=== PATIENT | male | born 1945 | race Caucasian/White ===

== ENCOUNTER 2022-07-29 15:24 | Emergency (ER) | payer MEDICARE, SELFPAY ==
[2022-07-29] VITALS (23 sets, daily range): BP systolic 97–156; BP diastolic 54–97; PULSE 71–98; RESP 13–35; O2SAT 86–96; BMI 28.5
--- NOTE | 2022-07-29 15:36 | ED.GENADUL1 ---
Documented by User: Selma Sheffield MD 07/30/22 08:23 HPI - General Adult General Chief complaint: Abdominal Pain Time Seen by Provider: 07/29/22 15:35 History of Present Illness HPI narrative: Patient presents to emergency department complaining of abdominal pain. Patient states his had pain to his abdomen diffusely for the last 3 weeks. It started in his left lower quadrant. States he has a history of pancreatitis and this feels like when he had pancreatitis in the past. Patient states he also had a cholecystectomy in 2013. Pain is sharp and is diffuse. He denies any fever, chills. Denies any flank pain hematuria, dysuria. denies any headache, chest, shortness of breath. Denies any upper respiratory infection symptoms. 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 During that time he was followed by Dr. Karan herbert. He was discharged home on liquids. Patient had an echo and ROEL to rule out arterial thrombus as a source of emboli but nothing was found during that mission. Patient denies any cough.She denies any lower extremity edema, or cramping. He denies any trauma. He has not taken anything at home for pain. Related Data Home Medications Medication Instructions Recorded Confirmed Nitro 07/29/22 allopurinol 100 mg tablet 100 mg PO DAILY 07/29/22 07/29/22 apixaban 5 mg tablet (Eliquis) 5 mg PO Q12H 07/29/22 07/29/22 furosemide 20 mg tablet (Lasix) 10 mg PO DAILY 07/29/22 07/29/22 insulin aspart U-100 100 unit/mL 1 sliding scale dose subcut 07/29/22 07/29/22 (3 mL) subcutaneous pen (Novolog USEASDIRECTD FlexPen U-100 Insulin aspart) insulin degludec 100 unit/mL (3 38 unit subcut DAILY 07/29/22 07/29/22 mL) subcutaneous pen (Tresiba FlexTouch U-100 insulin) levothyroxine 175 mcg capsule 175 mcg PO DAILY 07/29/22 07/29/22 zebgci-lztnqptp-vwqbjyb 1 cap PO QID 07/29/22 07/29/22 40,000-126,000-168,000 unit capsule, delay rel (Zenpep) magnisium oxide 07/29/22 metoprolol tartrate 25 mg tablet 25 mg PO DAILY 07/29/22 07/29/22 pantoprazole 40 mg granules 40 mg PO BID 07/29/22 07/29/22 delayed-release for susp in packet prednisone 10 mg tablet 10 mg PO DAILY 07/29/22 07/29/22 sacubitril 24 mg-valsartan 26 mg 1 tab PO BID 07/29/22 07/29/22 tablet (Entresto) spironolactone 25 mg tablet 25 mg PO DAILY 07/29/22 07/29/22 sucralfate 1 gram tablet (Carafate) 1 g PO TID 07/29/22 07/29/22 tamsulosin 0.4 mg capsule (Flomax) 0.4 mg PO DAILY 07/29/22 07/29/22 Allergies Allergy/AdvReac Type Severity Reaction Status Date / Time minocycline [From Minocin] Allergy Severe Verified 07/29/22 15:44 Review of Systems ROS Status of ROS 10 or more systems reviewed and unremarkable except as noted in history and below Exam Narrative Exam Narrative: Nurses notes and vital signs reviewed and patient is not hypoxic. General: Chronically ill, appears in pain but is not in any distress. Skin: Warm, dry, no pallor noted. No Rash Head: Normocephalic, atraumatic. Neck: Supple, non-tender. Eye: Pupils are equal, round and EOMI. No scleral icterus. Ears, Nose, Mouth, and Throat: TM clear, no posterior oropharynx erythema or nasal mucosal hypertrophy, uvula is mid-line Oral mucosa is moist Cardiovascular: Regular Rate and Rhythm without murmur, gallop or rub. Respiratory: No accessory muscle use or respiratory distress. Lungs Occasional rhonchi, Otherwise clear Chest Wall: no tenderness Back: No midline thoracic or lumbar vertebral tenderness. No CVA tenderness Musculoskeletal: normal ROM, no calf or popliteal tenderness, no lower extremity edema/swelling GI: Obese,Abdomen is soft, non-distended. Normal bowel sounds. Moderate diffuse tenderness to palpation w rebound, no guarding, or rigidity noted. Neurological: A&O x4. No cranial nerve dysfunction observed. No truncal ataxia. Moves all extremities. Sensation intact. Psychiatric: Cooperative and interactive. . Constitutional Vital Signs - 24 hr 07/29/22 16:15 07/29/22 16:45 07/29/22 17:00 Pulse Rate 84 83 81 Respiratory Rate 24 23 22 Blood Pressure 129/64 H 156/74 H 118/77 Pulse Oximetry 95 96 95 07/29/22 17:15 07/29/22 17:15 07/29/22 17:30 Pulse Rate 88 88 94 H Respiratory Rate 23 35 H 24 Blood Pressure 137/68 H 137/68 H 146/80 H Pulse Oximetry 86 L 94 L 93 L 07/29/22 17:45 07/29/22 18:00 07/29/22 18:15 Pulse Rate 88 98 H 82 Respiratory Rate 23 22 33 H Blood Pressure 134/82 H 126/67 H 118/54 L Pulse Oximetry 93 L 95 90 L 07/29/22 18:30 07/29/22 18:45 07/29/22 18:45 Pulse Rate 84 82 82 Respiratory Rate 18 20 15 Blood Pressure 97/66 127/68 H 127/68 H Pulse Oximetry 91 L 92 L 93 L 07/29/22 19:00 07/29/22 19:15 07/29/22 19:15 Pulse Rate 81 84 87 Respiratory Rate 14 27 H 23 Blood Pressure 120/67 H 119/66 119/66 Pulse Oximetry 93 L 94 L 95 07/29/22 19:30 07/29/22 19:45 07/29/22 19:45 Pulse Rate 89 92 H 81 Respiratory Rate 22 22 21 Blood Pressure 139/82 H 143/85 H 143/85 H Pulse Oximetry 96 94 L 95 07/29/22 20:01 07/29/22 20:06 07/29/22 20:06 Pulse Rate 85 75 83 Respiratory Rate 21 20 23 Blood Pressure 142/76 H Pulse Oximetry 94 L 96 07/29/22 20:15 07/29/22 20:30 07/29/22 20:30 Pulse Rate 74 71 77 Respiratory Rate 13 18 20 Blood Pressure 121/71 H 125/63 H 125/63 H Pulse Oximetry 94 L 95 94 L 07/29/22 20:45 07/29/22 21:00 07/29/22 21:15 Pulse Rate 74 80 72 Respiratory Rate 16 25 H 21 Blood Pressure 114/62 120/60 H 133/66 H Pulse Oximetry 94 L 94 L 93 L 07/29/22 21:31 07/29/22 21:31 07/29/22 21:45 Pulse Rate 74 80 Respiratory Rate 29 H 22 Blood Pressure 111/68 111/68 128/97 H Pulse Oximetry 93 L 93 L Course Vital Signs Vital signs: Vital Signs Pulse Rate 84 07/29/22 16:15 Respiratory Rate 24 07/29/22 16:15 Blood Pressure 129/64 H 07/29/22 16:15 Pulse Oximetry 95 07/29/22 16:15 Pulse Rate 80 07/29/22 21:31 Respiratory Rate 22 07/29/22 21:31 Blood Pressure 128/97 H 07/29/22 21:45 Pulse Oximetry 93 L 07/29/22 21:31 Medical Decision Making MDM Narrative Medical decision making narrative: Patient had 2 IVs established. He was given Dilaudid and Zofran for pain. He was given Protonix 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 A radiologist called to discuss with me that the patient also has perforated duodenal or gastric ulcer with an abscess. There is no air under the diaphragm. The patient was started on Zosyn after my discussion with the radiologist. Patient was discussed with Dr. Sidhu surgeon lunch wagon operator at [facility] who has accepted the patient in transfer. We discussed giving the patient case trauma and Dr. field the ICU pharmacist in charge owner called and the patient was also discussed with him. They're awaiting a bed to transfer the patient to the ground. If there is point to be ambulating with ground transportation the patient will call via flight. Patient will be signed out to Dr. Traore awaiting transfer to [facility]. All of the transfer forms were filled and completed. Medical Records Medical records reviewed: Yes I reviewed the patient's medical records Lab Data Lab results reviewed: Yes I reviewed the patient's lab results Labs: Lab Results 07/29/22 07/29/22 Range/Units 15:05 19:46 WBC 13.9 H (4.0-11.0) 10^3/uL RBC 4.96 (4.70-6.10) 10^6/uL Hgb 13.9 L (14.0-18.0) g/dL Hct 44.3 (42.0-54.0) % MCV 89.3 (80.0-94.0) fL MCH 28.0 (25.9-34.0) pg MCHC 31.4 (29.9-35.2) g/dL RDW 15.6 H (11.0-15.0) % Plt Count 401 (150-450) 10^3/uL MPV 10.7 (9.5-13.5) fL Neut % (Auto) 81.5 H (43.0-75.0) % Lymph % (Auto) 7.2 L (20.5-60.0) % [place] % (Auto) 8.6 (1.7-12.0) % Eos % (Auto) 1.2 (0.9-7.0) % Baso % (Auto) 0.6 (0.2-2.0) % Neut # (Auto) 11.3 H (1.4-6.5) 10^3/uL Lymph # (Auto) 1.0 L (1.2-3.8) 10^3/uL [place] # (Auto) 1.2 H (0.3-0.8) 10^3/uL Eos # (Auto) 0.2 (0.0-0.7) 10^3/uL Baso # (Auto) 0.1 (0.0-0.1) 10^3/uL Abs Immat Gran (auto) 0.12 H (0.00-0.03) 10^3/uL Imm/Tot Granulo (auto) 0.9 H (0.0-0.5) % Sodium 136 (136-145) mmol/L Potassium 3.8 (3.5-5.1) mmol/L Chloride 99 (98-107) mmol/L Carbon Dioxide 28.4 (21.0-32.0) mmol/L Anion Gap 12.4 BUN 19.0 H (7.0-18.0) mg/dL Creatinine 1.18 (0.70-1.30) mg/dL Est GFR ( Amer) >60 (>=60) Est GFR (Non-Af Amer) 60 (>=60) BUN/Creatinine Ratio 16.1 Glucose 157 H (74-106) mg/dL Lactate 1.9 (0.4-2.0) mmol/L Calcium 9.0 (8.5-10.1) mg/dL Total Bilirubin 0.4 (0.2-1.0) mg/dL AST 17 (15-37) U/L ALT 28 (16-63) U/L Alkaline Phosphatase 77 (46-116) U/L Troponin I High Sens 9.3 (4.0-76.1) pg/mL Total Protein 7.3 (6.4-8.2) g/dL Albumin 3.1 L (3.4-5.0) g/dL Globulin 4.2 g/dL Albumin/Globulin Ratio 0.7 Lipase 438.0 H (73.0-393.0) U/L POC Glucose 169 H (74-106) mg/dL ECG Data Attestation: I personally reviewed and interpreted this ECG as follows: Critical Care Time Critical Care Time Attestation: Critical Care Time: 60 minutes, critical care time is separate from any procedures that are performed. The following was considered in the determination of critical care but not limited to the level medical decision-making, intensive cardiac and/or respiratory monitor, frequent vital sign monitoring, evaluation of laboratory studies, evaluation of a radiographic studies, oxygen monitoring and constant monitoring. Discharge Plan Discharge Chief Complaint: Abdominal Pain Clinical Impression: Aneurysm, splenic artery, Intra-abdominal abscess, Infarction of spleen, Perforated duodenal ulcer Patient Disposition: [facility] Time of Disposition Decision: 18:24 Discharge location: [facility] Condition: Good Mode of Transportation: Life Flight Discharge Date/Time: 07/29/22 22:05 Documented by User: Gideon Traore MD 07/30/22 06:45 HPI - General Adult General Chief complaint: Abdominal Pain Time Seen by Provider: 07/29/22 15:35 Related Data Home Medications Medication Instructions Recorded Confirmed Nitro 07/29/22 allopurinol 100 mg tablet 100 mg PO DAILY 07/29/22 07/29/22 apixaban 5 mg tablet (Eliquis) 5 mg PO Q12H 07/29/22 07/29/22 furosemide 20 mg tablet (Lasix) 10 mg PO DAILY 07/29/22 07/29/22 insulin aspart U-100 100 unit/mL 1 sliding scale dose subcut 07/29/22 07/29/22 (3 mL) subcutaneous pen (Novolog USEASDIRECTD FlexPen U-100 Insulin aspart) insulin degludec 100 unit/mL (3 38 unit subcut DAILY 07/29/22 07/29/22 mL) subcutaneous pen (Tresiba FlexTouch U-100 insulin) levothyroxine 175 mcg capsule 175 mcg PO DAILY 07/29/22 07/29/22 kgawfe-ynfemvio-ndwsese 1 cap PO QID 07/29/22 07/29/22 40,000-126,000-168,000 unit capsule, delay rel (Zenpep) magnisium oxide 07/29/22 metoprolol tartrate 25 mg tablet 25 mg PO DAILY 07/29/22 07/29/22 pantoprazole 40 mg granules 40 mg PO BID 07/29/22 07/29/22 delayed-release for susp in packet prednisone 10 mg tablet 10 mg PO DAILY 07/29/22 07/29/22 sacubitril 24 mg-valsartan 26 mg 1 tab PO BID 07/29/22 07/29/22 tablet (Entresto) spironolactone 25 mg tablet 25 mg PO DAILY 07/29/22 07/29/22 sucralfate 1 gram tablet (Carafate) 1 g PO TID 07/29/22 07/29/22 tamsulosin 0.4 mg capsule (Flomax) 0.4 mg PO DAILY 07/29/22 07/29/22 Allergies Allergy/AdvReac Type Severity Reaction Status Date / Time minocycline [From Minocin] Allergy Severe Verified 07/29/22 15:44 Exam Constitutional Vital Signs - 24 hr 07/29/22 16:15 07/29/22 16:45 07/29/22 17:00 Pulse Rate 84 83 81 Respiratory Rate 24 23 22 Blood Pressure 129/64 H 156/74 H 118/77 Pulse Oximetry 95 96 95 07/29/22 17:15 07/29/22 17:15 07/29/22 17:30 Pulse Rate 88 88 94 H Respiratory Rate 23 35 H 24 Blood Pressure 137/68 H 137/68 H 146/80 H Pulse Oximetry 86 L 94 L 93 L 07/29/22 17:45 07/29/22 18:00 07/29/22 18:15 Pulse Rate 88 98 H 82 Respiratory Rate 23 22 33 H Blood Pressure 134/82 H 126/67 H 118/54 L Pulse Oximetry 93 L 95 90 L 07/29/22 18:30 07/29/22 18:45 07/29/22 18:45 Pulse Rate 84 82 82 Respiratory Rate 18 20 15 Blood Pressure 97/66 127/68 H 127/68 H Pulse Oximetry 91 L 92 L 93 L 07/29/22 19:00 07/29/22 19:15 07/29/22 19:15 Pulse Rate 81 84 87 Respiratory Rate 14 27 H 23 Blood Pressure 120/67 H 119/66 119/66 Pulse Oximetry 93 L 94 L 95 07/29/22 19:30 07/29/22 19:45 07/29/22 19:45 Pulse Rate 89 92 H 81 Respiratory Rate 22 22 21 Blood Pressure 139/82 H 143/85 H 143/85 H Pulse Oximetry 96 94 L 95 07/29/22 20:01 07/29/22 20:06 07/29/22 20:06 Pulse Rate 85 75 83 Respiratory Rate 21 20 23 Blood Pressure 142/76 H Pulse Oximetry 94 L 96 07/29/22 20:15 07/29/22 20:30 07/29/22 20:30 Pulse Rate 74 71 77 Respiratory Rate 13 18 20 Blood Pressure 121/71 H 125/63 H 125/63 H Pulse Oximetry 94 L 95 94 L 07/29/22 20:45 07/29/22 21:00 07/29/22 21:15 Pulse Rate 74 80 72 Respiratory Rate 16 25 H 21 Blood Pressure 114/62 120/60 H 133/66 H Pulse Oximetry 94 L 94 L 93 L 07/29/22 21:31 07/29/22 21:31 07/29/22 21:45 Pulse Rate 74 80 Respiratory Rate 29 H 22 Blood Pressure 111/68 111/68 128/97 H Pulse Oximetry 93 L 93 L Course Vital Signs Vital signs: Vital Signs Pulse Rate 84 07/29/22 16:15 Respiratory Rate 24 07/29/22 16:15 Blood Pressure 129/64 H 07/29/22 16:15 Pulse Oximetry 95 07/29/22 16:15 Pulse Rate 80 07/29/22 21:31 Respiratory Rate 22 07/29/22 21:31 Blood Pressure 128/97 H 07/29/22 21:45 Pulse Oximetry 93 L 07/29/22 21:31 Medical Decision Making Medical Records Medical records narrative: patient accepted at [facility]. Ground transfer. patient remained stable. Did require additional dosage of Dilaudid prior to discharge. Discharge diagnosis as per Dr Sheffield Lab Data Labs: Lab Results 07/29/22 07/29/22 Range/Units 15:05 19:46 WBC 13.9 H (4.0-11.0) 10^3/uL RBC 4.96 (4.70-6.10) 10^6/uL Hgb 13.9 L (14.0-18.0) g/dL Hct 44.3 (42.0-54.0) % MCV 89.3 (80.0-94.0) fL MCH 28.0 (25.9-34.0) pg MCHC 31.4 (29.9-35.2) g/dL RDW 15.6 H (11.0-15.0) % Plt Count 401 (150-450) 10^3/uL MPV 10.7 (9.5-13.5) fL Neut % (Auto) 81.5 H (43.0-75.0) % Lymph % (Auto) 7.2 L (20.5-60.0) % Columbia % (Auto) 8.6 (1.7-12.0) % Eos % (Auto) 1.2 (0.9-7.0) % Baso % (Auto) 0.6 (0.2-2.0) % Neut # (Auto) 11.3 H (1.4-6.5) 10^3/uL Lymph # (Auto) 1.0 L (1.2-3.8) 10^3/uL Columbia # (Auto) 1.2 H (0.3-0.8) 10^3/uL Eos # (Auto) 0.2 (0.0-0.7) 10^3/uL Baso # (Auto) 0.1 (0.0-0.1) 10^3/uL Abs Immat Gran (auto) 0.12 H (0.00-0.03) 10^3/uL Imm/Tot Granulo (auto) 0.9 H (0.0-0.5) % Sodium 136 (136-145) mmol/L Potassium 3.8 (3.5-5.1) mmol/L Chloride 99 (98-107) mmol/L Carbon Dioxide 28.4 (21.0-32.0) mmol/L Anion Gap 12.4 BUN 19.0 H (7.0-18.0) mg/dL Creatinine 1.18 (0.70-1.30) mg/dL Est GFR ( Amer) >60 (>=60) Est GFR (Non-Af Amer) 60 (>=60) BUN/Creatinine Ratio 16.1 Glucose 157 H (74-106) mg/dL Lactate 1.9 (0.4-2.0) mmol/L Calcium 9.0 (8.5-10.1) mg/dL Total Bilirubin 0.4 (0.2-1.0) mg/dL AST 17 (15-37) U/L ALT 28 (16-63) U/L Alkaline Phosphatase 77 (46-116) U/L Troponin I High Sens 9.3 (4.0-76.1) pg/mL Total Protein 7.3 (6.4-8.2) g/dL Albumin 3.1 L (3.4-5.0) g/dL Globulin 4.2 g/dL Albumin/Globulin Ratio 0.7 Lipase 438.0 H (73.0-393.0) U/L POC Glucose 169 H (74-106) mg/dL Discharge Plan Discharge Chief Complaint: Abdominal Pain Clinical Impression: Aneurysm, splenic artery, Intra-abdominal abscess, Infarction of spleen, Perforated duodenal ulcer Patient Disposition: [facility] Time of Disposition Decision: 18:24 Discharge location: [facility] Condition: Good Mode of Transportation: Life Flight Discharge Date/Time: 07/29/22 22:05
--- NOTE | 2022-07-29 15:40 | CT_ITS ---
[address] [address] Patient Name: CHARLIE FOOTE MRN: [id number] date: 1945 Sex: M Assigned Patient Location: ED.MAIN Current Patient Location: Accession/Order Number: [id number] Exam Date: 07/29/2022 16:30 Report Date: 07/29/2022 17:21 At the request of: ETHAN SHEFFIELD Procedure: CT abdomen pelvis w con CT abdomen pelvis w con, 07/29/2022 4:30 PM EDT INDICATION: abd pain COMPARISON: None. TECHNIQUE: Axial images of the abdomen and pelvis were obtained after the administration of IV contrast. Multiplanar reformatted images were generated and reviewed as needed. Dose reduction techniques were achieved by using automated exposure control and/or adjustment of mA and/or kV according to patient size and/or use of iterative reconstruction technique. FINDINGS: Subsegmental atelectasis at the lung base bilaterally with right basilar atelectasis and trace right pleural effusion. Cholecystectomy. Fatty replacement of the pancreas. 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 Moderate size subcapsular splenic hematoma. Symmetric nephrograms without evidence of obstruction. Simple right renal cortical cyst. No urolithiasis. Mild thickening at the dome of a collapsed urinary bladder. No perivesicular fat stranding. 3.5 cm infrarenal abdominal aortic aneurysm. No dissection. Bowel wall thickening, submucosal edema with adjacent fat stranding and fluid gastric antrum and duodenal bulb. Small foci of extraluminal air with 3.6 x 1.1 cm rim-enhancing collection adjacent to the gastric antrum and duodenal bulb. Mild hyperenhancement of the wall of a normal caliber common bile duct. No bowel obstruction. Normal appendix. Colonic diverticulosis. No free fluid in the pelvis. No mesenteric or retroperitoneal lymphadenopathy. Small fat-containing umbilical hernia. No acute fracture or dislocation. Spondylosis. IMPRESSION: 1. 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 2. Extensive inflammatory change with perforated ulcer from the gastric antrum or duodenal bulb with adjacent abscess. 3. Right basilar atelectasis with trace right pleural effusion. 4. 3.5 cm infrarenal abdominal aortic aneurysm. No dissection. 5. Diverticulosis coli. Critical results were NOTIFIED by TELEPHONE BY Dr. Ryan Mo MD to Dr. Sheffield At 07/29/2022 5:21 PM EDT. Electronically authenticated by: RYAN MO Date: 07/29/2022 17:21
--- NOTE | 2022-07-29 15:42 | PC.NURSE ---
pt arrived during downtime and paper chart started for triage and assessment
[2022-07-29 15:57] LABS: Basophils Absolute Auto 0.1 10^3/uL (0.0-0.1); Basophils Percent Auto 0.6 % (0.2-2.0); Eosinophils Absolute Auto 0.2 10^3/uL (0.0-0.7); Eosinophils Percent Auto 1.2 % (0.9-7.0); Hematocrit 44.3 % (42.0-54.0); Hemoglobin 13.9 g/dL (14.0-18.0); Immature Granulocytes Abs Auto 0.12 10^3/uL (0.00-0.03); Immature Granulocytes Pct Auto 0.9 % (0.0-0.5); Lymphocytes Percent Auto 7.2 % (20.5-60.0); Mean Corpuscular HGB Conc 31.4 g/dL (29.9-35.2); Mean Corpuscular Volume 89.3 fL (80.0-94.0); Mean Platelet Volume 10.7 fL (9.5-13.5); Monocytes Absolute Auto 1.2 10^3/uL (0.3-0.8); Monocytes Percent Auto 8.6 % (1.7-12.0); Neutrophils Absolute Auto 11.3 10^3/uL (1.4-6.5); Neutrophils Percent Auto 81.5 % (43.0-75.0); Platelet Count 401 10^3/uL (150-450); Red Blood Count 4.96 10^6/uL (4.70-6.10); Red Cell Distribution Width 15.6 % (11.0-15.0); White Blood Count 13.9 10^3/uL (4.0-11.0)
[2022-07-29] MEDS: HYDROMORPHONE HCL 2 MG/ML VIAL 1 MG IV ×2 (16:09→18:19)
[2022-07-29 16:15] LABS: Lactate/Lactic Acid 1.9 mmol/L (0.4-2.0)
[2022-07-29 16:16] LABS: Anion Gap 12.4; BUN Creatinine Ratio 16.1; Carbon Dioxide 28.4 mmol/L (21.0-32.0); Chloride 99 mmol/L (98-107); Estimated GFR (African America >60 (>=60); Estimated GFR (Non-African Ame 60 (>=60); Glucose 157 mg/dL (74-106); Potassium 3.8 mmol/L (3.5-5.1); Sodium 136 mmol/L (136-145)
[2022-07-29 16:17] LABS: Alanine Aminotransferase 28 U/L (16-63); Albumin Globulin Ratio 0.7; Albumin Level 3.1 g/dL (3.4-5.0); Alkaline Phosphatase 77 U/L (46-116); Aspartate Amino Transferase 17 U/L (15-37); Bilirubin Total 0.4 mg/dL (0.2-1.0); Globulin 4.2 g/dL; Total Protein 7.3 g/dL (6.4-8.2)
[2022-07-29 16:18] LABS: Troponin I High Sensitivity 9.3 pg/mL (4.0-76.1)
[2022-07-29] MEDS: PANTOPRAZOLE SODIUM 40 MG VIAL IV (17:58)
[2022-07-29] MEDS: PIPERACILLIN SODIUM/TAZOBACTAM 4.5 GM in 0.9 % SODIUM CHLORIDE 50 ML IV (17:59)
[2022-07-29] MEDS: ONDANSETRON PF 4 MG/2 ML VIAL IV ×2 (18:19→21:45)
[2022-07-29 19:47] LABS: Glucometer 169 mg/dL (74-106)
[2022-07-29] MEDS: HYDROMORPHONE HCL 1 MG/ML CARTRIDGE (21:45)
== END 2022-07-29 22:05 | disposition short-term general hospital (02) ==
PROVIDERS: Emergency Medicine; Emergency Provider Internal Medicine; PCP Family Medicine
DX: I72.8 Aneurysm of other specified arteries (principal); D73.5 Infarction of spleen; K65.1 Peritoneal abscess; K26.5 Chronic or unspecified duodenal ulcer with perforation; E11.9 Type 2 diabetes mellitus without complications; M35.3 Polymyalgia rheumatica; I10 Essential (primary) hypertension; I25.10 Atherosclerotic heart disease of native coronary artery without angina pectoris; Z79.899 Other long term (current) drug therapy; Z79.890 Hormone replacement therapy; Z79.4 Long term (current) use of insulin
CPT/HCPCS: 36415; 36416; 74177; 80053; 83605; 83690; 84484; 85025; 96365; 96367; 96375; 96376; 99285; J1170; J7168; Q9967

== ENCOUNTER 2024-10-31 09:18 | Outpatient (OUT) | payer MEDICARE, SELFPAY ==
--- OUTSIDE RECORDS SUMMARY | 2020-05-15 11:15 | XMS_ITS | Continuity of Care Document ---
Author Organization [facility] Address [address] [place] [address] Phone Care Team Providers Care Edge Beader Name Role Phone Chau Govea Unavailable Unavailable Procedures Procedure Date Moderna COVID Vaccine Admin Dose 2 Moderna COVID-19 Vaccine Moderna COVID Vaccine Admin Dose 1 Moderna COVID-19 Vaccine Advance Directives Directive Yes / No Effective Date File Name No Information Encounters Encounter Description Practice Location Reason(s) For Visit Diagnoses Date Provider Providers Copied on Encounter [facility], [address] [place] [address], [id number], tel:[phone] COVID [facility] No Information Keshia Arrieta. [address], [place], [id number], [place]. tel:[phone] [facility], [address] [place] [address], [id number], tel:[phone] COVID [facility] No Information Keshia Arrieta. [address], [place], [id number], [place]. tel:[phone] Family History Family Member Type Diagnosis Age At Onset No Information Immunizations Vaccine Date Status Comments Moderna COVID administered Source: New Im munization Record Moderna COVID administered Source: New Im munization Record Payers Payer name Insurance type Covered libertarian ID Authoriza tion(s) Medicare PPS MB [id number] Medicare PPS MB [id number] Medicare PPS MB [id number] Aetna Supplement Medicare CI [id number] Social History Type Description Quantity Date Captured Comments Alcohol Use Details Unknown Caffeine Use Details Unknown Tobacco Use Status No Information Smoking Status No Information Sex Male Sexual Orientation Straight or heterosexual Gender Identity Male Chief Complaint And Reason For Visit No Information Reason For Referral Reason For Referral No Information History Of Present Illness Encounter Date Complaint History Of Prese nt Illness No Information Functional Status Date Functional Assessmen t No Information Instructions Date Instruction Additional Infor mation No Information Assessments Type Assessment Date No Information Patient Care Teams Name Effective Dates (start - stop) Status Members No Information
--- OUTSIDE RECORDS SUMMARY | 2024-10-19 13:55 | XMS_ITS | Encounter Summary ---
Author Organization [facility] [facility] [employer] Address [id number] [place] [address] Care Team Providers Care Microbiology Professor Name Role Phone KamsophieTrey DO Primary Care Provider [phone] Reason for Visit * Reason Comments Leg Pain Bilateral leg and bu ttock pain Encounter Details Date Type Department Care Team (Late st Contact Info) Description 10/19/2024 1:55 PM EDT Office Visit [facility] [place] [address] [facility] [address] [place] [address] Left without seen Social History Tobacco Use Types Packs/Day Years Used Date Smoking Tobacco: Former Smokeless Tobacco: Never Tobacco Cessation:Counseling Given: Not Answered Comments:Quit 1998 Alcohol Use Standard Drinks/Week Comments No 0 (1 standard drink = 0.6 oz pur e alcohol) Childcare Answer Date Recorded Childcare Unknown 08/04/2018 Employment Answer Date Recorded Employment Unknown 08/04/2018 Hunger Screening Answer Date Recorded Within the past 12 months we worried whether our food would run out before we got money to buy more. Never True 10/19/2024 Within the past 12 months th e food we bought just didn't last and we didn't have money to get more. Never True 10/19/2024 Purpose - Life Answer Date Recorded Purpose and direction in life Unknown Sex and Gender Information Value Date Recorded Sex Assigned at Not on file Legal Sex Male 8:16 AM EDT Gender Identity Not on file Sexual Orientation Not on file documented as of this encounter Last Filed Vital Signs Vital Sign Reading Time Taken Comments Blood Pressure 150/71 10/19/2024 2:00 PM EDT Pulse 92 10/19/2024 2:00 PM EDT Temperature 36.2 C (97.1 F) 10/19/2024 2:00 PM EDT Respiratory Rate 15 10/19/2024 2:00 PM EDT Oxygen Saturation 98% 10/19/2024 2:00 PM EDT Inhaled Oxygen Concentration - - Weight 96.2 kg (212 lb) 10/19/2024 2:00 PM EDT Height 188 cm (6' 2 ) 10/19/2024 2:00 PM EDT Body Mass Index 27.22 10/19/2024 2:00 PM EDT documented in this encounter Plan of Treatment Not on file documented as of this encounter Visit Diagnoses Not on filedocumented in this encounter Care Teams Microbiology Professor Relationship Specialty Start Date End Date Trey Berkowitz DO [address] [place] [address] PCP - General 07/28/17 documented as of this encounter
--- OUTSIDE RECORDS SUMMARY | 2024-10-19 14:30 | XMS_ITS | Encounter Summary ---
Author Organization [facility] tem Address [id number] [place] [address] Care Team Providers Care Veneer Jointer Offbearer Name Role Phone Trey Berkowitz DO Primary Care Provider [phone] Reason for Referral * Diagnostic Imaging (Routine) - Authorized Specialty Diagnoses / Procedures Referred By Contkaiser t Referred To Contact Radiology Diagnoses Bilateral sciatica Neurogenic claudication Lumbar spondylosis History of back surgery Procedures MR lumbar spine with and without contrast Juanita Perez APRN-CNP [address] [place] [address] Phone: tel: fax: Referral ID Status Reason Start Date Expiration Date V isits Requested Visits Authorized [id number] Authorized 10/19/2024 10/19/2025 1 1 Reason for Visit * Reason Comments Consult New patient, lumbar, xrays in chart Encounter Details Date Type Department Care Team (Late st Contact Info) Description 10/19/2024 2:30 PM EDT [facility] [address] [place] [address] Juanita Perez APRN-CNP [address] [place] [address] Bilateral sciatica (Primary Dx); Neurogenic claudication; Lumbar spondylosis; History of back surgery; Anxiety about health Social History Tobacco Use Types Packs/Day Years [...] Time Taken Comments Blood Pressure 150/71 10/19/2024 2:29 PM EDT Pulse 92 10/19/2024 2:29 PM EDT Temperature - - Respiratory Rate - - Oxygen Saturation - - Inhaled Oxygen Concentration - - Weight 96.2 kg (212 lb) 10/19/2024 2:29 PM EDT Height 188 cm (6' 2 ) 10/19/2024 2:29 PM EDT Body Mass Index 27.22 10/19/2024 2:29 PM EDT documented in this encounter Patient Instructions * Patient Instructions* Juanita Perez APRN-ACCOUNT SERVICES ANALYST - 10/19/2024 2:30 PM EDT When your neck or back is hurting, it can affect everything you do. Whether you've had a recent minor injury or your pain has slowly developed over time, there are some things you can do at home to help ease the pain. In addition to home remedies, there are many conservative treatments to try before surgery is considered. In fact, some people aren't good candidates for surgery. Non- surgical treatments may help to improve your pain and include: physical therapy, home exercise program, prescription medications and or pain management. Here are some tips for managing spine pain at home: Keep moving. When you're in pain, the last thing you want to do is move, but this will make the pain worse over time. Make time each day for some physical activity to keep joints lubricated, muscles engaged and blood flowing. Use proper body mechanics while lifting and moving. Improve your posture. Whether you're seated or standing, be mindful of having good posture throughout the day. Focus on keeping your spine in a neutral position and keeping it supported. Utilize heat and ice. Alternate heat and ice on the affected area. Heat will help loosen tight muscles and increase blood flow, while ice will help reduce inflammation. Apply each for 15 to 20 minutes before switching to the other temperature. Take ukmm-dnp-bepcuix medicines. The use of arzf-vku-ebmueqa medications such as anti-inflammatory (Ibuprofen, Aleve, Naproxen) and or Tylenol/Acetaminophen, creams, ointments and patches can help relieve pain. Do not take tylenol if you have liver disease. Do not take ibuprofen if you have a history of stomach ulcers or acid reflux, heart disease, or are on anticoagulation therapy, or if you are. TENS unit. Transcutaneous electrical nerve stimulation (TENS) uses electrodes to distribute a mild electrical current. This helps block pain signals. Complementary therapies. Therapies such as massage and acupuncture can help stimulate blood flow, which is essential for a healthy spine. They can also release endorphins and relax tense muscles. If you smoke, quit smoking. Nicotine has many negative effects on the body, including inflammation and constricting blood vessels. This reduces the amount of blood and nutrients that are distributed throughout the body, including the spine. Maintaining a healthy weight. Excess weight can impact the natural curve of the spine, press on theshock-absorbing discs between the vertebrae and cause them to become herniated, pinched, or cause pressure on the nerves that travel through the central canal, and or strain the muscles and ligamentsthat support your back. It can also lead to the development of arthritis in your low back. Common conditions that can contribute to neck, back or spine pain include: Degenerative disc disease: Discs are the cushions between our vertebrae that act as shock absorbers. As we age, our discs begin to lose fluid content, wear away and shrink. As the disc shrinks and our joints lose the fluid that lubricates them, the bones can start to rub together causing pain and bulging discs. A herniated disc occurs when the material inside the disc leaks out. This can be caused by wear and tear or injury. The disc material can put pressure on the spinal canal and irritate your spinal nerves. This can cause pain, numbness and or weakness. Facet joint arthritis: Arthritis that affects the joints that are located on the back of the spine and assist with bending, twisting and alignment. Spinal stenosis: Herniated or bulging discs and degeneration can cause a narrowing of the spinal canal, which can puts pressure on the spinal cord and other nerves. Compression fractures: Typically, this is a result of age-related degeneration or osteoporosis. Thespinal vertebrae get small cracks, causing them to collapse. Radiculopathy: Commonly known as a pinched nerve, this condition may cause numbness, tingling, painor weakness in your arms of legs. Sciatica is one example of this where the sciatic nerve in the low back causes symptoms down the back of the legs. Pinched nerves can be caused by any of the conditions listed above. When to notify your respiratory care specialist: If your neck pain or back pain does not improve or worsens. If you develop new or worsening arm or leg pain or numbness. If you develop new or worsening weakness. (If it is severe where you cannot lift your extremity youmay also need to go to the emergency room) If you have develop Cauda equina symptoms: difficulty controlling your bowel or bladder (leaking without having and urge or difficulty emptying). It may also cause numbness or tingling in your genital or rectal region. This may also require a trip to the emergency room. If you develop balance issues, feel unsteady on your feet or clumsiness of the arms, hands or legs this may be a sign of myelopathy or compression of your spinal cord. If you do not have a PCP, call [phone] to schedule a new patient appointment. documented in this encounter Progress Notes * DESMOND Corona - 10/19/2024 2:30 PM EDT Images from the original note were not included. [facility] [address] [facility] [address] Subjective Patient ID: Chau Rae is a 79 y.o. male. Encounter Date: 10/19/2024 CHIEF COMPLAINT Chief Complaint Patient presents with Consult New patient, lumbar, xrays in chart HISTORY OF PRESENT ILLNESS HPI Chau Rae is a new patient to [facility]. He had prior lumbar surgery by Dr Ramires in 2008. He was hospitalized in summer over 6 times for 60 days and was on TPN. He started cardiac rehab to regain strength in January,. While going through rehab he developed pain in his sacrum, buttocks and down the back of his thighs that progressively worsened and he stopped rehab in May,. His symptoms have continued. He also fell onto his left shoulder 09/18/2024 which increased hissymptoms and he has left shoulder pain. He reports as soon as he stands up his pain starts. He can only walk less than 50 yards before needing to sit down. Sitting is still painful. Laying down feelsbest. He does feel weak in his legs but his pain impairs his function the most. He denies cauda equina symptoms. Location: sacrum down to tailbone -chronic tolerable neck pain without arm radiation Radiation: bilateral buttocks into posterior thighs, not past knee's Numbness/Paraesthesias:neuropathy in feet Description: bad ache Exacerbating factors: walking < 50 yards, standing is immediately painful, sitting still painfulbut not as bad, lifting, bending Alleviating Factors: laying Functional impairment: severe Severity: rates the pain 5/10 at its best and 9/10 at its worst. Duration/Initial inciting event: Symptoms have been present since early 2023 started while going through cardiac rehab to regain strength (was hospitalized 60 days summer 2022), fell onto left shoulder 09/18/24 which intensified chronic symptoms Weakness: BUE, left shoulder due to recent injury Cauda equina/Myelopathy symptoms: patient denies new bowel/bladder dysfunction, saddle anesthesia or loss of coordination. He has felt off balance in last few months he thinks from his legs. 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 The patient symptoms are not associated with any concerning constitutional symptoms such as fever, rash, unexplained change in weight or appetite. There are no new night sweats. Patient denies history of illicit drug abuse/IV drug use. Current and prior evaluation and treatments: -Medication trials for this problem: tylenol prn, prednisone 5 mg, tramadol- causes constipation so he has not taken lately Patient is on Eliquis [facility] Kai Bustam[facility] - Alternative methods to treatment: heat -Physical therapy/Home exercise program (HEP): Cardiac rehab 01/2023-05/2023 could not tolerate due to back/leg pain -director of managed care: none -[facility] [place] [facility] right shoulder x 4, left hand x 1, right hand x 1, and right hand in 2019 no spine injections -Pertinent spine surgeries/previous consults: [address] Ramires Bilateral CTR [address] Ramires-epidurals and soft collar recommended -Pertinent comorbid conditions: type1 diabetes, CAD, thyroid cancer 2010, megaloblastic anemia due to B12 deficiency, prior splenic infarct/removal, severe polyneuropathy, mild to moderate left shoulder degeneration, polymyalgia rheumatica -Summary of spine imaging findings: -Lumbar: advanced spondylosis, straightened lordosis, L2-3 spondylolisthesis, sacroiliac DJD PERTINENT IMAGING/DIAGNOSTIC TESTING X-ray spine lumbar 6 views 10/06/2024 [facility] Postsurgical changes: Aneurysmal repair left upper quadrant. Bony alignment: Straightening. Mild scoliosis. Hypermobility: No bending imaging. Listhesis: Mild degenerative listhesis Fracture: None Degenerative changes: Extensive spondylosis and facet degeneration Soft tissues: Atherosclerosis Bony mineralization: Adequate Impression: Extensive multilevel degeneration. Mild degenerative listhesis. X-ray lumbar, sacrum/coccyx 08/04/2024 [facility] Findings: X-rays of the lumbar spine demonstrates straightening of the lumbar lordosis. Moderate severe intervertebral space narrowing and vacuum disc, L4-S1. Moderate intervertebral space narrowing and endplate osteophytosis L2-3 with anterolisthesis of L2 on L3 noted measuring 3 mm. Vertebral height is main tained. Multilevel facet arthropathy. X-ray of the sacrum and coccyx demonstrate no fracture -dislocation. Mizy-yu-gzcnvizk degenerative changes sacroiliac joints. No diastasis. Phleboliths identified. There are vascular calcifications. Within the lateral quadrant, suspect coil pack noted. Impression: No acute bony injury. Degenerative changes greatest lower lumbar spine. EMG NCS BLE 01/06/2024 [facility] These findings are consistent with the followin) A generalized process such as polyneuropathy, which is axonal loss in type and severe in degree electrically. 2) A superimposed radicular process can not be excluded based on this EDX evaluation BLE arterial PVR rest 08/04/2024 [facility] Ankle-brachial index on the right is normal and on the left is mildly abnormal. The waveforms by plethysmography are similar bilaterally with mild blunting. It is likely that there is at least mild peripheral vascular occlusive disease at rest in both lower extremities. MRI cervical 05/25/2017 [facility] Impression No spinal stenosis Mild to moderate cervical spondylosis, more pronounced at C5-6. Significant neuroforaminal encroachment at the right C3-4 and right C5-6. BEHAVIORAL SCREENING, RED/YELLOW FLAGS Elective Fusion Surgery: No Medical Marijuana/CBD use: No Daily MME: 0 [place] Disability Score- Back: 46% severe Multiple Surgeries?: No CCSM Screening: (negative) RED FLAGS Red Flags Fever: No Night Sweats: No Unintended Weight Loss: No History of Cancer: Yes Type of Cancer: thyroid 2011 Immunocompromised?: Diabetes (chronic steroids) Substance Abuse- Active: No Substance Abuse- Prior History: No Cauda Equina Symptoms: Sustained Bilatera Neurogenic Weakness Lower Extremities YELLOW FLAGS Yellow Flag Symptomatic Depression: No Active major thought disorder: No Excessive Narcotic Use/ MEW >30 per day: No Current average daily MEQ: 0 OARRS/MAPS Report Red Flags: Nothing Listed REVIEW OF SYSTEMS Review of Systems Constitutional: Negative for chills, diaphoresis, fever and unexpected weight change. Gastrointestinal: Fecal incontinence denied Genitourinary: Negative for difficulty urinating. Denies saddle anesthesia or bladder control issues Musculoskeletal: Positive for back pain, gait problem and neck pain. Neurological: Positive for weakness and numbness. Psychiatric/Behavioral: Negative for dysphoric mood and suicidal ideas. PHYSICAL EXAMINATION Objective Vitals: BP 150/71 Pulse 92 Ht 188 cm (6' 2 ) Wt 96.2 kg (212 lb) BMI 27.22 kg/m?? Physical Exam Constitutional: General: He is not in acute distress. Appearance: He is not ill-appearing, toxic-appearing or diaphoretic. Cardiovascular: Rate and Rhythm: Normal rate. Pulmonary: Effort: Pulmonary effort is normal. Musculoskeletal: Comments: No cervical, thoracic or lumbar spinous process tenderness. Mild bilateral SIJ tenderness. No gluteal or lateral hip tenderness. Glutes are very tense. Back ROM normal without increased pain unless noted otherwise: Flexion restricted to knees painful down legs Back extension mild sacral pain Rotation Stork test is negative Sacral thigh thrust negative SLR + bilateral S1 into calves MAGDA testing is negative right with sacral pain Log Roll Negative but mild sacral pain Muscle strength: 5/5 bilaterally unless noted otherwise: -Resisted scapular elevation -Deltoids -Shoulder abduction right 4+ -Shoulder adduction -Biceps/elbow flexion -Triceps/elbow extension -Wrist extension -Wrist flexion -First Dorsal Interosseous -Abductor Digiti Minimi -Hand grasps -Iliopsoas -Quadriceps -Hamstrings -Hip adductors -Hip abductors -Tibialis anterior -Tibialis posterior Standing on heels normal Standing on tip toes normal Neurological: Mental Status: He is alert. Motor: No weakness or pronator drift. Coordination: Romberg sign negative. Gait: Tandem walk (slight wobble but no loss of balance) normal. Deep Tendon Reflexes: Reflex Scores: Tricep reflexes are 1+ on the right side and 2+ on the left side. Bicep reflexes are 0 on the right side and 2+ on the left side. Brachioradialis reflexes are 2+ on the right side and 2+ on the left side. Patellar reflexes are 1+ on the right side and 1+ on the left side. Achilles reflexes are 1+ on the right side and 1+ on the left side. Comments: Durbin's negative Clonus negative Sensation equal and intact BLE The following portions of the patient's history were reviewed and updated as appropriate: allergies, current medications, past family history, past medical history, past social history, past surgicalhistory and problem list. ALLERGIES Allergies Allergen Reactions Minocycline Hcl Hives and Other (See Comments) MEDICATIONS Current Outpatient Medications: allopurinoL (ZYLOPRIM) 100 mg tablet, Take 1 tablet (100 mg total) by mouth., Disp: , Rfl: carvediloL (COREG) 6.25 mg tablet, Take 1 tablet (6.25 mg total) by mouth in the morning and 1 tablet (6.25 mg total) before bedtime., Disp: , Rfl: ELIQUIS 5 mg tablet, Take 1 tablet (5 mg total) by mouth., Disp: , Rfl: ENTRESTO 24-26 mg tablet, Take 1 tablet by mouth in the morning and 1 tablet before bedtime., Disp:, Rfl: FLUTICASONE PROPIONATE NASL, Administer 2 Inhalations into each nostril nightly., Disp: , Rfl: insulin degludec (TRESIBA FLEXTOUCH U-100) 100 unit/mL (3 mL) insulin pen, Inject under the skin., Disp: , Rfl: Lactobacillus rhamnosus GG (CULTURELLE) 10 billion cell capsule, Take 1 capsule by mouth in the morning., Disp: , Rfl: levothyroxine (SYNTHROID, LEVOTHROID) 175 MCG tablet, Take 1 tablet (175 mcg total) by mouth in themorning., Disp: , Rfl: lipase/protease/amylase (ZENPEP ORAL), Take 40,000 Units by mouth. 1-4 per day, take with each meal and snack, Disp: , Rfl: nitroglycerin (NITROSTAT) 0.4 MG SL tablet, Place 1 tablet (0.4 mg total) under the tongue every 5 (five) minutes as needed for chest pain., Disp: , Rfl: NovoLOG Flexpen U-100 Insulin 100 unit/mL (3 mL) insulin pen, in the morning and at noon and in theevening. Take with meals., Disp: , Rfl: ondansetron (ZOFRAN) 4 mg tablet, Take 1 tablet (4 mg total) by mouth every 6 (six) hours as needed., Disp: , Rfl: pantoprazole (PROTONIX) 40 mg EC tablet, Take 1 tablet (40 mg total) by mouth in the morning and 1 tablet (40 mg total) before bedtime., Disp: , Rfl: potassium chloride (K-TAB,KLOR-CON) 10 MEQ CR tablet, Take 1 tablet (10 mEq total) by mouth in the morning., Disp: , Rfl: predniSONE (DELTASONE) 5 mg tablet, TAKE 2 TABS BY MOUTH EVERY DAY OR DIRECTED, Disp: , Rfl: sucralfate (CARAFATE) 1 gram tablet, Take 1 tablet (1 g total) by mouth as needed., Disp: , Rfl: tamsulosin HCl (TAMSULOSIN ORAL), Take by mouth., Disp: , Rfl: torsemide (DEMADEX) 10 mg tablet, 1 tablet (10 mg total)., Disp: , Rfl: torsemide (DEMADEX) 20 mg tablet, Take 1 tablet (20 mg total) by mouth., Disp: , Rfl: traMADol (ULTRAM) 50 mg tablet, Take 1 tablet (50 mg total) by mouth every 6 (six) hours as needed for pain., Disp: , Rfl: traZODone (DESYREL) 50 mg tablet, TAKE 1/2 TABLET BY MOUTH ONCE DAILY AT BEDTIME NEEDED FOR SLEEP, Disp: , Rfl: TRESIBA FLEXTOUCH U-200 200 unit/mL (3 mL) insulin pen, Inject 42 Units under the skin nightly., Disp: , Rfl: diazePAM (VALIUM) 5 mg tablet, Take 1 tablet (5 mg total) by mouth See Admin Instructions. Take 1 tablet by mouth one hour prior to procedure, then remaining 1 tablet by mouth 15 minutes prior to procedure if needed., Disp: 2 tablet, Rfl: 0 ezetimibe-simvastatin (VYTORIN) 10-20 mg per tablet, Take 1 tablet by mouth nightly., Disp: , Rfl: insulin aspart SUBCUTANEOUS PUMP (NovoLOG) 100 UNIT/ML patient supplied pump, Inject under the skincontinuously. (Patient not taking: Reported on 10/19/2024), Disp: , Rfl: lisinopril (PRINIVIL,ZESTRIL) 10 mg tablet, Take 10 mg by mouth daily., Disp: , Rfl: magnesium oxide (MAG-OX) 400 mg tablet, Take 1 tablet (400 mg total) by mouth in the morning. (Patient not taking: Reported on 10/19/2024), Disp: , Rfl: metoclopramide (REGLAN) 10 mg tablet, Take 1 tablet (10 mg total) by mouth as needed., Disp: , Rfl: metoprolol succinate XL (TOPROL-XL) 25 mg 24 hr tablet, Take 25 mg by mouth daily., Disp: , Rfl: omeprazole (PriLOSEC) 20 mg capsule, Take 1 capsule (20 mg total) by mouth in the morning. (Patientnot taking: Reported on 10/19/2024), Disp: , Rfl: UNABLE TO FIND, Take by mouth nightly. Med Name: Relaxium-2 per night for sleep, Disp: , Rfl: (All medications reviewed and updated) PAST MEDICAL HISTORY Past Medical History: Diagnosis Date Aortic aneurysm abdominal Arthritis CAD (coronary artery disease) Cataract Diabetes mellitus ([facility]) Disease of thyroid gland Gallstones gallstone pancreatitis Heart burn History of blood transfusion History of thyroid cancer 2010 SOCIAL HISTORY Social History Occupational History Not on file Tobacco Use Smoking status: Former Smokeless tobacco: Never Tobacco comments: Quit 1998 Vaping Use Vaping status: Never Used Substance and Sexual Activity Alcohol use: No Drug use: Never Sexual activity: Defer SUMMARY/ PLAN Plan 1. Bilateral sciatica - MR lumbar spine with and without contrast; Future - X-ray spine lumbar flexion and extension only 2 to 3 views; Future 2. Neurogenic claudication - MR lumbar spine with and without contrast; Future 3. Lumbar spondylosis - MR lumbar spine with and without contrast; Future - X-ray spine lumbar flexion and extension only 2 to 3 views; Future 4. History of back surgery - MR lumbar spine with and without contrast; Future 5. Anxiety about health - diazePAM (VALIUM) 5 mg tablet; Take 1 tablet (5 mg total) by mouth See Admin Instructions. Take 1tablet by mouth one hour prior to procedure, then remaining 1 tablet by mouth 15 minutes prior to procedure if needed. Dispense: 2 tablet; Refill: 0 X-ray imaging reviewed with patient and . There is straightening of the normal lumbar lordosis.There is advanced multilevel disc space narrowing with endplate spurring and facet arthritis. Thereis minimal anterolisthesis at L2-3. There is also some degeneration in his sacroiliac joints. Patient reports pain in his sacrum down to tailbone and into his buttocks and posterior thighs but not in his low back. He has mild bilateral SIJ tenderness on exam. He has + S1 pain bilaterally withSLR. There is no weakness or sensory deficit and his reflexes are symmetric. He does not think he can tolerate PT and would prefer to just have surgery. I placed an MRI order to further evaluate and then will have Dr Ramires review. Recommendations Lumbar MRI w wo contrast due to prior surgery-[place] open MRI-[facility] sent. 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 I educated the patient on s/s and provided information in the AVS regarding cauda equina and myelopathy if pertinent. I advised the patient to go to the ER if these symptoms occur. The OARRS/MAPPS database was reviewed today and found to be appropriate. No indication of medication diversion, or noncompliance. Patient noted to have elevated BMI which can contribute to disc degeneration. A healthy weight is recommended for spine health. The following intervention(s) were applied: none.The BMI is above average; no BMI management plan is appropriate. Thank you for the referral. Juanita Perez APRN (Cryan)-ZONING TECHNICIAN-C [facility] All questions were answered during the encounter and the patient was in agreement with plan of care. This office visit was spent face to face with the patient addressing counseling/education, reviewing test results if noted, instructions for management, treatment options and importance of compliance with treatment, performing medically appropriate examination and or coordination of care. DESMOND Corona 10/19/24 1610 documented in this encounter Plan of Treatment Scheduled Orders Name Type Priority Associated Diagnoses Orde r Schedule MR lumbar spine with and without contrast Imaging Routine Bilateral sciatica Neurogenic claudication Lumbar spondylosis History of back surgery Expected: 10/19/2024, Expires: 10/19/2025 X-ray spine lumbar flexion and extension only 2 to 3 views Imaging Routine Bilateral sciatica Lumbar spondylosis Expected: 10/19/2024, Expires: 10/19/2025 documented as of this encounter Visit Diagnoses Diagnosis Bilateral sciatica- Primary Sciatica Neurogenic claudication Spinal stenosis of lumbar region Lumbar spondylosis Lumbosacral spondylosis without myelopathy History of back surgery Other postprocedural status Anxiety about health documented in this encounter Care Teams Veneer Jointer Offbearer Relationship Specialty Start Date End Date Trey Berkowitz DO [address] [place] [address] PCP - General 07/28/17 documented as of this encounter
--- OUTSIDE RECORDS SUMMARY | 2024-10-30 11:50 | XMS_ITS | Encounter Summary ---
Author Organization [facility] Healthcare Address [address] [place] [address] Care Team Providers Care Car Storer Name Role Phone Trey Berkowitz DO Primary Care Provider Reason for Visit * Reason Comments DM Foot Care Encounter Details Date Type Department Care Team (Late st Contact Info) Description 10/30/2024 11:50 AM EDT Office Visit [facility] [address] [place] [address] Rich Severino DPM [address] [address] Diabetes mellitus due to underlying condition with diabetic polyneuropathy, with long-term current use of insulin (HCC) (Primary Dx); Pain due to onychomycosis of toenails of both feet; Hallux rigidus of left foot; Hallux rigidus of right foot Social History Tobacco Use Types Packs/Day Years Used Date Smoking Tobacco: Former Cigarettes Q uit: 05/23/1998 Passive Smoke Exposure: Never Smokeless Tobacco: Never Tobacco Cessation:Counseling Given: Yes Alcohol Use Standard Drinks/Week Comments Never 0 (1 standard drink = 0.6 oz pure alcohol) caffeine: more than 4 cups per day Sex and Gender Information Value Date Recorded Sex Assigned at Not on file Legal Sex Male 7:19 PM EDT Gender Identity Not on file Sexual Orientation Not on file documented as of this encounter Last Filed Vital Signs Vital Sign Reading Time Taken Comments Blood Pressure - - Pulse - - Temperature - - Respiratory Rate 18 10/30/2024 11:50 AM EDT Oxygen Saturation - - Inhaled Oxygen Concentration - - Weight 96.2 kg (212 lb) 10/30/2024 11:50 AM EDT Height 182.9 cm (6') 10/30/2024 11:50 AM EDT Body Mass Index 28.75 10/30/2024 11:50 AM EDT documented in this encounter Progress Notes * Rich Severino DPM - 10/30/2024 11:50 AM EDT Patient: Chau Rae : 1945 PCP: Trey Berkowitz DO SUBJECTIVE This is a 79 y.o. male that presents today with a CC of elongated, thick nails. Pt states nails have been elongated and thick for many years and cause pain with ambulation in shoegear. Pt has tried previous treatment with minimal relief. Pt presents today for nail care and treatment. Patient is DM2 Positive history of hallux rigidus bilaterally Allergies: Allergies Allergen Reactions Iodinated Contrast Media Other Other reaction(s): Other: See Comments, Unknown Caused kidney failure during pancreatitis episode. Kidney failure Sulfa Antibiotics Hives Other reaction(s): Unknown Minocycline Hives and Unknown Other reaction(s): Other (See Comments), Unknown Amylase Other Reaction(s): Vomiting Apixaban Other Reaction(s): Myalgia Cephalexin Unknown Other reaction(s): Unknown Glimepiride Unknown Other reaction(s): Unknown Insulin Isophane Other Abdominal pain Naproxen Unknown Other reaction(s): Unknown Spironolactone Other Reaction(s): not to take due to Entresto Past Medical History: Past Medical History: Diagnosis Date Arthritis DM (diabetes mellitus), type 1 (HCC) Gout Heart disease History of being hospitalized Pancreatitis HTN (hypertension) Kidney disease 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 Renal failure for 5 weeks Tongue mass 2012 base of tongue Medications: Current Outpatient Medications: allopurinol (Zyloprim) 100 MG tablet, TAKE 1 TABLET BY MOUTH EVERY DAY FOR 90 DAYS, Disp: , Rfl: carvedilol (Coreg) 6.25 MG tablet, Take 6.25 mg by mouth, Disp: , Rfl: Entresto 24-26 MG tablet, Take 1 tablet by mouth in the morning and 1 tablet in the evening., Disp:, Rfl: Evolocumab (REPATHA SC), Inject under the skin, Disp: , Rfl: HumuLIN N KWIKPEN 100 UNIT/ML injection, INJECT 10 UNITS AT SAME TIME STEROID SUBCUTANEOUS ONCE DAILY TITRATE UP TO 20 UNITS PER DAY, Disp: , Rfl: Insulin Aspart (NovoLOG) 100 UNIT/ML solution, , Disp: , Rfl: levothyroxine (Synthroid, Levoxyl) 175 MCG tablet, TAKE 1 TABLET BY MOUTH ON AN EMPTY STOMACH ONCE A DAY, Disp: , Rfl: omega-3 acid ethyl esters (Lovaza) 1 g capsule, Take 1 g by mouth in the morning and 1 g in the evening., Disp: , Rfl: OneTouch Verio test strip, 1 each by Other route in the morning and 1 each in the evening and 1 each before bedtime., Disp: , Rfl: pantoprazole (ProtoNix) 40 MG EC tablet, Take 40 mg by mouth in the morning and 40 mg before bedtime., Disp: , Rfl: potassium chloride CR (Klor-Con) 10 MEQ ER tablet, TAKE 1 TABLET BY MOUTH ONCE DAILY. DO NOT CRUSH,CHEW, OR SPLIT., Disp: , Rfl: predniSONE (Deltasone) 5 MG tablet, TAKE 4 TABLETS BY MOUTH EVERY DAY OR DIRECTED, Disp: , Rfl: Probiotic Product (PROBIOTIC BLEND PO), Take by mouth, Disp: , Rfl: tamsulosin (Flomax) 0.4 MG 24 hr capsule, , Disp: , Rfl: torsemide (Demadex) 20 MG tablet, Daily, Disp: , Rfl: Tresiba FlexTouch 200 UNIT/ML injection, Inject under the skin at bedtime, Disp: , Rfl: warfarin (Coumadin) 2.5 MG tablet, Daily, Disp: , Rfl: Zenpep [id number] units capsule delayed-release particles capsule, Take 1 capsule by mouth in themorning and 1 capsule at noon and 1 capsule in the evening. Take with meals., Disp: , Rfl: Social History: Social History Socioeconomic History Marital status: Spouse name: Not on file Number of children: Not on file Years of education: Not on file Highest education level: Not on file Occupational History Not on file Tobacco Use Smoking status: Former Current packs/day: 0.00 Types: Cigarettes Quit date: 05/23/1998 Years since quittin.4 Passive exposure: Never Smokeless tobacco: Never Vaping Use Vaping status: Unknown Substance and Sexual Activity Alcohol use: Never Comment: caffeine: more than 4 cups per day Drug use: Defer Sexual activity: Defer Other Topics Concern Not on file Social History Narrative Not on file Social Drivers of Health Financial Resource Strain: Low Risk (09/04/2022) Received from [facility] Overall Financial Resource Strain (CARDIA) Difficulty of Paying Living Expenses: Not hard at all Food Insecurity: No Food Insecurity (10/19/2024) Received from [facility] Ranker Hunger Screening Within the past 12 months we worried whether our food would run out before we got money to buy more.: Never True Within the past 12 months the food we bought just didn't last and we didn't have money to get more.: Never True Transportation Needs: No Transportation Needs (09/04/2022) Received from [facility] PRAPARE - Transportation Lack of Transportation (Medical): No Lack of Transportation (Non-Medical): No Physical Activity: Not on file Stress: Not on file Social Connections: Not on file Intimate Partner Violence: Not on file Housing Stability: Low Risk (09/04/2022) Received from [facility] Housing Stability Vital Sign Unable to Pay for Housing in the Last Year: No Number of Places Lived in the Last Year: 1 Unstable Housing in the Last Year: No ROS: General: denies fever, chills, fatigue, malaise OBJECTIVE LE EXAM: DERM: Elongated thick yellow crumbly nails digits 1 through 10. Negative hair growth with thin shiny atrophic skin bilaterally VASC: Negative DP and negative PT pedal pulses NEURO: 5.07 [place] Gaudencio monofilament test intact to digits and forefoot bilaterally 125Hz tuning fork diminished to 1st MPJ bilaterally ORTHO: Positive pain on palpation to toenails of the left 1,2,3,4,5 toes and right 1,2,3,4,5 toes Range of 1st MPJ motion less than 65 degrees dorsiflexion bilaterally ASSESSMENT 1. Diabetes mellitus due to underlying condition with diabetic polyneuropathy, with long-term current use of insulin (HCC) 2. Pain due to onychomycosis of toenails of both feet 3. Hallux rigidus of left foot 4. Hallux rigidus of right foot PLAN Discussed proper foot care with patient today. Debride nails in length and thickness digits 1 through 10 Patient educated today on proper diabetic foot care including monitoring feet daily for any signs of infection openings in the skin or irregularities to both feet. Patient had a diabetic neurologicalexam today to both their feet and discussed proper shoe gear. Rich Severino DPM documented in this encounter Plan of Treatment Upcoming Encounters Date Type Department Care Team (Late st Contact Info) Description 12/06/2024 11:00 AM EDT Office Visit [facility] [address] [place] [phone] Mauro Cox MD [address] [place] [address] 01/22/2025 11:50 AM EST Office Visit [facility] [address] [place] [phone] Rich Severino DPM [address] [facility] [address] [place] [address] documented as of this encounter Visit Diagnoses Diagnosis Diabetes mellitus due to underlying condition with diabetic polyneuropathy, with long-term current use of insulin (HCC)- Primary Pain due to onychomycosis of toenails of both feet Hallux rigidus of left foot Hallux rigidus of right foot documented in this encounter Care Teams Car Storer Relationship Specialty Start Date End Date Trey Berkowitz DO [address] [place] [address] PCP - General Family Medicine 06/12/24 documented as of this encounter
--- OUTSIDE RECORDS SUMMARY | 2024-10-31 09:20 | XMS_ITS | Encounter Summary ---
Author Organization [facility] Address [address] [place] [address] Care Team Providers Care Glass Production Machine Operator Name Role Phone Trey Berkowitz Primary Care Provider [phone] Source Comments In the event this information is protected by the Federal Confidentiality of Alcohol and Drug AbusePatient Records regulations: The Federal rules restrict any use of the information to criminally investigate or prosecute any alcohol or drug abuse patient.[facility] Encounter Details Date Type Department Care Team (Late st Contact Info) Description 07/22/2023 Patient Msg Procedures [address] [place] [address] Provider, [facility] [place] Social History Tobacco Use Types Packs/Day Years Used Date Smoking Tobacco: Former Cigarettes 3 30 0 02/23/1968 - 02/22/1998 Passive Smoke Exposure: Past Smokeless Tobacco: Never Alcohol Use Standard Drinks/Week Comments No 0 (1 standard drink = 0.6 oz pur e alcohol) Overall Financial Resource Strain (CARDIA) Answe r Date Recorded How hard is it for you to pa y for the very basics like food, housing, medical care, and heating? Not hard at all 09/04/2022 PHQ-2 Answer Date Recorded PHQ-2 score 0 04/19/2023 Hunger Vital Sign Answer Date Recorded Within the past 12 months, y ou worried that your food would run out before you got the money to buy more. Never true 09/05/19 23 Within the past 12 months, t he food you bought just didn't last and you didn't have money to get more. Never true 09/04/2022 PRAPARE - Transportation Answer Date Re corded In the past 12 months, has l ack of transportation kept you from medical appointments or from getting medications? No 08/22 In the past 12 months, has l ack of transportation kept you from meetings, work, or from getting things needed for daily living? No 09/04/2022 Housing Stability Vital Sign Answer Francis e Recorded In the last 12 months, was t here a time when you were not able to pay the mortgage or rent on time? No 09/04/2022 In the last 12 months, how many places have you lived? 1 09/04/2022 In the last 12 months, was t here a time when you did not have a steady place to sleep or slept in a senior living (including now)? No 09/04/2022 Area Deprivation Index Answer Date Chon rded National Score (1-100), lower number is lower ri sk 55 08/08/2022 State Score (1-10), lower number is lower risk 3 08/08/2022 Data from: https://www.neighborhoodatlas.medicine.[facility].edu/. Last address used for calculation [address] [place] [address] 08/08/2022 Sex and Gender Information Value Date Recorded Sex Assigned at Male 08/18/2022 3:32 PM EDT Legal Sex Male 7:19 AM EST Gender Identity Male 08/18/2022 3:32 PM EDT Sexual Orientation Straight 08/18/2022 3: 32 PM EDT documented as of this encounter Functional Status * Are you deaf or do you have serious difficulty hearing? Answer Date of Assessment Author No 10/10/2022 3:50 PM EDT Lindsey Trevino, PHYLLIS * Are you blind or do you have serious difficulty seeing, even when wearing glasses? Answer Date of Assessment Author No 10/10/2022 3:50 PM EDT Lindsey Trevino RN * Do you have serious difficulty walking or climbing stairs? Answer Date of Assessment Author No 10/10/2022 3:50 PM EDT Lindsey Trevino RN * Do you have difficulty dressing or bathing? Answer Date of Assessment Author No 10/10/2022 3:50 PM EDT Lindsey Trevino RN * Because of a physical, mental, or emotional condition, do you have difficulty doing errands alone such as visiting a doctor's office or shopping? Answer Date of Assessment Author No 10/10/2022 3:50 PM EDT Lindsey Trevino RN documented as of this encounter Mental Status * Because of a physical, mental, or emotional condition, do you have serious difficulty concentrating, remembering, or making decisions? Answer Entry Date Author No 10/10/2022 3:50 PM EDT Lindsey Trevino RN documented in this encounter Plan of Treatment Upcoming Encounters Date Type Department Care Team (Latest Contact Info) Description 11/03/2024 2:15 PM EDT Office Visit [facility] [address] [place] [address] 8 week follow up with lab and B 12 inj 11/03/2024 2:30 PM EDT Visit (SP) Office Hematology/Oncology [address] [facility] [place] [address] Dolores Jacobson APRN.SKIN TANNER [address] [facility] [place] [address] 8 week follow up with lab and B 12 inj 11/03/2024 3:00 PM EDT Nurse Visit Hematology/Oncology [address] [facility] [place] [address] Beryl Parsons Nurse Hector [address] [place] [address] 8 week follow up with lab B12 01/12/2025 1:20 PM EST Office Visit Gastroenter[facility] [address] [facility] [place] [address] Jair Miller Jr., DO [address] [place] [address] [place] [phone] office moved from 12/29/24 months follow-up/ Pancreatic pseudocyst/cyst,Gene ralized abdominal pain,Gastroparesis,D yspepsia 05/08/2025 1:00 PM EDT Office Visit [facility] [address] [place] [address] lab 05/15/2025 1:00 PM EDT Office Visit Radiation Oncology [address] [place] [address] Rafael Tyler MD [address] [place] [address] 1 year follow up documented as of this encounter Visit Diagnoses Not on filedocumented in this encounter Care Teams Glass Production Machine Operator Relationship Specialty Start Date End Date Trey Berkowitz [address] [place] [phone] PCP - General 05/14/04 documented as of this encounter
--- OUTSIDE RECORDS SUMMARY | 2024-10-31 09:20 | XMS_ITS ---
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 deficien cy 06/25/2023 Iron deficiency anemia due to chronic blood loss 04/29/2023 Stage 3 chronic kidney disease 03/06/2023 On total parenteral nutrition (TPN) 10/09/2022 Diabetic gastropathy 10/08/2022 SVT (supraventricular tachycardia) 10/03/2022 PVC's (premature ventricular contractions) 10/03 Gastric outlet obstruction 10/03/2022 History of DVT (deep vein thrombosis) 10/02/2022 Feeding difficulties 09/07/2022 Chronic pancreatitis 09/04/2022 Therapeutic drug monitoring 09/04/2022 On peripheral parenteral nutrition (ppn) 023 Failure to thrive in adult 09/04/2022 Encounter for care related to feeding tube 09/03 Type 1 diabetes mellitus without complication Other ascites 08/20/2022 Decreased appetite 08/20/2022 On continuous oral anticoagulation 08/20/2022 Acute on chronic pancreatitis 08/18/2022 Necrotizing pancreatitis 08/18/2022 Hypomagnesemia 08/18/2022 Hyperglycemia 08/18/2022 Idiopathic acute pancreatitis without infection or necrosis 08/18/2022 Diabetes mellitus due to und erlying condition without complication, with long-term current use of insulin 08/18/2022 Iatrogenic adrenal insufficiency 08/18/2022 Abdominal pain 08/17/2022 Duodenal ulcer disease 08/15/2022 Hypophosphataemia 08/03/2022 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 Continue home ASA at discharge. BPH (benign prostatic hyperplasia) 03/30/2022 Overview (06/10/2022): Continue home flomax at discharge. Essential hypertension, benign 03/30/2022 Overview (06/10/2022): Continue home Entresto, Lasix, Aldactone and lisinopril at discharge. Gout 03/30/2022 Overview (06/10/2022): Continue home allopurinol at discharge. Polymyalgia rheumatica 11/11/2021 History of thyroid cancer 01/10/2014 Pancreatic necrosis 08/21/2013 Gallstone pancreatitis 08/01/2013 Swallowing problem 09/22/2012 Throat discomfort 06/23/2012 GERD (gastroesophageal reflux disease) 3 Thyroid cancer 06/23/2012 Current Treatment and Therapy Plans No current plan information found. Other Current Plans CYANOCOBALAMIN 1000 D1,29,57 - Q84D* Plan Start Date:06/25/2023 Plan Provider:Kai Bustamante MD Linked Problems Megaloblastic anemia due to vitamin B12 deficiency Treatment Medications Current Day (Day 2 9, Cycle 6 - Planned for 11/03/2024) Next Day (Day 57, Cycle 6 - Planned for 12/01/2024) No medications scheduled. No medications schedul ed. No medications scheduled. Past Treatment and Therapy Plans Resolved Problems Problem Noted Date Diagnosed Date Resolved Date Malnutrition of moderate degree 08/17/2022 03/26/2023 Abdominal pain 08/07/2022 08/10/2022 Perforated viscus 07/30/2022 08/03/2022 Pain of upper abdomen 07/14/20222022
--- OUTSIDE RECORDS SUMMARY | 2024-10-31 09:20 | XMS_ITS | Encounter Summary ---
Author Organization [facility] Address [address] [place] [address] Care Team Providers Care Contracting Manager Name Role Phone Trey Berkowitz Chet Primary Care Provider [phone] Source Comments In the event this information is protected by the Federal Confidentiality of Alcohol and Drug AbusePatient Records regulations: The Federal rules restrict any use of the information to criminally investigate or prosecute any alcohol or drug abuse patient.[facility] Encounter Details Date Type Department Care Team (Late st Contact Info) Description 07/16/2023 Patient [facility] Gastroenterology [address] [place] [address] Provider, [facility] colon prep Social History Tobacco Use Types Packs/Day Years [...] place to sleep or slept in a fdc (including now)? No 09/04/2022 Area Deprivation Index Answer Date Chon rded National Score (1-100), lower number is lower ri sk 55 08/08/2022 State Score (1-10), lower number is lower risk 3 08/08/2022 Data from: https://www.neighborhoodatlas.medicine.[facility].edu/. Last address used for calculation [address] [place] [address] 08/08/2022 Sex and Gender Information Value Date [...] 3:50 PM EDT Lindsey Trevino RN * Are you blind or do you [...] PM EDT Office Visit [facility] [address] [place] [address] 8 week follow up with lab and B 12 inj 11/03/2024 2:30 PM EDT Visit (SP) Office Hematology/Oncology [address] [place] [address] Dolores Jacobson APRN.BULK PIGMENT REDUCER [address] [facility] [place] [address] 8 week follow up with lab and B 12 inj 11/03/2024 3:00 PM EDT Nurse Visit Hematology/Oncology [address] [facility] [place] [address] Beryl Odom Nurse Hector [address] [address] 8 week follow up with lab B12 01/12/2025 1:20 PM EST Office Visit Gastroenterology [address] [place] [address] Jair Miller Jr., DO [address] [place] [address] office moved from 12/29/24 months follow-up/ Pancreatic pseudocyst/cyst,Gene ralized abdominal pain,Gastroparesis,D yspepsia 05/08/2025 1:00 PM EDT Office Visit [facility] [address] [address] lab 05/15/2025 1:00 PM EDT Office Visit Radiation Oncology [address] [place] [address] Rafael Tyler MD [address] [place] [address] 1 year follow up documented as of this encounter Visit Diagnoses Not on filedocumented in this encounter Care Teams Contracting Manager Relationship Specialty Start Date End Date Trey Berkowitz [address] [place] [phone] PCP - General 05/14/04 documented as of this encounter
--- OUTSIDE RECORDS SUMMARY | 2024-10-31 09:20 | XMS_ITS | Encounter Summary ---
Author Organization [facility] Address [address] [place] [address] Care Team Providers Care Machine Taper Name Role Phone Trey Berkowitz Primary Care Provider [phone] Source Comments In the event this information is protected by the Federal Confidentiality of Alcohol and Drug AbusePatient Records regulations: The Federal rules restrict any use of the information to criminally investigate or prosecute any alcohol or drug abuse patient.[facility] Encounter Details Date Type Department Care Team (Late st Contact Info) Description 08/03/2023 GI Preprocedure Call [facility] Surgery [address] [place] [address] Jair Miller Jr., DO [address] [facility] [address] [place] [address] Social History Tobacco Use Types Packs/Day Years [...] PHQ-2 Answer Date Recorded PHQ-2 score 0 07/30/2023 Hunger Vital Sign Answer Date Recorded Within [...] place to sleep or slept in a prison (including now)? No 09/04/2022 Area Deprivation Index Answer Date Chon rded National Score (1-100), lower number is lower ri sk 55 08/08/2022 State Score (1-10), lower number is lower risk 3 08/08/2022 Data from: https://www.neighborhoodatlas.medicine.[facility].edu/. Last address used for calculation [address] 08/08/2022 Sex and Gender Information Value Date [...] Description 11/03/2024 2:15 PM EDT Office Visit [facility] Laboratory [address] [facility] [place] [address] 8 week follow up with lab and B 12 inj 11/03/2024 2:30 PM EDT Visit (SP) Office Hematology/Oncology [address] [facility] [place] [address] Dolores Jacobson APRN.LABORATORY DEVELOPMENT TECHNICIAN [address] [place] [address] 8 week follow up with lab and B 12 inj 11/03/2024 3:00 PM EDT Nurse Visit Hematology/Oncology [address] [place] [address] Beryl Parsons Nurse Hector [address] [facility] [place] [address] 8 week follow up with lab B12 01/12/2025 1:20 PM EST Office Visit Gastroenterology [address] [place] [address] Jair Miller Jr., [address] [facility] [address] [phone] office moved from 12/29/24 months follow-up/ Pancreatic pseudocyst/cyst,Gene ralized abdominal pain,Gastroparesis,D yspepsia 05/08/2025 1:00 PM EDT Office Visit [facility] Laboratory [address] [facility] [place] [address] lab 05/15/2025 1:00 PM EDT Office Visit Radiation Oncology [address] [facility] [place] [address] Rafael Tyler MD [address] [facility] [place] [place] [address] 1 year follow up documented as of this encounter Visit Diagnoses Not on filedocumented in this encounter Care Teams Machine Taper Relationship Specialty Start Date End Date Trey Berkowitz [address] [place] [phone] PCP - General 05/14/04 documented as of this encounter
--- OUTSIDE RECORDS SUMMARY | 2024-10-31 09:20 | XMS_ITS | Encounter Summary ---
Author Organization [facility] Address [address] [place] [address] Care Team Providers Care Dance Entertainer Name Role Phone Trey Berkowitz Primary Care Provider [phone] Source Comments In the event this information is protected by the Federal Confidentiality of Alcohol and Drug AbusePatient Records regulations: The Federal rules restrict any use of the information to criminally investigate or prosecute any alcohol or drug abuse patient.[facility] Reason for Visit * Reason Comments Refill Request Encounter Details Date Type Department Care Team (Late st Contact Info) Description 07/16/2024 Refill Gastroenterology [address] [facility] [place] [address] Jair Miller Jr., DO [address] [place] [address] [place] [phone] Refill Request Social History Tobacco Use Types Packs/Day Years [...] PHQ-2 Answer Date Recorded PHQ-2 score 0 04/21/2024 Hunger Vital Sign Answer Date Recorded Within [...] place to sleep or slept in a snf (including now)? No 09/04/2022 Area Deprivation Index Answer Date Chon rded National Score (1-100), lower number is lower ri sk 55 08/08/2022 State Score (1-10), lower number is lower risk 3 08/08/2022 Data from: https://www.neighborhoodatlas.medicine.[facility].edu/. Last address used for calculation [address] 08/08/2022 Sex and Gender Information Value [...] Lindsey Trevino RN documented in this encounter Miscellaneous Notes * Telephone Encounter - Ruth Brooks MA - 07/19/2024 8:54 AM EDT Pharmacy requesting refills as follows: Requested Prescriptions Pending Prescriptions Disp Refills pantoprazole DR (PROTONIX) 40 mg tablet [Pharmacy Med Name: PANTOPRAZOLE SOD DR 40 MG TAB] 180 tablet 1 Sig: TAKE 1 TABLET BY MOUTH TWICE A DAY Last appointment: 07/14/2024 Ruth Brooks MA July 19, 2024 8:54 AM documented in this encounter Plan of Treatment Upcoming Encounters Date Type Department Care Team (Latest Contact Info) Description 11/03/2024 2:15 PM EDT Office Visit [facility] Laboratory [address] [place] [address] [place] [address] 8 week follow up with lab and B 12 inj 11/03/2024 2:30 PM EDT Visit (SP) Office Hematology/Oncology [address] [facility] [address] Dolores Jacobson APRN.TOP CUTTER [address] [facility] [address] 8 week follow up with lab and B 12 inj 11/03/2024 3:00 PM EDT Nurse Visit Hematology/Oncology [address] [facility] [address] Beryl Parsons Nurse Hector [address] [facility] [address] 8 week follow up with lab B12 01/12/2025 1:20 PM EST Office Visit Gastroenterology [address] [place], [place] [phone] Jair Miller Jr., DO [address] [place] [address] [place] [phone] office moved from 12/29/24 months follow-up/ Pancreatic pseudocyst/cyst,Gene ralized abdominal pain,Gastroparesis,D yspepsia 05/08/2025 1:00 PM EDT Office Visit [facility] Laboratory [address] [facility] [address] lab 05/15/2025 1:00 PM EDT Office Visit Radiation Oncology [address] [facility] [address] Rafael Tyler MD [address] [facility] [place] [address] 1 year follow up documented as of this encounter Visit Diagnoses Not on filedocumented in this encounter Care Teams Dance Entertainer Relationship Specialty Start Date End Date Trey Berkowitz [address] [place] [phone] PCP - General 05/14/04 documented as of this encounter
--- OUTSIDE RECORDS SUMMARY | 2024-10-31 09:21 | XMS_ITS | Encounter Summary ---
Author Organization [facility] Address [address] [place] [address] Care Team Providers Care Manufacturer'S Representative Name Role Phone Trey Berkowitz Primary Care Provider [phone] Source Comments In the event this information is protected by the Federal Confidentiality of Alcohol and Drug AbusePatient Records regulations: The Federal rules restrict any use of the information to criminally investigate or prosecute any alcohol or drug abuse patient.[facility] Encounter Details Date Type Department Care Team (Late st Contact Info) Description 12/09/2022 Patient Msg Pharmacy Home Infusion [address] [facility] [place] [phone] Noris Mares PSS Weekly [facility] Pharmacy refill request Social History Tobacco Use Types Packs/Day Years [...] PHQ-2 Answer Date Recorded PHQ-2 score 0 04/21/2022 Hunger Vital Sign Answer Date Recorded Within [...] to sleep or slept in a senior care (including now)? No 09/04/2022 Area Deprivation Index Answer Date Chon rded National Score (1-100), lower number is lower ri sk 55 08/08/2022 State Score (1-10), lower number is lower risk 3 08/08/2022 Data from: https://www.neighborhoodatlas.medicine.[facility].edu/. Last address used for calculation [address] 08/08/2022 Sex and Gender Information Value Date [...] Description 11/03/2024 2:15 PM EDT Office Visit [facility] Laboratory [address] [facility] [place] [address] 8 week follow up with lab and B 12 inj 11/03/2024 2:30 PM EDT Visit (SP) Office Hematology/Oncology [address] [facility] [place] [address] Dolores Jacobson APRN.ICT ACCOUNT MANAGER [address] [place] [address] 8 week follow up with lab and B 12 inj 11/03/2024 3:00 PM EDT Nurse Visit Hematology/Oncology [address] [place] [address] Beryl Odom Nurse Hector [address] [facility] [place] [address] 8 week follow up with lab B12 01/12/2025 1:20 PM EST Office Visit Gastroenterology [address] [place] [address] Jair Miller Jr., [address] [facility] [address] [place] [phone] office moved from 12/29/24 months follow-up/ Pancreatic pseudocyst/cyst,Gene ralized abdominal pain,Gastroparesis,D yspepsia 05/08/2025 1:00 PM EDT Office Visit [facility] Laboratory [address] [place] [address] lab 05/15/2025 1:00 PM EDT Office Visit Radiation Oncology [address] [place] [address] Rafael Tyler MD [address] [facility] [place] [address] 1 year follow up documented as of this encounter Visit Diagnoses Not on filedocumented in this encounter Care Teams Manufacturer'S Representative Relationship Specialty Start Date End Date Trey Berkowitz [address] [place] [phone] PCP - General 05/14/04 documented as of this encounter
--- OUTSIDE RECORDS SUMMARY | 2024-10-31 09:21 | XMS_ITS | Encounter Summary ---
Author Organization [facility] Address [address] [place] [address] Care Team Providers Care Aeronautical Inspector Name Role Phone Trey Berkowitz Primary Care Provider Source Comments In the event this information is protected by the Federal Confidentiality of Alcohol and Drug AbusePatient Records regulations: The Federal rules restrict any use of the information to criminally investigate or prosecute any alcohol or drug abuse patient.[facility] Encounter Details Date Type Department Care Team (Late st Contact Info) Description 10/24/2024 Telephone Hematology/Oncology [address] [place] [address] [place] [address] Jimena Arellano, RN Social History Tobacco Use Types Packs/Day Years [...] PHQ-2 Answer Date Recorded PHQ-2 score 0 09/06/2024 Hunger Vital Sign Answer Date Recorded Within [...] place to sleep or slept in a penitentiary (including now)? No 09/04/2022 Area Deprivation Index Answer Date Chon rded National Score (1-100), lower number is lower ri sk 55 08/08/2022 State Score (1-10), lower number is lower risk 3 08/08/2022 Data from: https://www.neighborhoodatlas.medicine.[facility].edu/. Last address used for calculation [address] [place] [address] 08/08/2022 Sex and Gender Information Value Date [...] encounter Miscellaneous Notes * Telephone Encounter - Jimena Arellano RN - 10/24/2024 2:30 PM EDT Labs pended for RTC 11/03/24 Jimena Arellano RN documented in this encounter Plan of Treatment Upcoming Encounters Date Type Department Care Team (Latest Contact Info) Description 11/03/2024 2:15 PM EDT Office Visit [facility] Laboratory [address] [place] [address] 8 week follow up with lab and B 12 inj 11/03/2024 2:30 PM EDT Visit (SP) Office Hematology/Oncology [address] [facility] [address] Dolores Jacobson APRN.SLURRY CONTROL OPERATOR HELPER [address] [place] [address] 8 week follow up with lab and B 12 inj 11/03/2024 3:00 PM EDT Nurse Visit Hematology/Oncology [facility] [address] Beryl Parsons Nurse Hector [address] [place] [address] 8 week follow up with lab B12 01/12/2025 1:20 PM EST Office Visit Gastroenterology [address] [place] [address] Jair Miller Jr., DO [address] [place] [address] [place] [address], [place] [phone] office moved from 12/29/24 months follow-up/ Pancreatic pseudocyst/cyst,Gene ralized abdominal pain,Gastroparesis,D yspepsia 05/08/2025 1:00 PM EDT Office Visit [facility] Laboratory [address] [place] [address] lab 05/15/2025 1:00 PM EDT Office Visit Radiation Oncology [address] [place] [address] Rafael Tyler MD [address] [place] [address] 1 year follow up Scheduled Orders Name Type Priority Associated Diagnoses Orde r Schedule COMPLETE BLOOD COUNT AND DIFFERENTIAL Lab Routine Megaloblastic anemia due to vitamin B12 deficiency intermediate project manager (current) use of anticoagulants Iron deficiency anemia due to chronic blood loss Thrombocytosis Expected: 10/24/2024, Expires: 01/23/2025 COMPREHENSIVE METABOLIC PANEL Lab Routine Megaloblastic anemia due to vitamin B12 deficiency intermediate (current) use of anticoagulants Iron deficiency anemia due to chronic blood loss Thrombocytosis Expected: 10/24/2024, Expires: 01/23/2025 IRON AND TIBC Lab Routine Megaloblastic anemia due to vitamin B12 deficiency intermediate project manager (current) use of anticoagulants Iron deficiency anemia due to chronic blood loss Thrombocytosis Expected: 10/24/2024, Expires: 01/23/2025 FERRITIN Lab Routine Megaloblastic anemia due to vitamin B12 deficiency intermediate (current) use of anticoagulants Iron deficiency anemia due to chronic blood loss Thrombocytosis Expected: 10/24/2024, Expires: 01/23/2025 VITAMIN D 25 HYDROXY Lab Routine Megaloblastic anemia due to vitamin B12 deficiency intermediate (current) use of anticoagulants Iron deficiency anemia due to chronic blood loss Thrombocytosis Vitamin D deficiency Expected: 10/24/2024, Expires: 01/23/2025 VITAMIN B12 Lab Routine Megaloblastic anemia due to vitamin B12 deficiency intermediate project manager (current) use of anticoagulants Iron deficiency anemia due to chronic blood loss Thrombocytosis Expected: 10/24/2024, Expires: 01/23/2025 FOLATE, SERUM Lab Routine Megaloblastic anemia due to vitamin B12 deficiency intermediate (current) use of anticoagulants Iron deficiency anemia due to chronic blood loss Thrombocytosis Expected: 10/24/2024, Expires: 01/23/2025 documented as of this encounter Visit Diagnoses Diagnosis Megaloblastic anemia due to vitamin B12 deficiency- Primary Other vitamin B12 deficiency anemia intermediate (current) use of anticoagulants Long-term (current) use of anticoagulants Iron deficiency anemia due to chronic blood loss Iron deficiency anemia secondary to blood loss (chronic) Thrombocytosis Essential thrombocythemia Vitamin D deficiency Unspecified vitamin D deficiency documented in this encounter Care Teams Aeronautical Inspector Relationship Specialty Start Date End Date Trey Berkowitz [address] [place] [phone] PCP - General 05/14/04 documented as of this encounter
--- OUTSIDE RECORDS SUMMARY | 2024-10-31 09:21 | XMS_ITS | Encounter Summary ---
Author Organization [facility] Address [address] [place] [address] Care Team Providers Care Software Development Specialist Name Role Phone Trey Berkowitz Primary Care Provider [phone] Source Comments In the event this information is protected by the Federal Confidentiality of Alcohol and Drug AbusePatient Records regulations: The Federal rules restrict any use of the information to criminally investigate or prosecute any alcohol or drug abuse patient.[facility] Encounter Details Date Type Department Care Team (Late st Contact Info) Description 10/25/2024 Orders Only Hematology/Oncology [address] [place] [address] [place] [address] Stacy Mathews PASatnamC [address] [facility] [place] [address] Social History Tobacco Use Types Packs/Day Years [...] place to sleep or slept in a halfway (including now)? No 09/04/2022 Area Deprivation Index Answer Date Chon rded National Score (1-100), lower number is lower ri sk 55 08/08/2022 State Score (1-10), lower number is lower risk 3 08/08/2022 Data from: https://www.neighborhoodatlas.medicine.[facility].edu/. Last address used for calculation [address] 08/08/2022 Sex and Gender Information [...] Description 11/03/2024 2:15 PM EDT Office Visit [facility] Laboratory [address] [place] [address] 8 week follow up with lab and B 12 inj 11/03/2024 2:30 PM EDT Visit (SP) Office Hematology/Oncology [address] [place] [address] Dolores Jacobson APRN.DENTIST ATTENDANT [address] [facility] [place] [place] [address] 8 week follow up with lab and B 12 inj 11/03/2024 3:00 PM EDT Nurse Visit Hematology/Oncology [address] [place] [address] Beryl Parsons Nurse Hector [address] [facility] [place] [address] 8 week follow up with lab B12 01/12/2025 1:20 PM EST Office Visit Gastroenterology [address] [place], [place] [phone] Jair Miller Jr., [address] [facility] [address] [place] [address] [place] [phone] office moved from 12/29/24 months follow-up/ Pancreatic pseudocyst/cyst,Gene ralized abdominal pain,Gastroparesis,D yspepsia 05/08/2025 1:00 PM EDT Office Visit [facility] Laboratory [address] [facility] [place] [address] lab 05/15/2025 1:00 PM EDT Office Visit Radiation Oncology [address] [facility] [place] [address] Rafael Tyler MD [address] [facility] [place] [address] 1 year follow up documented as of this encounter Visit Diagnoses Not on filedocumented in this encounter Care Teams Software Development Specialist Relationship Specialty Start Date End Date Trey Berkowitz [address] [place] [phone] PCP - General 05/14/04 documented as of this encounter
--- OUTSIDE RECORDS SUMMARY | 2024-10-31 09:21 | XMS_ITS | Clinical Summary ---
Author Organization [facility] Address [address] [place] [address] Care Team Providers Care Refrigeration Tech Name Role Phone Trey Berkowitz Primary Care Provider [phone] Allergies Active Allergy Reactions Criticality Noted Date Comments Amylase Vomiting 07/14/2023 Cephalexin Unknown 03/19/2022 Other reaction(s): Unknown Contrast Dye Other: See Comments High 09/15/2013 Kidney failure Other reaction(s): Other: See Comments, Unknown Caused kidney failure during pancreatitis episode. Kidney failure Duzizu-Othgtxpo-Jgupzsf GI Upset 06/09/2022 N/V Apixaban Myalgia 07/30/2023 Glimepiride Other: See Comments 03/19/2022 Other reaction(s): Unknown Insulin Isophane (Nph) Other: See Comments 12/19/2022 Abdominal pain Insulin Nph Isoph U-100 Human Other: See Comments 12/19/2022 Abdominal pain Iodine Other: See Comments 12/19/2022 Kidney shutdown Lipase Vomiting 07/22/2023 Minocycline Hcl Hives,Unknown 06/23/2012 Naproxen Unknown 03/19/2022 Other reaction(s): Unknown Nsaids (Non-Steroidal Anti-Inflammatory Drug) Contraindication-M edical Surgical 08/03/2022 History of gastric ulcer with perforation Protease Vomiting 10/27/2023 Spironolactone Other: See Comments 07/22/2023 Other Reaction(s): not to take due to Entresto Jhdvjsd-Oeu-Tpp Reductase Inhibitors Myalgia,Other: See Comments Medium 12/19/2022 Sugar levels Sulfa (Sulfonamide Antibiotics) Hives,Other: See Comments High 08/28/2021 Other reaction(s): Unknown Medications ALLOPURINOL 100 mg tablet Take 100 mg by mouth once daily. 4 Active levothyroxine (SYNTHROID) 175 mcg tabletIndications :History of thyroid cancer Take 175 mcg by mouth daily before breakfast. Active nitroglycerin sublingual (NITROQUICK) 0.4 mg SL tablet Dissolve 0.4 mg under the tongue every 5 minutes as needed. Active ENTRESTO 24-26 mg tablet Take 1 tablet by mouth twice daily. 2 Active lactobacillus rhamnosus (CULTURELLE) 10 billion cell capsule Take 1 capsule by mouth once daily. 30 capsule 3 Active tamsulosin (FLOMAX) 0.4 mg Take 1 capsule by mouth twice daily. 3 Active POTASSIUM CHLORIDE ORAL Take 10 mEq by mouth once daily. Active insulin degludec (TRESIBA FLEXTOUCH U-100 SUBCUTANEOUS) Inject subcutaneousl y. 38-42 units daily at bedtime Active trazodone HCl (TRAZODONE, BULK, MISC) Take 25 mg by mouth once daily. 4 Active omega-3 acid ethyl esters (LOVAZA ORAL) Take by mouth. Active torsemide (DEMADEX) 20 mg tablet Take 20 mg by mouth once daily. Active ondansetron (ZOFRAN) 4 mg tabletIndications :Nausea and vomiting, unspecified vomiting type 1 TAB EVERY 6 HRS NEEDED 90 tablet 1 4 Active apixaban (ELIQUIS) 5 mg tab(s) Take 1 tablet by mouth two times a day. 180 tablet 3 4 01/18/20 25 Active ghpwjj-wuhcoolw-e mylase (ZENPEP) 40,000-126,000- 168,000 unit delayed release capsuleIndication s:Other chronic pancreatitis (HCC) Take 1 capsule by mouth with meals and at bedtime. 360 capsule 3 5 Active predniSONE (DELTASONE) 5 mg tablet Take 10 mg by mouth once daily. Active pantoprazole DR (PROTONIX) 40 mg tablet TAKE 1 TABLET BY MOUTH TWICE A DAY 180 tablet 3 5 Active Active Problems Problem Noted Date Diagnosed Date [...] (gastroesophageal reflux disease) 3 Thyroid cancer 06/23/2012 Resolved Problems Problem Noted Date Diagnosed Date Resolved Date Malnutrition of moderate degree 08/17/2022 03/26/2023 Abdominal pain 08/07/2022 08/10/2022 Perforated viscus 07/30/2022 08/03/2022 Pain of upper abdomen 07/14/20222022 Encounters Date Type Department Care Team Description 10/25/2024 Orders Only Hematology/Oncology [address] [place] [address] Cass Elias, RABBIT FANCIER.STAFF READINESS OFFICER 10/25/2024 Orders Only Hematology/Oncology [address] [place] [address] Dolores Jacobson, RABBIT FANCIER.STAFF READINESS OFFICER 10/25/2024 Orders Only Hematology/Oncology [address] [place] [address] Stacy Mathews PARosa 10/24/2024 Telephone Hematology/Oncology [address] [place] [address] Jimena Arellano RN 10/06/2024 2:15 PM EDT Nurse Visit Hematology/Oncology [address] [place] [address] Beryl Parsons Nurse Hector 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) 10/02/2024 Orders Only Hematology/Oncology [address] [address] Dolores Jacobson APRN.STAFF READINESS OFFICER 10/02/2024 Orders Only Hematology/Oncology [address] [address] Cass Elias APRN.STAFF READINESS OFFICER 09/11/2024 Orders Only Hematology/Oncology [address] [address] Jimena Arellano, PHYLLIS Encounter for monitoring Coumadin therapy 09/08/2024 Results Follow-Up Hematology/Oncology [address] [address] Dolores Jacobson APRN.STAFF READINESS OFFICER 09/07/2024 2:00 PM EDT Nurse Visit Hematology/Oncology [address] [place] [address] [place] [address] Beryl Parsons Nurse Hector 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) 09/07/2024 1:30 PM EDT Visit (SP) Office Hematology/Oncology [address] [place] [address] [place] [address] Dolores Jacobson APRN.STAFF READINESS OFFICER 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); History of thyroid cancer; [facility] (current) use of anticoagulants; Seasonal allergic rhinitis, unspecified trigger 09/07/2024 Telephone Cancer Appts [address] [place] [address] Dolores Jacobson APRN.STAFF READINESS OFFICER Results 09/07/2024 Travel 09/06/2024 Travel 09/06/2024 Get Medical Advice Hematology/Oncology [address] [address] Kai Bustamatne MD Tomorrow (09/07/24) Apt for bloodwork, b-12 short and office visit 09/04/2024 Orders Only Hematology/Oncology [address] [address] Jimena Arellano, PHYLLIS Encounter for monitoring Coumadin therapy 08/29/2024 Telephone Hematology/Oncology [address] [address] Dolores Jacobson APRN.STAFF READINESS OFFICER Lab Orders 08/28/2024 Orders Only Hematology/Oncology [address] [address] Jimena Arellano, PHYLLIS Encounter for monitoring Coumadin therapy 08/21/2024 Orders Only Hematology/Oncology [address] [place] [address] [place] [address] Jimena Arellano, PHYLLIS Encounter for monitoring Coumadin therapy 08/14/2024 Orders Only Hematology/Oncology [address] [place] [address] [place] [address] Jimena Arellano, PHYLLIS Encounter for monitoring Coumadin therapy 08/10/2024 2:00 PM EDT Nurse Visit Hematology/Oncology [address] [place] [address] [place] [address] Jaqueline Nv Nurse Hector 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) 08/07/2024 Orders Only Hematology/Oncology [address] [place] [address] [place] [address] Jimena Arellano, PHYLLIS Encounter for monitoring Coumadin therapy 07/31/2024 Orders Only Hematology/Oncology [address] [place] [address] [place] [address] Jimena Arellano, PHYLLIS Encounter for monitoring Coumadin therapy from Last 3 Months Immunizations Immunization Administration Dates Next Due COVID-19 original vaccine, f ull dose, monovalent (MODERNA) 12/17/2020,05/15/2020,04/17/2020 influenza (HD-IIV3) vaccine, age 65+ yr, high dose, trivalent, PF (FLUZONE HIGH-DOSE) 11/17/2018,12/05/2017,01/06/2017,01/09 influenza (HD-IIV4) vaccine, age 65+ yr, high dose, quadrivalent, PF (FLUZONE HIGH-DOSE) 01/05/2022,12/12/2019 influenza (IIV3) vaccine, tr ivalent (AFLURIA, FLULAVAL, FLUVIRIN, FLUZONE) 10/24/2019,10/24/2018,01/12/2018 influenza (LAIV) vaccine, na dada, unspecified formulation 01/05/2022,12/07/2020,12/12/2019,10/23,11/17/2018,01/12/2018,12/05/2017 ,01/06/2017,01/09/2015 influenza (aIIV4) vaccine, a ge 65+ yr, quadrivalent, PF (FLUAD QUAD) 02/06/2023,12/07/2020 influenza vaccine, split virus 03/09/2013 influenza vaccine, unspecifi ed formulation 03/09/2013 pneumococcal polysaccharide (PPV23) vaccine, 23 valent (PNEUMOVAX 23) 02/23/2004 tetanus diphtheria (Td) vacc ine, age 7+ yr, 5 Lf tetanus, PF (TENIVAC) 10/15/2015 Family History Medical History Relation Comments Diabetes Brother Heart Brother Heart Father Breast Cancer Maternal Grandmother Heart Mother Breast Cancer Sister Relation Status Comments Brother Father Maternal Grandmother Mother Sister Social History Tobacco Use Types Packs/Day Years Used Date Smoking Tobacco: Former Cigarettes 3 30 0 02/23/1968 - 02/22/1998 Passive Smoke Exposure: Past Smokeless Tobacco: Never Tobacco Cessation:Counseling Given: Not Answered Alcohol Use Standard Drinks/Week Comments No 0 [...] is lower risk 3 08/08/2022 Data from: https://www.neighborhoodatlas.[facility].edu/. Last address used for calculation [address] [place] [address] 08/08/2022 Sex and Gender Information Value Date Recorded Sex Assigned at Male 08/18/2022 3:32 PM EDT Legal Sex Male 7:19 AM EST Gender Identity Male 08/18/2022 3:32 PM EDT Sexual Orientation Straight 08/18/2022 3: 32 PM EDT Last Filed Vital Signs Vital Sign Reading Time Taken Comments Blood Pressure 141/75 10/06/2024 2:04 PM EDT Pulse 91 10/06/2024 2:04 PM EDT Temperature 36.3 C (97.3 F) 10/06/2024 2:04 PM EDT Respiratory Rate 16 10/06/2024 2:04 PM EDT Oxygen Saturation 95% 10/06/2024 2:04 PM EDT Inhaled Oxygen Concentration - - Weight 95.7 kg (210 lb 15.7 oz) 09/07/2024 1:11 PM EDT Height 188 cm (6' 2 ) 07/14/2024 12:34 PM EDT Body Mass Index 27.09 07/14/2024 12:34 PM EDT Plan of Treatment Upcoming Encounters Date Type Department Care Team (Latest Contact Info) Description 11/03/2024 2:15 PM EDT Office Visit [facility] [address] [place] [address] [place] [address] 8 week follow up with lab and B 12 inj 11/03/2024 2:30 PM EDT Visit (SP) Office Hematology/Oncology [address] [address] Dolores Jacobson APRN.STAFF READINESS OFFICER [address] [address] 8 week follow up with lab and B 12 inj 11/03/2024 3:00 PM EDT Nurse Visit Hematology/Oncology [address] [address] Beryl Parsons Nurse Hector [address] [address] 8 week follow up with lab B12 01/12/2025 1:20 PM EST Office Visit Gastroenterology [address] [place], [place] [id number] Jair Miller Jr., DO [address] [place] [address] [place] [phone] office moved from 12/29/24 months follow-up/ Pancreatic pseudocyst/cyst,Gene ralized abdominal pain,Gastroparesis,D yspepsia 05/08/2025 1:00 PM EDT Office Visit [facility] [place] [facility] [address] [address] lab 05/15/2025 1:00 PM EDT Office Visit Radiation Oncology [address] [address] Rafael Tyler MD [address] [place] [address] [place] [address] 1 year follow up Health Maintenance Due Date Last Done Comments Diabetic Foot Exam 02/24/1954 Dilated Retinal Exam 02/24/1954 Urine Albumin:Creatinine Ratio 02/24/1954 Annual PCP Team Chronic Dise ase Visit 02/24/1962 Anxiety Screening 02/24/1962 Depression Screening 02/24/1962 Shingrix Vaccine (1 of 2) 02/24/1994 Pneumococcal Vaccine: 50+ (2 of 2 - PCV) 02/22/2005 02/23/2004 LDL Cholesterol 05/14/2005 05/14/2004 DTaP,Tdap,Td Vaccine (1 - Tdap) 10/16/2015 6 Medicare Annual Wellness Visit 12/23/2017 RSV Vaccine (1 - 1-dose 75+ series) 02/24/2019 HbA1C 12/11/2022 06/11/2022, 08/23, 05/14/2004 Advance Directive Discussion 02/23/2024 Influenza Vaccine (#1) 2024 , 01/05/2022, 01/05/2022, Additional history exists Serum Creatinine 09/07/2025 09/07/2024, , 06/26/2024, Additional history exists Colonoscopy Discontinued 08/04/2023 Colorectal Cancer Screening Discontinued CT Colonography Discontinued Cologuard (FIT-DNA) Discontinued Fecal Occult Blood Discontinued Sigmoidoscopy Discontinued Medical Devices Implanted Type Area Matcher Offbearer Device Identifier Shelf Expiration Date Model / Serial / Lot Catheter Rosa Surecuff 9.6fr 3.2mm 1.6mm 2 Branch 90cm Central Venous 1 - [id number] Implanted:Qty: 1 on 09/07/2022 at [facility] Catheter KENYETTA JULIA 01/19/2026 [id number] / / [id number] Coil Debby Pod 4mm 30cm Embolization Complex Occulusion Device - [id number] Implanted:Qty: 1 on 07/30/2022 at [facility] Coil N/A: Artery - Abdomen [employer] 06/09/2029 [id number] / / [id number] Coil Debby Pod 4mm 30cm Embolization Complex Occulusion Device - [id number] Implanted:Qty: 1 on 07/30/2022 at [facility] Coil N/A: Artery - Abdomen [employer] 06/09/2029 [id number] / / [id number] Coil Penumbra Coil 400 Debby .02in 20mm 60cm Embolization Complex Large - [id number] Implanted:Qty: 1 on 07/30/2022 at [facility] Coil N/A: Artery - Abdomen [employer] 11/23/2026 [id number] / / [id number] Coil Penumbra Coil 400 Debby .02in 16mm 50cm Embolization Complex Large - [id number] Implanted:Qty: 1 on 07/30/2022 at [facility] Coil N/A: Artery - Abdomen [employer] 12/18/2026 [id number] / / [id number] Coil Tornado 7-3mm .018in [place] 9cm Embolization Microcoil Soft Spaced - [id number] Implanted:Qty: 1 on 07/30/2022 at [facility] Implant N/A: Artery - Abdomen COOK DI[employer]NOSTIC-INTERV ENTIONAL 02/16/2023 MWCE-18S -7/3-TOR NADO- / / [id number] Coil Tornado 7-3mm .018in [place] 9cm Embolization Microcoil Soft Spaced - [id number] Implanted:Qty: 1 on 07/30/2022 at [facility] Implant N/A: Artery - Abdomen COOK DIAGNOSTIC-INTERV ENTIONAL 10/14/2025 MWCE-18S -7/3-TOR NADO-01 / / [id number] Coil Barrie 4mm .018in [place] 14cm Embolization 11.1 Loop Soft - [id number] Implanted:Qty: 1 on 07/30/2022 at [facility] Implant N/A: Artery - Abdomen COOK DI[employer]NO[employer]IC-INTERV ENTIONAL 01/21/2027 MWCE-18- 14-4-LLOYD TER-01 / / [id number] Coil Tornado Microcoils 6-2mm .018in [place] 7cm Embolization Soft - [id number] Implanted:Qty: 1 on 07/30/2022 at [facility] Implant N/A: Artery - Abdomen COOK DIAGNOSTIC-INTERV ENTIONAL 01/12/2023 MWCE-18S -6/2-TOR NADO- / / [id number] Coil Tornado Microcoils 6-2mm .018in [place] 7cm Embolization Soft - [id number] Implanted:Qty: 1 on 07/30/2022 at [facility] Implant N/A: Artery - Abdomen COOK DIAGNOSTIC-INTERV ENTIONAL 10/18/2025 MWCE-18S -6/2-TOR NADO- / / [id number] Coil Tornado 3-2mm .018in [place] 2cm Embolization Microcoil Malformation - [id number] Implanted:Qty: 1 on 07/30/2022 at [facility] Implant N/A: Artery - Abdomen COOK DIAGNOSTIC-INTERV ENTIONAL 02/20/2027 MWCE-18S -3/2-TOR NADO- / / [id number] Coil Tornado 3-2mm .018in [place] 2cm Embolization Microcoil Malformation - [id number] Implanted:Qty: 1 on 07/30/2022 at [facility] Implant N/A: Artery - Abdomen COOK DIAGNOSTIC-INTERV ENTIONAL 02/20/2027 MWCE-18S -3/2-TOR NADO- / / [id number] Coil Tornado 3-2mm .018in [place] 2cm Embolization Microcoil Malformation - [id number] Implanted:Qty: 1 on 07/30/2022 at [facility] Implant N/A: Artery - Abdomen [place] DIAGNOSTIC-INTERV ENTIONAL 02/20/2027 MWCE-18S -3/2-TOR NADO- / / [id number] Device Angio-Seal Vip 6fr .035in Collagen 70cm Closure Valuelink Guidewire - [id number] Implanted:Qty: 1 on 07/30/2022 at [facility] Implant Right: Groin [facility] CARDIOV[facility] 12/22/2022 [id number] / / [id number] Coil Barrie 6mm .018in [place] 14cm Embolization 7.4 Loop Soft Radiopacity - [id number] Implanted:Qty: 1 on 07/30/2022 at [facility] Implant N/A: Artery - Abdomen Radial [employer] DIAGNOSTIC-INTERV ENTIONAL 11/07/2026 MWCE-18- 14-6-LLOYD TER-01 / / [id number] Coil Barrie 6mm .018in [place] 14cm Embolization 7.4 Loop Soft Radiopacity - [id number] Implanted:Qty: 1 on 07/30/2022 at [facility] Implant N/A: Artery - Abdomen Radial Network DIAGNOSTIC-INTERV ENTIONAL 01/28/2023 MWCE-18- 14-6-LLOYD TER- / / [id number] Coil Vortx 2-4mm [place] Fiber 42mm Embolization 18 Coil - [id number] Implanted:Qty: 1 on 07/30/2022 at [facility] Implant N/A: Artery - Abdomen [employer]G 11/03/2024 [id number] / / [id number] Coil Vortx 2-4mm [place] Fiber 42mm Embolization 18 Coil - [id number] Implanted:Qty: 1 on 07/30/2022 at [facility] Implant N/A: Artery - Abdomen [employer]G 11/03/2024 [id number] / / [id number] Coil Barrie 4mm .018in [place] 14cm Embolization 11.1 Loop Soft - [id number] Implanted:Qty: 1 on 07/30/2022 at [facility] Implant N/A: Artery - Abdomen COOK DIAGNOSTIC-INTERV ENTIONAL 01/29/2027 MWCE-18- 14-4-LLOYD TER- / / [id number] Coil Barrie 4mm .018in [place] 14cm Embolization 11.1 Loop Soft - [id number] Implanted:Qty: 1 on 07/30/2022 at [facility] Implant N/A: Artery - Abdomen COOK DIAGNOSTIC-INTERV ENTIONAL 01/29/2027 MWCE-18- 14-4-LLOYD TER- / / [id number] Coil Barrie 10mm .018in [place] 14cm Embolization 4.5 Loop Soft - [id number] Implanted:Qty: 1 on 07/30/2022 at [facility] Implant N/A: Artery - Abdomen COOK DIAGNOSTIC-INTERV ENTIONAL 12/29/2023 MWCE-18- 14-10-NE STER- / / [id number] Tube 20fr Safety Peg Pull Implanted:Qty: 1 on 10/05/2022 at [facility] N/A: Stoma - Abdomen 12/23/2023 [id number] / / [id number] Procedures Procedure Name Priority Date/Time Associated Diagnosis Comments PROTHROMBIN TIME Routine 09/07/2024 1:05 PM EDT Megaloblastic anemia due to vitamin B12 deficiency Encounter for monitoring Coumadin therapy COMPREHENSIVE METABOLIC PANEL Routine 09/07/2024 1:05 PM EDT Megaloblastic anemia due to vitamin B12 deficiency CBC + DIFF Routine 09/07/2024 1:05 PM EDT Megaloblastic anemia due to vitamin B12 deficiency IRON + TIBC Routine 09/07/2024 1:05 PM EDT Megaloblastic anemia due to vitamin B12 deficiency FERRITIN BLD Routine 09/07/2024 1:05 PM EDT Megaloblastic anemia due to vitamin B12 deficiency EXTERNAL IMAGING 08/02/2024 2:16 PM EDT COLONOSCOPY DIAGNOSTIC Routine 12:20 PM EDT Colonic thickening Abnormal CT of the abdomen HEMOGLOBIN A1C Routine 06/11/2022 5:53 AM EDT LIPID PANEL, FASTING 05/14/2004 7:18 AM EST from Last 3 Months or Most Recently Relevant to Health Maintenance Results * PROTHROMBIN TIME (09/07/2024 1:05 PM EDT) PT Sec 11.6 9.7 - 13.0 sec 09/07/2024 10:[address] [facility] INR 1.1 0.9 - 1.3 09/07/2024 10:[address] [facility] Comment: Vitamin K Antagonist (VKA) Therapeutic Range: INR 2 to 3 (Target INR of 2.5) Note: For patients treated with VKA drugs, such as warfarin, the [place] [employer] 2012 Guideline recommends a therapeutic INR range of 2 to 3 (target INR of 2.5). This recommendation includes high-risk patients with antiphospholipid syndrome with previous arterial or venous thromboembolism, current-generation mechanical or bioprosthetic aortic heart valve replacement. Note: Patients with mechanical aortic valve replacement and additional risk factors for thromboembolic events (atrial fibrillation, previous thromboembolism, LV dysfunction, hypercoagulable conditions) or an older generation mechanical AVR (i.e., ball in-Cage) or any mechanical MVR should have a INR therapeutic range of 2.5 to 3.5 (target INR of 3). Spencertt GH, et al. Chest 2012, 141:7S-47S Jordon RA et al. [facility] 2017, 70: 252-289 Blood BLOOD SPECIMEN / Unknown Venipuncture / Unknown 09/07/2024 1:05 PM EDT 09/07/2024 1:05 PM EDT Dolores Jacobson RABBIT FANCIER.[facility] Final Resul t [facility] [address] [place] [address], [place] * IRON AND TIBC (09/07/2024 1:05 PM EDT) Pathologist [facility] Iron 64 41 - 186 ug/dL 09/08/2024 5:[address] [facility] TIBC 257 232 - 386 ug/dL 09/08/2024 5:[address] [facility] Transferrin Saturation 24.9 15.0 - 57.0 % 09/08/2024 5:[address] [facility] Blood BLOOD SPECIMEN / Unknown Venipuncture / Unknown 09/07/2024 1:05 PM EDT 09/07/2024 1:05 PM EDT Dolores Jacobson RABBIT FANCIER.[facility] Final Resul t [facility] [address] [place] [address], [place] * FERRITIN (09/07/2024 1:05 PM EDT) [facility] Ferritin 99.2 30.3 - 565.7 ng/mL 09/08/2024 5:[address] [facility] Blood BLOOD SPECIMEN / Unknown Venipuncture / Unknown 09/07/2024 1:05 PM EDT 09/07/2024 1:05 PM EDT Dolores Jacobson APRN.[facility] Final Resul t [facility] [address] [place] [address], [place] * (ABNORMAL) COMPREHENSIVE METABOLIC PANEL (09/07/2024 1:05 PM EDT) [facility] Protein, Total 6.8 6.3 - 8.0 g/dL 09/07/2024 1:31 PM EDT [facility] Albumin 4.0 3.9 - 4.9 g/dL 09/07/2024 1:31 PM EDT [facility] Calcium, Total 9.1 8.5 - 10.2 mg/dL 09/07/2024 1:31 PM EDT [facility] Bilirubin, Total 0.3 0.2 - 1.3 mg/dL 09/07/2024 1:31 PM EDT [facility] Alkaline Phosphatase 62 38 - 113 U/L 09/07/2024 1:31 PM EDT [facility] AST 17 14 - 40 U/L 09/07/2024 1:31 PM EDT [facility] ALT 17 10 - 54 U/L 09/07/2024 1:31 PM T [facility] Glucose 203(H) 74 - 99 mg/dL 09/07/2024 1:31 PM T [facility] Comment: The [place] [employer] (ADA) provides guidance for cutoff values for fasting glucose and random glucose. The ADA defines fasting as no caloric intake for at least 8 hours. Fasting plasma glucose results between 100 to 125 mg/dL indicate increased risk for diabetes (prediabetes). Fasting plasma glucose results greater than or equal to 126 mg/dL meet the criteria for diagnosis of diabetes. In the absence of unequivocal hyperglycemia, results should be confirmed by repeat testing. In a patient with classic symptoms of hyperglycemia or hyperglycemic crisis, random plasma glucose results greater than or equal to 200 mg/dL meet the criteria for diagnosis of diabetes. Reference: Standards of Medical Care in Diabetes 2016, [place] [employer]. Diabetes Care. 2016.39(Suppl 1). BUN 20 9 - 24 mg/dL 09/07/2024 1:31 PM T [facility] Creatinine 1.07 0.73 - 1.22 mg/dL 09/07/2024 1:31 PM EDT [facility] Sodium 137 136 - 144 mmol/L 09/07/2024 1:31 PM EDT [facility] Potassium 4.0 3.7 - 5.1 mmol/L 09/07/2024 1:31 PM EDT [facility] Chloride 100 98 - 107 mmol/L 09/07/2024 1:31 PM EDT [facility] CO2 27 22 - 30 mmol/L 09/07/2024 1:31 PM EDT [facility] Anion Gap 10 8 - 15 mmol/L 09/07/2024 1:31 PM EDT [facility] Estimated Glomerular Filtration Rate 70 >=60 mL/min/1. 73m 09/07/2024 1:31 PM EDT [facility] Comment:Estimated Glomerular Filtration Rate (eGFR) is calculated using the 2020 CKD-EPI creatinine equation. This equation utilizes serum creatinine, sex, and age as parameters. The creatinine assay has traceable calibration to isotope dilution- mass spectrometry. Refer to KDIGO guidelines for clinical interpretation. In patients with unstable renal function, e.g. those with acute kidney injury, the eGFR may not accurately reflect actual GFR. Blood BLOOD SPECIMEN / Unknown Venipuncture / Unknown 09/07/2024 1:05 PM EDT 09/07/2024 1:05 PM EDT us Dolores Jacobson APRN.[employer] Final Resul t [facility] [address] [place] [address] * (ABNORMAL) COMPLETE BLOOD COUNT AND DIFFERENTIAL (09/07/2024 1:05 PM EDT) WBC 11.83(H) 3.70 - 11.00 k/uL 09/07/2024 1:12 PM EDT [facility] Comment:Results checked and verified.No clot detected. RBC 4.93 4.20 - 6.00 m/uL 09/07/2024 1:12 PM EDT [facility] Hemoglobin 14.7 13.0 - 17.0 g/dL 09/07/2024 1:12 PM EDT [facility] Hematocrit 46.0 39.0 - 51.0 % 09/07/2024 1:12 PM EDT [facility] MCV 93.3 80.0 - 100.0 fL 09/07/2024 1:12 PM EDT [facility] MCH 29.8 26.0 - 34.0 pg 09/07/2024 1:12 PM EDT [facility] MCHC 32.0 30.5 - 36.0 g/dL 09/07/2024 1:12 PM EDT [facility] RDW-CV 15.5(H) 11.5 - 15.0 % 09/07/2024 1:12 PM EDT [facility] Platelet Count 283 150 - 400 k/uL 09/07/2024 1:12 PM EDT [facility] MPV 10.6 9.0 - 12.7 fL 09/07/2024 1:12 PM EDT [facility] Neutrophils % 77.2 % 09/07/2024 1:12 PM EDT [facility] Abs Neut 9.13(H) 1.45 - 7.50 k/uL 09/07/2024 1:12 PM EDT [facility] Lymphocytes % 11.3 % 09/07/2024 1:12 PM EDT [facility] Abs Lymph 1.34 1.00 - 4.00 k/uL 09/07/2024 1:12 PM EDT [facility] Monocytes % 5.2 % 09/07/2024 1:12 PM EDT [facility] Abs Hinds 0.61 <0.87 k/uL 09/07/2024 1:12 PM EDT [facility] Eosinophils % 0.7 % 09/07/2024 1:12 PM EDT [facility] Abs Eosin 0.08 <0.46 k/uL 09/07/2024 1:12 PM EDT [facility] Basophils % 0.9 % 09/07/2024 1:12 PM EDT [facility] Abs Baso 0.11(H) <0.11 k/uL 09/07/2024 1:12 PM EDT [facility] Immature Granulocytes % 4.7 % 09/07/2024 1:12 PM EDT [facility] Abs Immature Gran 0.56(H) <0.10 k/uL 09/07/2024 1:12 PM EDT [facility] NRBC 0.0 /100 WBC 09/07/2024 1:12 PM EDT [facility] Absolute nRBC <0.01 <0.01 k/uL 09/07/2024 1:12 PM EDT [facility] Diff Type Auto 09/07/2024 1:12 PM EDT [facility] Blood BLOOD SPECIMEN / Unknown Venipuncture / Unknown 09/07/2024 1:05 PM EDT 09/07/2024 1:05 PM EDT us Dolores 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 Final Resul t [facility] [address] [place] [address] * EXTERNAL IMAGING (08/02/2024 2:16 PM EDT) Anatomical Region Laterality Modality Other us External Provider PA-C RADIOLOGY Final Res ult * COLONOSCOPY DIAGNOSTIC (08/04/2023 12:20 PM EDT) Anatomical Region Laterality Modality Other 08/04/2023 11:5 1 AM EDT Narrative 08/04/2023 12:30 PM EDT [facility] Gastrointestinal Endoscopy Patient Name: Chau Rae Procedure Date: 08/04/2023 11:51 AM Date of : 1945 Admit Type: Outpatient Age: 78 Room: [place] [address] Gender: Male Note Status: Finalized Attending MD: Jair Miller Jr , DO, [id number] Procedure: Colonoscopy Indications: Abnormal CT of the GI tract (suggesting thickening in the sigmoid colon, history of colon polyps Comorbidities history of pancreatitis Providers: Jair Miller Jr, DO Patient Profile: This is a 78 year old male. Refer to note in patient chart for documentation of history and physical. Last Colonoscopy: 5 years ago. Referring Physician: Jair Miller Jr, DO (Referring MD) Medicines: Propofol per Anesthesia, Monitored Anesthesia Care Complications: No immediate complications. Requesting Provider: Procedure: Pre-Anesthesia Assessment: - Prior to the procedure, a History and Physical was performed, and patient medications and allergies were reviewed. The patient's tolerance of previous anesthesia was also reviewed. The risks and benefits of the procedure and the sedation options and risks were discussed with the patient. All questions were answered, and informed consent was obtained. Prior Anticoagulants: The patient has taken Eliquis (apixaban), last dose was 3 days prior to procedure. ASA Grade Assessment: III - A patient with severe systemic disease. After reviewing the risks and benefits, the patient was deemed in satisfactory condition to undergo the procedure. After I obtained informed consent, the scope was passed under direct vision. Throughout the procedure, the patient's blood pressure, pulse, and oxygen saturations were monitored continuously. The 9292 Adult was introduced through the anus and advanced to the terminal ileum, with identification of the appendiceal orifice and IC valve. The colonoscopy was performed without difficulty. The patient tolerated the procedure well. The quality of the bowel preparation was good. The entire colon was visualized. The terminal ileum, ileocecal valve, appendiceal orifice, and rectum were photographed. Scope Withdrawal Time: 0 hours 12 minutes 3 seconds Moderate Sedation: MAC anesthesia was administered by the anesthesia team. Total Procedure Duration: 0 hours 15 minutes 21 seconds Findings: The digital rectal exam was normal. The terminal ileum appeared normal. A diminutive polyp was found in the appendiceal orifice. The polyp was flat. The polyp was removed with a jumbo cold forceps. Resection and retrieval were complete. A small polyp was found in the recto-sigmoid colon. The polyp was sessile. The polyp was removed with a cold snare. Resection and retrieval were complete. Scattered medium-mouthed diverticula were found in the entire colon. No additional abnormalities were found on retroflexion. Impression: - The examined portion of the ileum was normal. - One diminutive polyp at the appendiceal orifice, removed with a jumbo cold forceps. Resected and retrieved. - One small polyp at the recto-sigmoid colon, removed with a cold snare. Resected and retrieved. - Diverticulosis in the entire examined colon. Recommendation: - Discharge patient to home. - Resume regular diet. - Continue present medications. - Await pathology results. - Repeat colonoscopy is not recommended due to current age (66 years or older) for surveillance. - Resume Eliquis (apixaban) at prior dose tomorrow. - Patient has a contact number available for emergencies. The signs and symptoms of potential delayed complications were discussed with the patient. Return to normal activities tomorrow. Written discharge instructions were provided to the patient. Procedure Code(s): --- Professional --- 24438, Colonoscopy, flexible; with removal of tumor(s), polyp(s), or other lesion(s) by snare technique 01194, 59, Colonoscopy, flexible; with biopsy, single or multiple Diagnosis Code(s): --- Professional --- D12.1, Benign neoplasm of appendix D12.7, Benign neoplasm of rectosigmoid junction K57.30, Diverticulosis of large intestine without perforation or abscess without bleeding R93.3, Abnormal findings on diagnostic imaging of other parts of digestive tract CPT copyright 2020 [employer]. All rights reserved. The codes documented in this report are preliminary and upon certified medical records coder review may be revised to meet current compliance requirements. Attending Participation: I personally performed the entire procedure. Scope In: 12:04:05 PM Scope Out: 12:19:26 PM MD Jair Monroe Jr, DO 08/04/2023 12:27:03 PM This report has been signed electronically by Jair Miller Jr, DO Number of Addenda: 0 Note Initiated On: 08/04/2023 11:51 AM Estimated Blood Loss: Estimated blood loss: none. us Jair Miller Jr., DO DIGESTIVE DISEASE Final Re sult * (ABNORMAL) HGB A1C (06/11/2022 5:53 AM EDT) Hemoglobin A1C 7.7(H) 4.3 - 5.6 % 06/11/2022 3:[address] [facility] Comment:[place] [employer] sociation guidelines indicate that patients with HgbA1c in the range 5.7-6.4% are at increased risk for development of diabetes, and intervention by lifestyle modification may be beneficial. HgbA1c greater or equal to 6.5% is considered diagnostic of diabetes. Estimated Average Glucose 174 mg/dL 06/11/2022 3:[address] [facility] Comment:eAG: (Estimated aver age glucose) is a calculated value from HgbA1c and is retail field representative of the average blood glucose level in the last 2-3 month period. Blood BLOOD SPECIMEN / Unknown Venipuncture / Unknown 06/11/2022 5:53 AM EDT 06/11/2022 6:11 AM EDT Mehdi Rankin MD LABORATORY Final Result Performing Organization Address [facility]/ZIP Co de Phone Number [facility] [address] [address], * (ABNORMAL) LIPID PANEL BASIC (05/14/2004 7:18 AM EST) Triglyceride 248(A) 30 - 149 mg/dL [facility] Cholesterol, Total 197 100 - 199 mg/dL [facility] HDL Cholesterol 77 >45 mg/dL [facility] VLDL Cholesterol 50(A) 6 - 40 mg/dL [facility] LDL Cholesterol, Calculated 70 60 - 129 mg/dL [facility] Fasting Time [address] [facility] TC:HDL Ratio 2.56 1.00 - 5.00 [facility] LDL:HDL Ratio 0.91 0.50 - 3.55 [facility] 05/14/2004 7:18 AM EST Rafi Treoj LABORATORY Final Re sult [facility] [address] [place] [address] from Last 3 Months or Most Recently Relevant to Health Maintenance Insurance MEDICARE A[employer] SUPPLEMENT Advance Directives * Full Code (Latest Code Status on File) Date Activated Date Inactivated Comments 10/02/2022 11:50 PM 10/10/2022 7:12 PM Question Answer Comments Full Code Order Discussed With: PatientSurrogate Decision Maker * Full Code Date Activated Date Inactivated Comments 09/03/2022 1:37 PM 09/13/2022 2:47 PM Question Answer Comments Full Code Order Discussed With: Patient * Full Code Date Activated Date Inactivated Comments 08/26/2022 12:27 PM 08/27/2022 6:46 PM Question Answer Comments Full Code Order Discussed With: Patient * Full Code Date Activated Date Inactivated Comments 07/30/2022 12:08 AM 08/03/2022 6:27 PM Question Answer Comments Full Code Order Discussed With: PatientSurrogate Decision Maker Surrogate Decision Maker Name: Carolyn Rae Surrogate Decision Maker Surrogate Decision Maker Relationship: Spouse * Full Code Date Activated Date Inactivated Comments 06/10/2022 1:52 AM 06/12/2022 4:51 PM Question Answer Comments Full Code Order Discussed With: Patient Care Teams Refrigeration Tech Relationship Specialty Start Date End Date Trey Berkowitz [address] [place] [phone] PCP - General 05/14/04
--- OUTSIDE RECORDS SUMMARY | 2024-10-31 09:21 | XMS_ITS | Encounter Summary ---
Author Organization [facility] Address [address] [place] [address] Care Team Providers Care Serger Name Role Phone Trey Berkowitz DO Primary Care Provider [phone] Reason for Referral * MRI/CAT Scan (Routine) - Closed Specialty Diagnoses / Procedures Referred By Contac t Referred To Contact Diagnoses Elevated diaphragm Shortness of breath Procedures CT CHEST WITHOUT CONTRAST CHG DIAGNOSTIC COMPUTED TOMOGRAPHY THORAX W/O CNTRST Lindsey Sidhu APRN-CNP [address] [place] [address] Phone: tel: fax: Referral ID Status Reason Start Date Expiration Date Visits Re quested Visits Authorized [id number] Closed 11/23/2022 12/18/2023 1 1 Reason for Visit * Reason Onset Date Comments Advice Only 11/23/2022 Encounter Details Date Type Department Care Team (Late st Contact Info) Description 11/23/2022 Telephone Division of Thoracic Surgery at [facility] [address] [place], [place] [id number] Rick Menendez MD [address] [place] [address] Advice Only Social History Tobacco Use Types Packs/Day Years Used Date Smoking Tobacco: Former Cigarettes 2 4 1 5 - 1998 Smokeless Tobacco: Never Alcohol Use Standard Drinks/Week Comments Not Currently 0 (1 standard drink = 0.6 oz pur e alcohol) Housing Stability Vital Sign Answer Francis e Recorded In the last 12 months, was t here a time when you were not able to pay the mortgage or rent on time? No 03/19/2022 Number of Places Lived in the Last Year Not on f ile 03/19/2022 In the last 12 months, was t here a time when you did not have a steady place to sleep or slept in a correction (including now)? 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 Menendez. 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 He was discharged to home on 10/11 and now reports shortness of breath with exertion that feels like it did before his plication. He reports specific no event or pain when the shortness of breath started. Denies cough or fevers. Reviewed with Dr. Menendez, who would like to see him back in the office with a CT chest. The patient wanted to have this done at [facility] on 11/26 zachary another scan is scheduled, however I contacted [facility] and they are unable to accommodate this. The patient is in agreement with the CT chest here at [facility] followed by an appointment with Dr. Menendez right after. Order placed and I will ask our regional account manager to arrange. * Telephone Encounter - Magdi Escalante - 11/23/2022 10:21 AM EDT Who is calling: Patient's EC - Alis Rae Why are they calling: They were calling in to speak with the medical staff about the patient needing to schedule an appointment due to some issues. The patient has had a reoccurance of his breathing issues. This started about 3 weeks ago. Also requesting that an order for a CT that is scheduled on 11/26/22 to include the patient's lung. #: [phone] Thanks! documented in this encounter Plan of Treatment Scheduled Orders Name Type Priority Associated Diagnoses Orde r Schedule CT CHEST WITHOUT CONTRAST Imaging Routine Elevated diaphragm Shortness of breath Expected: 11/23/2022, Expires: 11/24/2023 documented as of this encounter Visit Diagnoses Diagnosis Elevated diaphragm- Primary Disorders of diaphragm Shortness of breath documented in this encounter Additional Health Concerns Assessment Noted Time PHQ-9 Depression Total Score: 0 04/16/19 8:45 AM EST documented as of this encounter Care Teams Serger Relationship Specialty Start Date End Date Trey Berkowitz DO PCP - General Family Medicine 03/19/22 documented as of this encounter
--- OUTSIDE RECORDS SUMMARY | 2024-10-31 09:21 | XMS_ITS | Encounter Summary ---
Author Organization [facility] Address [address] [place] [address] Care Team Providers Care Hospital Education Coordinator Name Role Phone Trey Berkowitz Primary Care Provider [phone] Source Comments In the event this information is protected by the Federal Confidentiality of Alcohol and Drug AbusePatient Records regulations: The Federal rules restrict any use of the information to criminally investigate or prosecute any alcohol or drug abuse patient.[facility] Encounter Details Date Type Department Care Team (Late st Contact Info) Description 02/07/2023 Get Medical Advice Gastroenterology [address] [place] [address] Jair Miller Jr., DO [address] [place] [address] [employer] prescription Social History Tobacco Use Types Packs/Day Years [...] PHQ-2 Answer Date Recorded PHQ-2 score 0 01/06/2023 Hunger Vital Sign Answer Date Recorded Within [...] place to sleep or slept in a residential (including now)? No 09/04/2022 Area Deprivation Index Answer Date Chon rded National Score (1-100), lower number is lower ri sk 55 08/08/2022 State Score (1-10), lower number is lower risk 3 08/08/2022 Data from: https://www.neighborhoodatlas.medicine.[facility].edu/. Last address used for calculation [address] 08/08/2022 Sex and Gender Information Value Date [...] encounter Miscellaneous Notes * Telephone Encounter - Tootie Oshea MA - 02/08/2023 8:11 AM EST Updated to 4 times per day. Please resend if appropriate. documented in this encounter Plan of Treatment Upcoming Encounters Date Type Department Care Team (Latest Contact Info) Description 11/03/2024 2:15 PM EDT Office Visit [facility] [place] [address] 8 week follow up with lab and B 12 inj 11/03/2024 2:30 PM EDT Visit (SP) Office Hematology/Oncology [address] [place] [address] Dolores Jacobson APRN.DIRECTOR REHABILITATION PROGRAM [address] [place] [address] 8 week follow up with lab and B 12 inj 11/03/2024 3:00 PM EDT Nurse Visit Hematology/Oncology [address] [place] [address] Beryl Parsons Nurse Hector [address] [place] [address] 8 week follow up with lab B12 01/12/2025 1:20 PM EST Office Visit Gastroenterology [address] [place] [address] Jair Miller Jr., DO [address] [place] [address] office moved from 12/29/24 months follow-up/ Pancreatic pseudocyst/cyst,Gene ralized abdominal pain,Gastroparesis,D yspepsia 05/08/2025 1:00 PM EDT Office Visit [facility] [address] [facility] [place] [address] lab 05/15/2025 1:00 PM EDT Office Visit Radiation Oncology [address] [place] [address] Rafael Tyler MD [address] [place] [address] 1 year follow up documented as of this encounter Visit Diagnoses Diagnosis Other chronic pancreatitis (HCC) documented in this encounter Care Teams Hospital Education Coordinator Relationship Specialty Start Date End Date Trey Berkowitz [address] [place] [phone] PCP - General 05/14/04 documented as of this encounter
--- OUTSIDE RECORDS SUMMARY | 2024-10-31 09:21 | XMS_ITS | Encounter Summary ---
Author Organization [facility] Address [address] [place] [address] Care Team Providers Care Hr Advisor Name Role Phone Trey Berkowitz Chet Primary Care Provider [phone] Source Comments In the event this information is protected by the Federal Confidentiality of Alcohol and Drug AbusePatient Records regulations: The Federal rules restrict any use of the information to criminally investigate or prosecute any alcohol or drug abuse patient.[facility] Encounter Details Date Type Department Care Team (Late st Contact Info) Description 12/31/2022 Patient [facility] Radiology Procedure [address] [place] [address] Provider, Ccf You are scheduled for a lopez removal, On 01/05/2023. Social History Tobacco Use Types Packs/Day Years [...] is lower risk 3 08/08/2022 Data from: https://www.neighborhoodatlas.medicine.[facility].edu/. Last address used for calculation [address] [place] [address] 08/08/2022 Sex and Gender Information Value Date [...] EDT Office Visit [facility] [address] [facility] [place] [address] 8 week follow up with lab and B 12 inj 11/03/2024 2:30 PM EDT Visit (SP) Office Hematology/Oncology [address] [facility] [place] [address] Dolores Jacobson APRN.WEATHER STRIPPER [address] [place] [address] 8 week follow up with lab and B 12 inj 11/03/2024 3:00 PM EDT Nurse Visit Hematology/Oncology [address] [place] [address] Beryl Parsons Nurse Hector [address] [facility] [place] [address] 8 week follow up with lab B12 01/12/2025 1:20 PM EST Office Visit Gastroenterology [address] [place] [address] Jair Miller Jr., [address] [facility] [address] [place] [address] office moved from 12/29/24 months follow-up/ Pancreatic pseudocyst/cyst,Gene ralized abdominal pain,Gastroparesis,D yspepsia 05/08/2025 1:00 PM EDT Office Visit [facility] [address] [place] [address] [place] [address] lab 05/15/2025 1:00 PM EDT Office Visit Radiation Oncology [address] [place] [address] [place] [address] Rafael Tyler MD [address] [place] [address] [place] [address] 1 year follow up documented as of this encounter Visit Diagnoses Not on filedocumented in this encounter Care Teams Hr Advisor Relationship Specialty Start Date End Date Trey Berkowitz [address] [place] [phone] PCP - General 05/14/04 documented as of this encounter
--- OUTSIDE RECORDS SUMMARY | 2024-10-31 09:21 | XMS_ITS | Encounter Summary ---
Author Organization [facility] Address [address] [place] [address] Care Team Providers Care Bulk Driver Name Role Phone Trey Berkowitz Primary Care Provider [phone] Source Comments In the event this information is protected by the Federal Confidentiality of Alcohol and Drug AbusePatient Records regulations: The Federal rules restrict any use of the information to criminally investigate or prosecute any alcohol or drug abuse patient.[facility] Encounter Details Date Type Department Care Team (Late st Contact Info) Description 10/25/2024 Orders Only Hematology/Oncology [address] [facility] [place] [address] Cass Elias APRN.AIRPLANE FIRST OFFICER [address] [facility] [place] [address] Social History Tobacco Use Types Packs/Day Years [...] place to sleep or slept in a skilled nursing (including now)? No 09/04/2022 Area Deprivation Index Answer Date Chon rded National Score (1-100), lower number is lower ri sk 55 08/08/2022 State Score (1-10), lower number is lower risk 3 08/08/2022 Data from: https://www.neighborhoodatlas.medicine.[facility].edu/. Last address used for calculation [address] 08/08/2022 Sex and Gender Information [...] Description 11/03/2024 2:15 PM EDT Office Visit [facility] [address] [facility] [place] [address] 8 week follow up with lab and B 12 inj 11/03/2024 2:30 PM EDT Visit (SP) Office Hematology/Oncology [address] [place] [address] Dolores Jacobson APRN.AIRPLANE FIRST OFFICER [address] [facility] [place] [address] 8 week follow up with lab and B 12 inj 11/03/2024 3:00 PM EDT Nurse Visit Hematology/Oncology [address] [place] [address] Beryl Parsons Nurse Hector [address] [facility] [place] [address] 8 week follow up with lab B12 01/12/2025 1:20 PM EST Office Visit Gastroenterology [address] [facility] [address] [place], [place] [id number] Jair Miller Jr., DO [address] [facility] [address] [place] [address] office moved from 12/29/24 months follow-up/ Pancreatic pseudocyst/cyst,Gene ralized abdominal pain,Gastroparesis,D yspepsia 05/08/2025 1:00 PM EDT Office Visit [facility] [address] [facility] [place] [place] [address] lab 05/15/2025 1:00 PM EDT Office Visit Radiation Oncology [address] [facility] [place] [place] [address] Rafael Tyler MD [address] [facility] [place] [place] [address] 1 year follow up documented as of this encounter Visit Diagnoses Not on filedocumented in this encounter Care Teams Bulk Driver Relationship Specialty Start Date End Date Trey Berkowitz [address] [place] [phone] PCP - General 05/14/04 documented as of this encounter
--- OUTSIDE RECORDS SUMMARY | 2024-10-31 09:21 | XMS_ITS | Encounter Summary ---
Author Organization [facility] Address [address] [place] [address] Care Team Providers Care Electrical Systems Drafter Name Role Phone Trey Berkowitz Primary Care Provider [phone] Source Comments In the event this information is protected by the Federal Confidentiality of Alcohol and Drug AbusePatient Records regulations: The Federal rules restrict any use of the information to criminally investigate or prosecute any alcohol or drug abuse patient.[facility] Encounter Details Date Type Department Care Team (Late st Contact Info) Description 12/22/2022 Get Medical Advice Gastroenterology [address] [place] [address] Jair Miller Jr., DO [address] [place] [address] Reglan and side effects Social History Tobacco Use Types Packs/Day Years [...] is lower risk 3 08/08/2022 Data from: https://www.neighborhoodatlas.medicine.[facility].edu/. Last address used for calculation [address] [facility] [facility] 08/08/2022 Sex and Gender Information Value Date [...] encounter Miscellaneous Notes * Telephone Encounter - Katie Celaya RN - 12/22/2022 12:32 PM EDT Stop Reglan. Add on for office visit Dec 29 at 12:40. Jair Miller Jr., DO Schedulers, please add pt on for the above date and time for a follow up office visit Thank you Katie Celaya RN * Telephone Encounter - Katie Celaya RN - 12/22/2022 12:[address] Miller, please see attached message per pt. Pt feels he is having side effects from Reglan and would like to try staying off. Please review and advise. Thank you Katie Celaya RN documented in this encounter Plan of Treatment Upcoming Encounters Date Type Department Care Team (Latest Contact Info) Description 11/03/2024 2:15 PM EDT Office Visit [facility] [address] [place] [address] 8 week follow up with lab and B 12 inj 11/03/2024 2:30 PM EDT Visit (SP) Office Hematology/Oncology [address] [place] [address] Dolores Jacobson APRN.WRAPPER SELECTOR [address] [place] [address] 8 week follow up with lab and B 12 inj 11/03/2024 3:00 PM EDT Nurse Visit Hematology/Oncology [address] [place] [address] Beryl Parsons Nurse Hector [address] [place] [address] 8 week follow up with lab B12 01/12/2025 1:20 PM EST Office Visit Gastroenterology [address] [place] [address] Jair Miller Jr., DO [address] [facility] [facility] [address] [place] [address] office moved from 12/29/24 months follow-up/ Pancreatic pseudocyst/cyst,Gene ralized abdominal pain,Gastroparesis,D yspepsia 05/08/2025 1:00 PM EDT Office Visit [facility] [address] [place] [address] lab 05/15/2025 1:00 PM EDT Office Visit Radiation Oncology [address] [place] [address] Rafael Tlyer MD [address] [facility] [place] [address] 1 year follow up documented as of this encounter Visit Diagnoses Not on filedocumented in this encounter Care Teams Electrical Systems Drafter Relationship Specialty Start Date End Date Trey Berkowitz [address] [place] [phone] PCP - General 05/14/04 documented as of this encounter
--- OUTSIDE RECORDS SUMMARY | 2024-10-31 09:21 | XMS_ITS | Encounter Summary ---
Author Organization [facility] Address [facility] [place] [address] Care Team Providers Care Garage Door Service Technician Name Role Phone Trey Berkowitz Primary Care Provider [phone] Source Comments In the event this information is protected by the Federal Confidentiality of Alcohol and Drug AbusePatient Records regulations: The Federal rules restrict any use of the information to criminally investigate or prosecute any alcohol or drug abuse patient.[facility] Encounter Details Date Type Department Care Team (Late st Contact Info) Description 12/21/2022 Lab Requisition [facility] [address] [place] [address] [place] [address] [address] [facility] [address] [place] [id number] Other chronic pancreatitis (HCC) Social History Tobacco Use Types Packs/Day Years [...] place to sleep or slept in a care home (including now)? No 09/04/2022 Area Deprivation Index Answer Date Chon rded National Score (1-100), lower number is lower ri sk 55 08/08/2022 State Score (1-10), lower number is lower risk 3 08/08/2022 Data from: https://www.neighborhoodatlas.medicine.[facility].edu/. Last address used for calculation [address] 08/08/2022 Sex and Gender Information Value Date [...] Description 11/03/2024 2:15 PM EDT Office Visit [facility] [address] [place] [address] 8 week follow up with lab and B 12 inj 11/03/2024 2:30 PM EDT Visit (SP) Office Hematology/Oncology [address] [place], [place] [address] [place] [address] Dolores Jacobson APRN.[employer] OPERATIONS SUPERVISOR [address] [facility] [address] 8 week follow up with lab and B 12 inj 11/03/2024 3:00 PM EDT Nurse Visit Hematology/Oncology [address] [place] [address] Beryl Parsons Nurse Hector [address] [place] [address] 8 week follow up with lab B12 01/12/2025 1:20 PM EST Office Visit Gastroenterology [address] [place] [address] Jair Miller Jr., DO [address] [place] [phone] office moved from 12/29/24 months follow-up/ Pancreatic pseudocyst/cyst,Gene ralized abdominal pain,Gastroparesis,D yspepsia 05/08/2025 1:00 PM EDT Office Visit [facility] [address] [place] [address] lab 05/15/2025 1:00 PM EDT Office Visit Radiation Oncology [address] [place] [address] Rafael Tyler MD [address] [place] [address] 1 year follow up documented as of this encounter Procedures Procedure Name Priority Date/Time Associated Diagnosis Comments MAGNESIUM BLD Routine 12/21/2022 1:45 PM EDT Other chronic pancreatitis (HCC) PHOSPHORUS INORGANIC Routine 12/21/2022 1:45 PM EDT Other chronic pancreatitis (HCC) COMPREHENSIVE METABOLIC PANEL Routine 12/21/2022 1:45 PM EDT Other chronic pancreatitis (HCC) CBC + DIFF Routine 12/21/2022 1:45 PM EDT Other chronic pancreatitis (HCC) documented in this encounter Results * PHOSPHORUS INORGANIC (12/21/2022 1:45 PM EDT) Phosphorus 3.7 2.7 - 4.8 mg/dL 12/22/2022 9:12 AM EDT [facility] Blood BLOOD SPECIMEN / Unknown 12/21/2022 1:45 PM EDT 12/21/2022 11:16 PM EDT us Natali Leonard MD LABORATORY Final Result [facility] [address] [facility] [address] [place] [id number], [place] * MAGNESIUM BLD (12/21/2022 1:45 PM EDT) Pathologist [facility] Magnesium 1.9 1.7 - 2.3 mg/dL 12/22/2022 9:12 AM EDT [facility] Blood BLOOD SPECIMEN / Unknown 12/21/2022 1:45 PM EDT 12/21/2022 11:16 PM EDT us Natali Leonard MD LABORATORY Final Result Performing Organization Address [facility]/ZIP Co de Phone Number [facility] [address] [place] [id number], [place] * (ABNORMAL) CBC + DIFF (12/21/2022 1:45 PM EDT) [facility] WBC 9.60 3.70 - 11.00 k/uL 12/22/2022 1:53 AM EDT [facility] RBC 4.54 4.20 - 6.00 m/uL 12/22/2022 1:53 AM EDT [facility] Hemoglobin 11.6(L) 13.0 - 17.0 g/dL 12/22/2022 1:53 AM EDT [facility] Hematocrit 38.5(L) 39.0 - 51.0 % 12/22/2022 1:53 AM EDT [facility] MCV 84.8 80.0 - 100.0 fL 12/22/2022 1:53 AM EDT [facility] MCH 25.6(L) 26.0 - 34.0 pg 12/22/2022 1:53 AM EDT [facility] MCHC 30.1(L) 30.5 - 36.0 g/dL 12/22/2022 1:53 AM EDT [facility] RDW-CV 17.2(H) 11.5 - 15.0 % 12/22/2022 1:53 AM EDT [facility] Platelet Count 426(H) 150 - 400 k/uL 12/22/2022 1:53 AM EDT [facility] MPV 11.3 9.0 - 12.7 fL 12/22/2022 1:53 AM EDT [facility] Neutrophils % 77.5 % 12/22/2022 1:53 AM EDT [facility] Abs Neut 7.43 1.45 - 7.50 k/uL 12/22/2022 1:53 AM EDT [facility] Lymphocytes % 15.7 % 12/22/2022 1:53 AM EDT [facility] Abs Lymph 1.51 1.00 - 4.00 k/uL 12/22/2022 1:53 AM EDT [facility] Monocytes % 5.7 % 12/22/2022 1:53 AM EDT [facility] Abs [place] 0.55 <0.87 k/uL 12/22/2022 1:53 AM EDT [facility] Eosinophils % 0.2 % 12/22/2022 1:53 AM EDT [facility] Abs Eosin <0.03 <0.46 k/uL 12/22/2022 1:53 AM EDT [facility] Basophils % 0.5 % 12/22/2022 1:53 AM EDT [facility] Abs Baso 0.05 <0.11 k/uL 12/22/2022 1:53 AM EDT [facility] Immature Granulocytes % 0.4 % 12/22/2022 1:53 AM EDT [facility] Abs Immature Gran 0.04 <0.10 k/uL 023 1:53 AM EDT [facility] NRBC 0.0 /100 WBC 12/22/2022 1:53 AM EDT [facility] Absolute nRBC <0.01 <0.01 k/uL 12/22/2022 1:53 AM EDT [facility] Diff Type Auto 12/22/2022 1:53 AM T [facility] Blood BLOOD SPECIMEN / Unknown 12/21/2022 1:45 PM EDT 12/21/2022 11:16 PM EDT Natali Leonard MD LABORATORY Final Result [facility] [address] [facility] [address] [place] [address], [place] * (ABNORMAL) COMP METABOLIC PANEL (12/21/2022 1:45 PM EDT) Protein, Total 6.7 6.3 - 8.0 g/dL 12/22/2022 9:12 AM EDT [facility] Albumin 4.2 3.9 - 4.9 g/dL 12/22/2022 9:12 AM EDT [facility] Calcium, Total 9.2 8.5 - 10.2 mg/dL 12/22/2022 9:12 AM EDT [facility] Bilirubin, Total 0.2 0.2 - 1.3 mg/dL 12/22/2022 9:12 AM EDT [facility] Alkaline Phosphatase 62 38 - 113 U/L 12/22/2022 9:12 AM EDT [facility] AST 19 14 - 40 U/L 12/22/2022 9:12 AM EDT [facility] ALT 18 10 - 54 U/L 12/22/2022 9:12 AM EDT [facility] Glucose 171(H) 74 - 99 mg/dL 12/22/2022 9:12 AM EDT [facility] Comment: The [place] Diabetes Association (ADA) provides guidance for cutoff [...] Standards of Medical Care in Diabetes 2016, [place] [employer] Association. Diabetes Care. 2016.39(Suppl 1). BUN 22 9 - 24 mg/dL 12/22/2022 9:12 AM EDT [facility] Creatinine 1.18 0.73 - 1.22 mg/dL 12/22/2022 9:12 AM EDT [facility] Sodium 140 136 - 144 mmol/L 12/22/2022 9:12 AM EDT [facility] Potassium 4.4 3.7 - 5.1 mmol/L 12/22/2022 9:12 AM EDT [facility] Chloride 102 97 - 105 mmol/L 12/22/2022 9:12 AM EDT [facility] CO2 25 22 - 30 mmol/L 12/22/2022 9:12 AM EDT [facility] Anion Gap 13 9 - 18 mmol/L 12/22/2022 9:12 AM EDT [facility] Estimated Glomerular Filtration Rate 63 >=60 mL/min/1.7 3m 12/22/2022 9:12 AM EDT [facility] Comment:Estimated Glomerular Filtration Rate (eGFR) [...] actual GFR. Blood BLOOD SPECIMEN / Unknown 12/21/2022 1:45 PM EDT 12/21/2022 11:16 PM EDT us Natali Leonard MD LABORATORY Final Result [facility] [address] [facility] [address] [address], documented in this encounter Visit Diagnoses Diagnosis Other chronic pancreatitis (HCC) documented in this encounter Care Teams Garage Door Service Technician Relationship Specialty Start Date End Date Trey Berkowitz [address] [place] [phone] PCP - General 05/14/04 documented as of this encounter
--- OUTSIDE RECORDS SUMMARY | 2024-10-31 09:21 | XMS_ITS | Clinical Summary ---
Author Organization [facility] Address [address] [place] [address] Care Team Providers Care Business Information Analyst Name Role Phone Kamsophie Trey Primary Care Provider Allergies Active Allergy Reactions Criticality Noted Date Comments Cephalexin 03/19/2022 Other reaction(s): Unknown Glimepiride 03/19/2022 Other reaction(s): Unknown Ivp Dye, Iodine Containing 4 Other reaction(s): Other: See Comments, Unknown Caused kidney failure during pancreatitis episode. Minocycline Hives 06/23/2012 Other reaction(s): Other (See Comments), Unknown Naproxen 03/19/2022 Other reaction(s): Unknown Sulfa Antibiotics 03/19/2022 Other reaction(s): Unknown Medications Allopurinol 100 MG tablet Take 1 tablet by mouth daily. 2 Active Cholecalcifero l 50 MCG (1999) capsule Take by mouth. Act young NovoLOG FlexPen 100 UNIT/ML Solution Pen-injector injection PLEASE SEE ATTACHED FOR DETAILED DIRECTIONS 2 Active Insulin Degludec 100 UNIT/ML Solution Pen-injector injection Inject under the skin. Active insulin NPH (NovoLIN N FlexPen) 100 UNIT/ML injection Inject 40 Units under the skin 2 times daily (take before meals). Active BD Insulin Syringe U/F 31G X 5/16 0.3 ML Misc USE DIRECTED SUBCUTANEOUSLY 90 DAYS 2 Active levothyroxine 175 MCG tablet Take 1 tablet by mouth daily. Active Pancrelipase, Jmd-Mehv-Extm, (Zenpep) [address]25 units Cap DR Particles Take by mouth. 1-4 per day when eating food Active Pantoprazole [address] tablet DR Take 1 tablet by mouth 2 times daily. 2 Active predniSONE 10 MG tablet Take 12.5 mg by mouth daily. 2 /2 tab (5mg tabs) Active sacubitril-sharla sartan (Entresto) 24-26 MG tablet Take 0.5 tablets by mouth 2 times daily. 2 Active Tamsulosin HCl 0.4 MG capsule Take 2 capsules by mouth 2 times daily. Active Acetaminophen 325 MG tablet Take 2 tablets by mouth every 6 hours. 0 3 Active Lactobacillus Rhamnosus, GG, (CULTURELLE PO) Take 1 capsule by mouth daily. probiotic Active carveDILOL 6.25 MG tablet Take 1 tablet by mouth 2 times daily. Active Eliquis 5 MG tablet Take 1 tablet by mouth 2 times daily. Active nitroGLYCERIN 0.[address] 1 tablet under tongue every 5 minutes as needed. Active potassium chloride 10 MEQ Tab CR tablet ER Take 1 tablet by mouth daily. Active Torsemide 10 MG tablet Take 1 tablet by mouth Every other day. 4 025 Active Torsemide 20 MG tablet Take 1 tablet by mouth every other day. Active traZODone 50 MG tablet Take 0.5 tablets by mouth at bedtime. Active Tresiba FlexTouch 200 UNIT/ML Solution Pen-injector injection Inject 50 Units under the skin at bedtime. 4 Active Ondansetron 4 MG tablet Take 1 tablet by mouth every 8 hours as needed for Nausea / Vomiting. 4 Active Sucralfate 1 g tablet Take 1 tablet by mouth 3 (three) times a day. 4 Active Metoclopramide (Reglan) 10 MG tablet Take 1 tablet by mouth as needed. 3 Active Active Problems Problem Noted Date Diagnosed Date Dyspnea 03/23/2024 Overview (03/23/2024): Diabetes mellitus 03/30/2022 Overview (04/03/2022): Resume home metformin and insulin regimen at discharge. Essential hypertension, benign 03/30/2022 Overview (04/03/2022): Continue home Entresto, Lasix, Aldactone and lisinopril at discharge. GERD (gastroesophageal reflux disease) Overview (04/03/2022): Continue home pantoprazole at discharge. Gout 03/30/2022 Overview (04/03/2022): Continue home allopurinol at discharge. Thyroid cancer 03/30/2022 Overview (04/03/2022): history of thyroid cancer s/p total thyroidectomy (2010) followed by I-131 treatment. Continue home levothyroxine at discharge. Insomnia 03/30/2022 Overview (04/03/2022): Resume home Ambien at discharge. BPH (benign prostatic hyperplasia) 03/30/2022 Overview (04/03/2022): Continue home flomax at discharge. Chronic respiratory insufficiency 03/30/2022 Overview (04/03/2022): Home requirements of 2 liters nasal cannula nocturnally. Only requiring room air at time of discharge. CAD (coronary artery disease) 03/30/2022 Overview (04/03/2022): s/p CABG. Continue home ASA at discharge. 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 He returns today for evaluation of persistent SOB and HECK. CT chest 02/02/24 does not demonstrate worsening of hemidiaphragm paralysis to explain persistent symptoms. He follows with cardiology and cardiac conditions are well managed. He just established with a junior account executive locally and was started on a nebulizer. Dr. Menendez has reviewed his imaging, MUGA, and PFTs today. No thoracic surgical management for persistent symptoms. Recommend continuing to follow with pulmonology locally and complete pulmonary rehab, order placed today. Return to our office as needed. Resolved Problems Problem Noted Date Diagnosed Date Resolved Date Acute postoperative pain 03/30/2022 Overview (04/03/2022): Pain well controlled prior to discharge. Continue prn acetaminophen and prn tramadol at discharge. OARRS report reviewed and script sent to local pharmacy. Script did not exceed 7 days or 30 MED. At moderate risk for venous thromboembolism (VTE) 03/30/2022 03/23/2024 Overview (04/03/2022): Ambulation encouraged at discharge. Health education/counseling 03/30/2022 03/23/2024 Overview (04/03/2022): Discharged to home in stable condition on 04/03/22. Discharge plan of care discussed with patient. Patient is agreeable and verbalizes understanding. Family History Medical History Relation Name Comments Heart Failure Brother 1 Diabetes Brother 2 Fernando SLyker Heart Failure Brother 2 Fernando Rae Heart Failure Father Damon Rae Sudden Cardiac Father Damon Rae Heart Failure Mother Andreia Rae Breast Cancer Sister Shanda Rae Cancer- Other Sister Shanda Rae pancreas Relation Name Status Comments Brother 1 Brother 2 Fernando SLyker Father Damon Claireer Mother Andreia Rae Sister Sahnda Rae Social History Tobacco Use Types Packs/Day Years Used Date Smoking Tobacco: Former Cigarettes 2 40 0 02/22/1958 - 02/22/1998 Smokeless Tobacco: Never Tobacco Cessation:Counseling Given: Not Answered Alcohol Use Standard Drinks/Week Comments Not Currently [...] place to sleep or slept in a [facility]p (including now)? No 03/19/2022 Depression Answer Date Recorded PHQ-9 Total Score (Interpret ation of Total Score 1-4 = Minimal depression; 5-9 = Mild depression; 10-14 = Moderate depression; 15-19 = Moderately severe depression) 0 03/23/2024 Sex and Gender Information Value Date Recorded Sex Assigned at Not on file Legal Sex Male 8:49 AM EST Gender Identity Male 03/20/2024 10:13 AM EST Sexual Orientation Straight 03/20/2024 10 :13 AM EST Last Filed Vital Signs Vital Sign Reading Time Taken Comments Blood Pressure 126/60 03/23/2024 12:43 PM EST Pulse 73 03/23/2024 12:43 PM EST Temperature 36.3 C (97.4 F) 03/23/2024 12:43 PM EST Respiratory Rate 10 03/23/2024 12:4 3 PM EST Oxygen Saturation 94% 03/23/2024 12: 43 PM EST Inhaled Oxygen Concentration - - Weight 99 kg (218 lb 3.2 oz) 03/23/2024 12:43 PM EST with shoes on Height 188 cm (6' 2.02 ) 03/23/2024 12: 43 PM EST Body Mass Index 28 03/23/2024 12:43 PM EST Plan of Treatment Health Maintenance Due Date Last Done Comments TSH 1944 TDAP (ADULT) 02/24/1963 COLORECTAL CANCER SCREENING DISCUSSION 02/24/1989 ZOSTER (SHINGLES) VACCINE (1 of 2) 02/24/1994 PNEUMOCOCCAL VACCINE SERIES (2 of 2 - PCV) 02/22/2005 02/23/2004 RSV VACCINE (1 - 1-dose 75+ series) 02/24/2019 POTASSIUM 04/03/2023 04/03/2022, 02/0 10/2022, 04/01/2022, Additional history exists COVID-19 VACCINE ( - 2024- season) 2024 12/17/2020, 05/15/2020, 04/17/2020 INFLUENZA VACCINE (#1) 2024 , 01/05/2022, 12/07/2020, Additional history exists TETANUS 10/14/2025 10/15/2015 HEP B VACCINE Aged Out No longer elig ible based on patient's age to complete this topic Procedures Procedure Name Priority Date/Time Associated Diagnosis Comments CHEM 7 (LYTES,BUN,CREA,GLU C) Routine 04/03/2022 3:47 AM EST from Last 3 Months or Most Recently Relevant to Health Maintenance Results * (ABNORMAL) CHEM 7 (LYTES,BUN,CREA,GLUC) (04/03/2022 3:47 AM EST) Sodium 137 135 - 145 mmol/L 04/03/2022 4:43 AM EST [facility] Potassium 3.8 3.5 - 5.0 mmol/L 04/03/2022 4:43 AM EST [facility] Chloride 106 98 - 108 mmol/L 04/03/2022 4:43 AM [facility] CO2 24 21 - 31 mmol/L 04/03/2022 4:43 AM [facility] Glucose 264(H) 70 - 99 mg/dL 04/03/2022 4:43 AM EST [facility] BUN 16 7 - 25 mg/dL 04/03/2022 4:43 AM [facility] Creatinine 0.88 0.70 - 1.30 mg/dL 04/03/2022 4:43 AM [facility] Bun/Crea Ratio 18 04/03/2022 4:43 AM [facility] Osmolality (Calculated) 298 278 - 305 mOsm/kg 04/03/2022 4:43 AM [facility] Anion Gap 11 7 - 17 mmol/L 04/03/2022 4:43 AM [facility] eGFR, CKD-EPI, Male 88 >=60 mL/min/1.7 3m2 04/03/2022 4:43 AM [facility] Comment:Reported eGFR is bas ed on the CKD-EPI 2020 equation using creatinine, age, and sex. Blood Venipuncture / Unknown 04/03/2022 3:47 AM EST 04/03/2022 4:12 AM EST us Denise Jacob PA-C CHEMISTRY ORDERABLES Fin al Result [facility] [address] [facility] [place] [address] from Last 3 Months or Most Recently Relevant to Health Maintenance Insurance Medicare A and B Medicare Supplement Advance Directives For more information, please contact: [phone] (7:30 AM - 6PM [facility], Wednesday-Wednesday) * Full Code (Latest Code Status on File) Date Activated Date Inactivated Comments 04/01/2022 3:07 PM Care Teams Business Information Analyst Relationship Specialty Start Date End Date Trey Berkowitz DO PCP - General Family Medicine 03/19/22
--- OUTSIDE RECORDS SUMMARY | 2024-10-31 09:21 | XMS_ITS | Encounter Summary ---
Author Organization [facility] Address [address] [place] [address] Care Team Providers Care Regional Program Manager Name Role Phone Trey Berkowitz Primary Care Provider [phone] Source Comments In the event this information is protected by the Federal Confidentiality of Alcohol and Drug AbusePatient Records regulations: The Federal rules restrict any use of the information to criminally investigate or prosecute any alcohol or drug abuse patient.[facility] Encounter Details Date Type Department Care Team (Late st Contact Info) Description 12/15/2022 Patient Msg Pharmacy Home Infusion [address] [place] [phone] Noris Mares PSS Weekly [facility] Infusion Pharmacy refill request Social History [...] slept in a mcfp (including now)? No 09/04/2022 Area Deprivation Index Answer Date Chon rded National Score (1-100), lower number is lower ri sk 55 08/08/2022 State Score (1-10), lower number is lower risk 3 08/08/2022 Data from: https://www.neighborhoodatlas.medicine.[facility].edu/. Last address used for calculation [address] 08/08/2022 Sex and Gender Information Value [...] Description 11/03/2024 2:15 PM EDT Office Visit [facility] [address] [facility] [place] [place] [address] 8 week follow up with lab and B 12 inj 11/03/2024 2:30 PM EDT Visit (SP) Office Hematology/Oncology [address] [facility] [place] [address] Dolores Jacobson APRN.HOOP PUNCH AND COILER OPERATOR HELPER [address] [place] [address] 8 week follow up with lab and B 12 inj 11/03/2024 3:00 PM EDT Nurse Visit Hematology/Oncology [address] [place] [address] Beryl Odom Nurse Hector [address] [facility] [place] [address] 8 week follow up with lab B12 01/12/2025 1:20 PM EST Office Visit Gastroenterology [address] [place] [address] Jair Miller Jr., [address] [facility] [address] [place] [phone] office moved from 12/29/24 months follow-up/ Pancreatic pseudocyst/cyst,Gene ralized abdominal pain,Gastroparesis,D yspepsia 05/08/2025 1:00 PM EDT Office Visit [facility] [address] [place] [address] lab 05/15/2025 1:00 PM EDT Office Visit Radiation Oncology [address] [place] [address] Rafael Tyler MD [address] [facility] [place] [address] 1 year follow up documented as of this encounter Visit Diagnoses Not on filedocumented in this encounter Care Teams Regional Program Manager Relationship Specialty Start Date End Date Trey Berkowitz [address] [place] [phone] PCP - General 05/14/04 documented as of this encounter
--- OUTSIDE RECORDS SUMMARY | 2024-10-31 09:21 | XMS_ITS | Encounter Summary ---
Author Organization [facility] Address [address] [place] [address] Care Team Providers Care Wedding Coordinator Name Role Phone Trey Berkowitz Primary Care Provider [phone] Source Comments In the event this information is protected by the Federal Confidentiality of Alcohol and Drug AbusePatient Records regulations: The Federal rules restrict any use of the information to criminally investigate or prosecute any alcohol or drug abuse patient.[facility] Encounter Details Date Type Department Care Team (Late st Contact Info) Description 12/30/2022 Patient Msg Hematology/Oncology [address] [facility] [place] [address] Kai Bustamante MD [address] [facility] [place] [address] Appointment Cancellation Request Social History Tobacco Use Types Packs/Day [...] place to sleep or slept in a custodial (including now)? No 09/04/2022 Area Deprivation Index Answer Date Chon rded National Score (1-100), lower number is lower ri sk 55 08/08/2022 State Score (1-10), lower number is lower risk 3 08/08/2022 Data from: https://www.neighborhoodatlas.medicine.[facility].edu/. Last address used for calculation [address] 08/08/2022 Sex and Gender [...] [facility] [address] [facility] [place] [address] 8 week follow up with lab and B 12 inj 11/03/2024 2:30 PM EDT Visit (SP) Office Hematology/Oncology [address] [place] [address] Dolores Jacobson APRN.CARBON BRUSHES ASSEMBLER [address] [place] [address] 8 week follow up with lab and B 12 inj 11/03/2024 3:00 PM EDT Nurse Visit Hematology/Oncology [address] [place] [address] Beryl Parsons Nurse Hector [address] [facility] [address] 8 week follow up with lab B12 01/12/2025 1:20 PM EST Office Visit Gastroenterology [address] [place] [address] Jair Miller Jr., [address] [facility] [address] [place] [phone] office moved from 12/29/24 months follow-up/ Pancreatic pseudocyst/cyst,Gene ralized abdominal pain,Gastroparesis,D yspepsia 05/08/2025 1:00 PM EDT Office Visit [facility] [address] [facility] [place] [address] lab 05/15/2025 1:00 PM EDT Office Visit Radiation Oncology [address] [facility] [place] [address] Rafael Tyler MD [address] [facility] [place] [address] 1 year follow up documented as of this encounter Visit Diagnoses Not on filedocumented in this encounter Care Teams Wedding Coordinator Relationship Specialty Start Date End Date Trey Berkowitz [address] [place] [phone] PCP - General 05/14/04 documented as of this encounter
--- OUTSIDE RECORDS SUMMARY | 2024-10-31 09:21 | XMS_ITS | Encounter Summary ---
Author Organization [facility] Address [address] [place] [address] Phone Care Team Providers Care Boarding Specialist Name Role Phone Trey Berkowitz DO Primary Care Provider [phone] Encounter Details Date Type Department Care Team (Late st Contact Info) Description 08/04/2024 Scanned Document [facility] [address] [place] [place] [phone] Scanning, Generic Provider Social History Tobacco Use Types Packs/Day Years Used Date Smoking Tobacco: Former Cigarettes S tarted: 1998 Smokeless Tobacco: Never Alcohol Use Standard Drinks/Week Comments Never 0 (1 standard drink = 0.6 oz pur e alcohol) Sex and Gender Information Value Date Recorded Sex Assigned at Not on file Legal Sex Male 7:29 AM EST Gender Identity Not on file Sexual Orientation Not on file COVID-19 Exposure Response Date Recorded In the last 10 days, have yo u been in contact with someone who was confirmed or suspected to have Coronavirus/COVID-19? No / Unsure 08/03/2024 9:00 AM EDT documented as of this encounter Plan of Treatment Upcoming Encounters Date Type Department Care Team (Late st Contact Info) Description 03/07/2025 10:30 AM EST Office Visit [facility] [address] [place] [phone] Solo Khan DO [address] [facility], [address] [place] [address] Scheduled Orders Name Type Priority Associated Diagnoses Orde r Schedule Ultrasound- OnBase Scan Imaging O rdered: 08/04/2024 documented as of this encounter Visit Diagnoses Not on filedocumented in this encounter Additional Health Concerns Assessment Noted Time A fall risk assessment has been complete d for the patient 12/29/2023 11:03 AM EST documented as of this encounter Care Teams Boarding Specialist Relationship Specialty Start Date End Date Trey Berkowitz DO [address] [place] [address] PCP - General Family Medicine 10/28/23 documented as of this encounter
--- OUTSIDE RECORDS SUMMARY | 2024-10-31 09:21 | XMS_ITS | Encounter Summary ---
Author Organization [facility] Address [address] [place] [address] Care Team Providers Care Director Of Laboratory Operations Name Role Phone Trey Berkowitz Chet Primary Care Provider [phone] Source Comments In the event this information is protected by the Federal Confidentiality of Alcohol and Drug AbusePatient Records regulations: The Federal rules restrict any use of the information to criminally investigate or prosecute any alcohol or drug abuse patient.[facility] Reason for Referral * Diagnostic Procedure Only (Routine) - Closed Specialty Diagnoses / Procedures Referred By Contac t Referred To Contact [facility] Diagnoses Nausea and vomiting, unspecified vomiting type Chronic biliary pancreatitis (HCC) Pain of upper abdomen Procedures US ABD RIGHT UPPER QUADRANT US ABDOMINAL REAL TIME W/IMAGE LIMITED Jair Miller Jr., DO Phone: tel: [place]: [place] [phone] Referral ID Status Reason Start Date Expiration Date V isits Requested Visits Authorized [id number] Closed Auto-Generate d Referral 11/24/2023 12/23/2024 1 1 Encounter Details Date Type Department Care Team (Late st Contact Info) Description 11/22/2023 Get Medical Advice Gastroenterology [address] [place] [address] Jair Miller Jr., DO [address] [place] [address] Stomach issues Social History Tobacco Use Types Packs/Day Years [...] PHQ-2 Answer Date Recorded PHQ-2 score 0 11/22/2023 Hunger Vital Sign Answer Date Recorded Within [...] place to sleep or slept in a chcf (including now)? No 09/04/2022 Area Deprivation Index Answer Date Chon rded National Score (1-100), lower number is lower ri sk 55 08/08/2022 State Score (1-10), lower number is lower risk 3 08/08/2022 Data from: https://www.neighborhoodatlas.[facility]/. Last address used for calculation [address] 08/08/2022 Sex and Gender Information Value Date [...] Telephone Encounter - Katie Celaya RN - 11/24/2023 11:[address] Miller, please see feed of messages. Pt is taking several medications throughout the day, including the digestive enzymes. He is asking about adding Carafate possibly or something to help with queasiness in the morning. Please review and advise. Thank you. Katie Celaya RN documented in this encounter Plan of Treatment Upcoming Encounters Date Type Department Care Team (Latest Contact Info) Description 11/03/2024 2:15 PM EDT Office Visit [facility] Laboratory [address] [facility] [place] [address] 8 week follow up with lab and B 12 inj 11/03/2024 2:30 PM EDT Visit (SP) Office Hematology/Oncology [address] [facility] [place] [address] Dolores Jacobson APRN.BRADLEY LINEBACKER CREWMEMBER [address] [facility] [place] [address] 8 week follow up with lab and B 12 inj 11/03/2024 3:00 PM EDT Nurse Visit Hematology/Oncology [address] [facility] [place] [address] Beryl Parsons Nurse Hector [address] [facility] [place] [address] 8 week follow up with lab B12 01/12/2025 1:20 PM EST Office Visit Gastroenterology [address] [place] [address] Jair Miller Jr., DO [address] [facility] [address] [place] [address] office moved from 12/29/24 months follow-up/ Pancreatic pseudocyst/cyst,Gene ralized abdominal pain,Gastroparesis,D yspepsia 05/08/2025 1:00 PM EDT Office Visit [facility] [address] [facility] [place] [address] lab 05/15/2025 1:00 PM EDT Office Visit Radiation Oncology [address] [facility] [place] [address] Rafael Tyler MD [address] [facility] [place] [address] 1 year follow up documented as of this encounter Results * US ABD RIGHT UPPER QUADRANT (12/04/2023 9:49 AM EDT) Anatomical Region Laterality Modality Abdomen Ultrasound 12/04/2023 9:49 AM EDT Impressions 12/07/2023 7:22 AM EDT IMPRESSION: Hepatic steatosis. Oil Well Drilling Manager: PSCB Transcribe Date/Time: Dec 07 2023 7:18A Dictated by : JOSÉ MANUEL FREEDMAN MD This examination was interpreted and the report reviewed and electronically signed by: JOSÉ MANUEL FREEDMAN MD on Dec 07 2023 7:20AM EST Narrative 12/07/2023 7:22 AM EDT * * *Final Report* * * DATE OF EXAM: Dec 04 2023 9:49AM VHU 1032 - US ABD RIGHT UPPER QUADRANT / PROCEDURE REASON: multiple diagnoses * * * * Physician Interpretation * * * * EXAMINATION: RIGHT UPPER QUADRANT ULTRASOUND CLINICAL HISTORY: Nausea TECHNIQUE: Sonography of the right upper quadrant was performed. Images were obtained and stored in a permanent archive. MQ: URUQ_2 COMPARISON: CT 11/26/2022 RESULT: Pancreas: Not identified. Liver: Echotexture: Normal, homogeneous. Echogenicity: Increased Surface contour: Smooth Lesions: None. Biliary: No intrahepatic biliary duct dilation. CBD: 0.5 cm at the hilum. Gallbladder: Cholecystectomy. Right Kidney: No hydronephrosis. 1.6 cm midpole cyst. Ascites: None. Procedure Note Provider, [facility] [place] - 12/07/2023 * * *Final Report* * * DATE OF EXAM: Dec 04 2023 9:49AM VHU 1032 - US ABD RIGHT UPPER QUADRANT / PROCEDURE REASON: multiple diagnoses * * * * Physician Interpretation * * * * EXAMINATION: RIGHT UPPER QUADRANT ULTRASOUND CLINICAL HISTORY: Nausea TECHNIQUE: Sonography of the right upper quadrant was performed. Images were obtained and stored in a permanent archive. MQ: URUQ_2 COMPARISON: CT 11/26/2022 RESULT: Pancreas: Not identified. Liver: Echotexture: Normal, homogeneous. Echogenicity: Increased Surface contour: Smooth Lesions: None. Biliary: No intrahepatic biliary duct dilation. CBD: 0.5 cm at the hilum. Gallbladder: Cholecystectomy. Right Kidney: No hydronephrosis. 1.6 cm midpole cyst. Ascites: None. IMPRESSION IMPRESSION: Hepatic steatosis. Oil Well Drilling Manager: AMANDA Transcribe Date/Time: Dec 07 2023 7:18A Dictated by : JOSÉ MANUEL FREEDMAN MD This examination was interpreted and the report reviewed and electronically signed by: JOSÉ MANUEL FREEDMAN MD on Dec 07 2023 7:20AM EST us Jair Miller Jr., DO US-PAMA Final Resu lt documented in this encounter Visit Diagnoses Diagnosis Nausea and vomiting, unspecified vomiting type- Primary Chronic biliary pancreatitis (HCC) Pain of upper abdomen Abdominal pain, other specified site Nausea and vomiting, unspecified vomiting type Chronic biliary pancreatitis (HCC) Pain of upper abdomen Abdominal pain, other specified site documented in this encounter Care Teams Director Of Laboratory Operations Relationship Specialty Start Date End Date Trey Berkowitz [address] [place] [phone] PCP - General 05/14/04 documented as of this encounter
--- OUTSIDE RECORDS SUMMARY | 2024-10-31 09:21 | XMS_ITS | Encounter Summary ---
Author Organization [facility] Address [address] [place] [address] Care Team Providers Care Oral Health Therapist Name Role Phone Trey Berkowitz Primary Care Provider [phone] Source Comments In the event this information is protected by the Federal Confidentiality of Alcohol and Drug AbusePatient Records regulations: The Federal rules restrict any use of the information to criminally investigate or prosecute any alcohol or drug abuse patient.[facility] Encounter Details Date Type Department Care Team (Late st Contact Info) Description 10/25/2024 Orders Only Hematology/Oncology [address] [place] [address] Dolores Jacobson APRN.CURING PRESS MAINTAINER [address] [facility] [address] Social History Tobacco Use Types Packs/Day Years Used Date Smoking Tobacco: Former Cigarettes 3 30 0 02/23/1968 - 02/22/1998 Passive Smoke Exposure: Past Smokeless Tobacco: Never Alcohol Use Standard Drinks/Week Comments No 0 (1 standard drink = 0.6 oz pur e alcohol) Overall Financial Resource Strain (CARDIA) Jewele r Date Recorded How hard is it [...] place to sleep or slept in a longterm (including now)? No 09/04/2022 Area Deprivation Index Answer Date Chon rded National Score (1-100), lower number is lower ri sk 55 08/08/2022 State Score (1-10), lower number is lower risk 3 08/08/2022 Data from: https://www.neighborhoodatlas.medicine.[facility].edu/. Last address used for calculation [address] 08/08/2022 Sex and Gender [...] Description 11/03/2024 2:15 PM EDT Office Visit [facility] [address] [place] [address] 8 week follow up with lab and B 12 inj 11/03/2024 2:30 PM EDT Visit (SP) Office Hematology/Oncology [address] [place] [address] Dolores Jacobson APRN.CURING PRESS MAINTAINER [address] [place] [address] 8 week follow up with lab and B 12 inj 11/03/2024 3:00 PM EDT Nurse Visit Hematology/Oncology [address] [place] [address] Beryl Parsons Nurse Hector [address] [place] [address] 8 week follow up with lab B12 01/12/2025 1:20 PM EST Office Visit Gastroenterology [address] [place], [place] [phone] Jair Miller Jr., [address] [facility] [address] [place] [phone] office moved from 12/29/24 months follow-up/ Pancreatic pseudocyst/cyst,Gene ralized abdominal pain,Gastroparesis,D yspepsia 05/08/2025 1:00 PM EDT Office Visit [facility] [address] [place] [address] lab 05/15/2025 1:00 PM EDT Office Visit Radiation Oncology [address] [place] [address] Rafael Tyler MD [address] [place] [address] 1 year follow up documented as of this encounter Visit Diagnoses Not on filedocumented in this encounter Care Teams Oral Health Therapist Relationship Specialty Start Date End Date Trey Berkowitz [address] [place] [phone] PCP - General 05/14/04 documented as of this encounter
--- OUTSIDE RECORDS SUMMARY | 2024-10-31 09:21 | XMS_ITS | Encounter Summary ---
Author Organization [facility] Address [address] [place] [address] Care Team Providers Care Warp Hand Name Role Phone Trey Berkowitz Primary Care Provider [phone] Source Comments In the event this information is protected by the Federal Confidentiality of Alcohol and Drug AbusePatient Records regulations: The Federal rules restrict any use of the information to criminally investigate or prosecute any alcohol or drug abuse patient.[facility] Encounter Details Date Type Department Care Team (Late st Contact Info) Description 11/15/2023 Patient [facility] [address] [place] [phone] Provider, Ccf results Social History Tobacco Use Types Packs/Day Years [...] place to sleep or slept in a [place] health [place] facility (including now)? No 09/04/2022 Area Deprivation Index Answer Date Chon rded National Score (1-100), lower number is lower ri sk 55 08/08/2022 State Score (1-10), lower number is lower risk 3 08/08/2022 Data from: https://www.neighborhoodatlas.medicine.[facility].edu/. Last address used for calculation [address] [place] [address] 08/08/2022 Sex and Gender Information Value Date [...] [facility] [address] [place] [address] 8 week follow up with lab and B 12 inj 11/03/2024 2:30 PM EDT Visit (SP) Office Hematology/Oncology [address] [facility] [place] [address] Dolores Jacobson APRN.HOME APPLIANCE WASHING MACHINE MECHANIC [address] [facility] [place] [address] 8 week follow up with lab and B 12 inj 11/03/2024 3:00 PM EDT Nurse Visit Hematology/Oncology [address] [facility] [place] [place] [address] Beryl Odom Nurse Hector [address] [facility] [place] [address] 8 week follow up with lab B12 01/12/2025 1:20 PM EST Office Visit Gastroenterology [address] [place], [place] [phone] Jair Miller Jr., DO [address] [place] [address] office moved from 12/29/24 months follow-up/ Pancreatic pseudocyst/cyst,Gene ralized abdominal pain,Gastroparesis,D yspepsia 05/08/2025 1:00 PM EDT Office Visit [facility] [address] [place] [address] lab 05/15/2025 1:00 PM EDT Office Visit Radiation Oncology [address] [place] [address] Rafael Tyler MD [address] [place] [address] 1 year follow up documented as of this encounter Visit Diagnoses Not on filedocumented in this encounter Care Teams Warp Hand Relationship Specialty Start Date End Date Trey Berkowitz [address] [place] [phone] PCP - General 05/14/04 documented as of this encounter
--- OUTSIDE RECORDS SUMMARY | 2024-10-31 09:21 | XMS_ITS | Encounter Summary ---
Author Organization [facility] Address [address] [place] [address] Care Team Providers Care Sonography Technologist Name Role Phone Trey Berkowitz Primary Care Provider [phone] Source Comments In the event this information is protected by the Federal Confidentiality of Alcohol and Drug AbusePatient Records regulations: The Federal rules restrict any use of the information to criminally investigate or prosecute any alcohol or drug abuse patient.[facility] Encounter Details Date Type Department Care Team (Late st Contact Info) Description 01/30/2023 Get Medical Advice Gastroenterology [address] [facility] [place] [address] Jair Miller Jr., DO [address] [place] [phone] Eliquis - do I need to stop prior to Endoscopy on Wed? Social History Tobacco Use Types Packs/Day Years [...] place to sleep or slept in a jail (including now)? No 09/04/2022 Area Deprivation Index Answer Date Chon rded National Score (1-100), lower number is lower ri sk 55 08/08/2022 State Score (1-10), lower number is lower risk 3 08/08/2022 Data from: https://www.neighborhoodatlas.medicine.[facility].edu/. Last address used for calculation [address] 08/08/2022 Sex and Gender Information [...] Assessment Author No 10/10/2022 3:50 PM EDT Lindesy Trevino RN * Do you have difficulty [...] Description 11/03/2024 2:15 PM EDT Office Visit [facility] [address] [place] [address] 8 week follow up with lab and B 12 inj 11/03/2024 2:30 PM EDT Visit (SP) Office Hematology/Oncology [address] [place] [address] Dolores Jacobson APRN.CLERK CHECKER [address] [place] [address] 8 week follow up with lab and B 12 inj 11/03/2024 3:00 PM EDT Nurse Visit Hematology/Oncology [address] [place] [address] Beryl Parsons Nurse Hector [address] [place] [address] 8 week follow up with lab B12 01/12/2025 1:20 PM EST Office Visit Gastroenterology [address] [place], [place] [phone] Jair Miller Jr., [address] [facility] [address] [place] [phone] office moved from 12/29/24 months follow-up/ Pancreatic pseudocyst/cyst,Gene ralized abdominal pain,Gastroparesis,D yspepsia 05/08/2025 1:00 PM EDT Office Visit [facility] [address] [place] [address] lab 05/15/2025 1:00 PM EDT Office Visit Radiation Oncology [address] [place] [address] Rafael Tyler MD [address] [place] [address] 1 year follow up documented as of this encounter Visit Diagnoses Not on filedocumented in this encounter Care Teams Sonography Technologist Relationship Specialty Start Date End Date Trey Berkowitz [address] [place] [phone] PCP - General 05/14/04 documented as of this encounter
--- OUTSIDE RECORDS SUMMARY | 2024-10-31 09:21 | XMS_ITS | Encounter Summary ---
Author Organization [facility] Address [facility] [place] [address] Care Team Providers Care Grab Jack Worker Name Role Phone Trey Berkowitz Primary Care Provider [phone] Source Comments In the event this information is protected by the Federal Confidentiality of Alcohol and Drug AbusePatient Records regulations: The Federal rules restrict any use of the information to criminally investigate or prosecute any alcohol or drug abuse patient.[facility] Encounter Details Date Type Department Care Team (Late st Contact Info) Description 12/07/2022 Lab Requisition [facility] [address] [place] [address] [place] [address] [address] [facility] [address] [place] [phone] Other chronic pancreatitis (HCC) Social History Tobacco [...] place to sleep or slept in a half-way (including now)? No 09/04/2022 Area Deprivation Index Answer Date Chon rded National Score (1-100), lower number is lower ri sk 55 08/08/2022 State Score (1-10), lower number is lower risk 3 08/08/2022 Data from: https://www.neighborhoodatlas.medicine.[facility].edu/. Last address used for calculation [address] [facility] 08/08/2022 Sex and Gender Information [...] [facility] [address] [place] [address] 8 week follow up with lab and B 12 inj 11/03/2024 2:30 PM EDT Visit (SP) Office Hematology/Oncology [address] [place], [place] [address] [address] Dolores Jacobson APRN.BUCKLE ASSEMBLER [address] [facility] [place] [address] 8 week follow up with lab and B 12 inj 11/03/2024 3:00 PM EDT Nurse Visit Hematology/Oncology [address] [place] [address] Beryl Parsons Nurse Hector [address] [facility] [place] [address] 8 week follow up with lab B12 01/12/2025 1:20 PM EST Office Visit Gastroenterology [address] [place] [address] Jair Miller Jr., DO [address] [place] [phone] office moved from 12/29/24 months follow-up/ Pancreatic pseudocyst/cyst,Gene ralized abdominal pain,Gastroparesis,D yspepsia 05/08/2025 1:00 PM EDT Office Visit [facility] [address] [place] [address] lab 05/15/2025 1:00 PM EDT Office Visit Radiation Oncology [address] [place] [address] Rafael Tyler MD [address] [place] [address] 1 year follow up documented as of this encounter Procedures Procedure Name Priority Date/Time Associated Diagnosis Comments MAGNESIUM BLD Routine 12/07/2022 8:45 AM EDT Other chronic pancreatitis (HCC) PHOSPHORUS INORGANIC Routine 12/07/2022 8:45 AM EDT Other chronic pancreatitis (HCC) COMPREHENSIVE METABOLIC PANEL Routine 12/07/2022 8:45 AM EDT Other chronic pancreatitis (HCC) CBC + DIFF Routine 12/07/2022 8:45 AM EDT Other chronic pancreatitis (HCC) documented in this encounter Results * PHOSPHORUS INORGANIC (12/07/2022 8:45 AM EDT) Phosphorus 4.4 2.7 - 4.8 mg/dL 12/07/2022 11:33 PM EDT [facility] Blood BLOOD SPECIMEN / Unknown 12/07/2022 8:45 AM EDT 12/07/2022 5:15 PM EDT us Natali Leonard MD LABORATORY Final Result [facility] [address] [facility] [place] [phone], [place] * MAGNESIUM BLD (12/07/2022 8:45 AM EDT) Pathologist [facility] Magnesium 2.0 1.7 - 2.3 mg/dL 12/07/2022 11:33 PM EDT [facility] Blood BLOOD SPECIMEN / Unknown 12/07/2022 8:45 AM EDT 12/07/2022 5:15 PM EDT us Natali Leonard MD LABORATORY Final Result Performing Organization Address [facility]/ZIP Co de Phone Number [facility] [address] [place] [id number], [place] * (ABNORMAL) CBC + DIFF (12/07/2022 8:45 AM EDT) [facility] WBC 8.49 3.70 - 11.00 k/uL 12/07/2022 6:14 PM EDT [facility] RBC 4.12(L) 4.20 - 6.00 m/uL 12/07/2022 6:14 PM EDT [facility] Hemoglobin 10.7(L) 13.0 - 17.0 g/dL 12/07/2022 6:14 PM EDT [facility] Hematocrit 34.2(L) 39.0 - 51.0 % 12/07/2022 6:14 PM EDT [facility] MCV 83.0 80.0 - 100.0 fL 12/07/2022 6:14 PM EDT [facility] MCH 26.0 26.0 - 34.0 pg 12/07/2022 6:14 PM EDT [facility] MCHC 31.3 30.5 - 36.0 g/dL 12/07/2022 6:14 PM EDT [facility] RDW-CV 17.8(H) 11.5 - 15.0 % 12/07/2022 6:14 PM EDT [facility] Platelet Count 322 150 - 400 k/uL 12/07/2022 6:14 PM EDT [facility] MPV 11.6 9.0 - 12.7 fL 12/07/2022 6:14 PM EDT [facility] Neutrophils % 58.6 % 12/07/2022 6:14 PM EDT [facility] Abs Neut 4.99 1.45 - 7.50 k/uL 12/07/2022 6:14 PM EDT [facility] Lymphocytes % 23.0 % 12/07/2022 6:14 PM EDT [facility] Abs Lymph 1.95 1.00 - 4.00 k/uL 12/07/2022 6:14 PM EDT [facility] Monocytes % 12.5 % 12/07/2022 6:14 PM EDT [facility] Abs [place] 1.06(H) <0.87 k/uL 12/07/2022 6:14 PM EDT [facility] Eosinophils % 3.7 % 12/07/2022 6:14 PM EDT [facility] Abs Eosin 0.31 <0.46 k/uL 12/07/2022 6:14 PM EDT [facility] Basophils % 1.1 % 12/07/2022 6:14 PM EDT [facility] Abs Baso 0.09 <0.11 k/uL 12/07/2022 6:14 PM EDT [facility] Immature Granulocytes % 1.1 % 12/07/2022 6:14 PM EDT [facility] Abs Immature Gran 0.09 <0.10 k/uL 023 6:14 PM EDT [facility] NRBC 0.0 /100 WBC 12/07/2022 6:14 PM EDT [facility] Absolute nRBC <0.01 <0.01 k/uL 12/07/2022 6:14 PM EDT [facility] Diff Type Auto 12/07/2022 6:14 PM EDT [facility] Blood BLOOD SPECIMEN / Unknown 12/07/2022 8:45 AM EDT 12/07/2022 5:15 PM EDT us Natali Leonard MD LABORATORY Final Result [facility] [address] [facility] Desk [address] [place] [address], [place] * (ABNORMAL) COMP METABOLIC PANEL (12/07/2022 8:45 AM EDT) Pathologist [facility] Protein, Total 6.2(L) 6.3 - 8.0 g/dL 12/07/2022 11:33 PM EDT [facility] Albumin 3.6(L) 3.9 - 4.9 g/dL 12/07/2022 11:33 PM EDT [facility] Calcium, Total 8.8 8.5 - 10.2 mg/dL 12/07/2022 11:33 PM EDT [facility] Bilirubin, Total 0.2 0.2 - 1.3 mg/dL 12/07/2022 11:33 PM EDT [facility] Alkaline Phosphatase 57 38 - 113 U/L 12/07/2022 11:33 PM EDT [facility] AST 22 14 - 40 U/L 12/07/2022 11:33 PM EDT [facility] ALT 22 10 - 54 U/L 12/07/2022 11:33 PM EDT [facility] Glucose 161(H) 74 - 99 mg/dL 12/07/2022 11:33 PM EDT [facility] Comment: The [place] Diabetes Association (ADA) provides guidance for cutoff [...] Standards of Medical Care in Diabetes 2016, [place] Diabetes Association. Diabetes Care. 2016.39(Suppl 1). BUN 30(H) 9 - 24 mg/dL 12/07/2022 11:33 PM EDT [facility] Creatinine 0.98 0.73 - 1.22 mg/dL 12/07/2022 11:33 PM EDT [facility] Sodium 140 136 - 144 mmol/L 12/07/2022 11:33 PM EDT [facility] Potassium 4.2 3.7 - 5.1 mmol/L 12/07/2022 11:33 PM EDT [facility] Chloride 101 97 - 105 mmol/L 12/07/2022 11:33 PM EDT [facility] CO2 25 22 - 30 mmol/L 12/07/2022 11:33 PM EDT [facility] Anion Gap 14 9 - 18 mmol/L 12/07/2022 11:33 PM EDT [facility] Estimated Glomerular Filtration Rate 79 >=60 mL/min/1.7 3m 12/07/2022 11:33 PM EDT [facility] Comment:Estimated Glomerular Filtration Rate (eGFR) [...] actual GFR. Blood BLOOD SPECIMEN / Unknown 12/07/2022 8:45 AM EDT 12/07/2022 5:15 PM EDT us Natali Leonard MD LABORATORY Final Result [facility] [address] [facility] [address] [place] [address], documented in this encounter Visit Diagnoses Diagnosis Other chronic pancreatitis (HCC) documented in this encounter Care Teams Grab Jack Worker Relationship Specialty Start Date End Date Trey Berkowitz [address] [place] [phone] PCP - General 05/14/04 documented as of this encounter
--- OUTSIDE RECORDS SUMMARY | 2024-10-31 09:21 | XMS_ITS | Encounter Summary ---
Author Organization [facility] Address [facility] [place] [address] Care Team Providers Care Billiard Table Assembler Name Role Phone Trey Berkowitz Primary Care Provider [phone] Source Comments In the event this information is protected by the Federal Confidentiality of Alcohol and Drug AbusePatient Records regulations: The Federal rules restrict any use of the information to criminally investigate or prosecute any alcohol or drug abuse patient.[facility] Encounter Details Date Type Department Care Team (Late st Contact Info) Description 11/30/2022 Lab Requisition [facility] [address] [place] [address] [place] [address] [address] [facility] [address] [place] [phone] Other chronic pancreatitis (HCC) Social History Tobacco [...] place to sleep or slept in a intermediate (including now)? No 09/04/2022 Area Deprivation Index Answer Date Chon rded National Score (1-100), lower number is lower ri sk 55 08/08/2022 State Score (1-10), lower number is lower risk 3 08/08/2022 Data from: https://www.neighborhoodatlas.medicine.[facility].edu/. Last address used for calculation [address] [facility] 08/08/2022 Sex and Gender Information [...] 11/03/2024 2:15 PM EDT Office Visit [facility] [address] [place] [address] 8 week follow up with lab and B 12 inj 11/03/2024 2:30 PM EDT Visit (SP) Office Hematology/Oncology [address] [place], [place] [address] [address] Dolores Jacobson APRN.WHIZZER HAND [address] [facility] [place] [address] 8 week follow up with lab and B 12 inj 11/03/2024 3:00 PM EDT Nurse Visit Hematology/Oncology [address] [place] [address] Beryl Parsons Nurse Hector [address] [facility] [address] 8 week follow up with lab B12 01/12/2025 1:20 PM EST Office Visit Gastroenterology [address] [place] [address] Jair Miller Jr., DO [address] [place] [phone] office moved from 12/29/24 months follow-up/ Pancreatic pseudocyst/cyst,Gene ralized abdominal pain,Gastroparesis,D yspepsia 05/08/2025 1:00 PM EDT Office Visit [facility] [address] [facility] [address] lab 05/15/2025 1:00 PM EDT Office Visit Radiation Oncology [address] [facility] [address] Rafael Tyler MD [address] [facility] [address] 1 year follow up documented as of this encounter Procedures Procedure Name Priority Date/Time Associated Diagnosis Comments MAGNESIUM BLD Routine 11/30/2022 8:40 AM EDT Other chronic pancreatitis (HCC) GOLD TOP EXTRA TUBE Routine 11/30/2022 8 :40 AM EDT Other chronic pancreatitis (HCC) PHOSPHORUS INORGANIC Routine 11/30/2022 8:40 AM EDT Other chronic pancreatitis (HCC) COMPREHENSIVE METABOLIC PANEL Routine 11/30/2022 8:40 AM EDT Other chronic pancreatitis (HCC) CBC + DIFF Routine 11/30/2022 8:40 AM EDT Other chronic pancreatitis (HCC) documented in this encounter Results * GOLD TOP EXTRA TUBE (11/30/2022 8:40 AM EDT) Blood BLOOD SPECIMEN / Unknown 11/30/2022 8:40 AM EDT 11/30/2022 8:04 PM EDT us Natali Leonard MD LABORATORY Final Result [facility] [address] [facility] [place] [phone], [place] * PHOSPHORUS INORGANIC (11/30/2022 8:40 AM EDT) Phosphorus 4.3 2.7 - 4.8 mg/dL 12/01/2022 10:20 AM EDT [facility] Blood BLOOD SPECIMEN / Unknown 11/30/2022 8:40 AM EDT 11/30/2022 8:03 PM EDT Natali Leonard MD LABORATORY Final Result [facility] [address] [place] [phone], [place] * MAGNESIUM BLD (11/30/2022 8:40 AM EDT) Magnesium 2.1 1.7 - 2.3 mg/dL 12/01/2022 10:20 AM EDT [facility] Blood BLOOD SPECIMEN / Unknown 11/30/2022 8:40 AM EDT 11/30/2022 8:03 PM EDT Natali Leonard MD LABORATORY Final Result [facility] [address] [place] [phone], [place] * (ABNORMAL) CBC + DIFF (11/30/2022 8:40 AM EDT) WBC 10.01 3.70 - 11.00 k/uL 11/30/2022 9:50 PM EDT [facility] RBC 4.30 4.20 - 6.00 m/uL 11/30/2022 9:50 PM EDT [facility] Hemoglobin 11.3(L) 13.0 - 17.0 g/dL 11/30/2022 9:50 PM EDT [facility] Hematocrit 36.7(L) 39.0 - 51.0 % 11/30/2022 9:50 PM EDT [facility] MCV 85.3 80.0 - 100.0 fL 11/30/2022 9:50 PM EDT [facility] MCH 26.3 26.0 - 34.0 pg 11/30/2022 9:50 PM EDT [facility] MCHC 30.8 30.5 - 36.0 g/dL 11/30/2022 9:50 PM EDT [facility] RDW-CV 18.0(H) 11.5 - 15.0 % 11/30/2022 9:50 PM EDT [facility] Platelet Count 338 150 - 400 k/uL 11/30/2022 9:50 PM EDT [facility] MPV 11.7 9.0 - 12.7 fL 11/30/2022 9:50 PM EDT [facility] Neutrophils % 62.4 % 11/30/2022 9:50 PM EDT [facility] Abs Neut 6.25 1.45 - 7.50 k/uL 11/30/2022 9:50 PM EDT [facility] Lymphocytes % 20.1 % 11/30/2022 9:50 PM EDT [facility] Abs Lymph 2.01 1.00 - 4.00 k/uL 11/30/2022 9:50 PM EDT [facility] Monocytes % 12.1 % 11/30/2022 9:50 PM EDT [facility] Abs [place] 1.21(H) <0.87 k/uL 11/30/2022 9:50 PM EDT [facility] Eosinophils % 3.2 % 11/30/2022 9:50 PM EDT [facility] Abs Eosin 0.32 <0.46 k/uL 11/30/2022 9:50 PM EDT [facility] Basophils % 1.1 % 11/30/2022 9:50 PM EDT [facility] Abs Baso 0.11(H) <0.11 k/uL 11/30/2022 9:50 PM EDT [facility] Immature Granulocytes % 1.1 % 11/30/2022 9:50 PM EDT [facility] Abs Immature Gran 0.11(H) <0.10 k/uL 023 9:50 PM EDT [facility] NRBC 0.0 /100 WBC 11/30/2022 9:50 PM EDT [facility] Absolute nRBC <0.01 <0.01 k/uL 11/30/2022 9:50 PM EDT [facility] Diff Type Auto 11/30/2022 9:50 PM EDT [facility] Blood BLOOD SPECIMEN / Unknown 11/30/2022 8:40 AM EDT 11/30/2022 8:03 PM EDT us Natali Leonard MD LABORATORY Final Result [facility] [address] [place] [address], [place] * (ABNORMAL) COMP METABOLIC PANEL (11/30/2022 8:40 AM EDT) Protein, Total 6.6 6.3 - 8.0 g/dL 12/01/2022 10:20 AM EDT [facility] Albumin 3.8(L) 3.9 - 4.9 g/dL 12/01/2022 10:20 AM EDT [facility] Calcium, Total 8.7 8.5 - 10.2 mg/dL 12/01/2022 10:20 AM EDT [facility] Bilirubin, Total <0.2(L) 0.2 - 1.3 mg/dL 12/01/2022 10:20 AM EDT [facility] Alkaline Phosphatase 54 38 - 113 U/L 12/01/2022 10:20 AM EDT [facility] AST 28 14 - 40 U/L 12/01/2022 10:20 AM EDT [facility] ALT 21 10 - 54 U/L 12/01/2022 10:20 AM EDT [facility] Glucose 196(H) 74 - 99 mg/dL 12/01/2022 10:20 AM EDT [facility] Comment: The [place] Diabetes Association (ADA) provides guidance for cutoff [...] Standards of Medical Care in Diabetes 2016, [place] Diabetes Association. Diabetes Care. 2016.39(Suppl 1). BUN 30(H) 9 - 24 mg/dL 12/01/2022 10:20 AM [facility] Creatinine 0.89 0.73 - 1.22 mg/dL 12/01/2022 10:20 AM [facility] Sodium 138 136 - 144 mmol/L 12/01/2022 10:20 AM [facility] Potassium 3.8 3.7 - 5.1 mmol/L 12/01/2022 10:20 AM [facility] Chloride 100 97 - 105 mmol/L 12/01/2022 10:20 AM [facility] CO2 25 22 - 30 mmol/L 12/01/2022 10:20 AM [facility] Anion Gap 13 9 - 18 mmol/L 12/01/2022 10:20 AM [facility] Estimated Glomerular Filtration Rate 88 >=60 mL/min/1. 73m 12/01/2022 10:20 AM [facility] Comment:Estimated Glomerular Filtration Rate (eGFR) is [...] actual GFR. Blood BLOOD SPECIMEN / Unknown 11/30/2022 8:40 AM EDT 11/30/2022 8:03 PM EDT us Natali Leonard MD LABORATORY Final Result [facility] [address] [facility] [address] [place] [address], documented in this encounter Visit Diagnoses Diagnosis Other chronic pancreatitis (HCC) documented in this encounter Care Teams Billiard Table Assembler Relationship Specialty Start Date End Date Trey Berkowitz [address] [place] [phone] PCP - General 05/14/04 documented as of this encounter
--- OUTSIDE RECORDS SUMMARY | 2024-10-31 09:21 | XMS_ITS | Encounter Summary ---
Author Organization [facility] Address [address] [place] [address] Care Team Providers Care Plant Protection Guard Name Role Phone Trey Berkowitz Primary Care Provider [phone] Source Comments In the event this information is protected by the Federal Confidentiality of Alcohol and Drug AbusePatient Records regulations: The Federal rules restrict any use of the information to criminally investigate or prosecute any alcohol or drug abuse patient.[facility] Encounter Details Date Type Department Care Team (Late st Contact Info) Description 09/08/2024 Results Follow-Up Hematology/Oncology [address] [facility] [place] [address] Dolores Jacobson APRN.NAPHTHA WASHING SYSTEM OPERATOR [address] [facility] [place] [address] Social History Tobacco Use Types [...] is lower risk 3 08/08/2022 Data from: https://www.neighborhoodatlas.medicine.[facility].edu/. Last address used for calculation [address] [facility] 08/08/2022 Sex and Gender Information Value [...] Description 11/03/2024 2:15 PM EDT Office Visit [facility] [address] [place] [address] 8 week follow up with lab and B 12 inj 11/03/2024 2:30 PM EDT Visit (SP) Office Hematology/Oncology [address] [place], [place] [address] [address] Dolores Jacobson APRN.NAPHTHA WASHING SYSTEM OPERATOR [address] [facility] [place] [address] 8 week follow up with lab and B 12 inj 11/03/2024 3:00 PM EDT Nurse Visit Hematology/Oncology [address] [place] [address] Beryl Parsons Nurse Hector [address] [facility] [place] [address] 8 week follow up with lab B12 01/12/2025 1:20 PM EST Office Visit Gastroenterology [address] [place] [address] Jair Miller Jr., [address] [facility] [address] [place] [phone] office moved from 12/29/24 months follow-up/ Pancreatic pseudocyst/cyst,Gene ralized abdominal pain,Gastroparesis,D yspepsia 05/08/2025 1:00 PM EDT Office Visit [facility] [address] [facility] [place] [address] lab 05/15/2025 1:00 PM EDT Office Visit Radiation Oncology [address] [facility] [place] [address] Rafael Tyler MD [address] [facility] [place] [address] 1 year follow up documented as of this encounter Visit Diagnoses Not on filedocumented in this encounter Care Teams Plant Protection Guard Relationship Specialty Start Date End Date Trey Berkowitz [address] [place] [phone] PCP - General 05/14/04 documented as of this encounter
--- OUTSIDE RECORDS SUMMARY | 2024-10-31 09:21 | XMS_ITS | Encounter Summary ---
Author Organization [facility] Address [address] [place] [id number] Care Team Providers Care Mine Geologist Name Role Phone Trey Berkowitz Primary Care Provider [phone] Source Comments In the event this information is protected by the Federal Confidentiality of Alcohol and Drug AbusePatient Records regulations: The Federal rules restrict any use of the information to criminally investigate or prosecute any alcohol or drug abuse patient.[facility] Encounter Details Date Type Department Care Team (Late st Contact Info) Description 07/30/2023 Get Medical Advice Gastroenterology [address] [facility] [place] [address] Jair Miller Jr., DO [address] [place] [phone] Colonoscopy Social History Tobacco Use Types Packs/Day Years [...] is lower risk 3 08/08/2022 Data from: https://www.neighborhoodatlas.medicine.[facility].edu/. Last address used for calculation [address] 08/08/2022 Sex and Gender Information Value [...] 11/03/2024 2:15 PM EDT Office Visit [facility] [address] [facility] [place] [address] 8 week follow up with lab and B 12 inj 11/03/2024 2:30 PM EDT Visit (SP) Office Hematology/Oncology [address] [place] [address] Dolores Jacobson APRN.MOBILE PET GROOMER [address] [place] [address] 8 week follow up with lab and B 12 inj 11/03/2024 3:00 PM EDT Nurse Visit Hematology/Oncology [address] [place] [address] Beryl Parsons Nurse Hector [address] [place] [address] 8 week follow up with lab B12 01/12/2025 1:20 PM EST Office Visit Gastroenterology [address] [place], [place] [phone] Jair Miller Jr., [address] [facility] [address] [phone] office moved from 12/29/24 months follow-up/ Pancreatic pseudocyst/cyst,Gene ralized abdominal pain,Gastroparesis,D yspepsia 05/08/2025 1:00 PM EDT Office Visit [facility] [address] [place] [address] lab 05/15/2025 1:00 PM EDT Office Visit Radiation Oncology [address] [place] [address] Rafael Tyler MD [address] [place] [address] 1 year follow up documented as of this encounter Visit Diagnoses Not on filedocumented in this encounter Care Teams Mine Geologist Relationship Specialty Start Date End Date Trey Berkowitz [address] [place] [phone] PCP - General 05/14/04 documented as of this encounter
--- OUTSIDE RECORDS SUMMARY | 2024-10-31 09:21 | XMS_ITS | Clinical Summary ---
Author Organization [facility] Address [address] [facility] [place] [address] Care Team Providers Care Tube Wrapper Name Role Phone Unavailable Primary Care Provider Unavailabl e Source Comments The following information is NOT included in Care Everywhere downloads:Psychiatric notes, ECG results, Cardiac Rehab notes, Pulmonary Function notes, data from SmartForms (includes but not limited toPregnancy data,audiograms, eye exams, pre-surgical evaluation notes, well-child exam data).[facility] Active Problems Problem Noted Date Diagnosed Date Osteoarthrosis, unspecified whether generalized or localized, hand 07/13/2008 Social History Tobacco Use Types Packs/Day Years Used Date Smoking Tobacco: Never Assessed Sex and Gender Information Value Date Recorded Sex Assigned at Not on file Legal Sex Male 12:48 PM EST Gender Identity Not on file Sexual Orientation Not on file Last Filed Vital Signs Vital Sign Reading Time Taken Comments Blood Pressure 143/80 07/13/2008 2:35 PM EDT Pulse 94 07/13/2008 2:35 PM EDT Temperature 37.1 C (98.8 F) 07/13/2008 2:35 PM EDT Respiratory Rate 16 07/13/2008 2:35 PM EDT Oxygen Saturation - - Inhaled Oxygen Concentration - - Weight - - Height - - Body Mass Index - - Plan of Treatment Health Maintenance Due Date Last Done Comments Tdap Booster 02/24/1962 Hepatitis A (HAV) Vaccine (optional start 19+ years) 0 02/24/1963 Tetanus (Td or Tdap) Booster 02/24/1963 Pneumococcal Vaccine(s) (50+ yrs) (1 of 1 - PCV) 02/24 Shingles (RZV) Vaccine (1 of 2) 02/24/1994 Hepatitis B (HBV) Vaccine (optional start 60+ years) 0 2004 RSV vaccine (adult) (1 - 1-dose 75+ series) 02/24/2019 COVID-19 Vaccine (2023- season) 2024 Influenza Vaccine (#1) 2024 Insurance [employer] - HMO/PPO/POS
--- OUTSIDE RECORDS SUMMARY | 2024-10-31 09:21 | XMS_ITS | Encounter Summary ---
Author Organization [facility] Address [address] [place] [address] Care Team Providers Care Php Lamp Developer Name Role Phone Trey Berkowitz Primary Care Provider [phone] Source Comments In the event this information is protected by the Federal Confidentiality of Alcohol and Drug AbusePatient Records regulations: The Federal rules restrict any use of the information to criminally investigate or prosecute any alcohol or drug abuse patient.[facility] Encounter Details Date Type Department Care Team (Late st Contact Info) Description 02/02/2023 GI Preprocedure Call [facility] Surgery [address] [place] [address] Trey Berkowitz [address] [place] [address] Social History Tobacco Use Types Packs/Day Years [...] is lower risk 3 08/08/2022 Data from: https://www.neighborhoodatlas.medicine.[facility].edu/. Last address used for calculation [address] 08/08/2022 Sex and Gender Information Value [...] [facility] Laboratory [address] [place] [address] 8 week follow up with lab and B 12 inj 11/03/2024 2:30 PM EDT Visit (SP) Office Hematology/Oncology [address] [place] [address] Dolores Jacobson APRN.PATIENT COMPANION [address] [place] [address] 8 week follow up with lab and B 12 inj 11/03/2024 3:00 PM EDT Nurse Visit Hematology/Oncology [address] [place] [address] Beryl Parsons Nurse Hector [address] [facility] [address] 8 week follow up with lab B12 01/12/2025 1:20 PM EST Office Visit Gastroenterology [address] [place] [address] Jair Miller Jr., [address] [place] [address] [place] [phone] office moved from 12/29/24 months follow-up/ Pancreatic pseudocyst/cyst,Gene ralized abdominal pain,Gastroparesis,D yspepsia 05/08/2025 1:00 PM EDT Office Visit [facility] Laboratory [address] [facility] [place] [address] lab 05/15/2025 1:00 PM EDT Office Visit Radiation Oncology [address] [facility] [place] [address] Rafael Tyler MD [address] [facility] [place] [address] 1 year follow up documented as of this encounter Visit Diagnoses Not on filedocumented in this encounter Care Teams Php Lamp Developer Relationship Specialty Start Date End Date Trey Berkowitz [address] [place] [phone] PCP - General 05/14/04 documented as of this encounter
--- OUTSIDE RECORDS SUMMARY | 2024-10-31 09:21 | XMS_ITS | Encounter Summary ---
Author Organization [facility] Address [address] [place] [address] Care Team Providers Care Assembly Line Supervisor Name Role Phone Trey Berkowitz Primary Care Provider [phone] Source Comments In the event this information is protected by the Federal Confidentiality of Alcohol and Drug AbusePatient Records regulations: The Federal rules restrict any use of the information to criminally investigate or prosecute any alcohol or drug abuse patient.[facility] Encounter Details Date Type Department Care Team (Latest Contact Info) Description 12/02/2022 Patient Msg Pharmacy Home Infusion [address] [place] [id number] Noris Mares PSS Questionnaire Submission Social History Tobacco Use Types Packs/Day Years [...] is lower risk 3 08/08/2022 Data from: https://www.neighborhoodatlas.medicine.[facility].edu/. Last address used for calculation [address] [place] [address] 08/08/2022 Sex and Gender Information Value Date [...] [facility] Laboratory [address] [facility] [address] 8 week follow up with lab and B 12 inj 11/03/2024 2:30 PM EDT Visit (SP) Office Hematology/Oncology [address] [facility] [address] Dolores Jacobson APRN.INSURANCE INSTRUCTOR [address] [facility] [address] 8 week follow up with lab and B 12 inj 11/03/2024 3:00 PM EDT Nurse Visit Hematology/Oncology [address] [place] [address] Beryl Odom Nurse Hector [address] [facility] [address] 8 week follow up with lab B12 01/12/2025 1:20 PM EST Office Visit Gastroenterology [address] [place] [address] Jair Miller Jr., DO [address] [facility] [address] [place] [address] office moved from 12/29/24 months follow-up/ Pancreatic pseudocyst/cyst,Gene ralized abdominal pain,Gastroparesis,D yspepsia 05/08/2025 1:00 PM EDT Office Visit [facility] Laboratory [address] [place] [address] lab 05/15/2025 1:00 PM EDT Office Visit Radiation Oncology [address] [place] [address] Rafael Tyler MD [address] [place] [address] 1 year follow up documented as of this encounter Visit Diagnoses Not on filedocumented in this encounter Care Teams Assembly Line Supervisor Relationship Specialty Start Date End Date Trey Berkowitz [address] [place] [phone] PCP - General 05/14/04 documented as of this encounter
--- OUTSIDE RECORDS SUMMARY | 2024-10-31 09:21 | XMS_ITS | Encounter Summary ---
Author Organization [facility] Address [facility] [place] [address] Care Team Providers Care Hairspring Cutter Name Role Phone Trey Berkowitz Primary Care Provider [phone] Source Comments In the event this information is protected by the Federal Confidentiality of Alcohol and Drug AbusePatient Records regulations: The Federal rules restrict any use of the information to criminally investigate or prosecute any alcohol or drug abuse patient.[facility] Encounter Details Date Type Department Care Team (Late st Contact Info) Description 12/15/2022 Lab Requisition [facility] Laboratory [address] [place] [address] [place] [address] [address] [facility] [address] [place] [phone] Other chronic pancreatitis (HCC) Social History Tobacco [...] is lower risk 3 08/08/2022 Data from: https://www.neighborhoodatlas.medicine.[facility].edu/. Last address used for calculation [address] 08/08/2022 Sex and Gender Information [...] Description 11/03/2024 2:15 PM EDT Office Visit [facility] Laboratory [address] [place] [address] 8 week follow up with lab and B 12 inj 11/03/2024 2:30 PM EDT Visit (SP) Office Hematology/Oncology [address] [place], [place] [address] [address] Dolores Jacobson APRN.LEAF SORTER [address] [facility] [place] [address] 8 week follow up with lab and B 12 inj 11/03/2024 3:00 PM EDT Nurse Visit Hematology/Oncology [address] [place] [address] Beryl Parsons Nurse Hector [address] [place] [address] 8 week follow up with lab B12 01/12/2025 1:20 PM EST Office Visit Gastroenterology [address] [place] [address] Jair Miller Jr., DO [address] [place] [address] [place] [phone] office moved from 12/29/24 months follow-up/ Pancreatic pseudocyst/cyst,Gene ralized abdominal pain,Gastroparesis,D yspepsia 05/08/2025 1:00 PM EDT Office Visit [facility] Laboratory [address] [place] [address] lab 05/15/2025 1:00 PM EDT Office Visit Radiation Oncology [address] [place] [address] Rafael Tyler MD [address] [place] [address] 1 year follow up documented as of this encounter Procedures Procedure Name Priority Date/Time Associated Diagnosis Comments MAGNESIUM BLD Routine 12/14/2022 10:00 AM EDT Other chronic pancreatitis (HCC) PHOSPHORUS INORGANIC Routine 12/14/2022 10:00 AM EDT Other chronic pancreatitis (HCC) COMPREHENSIVE METABOLIC PANEL Routine 12/14/2022 10:00 AM EDT Other chronic pancreatitis (HCC) CBC + DIFF Routine 12/14/2022 10:00 AM EDT Other chronic pancreatitis (HCC) documented in this encounter Results * PHOSPHORUS INORGANIC (12/14/2022 10:00 AM EDT) Phosphorus 3.1 2.7 - 4.8 mg/dL 12/15/2022 10:54 AM EDT [facility] Blood BLOOD SPECIMEN / Unknown 12/14/2022 10:00 AM EDT 12/15/2022 1:13 AM EDT us Natali Leonard MD LABORATORY Final Result [facility] [address] [facility] [place] [id number], [place] * MAGNESIUM BLD (12/14/2022 10:00 AM EDT) Pathologist [facility] Magnesium 1.8 1.7 - 2.3 mg/dL 12/15/2022 10:54 AM EDT [facility] Blood BLOOD SPECIMEN / Unknown 12/14/2022 10:00 AM EDT 12/15/2022 1:13 AM EDT us Natali Leonard MD LABORATORY Final Result Performing Organization Address [facility]/ZIP Co de Phone Number [facility] [address] [place] [id number], [place] * (ABNORMAL) CBC + DIFF (12/14/2022 10:00 AM EDT) Pathologist [facility] WBC 8.30 3.70 - 11.00 k/uL 12/15/2022 8:22 AM EDT [facility] RBC 4.17(L) 4.20 - 6.00 m/uL 12/15/2022 8:22 AM EDT [facility] Hemoglobin 10.8(L) 13.0 - 17.0 g/dL 12/15/2022 8:22 AM EDT [facility] Hematocrit 37.1(L) 39.0 - 51.0 % 12/15/2022 8:22 AM EDT [facility] MCV 89.0 80.0 - 100.0 fL 12/15/2022 8:22 AM EDT [facility] MCH 25.9(L) 26.0 - 34.0 pg 12/15/2022 8:22 AM EDT [facility] MCHC 29.1(L) 30.5 - 36.0 g/dL 12/15/2022 8:22 AM EDT [facility] RDW-CV 18.1(H) 11.5 - 15.0 % 12/15/2022 8:22 AM EDT [facility] Platelet Count 397 150 - 400 k/uL 12/15/2022 8:22 AM EDT [facility] MPV 11.5 9.0 - 12.7 fL 12/15/2022 8:22 AM EDT [facility] Neutrophils % 62.6 % 12/15/2022 8:22 AM EDT [facility] Abs Neut 5.20 1.45 - 7.50 k/uL 12/15/2022 8:22 AM EDT [facility] Lymphocytes % 22.3 % 12/15/2022 8:22 AM EDT [facility] Abs Lymph 1.85 1.00 - 4.00 k/uL 12/15/2022 8:22 AM EDT [facility] Monocytes % 10.5 % 12/15/2022 8:22 AM EDT [facility] Abs [place] 0.87(H) <0.87 k/uL 12/15/2022 8:22 AM EDT [facility] Eosinophils % 2.9 % 12/15/2022 8:22 AM EDT [facility] Abs Eosin 0.24 <0.46 k/uL 12/15/2022 8:22 AM EDT [facility] Basophils % 1.2 % 12/15/2022 8:22 AM EDT [facility] Abs Baso 0.10 <0.11 k/uL 12/15/2022 8:22 AM EDT [facility] Immature Granulocytes % 0.5 % 12/15/2022 8:22 AM EDT [facility] Abs Immature Gran 0.04 <0.10 k/uL 023 8:22 AM EDT [facility] NRBC 0.0 /100 WBC 12/15/2022 8:22 AM EDT [facility] Absolute nRBC <0.01 <0.01 k/uL 12/15/2022 8:22 AM EDT [facility] Diff Type Auto 12/15/2022 8:22 AM T [facility] Blood BLOOD SPECIMEN / Unknown 12/14/2022 10:00 AM EDT 12/15/2022 1:13 AM EDT us Natali Leonard MD LABORATORY Final Result [facility] [address] [facility] [address] [place] [address], [place] * (ABNORMAL) COMP METABOLIC PANEL (12/14/2022 10:00 AM EDT) Protein, Total 6.0(L) 6.3 - 8.0 g/dL 12/15/2022 10:54 AM EDT [facility] Albumin 3.6(L) 3.9 - 4.9 g/dL 12/15/2022 10:54 AM EDT [facility] Calcium, Total 8.8 8.5 - 10.2 mg/dL 12/15/2022 10:54 AM EDT [facility] Bilirubin, Total <0.2(L) 0.2 - 1.3 mg/dL 12/15/2022 10:54 AM EDT [facility] Alkaline Phosphatase 57 38 - 113 U/L 12/15/2022 10:54 AM EDT [facility] AST 21 14 - 40 U/L 12/15/2022 10:54 AM EDT [facility] ALT 15 10 - 54 U/L 12/15/2022 10:54 AM EDT [facility] Glucose 248(H) 74 - 99 mg/dL 12/15/2022 10:54 AM EDT [facility] Comment: The [place] Diabetes Association (ADA) provides guidance for cutoff [...] Standards of Medical Care in Diabetes 2016, [place] Diabetes Association. Diabetes Care. 2016.39(Suppl 1). BUN 26(H) 9 - 24 mg/dL 12/15/2022 10:54 AM EDT [facility] Creatinine 1.01 0.73 - 1.22 mg/dL 12/15/2022 10:54 AM EDT [facility] Sodium 140 136 - 144 mmol/L 12/15/2022 10:54 AM EDT [facility] Potassium 4.0 3.7 - 5.1 mmol/L 12/15/2022 10:54 AM EDT [facility] Chloride 103 97 - 105 mmol/L 12/15/2022 10:54 AM EDT [facility] CO2 23 22 - 30 mmol/L 12/15/2022 10:54 AM EDT [facility] Anion Gap 14 9 - 18 mmol/L 12/15/2022 10:54 AM EDT [facility] Estimated Glomerular Filtration Rate 76 >=60 mL/min/1. 73m 12/15/2022 10:54 AM T [facility] Comment:Estimated Glomerular Filtration Rate (eGFR) is [...] actual GFR. Blood BLOOD SPECIMEN / Unknown 12/14/2022 10:00 AM EDT 12/15/2022 1:13 AM EDT us Natali Leonard MD LABORATORY Final Result [facility] [address] [facility] [address] [address], documented in this encounter Visit Diagnoses Diagnosis Other chronic pancreatitis (HCC) documented in this encounter Care Teams Hairspring Cutter Relationship Specialty Start Date End Date Trey Berkowitz [address] [place] [phone] PCP - General 05/14/04 documented as of this encounter
--- OUTSIDE RECORDS SUMMARY | 2024-10-31 09:22 | XMS_ITS | Encounter Summary ---
Author Organization [facility] Address [address] [place] [address] Phone Care Team Providers Care Fiberglass Autobody Repairer Name Role Phone Trey Berkowitz DO Primary Care Provider [phone] Trey Berkowitz DO Primary Care Provider [phone] Trey Berkowitz DO Primary Care Provider [phone] Encounter Details Date Type Department Care Team (Late st Contact Info) Description 03/19/2023 Scanned Document [facility] [address] [place] [phone] Scanning, Generic Provider Social History Tobacco Use Types Packs/Day Years Used Date Smoking Tobacco: Former Cigarettes Smokeless Tobacco: Never Alcohol Use Standard Drinks/Week [...] suspected to have Coronavirus/COVID-19? No / Unsure 03/04/2023 10:50 AM EST documented as of this encounter Plan of Treatment Upcoming Encounters Date Type Department Care Team (Late st Contact Info) Description 03/07/2025 10:30 AM EST Office Visit [facility] [address] [place] [phone] Solo Khan, DO [address] [facility] [address] [place] [address] documented as of this encounter Visit Diagnoses Not on filedocumented in this encounter Additional Health Concerns Assessment Noted Time A fall risk assessment has been complete d for the patient 12/21/2022 8:36 AM EDT documented as of this encounter Care Teams Fiberglass Autobody Repairer Relationship Specialty Start Date End Date Trey Berkowitz DO PCP - General 12/22/18 03/23/23 Trey Berkowitz DO PCP - General Family Medicine 03/24/23 10/27/23 Trey Berkowitz DO [address] [place] [address] PCP - General Family Medicine 10/28/23 documented as of this encounter
--- OUTSIDE RECORDS SUMMARY | 2024-10-31 09:22 | XMS_ITS | Encounter Summary ---
Author Organization [facility] Address [address] [place] [address] Care Team Providers Care Portable Sawmill Operator Name Role Phone Trey Berkowitz Primary Care Provider [phone] Source Comments In the event this information is protected by the Federal Confidentiality of Alcohol and Drug AbusePatient Records regulations: The Federal rules restrict any use of the information to criminally investigate or prosecute any alcohol or drug abuse patient.[facility] Encounter Details Date Type Department Care Team (Latest Contact Info) Description 11/18/2022 Patient Msg Pharmacy Home Infusion [address] [facility] [place] [phone] Noris Mares PSS Questionnaire Submission Social History [...] place to sleep or slept in a nursing home (including now)? No 09/04/2022 Area Deprivation Index Answer Date Chon rded National Score (1-100), lower number is lower ri sk 55 08/08/2022 State Score (1-10), lower number is lower risk 3 08/08/2022 Data from: https://www.neighborhoodatlas.medicine.[facility].edu/. Last address used for calculation [address] [place] [address] 08/08/2022 Sex and Gender Information Value Date [...] Description 11/03/2024 2:15 PM EDT Office Visit [facility] Laboratory [address] [facility] [place] [address] 8 week follow up with lab and B 12 inj 11/03/2024 2:30 PM EDT Visit (SP) Office Hematology/Oncology [address] [facility] [place] [address] Dolores Jacobson APRN.LINEN WORKER [address] [facility] [place] [address] 8 week follow up with lab and B 12 inj 11/03/2024 3:00 PM EDT Nurse Visit Hematology/Oncology [address] [place] [address] Beryl Odom Nurse Hector [address] [facility] [place] [address] 8 week follow up with lab B12 01/12/2025 1:20 PM EST Office Visit Gastroenterology [address] [place] [address] Jair Miller Jr., DO [address] [facility] [address] [place] [address] office moved from 12/29/24 months follow-up/ Pancreatic pseudocyst/cyst,Gene ralized abdominal pain,Gastroparesis,D yspepsia 05/08/2025 1:00 PM EDT Office Visit [facility] Laboratory [address] [place] [address] lab 05/15/2025 1:00 PM EDT Office Visit Radiation Oncology [address] [place] [address] Rafael Tyler MD [address] [place] [address] 1 year follow up documented as of this encounter Visit Diagnoses Not on filedocumented in this encounter Care Teams Portable Sawmill Operator Relationship Specialty Start Date End Date Trey Berkowitz [address] [place] [phone] PCP - General 05/14/04 documented as of this encounter
--- OUTSIDE RECORDS SUMMARY | 2024-10-31 09:22 | XMS_ITS | Encounter Summary ---
Author Organization [facility] Address [address] [place] [place] [address] Phone Care Team Providers Care Intel Recruiter Name Role Phone Trey Berkowitz DO Primary Care Provider [phone] Trey Berkowitz DO Primary Care Provider [phone] Trey Berkowitz DO Primary Care Provider [phone] Encounter Details Date Type Department Care Team (Late st Contact Info) Description 06/08/2022 Orders Only [facility] [address] [place] [address] Conversion, Onbase Social History Tobacco Use Types Packs/Day Years Used Date Smoking Tobacco: Never Assessed Sex and Gender Information Value Date Recorded Sex Assigned at Not on file Legal Sex Male 7:29 AM EST Gender Identity Not on file Sexual Orientation Not on file documented as of this encounter Plan of Treatment Upcoming Encounters Date Type Department Care Team (Late st Contact Info) Description 03/07/2025 10:30 AM EST Office Visit [facility] [address] [facility] [address] [place] [phone] Solo Khan DO [address] [facility] [address], [address] [place], [place] [phone] Scheduled Orders Name Type Priority Associated Diagnoses Orde r Schedule OUTSIDE LAB SCAN Lab Ordered: 06/08/2022 documented as of this encounter Visit Diagnoses Not on filedocumented in this encounter Care Teams Intel Recruiter Relationship Specialty Start Date End Date Trey Berkowitz DO PCP - General 12/22/18 03/23/23 Trey Berkowitz DO PCP - General Family Medicine 03/24/23 10/27/23 Trey Berkowitz DO [address] [place] [address] PCP - General Family Medicine 10/28/23 documented as of this encounter
--- OUTSIDE RECORDS SUMMARY | 2024-10-31 09:22 | XMS_ITS | Encounter Summary ---
Author Organization [facility] Address [address] [facility] [place] [address] Care Team Providers Care Convention Planner Name Role Phone Trey Berkowitz DO Primary Care Provider [phone] Trey Berkowitz DO Primary Care Provider [phone] Encounter Details Date Type Department Care Team (Late Contact Info) Description 12/09/2022 Abstract [facility] [address] [facility] 120 [place] [address] Rich Severino, DPJustine [address] [facility] [address] [place] [address] Social History Tobacco Use Types Packs/Day Years Used Date Smoking Tobacco: Former Cigarettes Q uit: 05/23/1998 Passive Smoke Exposure: Never Smokeless Tobacco: Never Alcohol Use Standard Drinks/Week [...] Encounters Date Type Department Care Team (Late Contact Info) Description 12/06/2024 11:00 AM EDT Office Visit [facility] [address] [facility] [address] [place] [address] Mauro Cox MD [address] [facility] [address] [place] [address] 01/22/2025 11:50 AM EST Office Visit [facility] [address] [place] [address] Rich Severino DPM [address] [address] documented as of this encounter Visit Diagnoses Not on filedocumented in this encounter Care Teams Convention Planner Relationship Specialty Start Date End Date Trey Berkowitz DO PCP - General Family Medicine 12/09/22 06/11/24 Trey Berkowitz DO [address] [place] [phone] PCP - General Family Medicine 06/12/24 documented as of this encounter
--- OUTSIDE RECORDS SUMMARY | 2024-10-31 09:22 | XMS_ITS | Encounter Summary ---
Author Organization [facility] Address [address] [place] [address] Care Team Providers Care Leasing Director Name Role Phone Trey Berkowitz Primary Care Provider [phone] Source Comments In the event this information is protected by the Federal Confidentiality of Alcohol and Drug AbusePatient Records regulations: The Federal rules restrict any use of the information to criminally investigate or prosecute any alcohol or drug abuse patient.[facility] Encounter Details Date Type Department Care Team (Late st Contact Info) Description 05/30/2022 Patient Msg Gastroenterology [address] [facility] [place] [place] [address] Jair Miller Jr., DO [address] [place] [address] labs Social History Tobacco Use Types Packs/Day Years Used Date Smoking Tobacco: Former Cigarettes 3 30 0 02/23/1968 - 02/22/1998 Smokeless Tobacco: Never Alcohol Use Standard Drinks/Week Comments No 0 (1 standard drink = 0.6 oz pur e alcohol) PHQ-2 Answer Date Recorded PHQ-2 score 0 04/21/2022 Area Deprivation Index Answer Date Chon rded National Score (1-100), lower number is lower ri sk 56 03/07/2022 State Score (1-10), lower number is lower risk N ot on file 03/07/2022 Data from: https://www.neighborhoodatlas.medicine.[facility]/. Last address used for calculation [address] [place] [address] 03/07/2022 Sex and Gender Information Value Date Recorded Sex Assigned at Male 08/18/2022 3:32 PM EDT Legal Sex Male 7:19 AM EST Gender Identity Male 08/18/2022 3:32 PM EDT Sexual Orientation Straight 08/18/2022 3: 32 PM EDT documented as of this encounter Functional Status * Are you deaf or do you have serious difficulty hearing? Answer Date of Assessment Author No 08/07/2014 3:18 PM EDT Romana Hodgson RN * Are you blind or do you have serious difficulty seeing, even when wearing glasses? Answer Date of Assessment Author No 08/07/2014 3:18 PM EDT Romana Hodgson RN * Do you have serious difficulty walking or climbing stairs? Answer Date of Assessment Author No 08/07/2014 3:18 PM EDT Romana Hodgson RN * Do you have difficulty dressing or bathing? Answer Date of Assessment Author No 08/07/2014 3:18 PM EDT Romana Hodgson RN * Because of a physical, mental, or emotional condition, do you have difficulty doing errands alone such as visiting a doctor's office or shopping? Answer Date of Assessment Author No 08/07/2014 3:18 PM EDT Romana Hodgson RN documented as of this encounter Mental Status * Because of a physical, mental, or emotional condition, do you have serious difficulty concentrating, remembering, or making decisions? Answer Entry Date Author No 08/07/2014 3:18 PM EDT Romana Hodgson RN documented in this encounter Plan of Treatment Upcoming Encounters Date Type Department Care Team (Latest Contact Info) Description 11/03/2024 2:15 PM EDT Office Visit [facility] [address] [place] [address] [place] [address] 8 week follow up with lab and B 12 inj 11/03/2024 2:30 PM EDT Visit (SP) Office Hematology/Oncology [address] [facility] [place] [address] Dolores Jacobson APRN.JUMP ROLL OPERATOR [address] [facility] [place] [address] 8 week follow up with lab and B 12 inj 11/03/2024 3:00 PM EDT Nurse Visit Hematology/Oncology [address] [place] [address] [place] [address] Beryl Parsons Nurse Hector [address] [facility] [place] [address] 8 week follow up with lab B12 01/12/2025 1:20 PM EST Office Visit Gastroenterology 5[address] [place] [address] Jair Miller Jr., [address] [facility] [address] [address] office moved from 12/29/24 months follow-up/ Pancreatic pseudocyst/cyst,Gene ralized abdominal pain,Gastroparesis,D yspepsia 05/08/2025 1:00 PM EDT Office Visit [facility] [address] [place] [address] [place] [address] lab 05/15/2025 1:00 PM EDT Office Visit Radiation Oncology [address] [facility] [place] [address] Rafael Tyler MD [address] [place] [address] [place] [address] 1 year follow up documented as of this encounter Results * (ABNORMAL) CBC + DIFF (06/01/2022 1:46 PM EDT) WBC 9.50 3.70 - 11.00 k/uL 06/01/2022 1:56 PM EDT [facility] RBC 4.06(L) 4.20 - 6.00 m/uL 06/01/2022 1:56 PM EDT [facility] Hemoglobin 12.0(L) 13.0 - 17.0 g/dL 06/01/2022 1:56 PM EDT [facility] Hematocrit 37.3(L) 39.0 - 51.0 % 06/01/2022 1:56 PM EDT [facility] MCV 91.9 80.0 - 100.0 fL 06/01/2022 1:56 PM EDT [facility] MCH 29.6 26.0 - 34.0 pg 06/01/2022 1:56 PM EDT [facility] MCHC 32.2 30.5 - 36.0 g/dL 06/01/2022 1:56 PM EDT [facility] RDW-CV 14.7 11.5 - 15.0 % 06/01/2022 1:56 PM EDT [facility] Platelet Count 170 150 - 400 k/uL 06/01/2022 1:56 PM EDT [facility] MPV 10.5 9.0 - 12.7 fL 06/01/2022 1:56 PM EDT [facility] Neutrophils % 66.5 % 06/01/2022 1:56 PM EDT [facility] Abs Neut 6.32 1.45 - 7.50 k/uL 06/01/2022 1:56 PM EDT [facility] Lymphocytes % 11.9 % 06/01/2022 1:56 PM EDT [facility] Abs Lymph 1.13 1.00 - 4.00 k/uL 06/01/2022 1:56 PM EDT [facility] Monocytes % 12.4 % 06/01/2022 1:56 PM EDT [facility] Abs [place]ter Tail 1.18(H) <0.87 k/uL 06/01/2022 1:56 PM EDT [facility] Eosinophils % 4.7 % 06/01/2022 1:56 PM EDT [facility] Abs Eosin 0.45 <0.46 k/uL 06/01/2022 1:56 PM EDT [facility] Basophils % 1.3 % 06/01/2022 1:56 PM EDT [facility] Abs Baso 0.12(H) <0.11 k/uL 06/01/2022 1:56 PM EDT [facility] Immature Granulocytes % 3.2 % 06/01/2022 1:56 PM EDT [facility] Abs Immature Gran 0.30(H) <0.10 k/uL 06/01/2022 1:56 PM EDT [facility] NRBC 0.0 /100 WBC 06/01/2022 1:56 PM EDT [facility] Absolute nRBC <0.01 <0.01 k/uL 06/01/2022 1:56 PM EDT [facility] Diff Type Auto 06/01/2022 1:56 PM EDT [facility] Blood BLOOD SPECIMEN / Unknown Venipuncture / Unknown 06/01/2022 1:46 PM EDT 06/01/2022 1:46 PM EDT Narrative [facility] - 06/01/2022 1:56 PM EDT This is an appended report. These results have been appended to a previously verified report. us Jair Miller Jr., DO LABORATORY Final Resu lt [facility] [address] [place] [address] documented in this encounter Visit Diagnoses Diagnosis Diverticulitis- Primary Diverticulitis of colon (without mention of hemorrhage) Thrombocytopenia Thrombocytopenia, unspecified documented in this encounter Care Teams Leasing Director Relationship Specialty Start Date End Date Trey Berkowitz [address] [place] [phone] PCP - General 05/14/04 documented as of this encounter
--- OUTSIDE RECORDS SUMMARY | 2024-10-31 09:22 | XMS_ITS | Encounter Summary ---
Author Organization [facility] Address [address] [place] [address] Care Team Providers Care Financial Management Name Role Phone Trey Berkowitz Primary Care Provider [phone] Source Comments In the event this information is protected by the Federal Confidentiality of Alcohol and Drug AbusePatient Records regulations: The Federal rules restrict any use of the information to criminally investigate or prosecute any alcohol or drug abuse patient.[facility] Encounter Details Date Type Department Care Team (Late st Contact Info) Description 05/31/2022 Get Medical Advice Gastroenterology [address] [place] [address] Jair Miller Jr., DO [address] [place] [address] Chau Rae - Wednesday Social History Tobacco Use Types Packs/Day Years [...] N ot on file 03/07/2022 Data from: https://www.neighborhoodatlas.medicine.[facility]/. Last address used for calculation [address] [place] [address] 03/07/2022 Sex and Gender Information Value Date [...] Description 11/03/2024 2:15 PM EDT Office Visit [facility] [address] [place] [address] [place] [address] 8 week follow up with lab and B 12 inj 11/03/2024 2:30 PM EDT Visit (SP) Office Hematology/Oncology [address] [facility] [place] [address] Dolores Jacobson APRN.BEAVER TRAPPER [address] [facility] [place] [address] 8 week follow up with lab and B 12 inj 11/03/2024 3:00 PM EDT Nurse Visit Hematology/Oncology [address] [place] [place] [address] Beryl Parsons Nurse Hector [address] [facility] [place] [address] 8 week follow up with lab B12 01/12/2025 1:20 PM EST Office Visit Gastroenterology [address] [place], [place] [phone] Jair Miller Jr., [address] [place] [address] office moved from 12/29/24 months follow-up/ Pancreatic pseudocyst/cyst,Gene ralized abdominal pain,Gastroparesis,D yspepsia 05/08/2025 1:00 PM EDT Office Visit [facility] [address] [facility] [place] [address] lab 05/15/2025 1:00 PM EDT Office Visit Radiation Oncology [address] [facility] [place] [address] Rafael Tyler MD [address] [facility] [place] [address] 1 year follow up documented as of this encounter Visit Diagnoses Not on filedocumented in this encounter Care Teams Financial Management Relationship Specialty Start Date End Date Trey Berkowitz [address] [place] [phone] PCP - General 05/14/04 documented as of this encounter
--- OUTSIDE RECORDS SUMMARY | 2024-10-31 09:22 | XMS_ITS | Encounter Summary ---
Author Organization [facility] Address [address] [place] [address] Care Team Providers Care Bulk Sealer Name Role Phone Trey Berkowitz Primary Care Provider [phone] Source Comments In the event this information is protected by the Federal Confidentiality of Alcohol and Drug AbusePatient Records regulations: The Federal rules restrict any use of the information to criminally investigate or prosecute any alcohol or drug abuse patient.[facility] Encounter Details Date Type Department Care Team (Late st Contact Info) Description 12/07/2023 Patient [facility] Gastroenterology [address] [id number] Provider, Ccf results Social History Tobacco Use [...] is lower risk 3 08/08/2022 Data from: https://www.neighborhoodatlas.medicine.[facility].edu/. Last address used for calculation [address] [place] [address] 08/08/2022 Sex and Gender Information Value Date [...] Description 11/03/2024 2:15 PM EDT Office Visit [facility] [address] [facility] [place] [address] 8 week follow up with lab and B 12 inj 11/03/2024 2:30 PM EDT Visit (SP) Office Hematology/Oncology [address] [facility] [place] [address] Dolores Jacobson APRN.BLUNGER [address] [facility] [place] [address] 8 week follow up with lab and B 12 inj 11/03/2024 3:00 PM EDT Nurse Visit Hematology/Oncology [address] [facility] [place] [address] Beryl Odom Nurse Hector [address] [facility] [place] [address] 8 week follow up with lab B12 01/12/2025 1:20 PM EST Office Visit Gastroenterology [address] [place], [place] [phone] Jair Miller Jr., DO [address] [place] [address] office moved from 12/29/24 months follow-up/ Pancreatic pseudocyst/cyst,Gene ralized abdominal pain,Gastroparesis,D yspepsia 05/08/2025 1:00 PM EDT Office Visit [facility] [address] [facility] [place] [address] lab 05/15/2025 1:00 PM EDT Office Visit Radiation Oncology [address] [facility] [place] [address] Rafael Tyler MD [address] [facility] [place] [address] 1 year follow up documented as of this encounter Visit Diagnoses Not on filedocumented in this encounter Care Teams Bulk Sealer Relationship Specialty Start Date End Date Trey Berkowitz [address] [place] [phone] PCP - General 05/14/04 documented as of this encounter
--- OUTSIDE RECORDS SUMMARY | 2024-10-31 09:22 | XMS_ITS | Encounter Summary ---
Author Organization [facility] Address [address] [place] [address] Phone Care Team Providers Care Immigration Law Specialist Name Role Phone Trey Berkowitz DO Primary Care Provider [phone] Trey Berkowitz DO Primary Care Provider [phone] Trey Berkowitz DO Primary Care Provider [phone] Encounter Details Date Type Department Care Team (Late st Contact Info) Description 02/18/2022 Orders Only [facility] [address] [place] [address] Conversion, Onbase Social History Tobacco Use Types [...] Description 03/07/2025 10:30 AM EST Office Visit [facility] [address] [facility] [address] [place] [phone] Solo Khan DO 7[address] [facility], [address] [place], [place] [phone] Scheduled Orders Name Type Priority Associated Diagnoses Orde r Schedule OUTSIDE LAB SCAN Lab Ordered: 02/18/2022 documented as of this encounter Visit Diagnoses Not on filedocumented in this encounter Care Teams Immigration Law Specialist Relationship Specialty Start Date End Date Trey Berkowitz DO PCP - General 12/22/18 03/23/23 Trey Berkowitz DO PCP - General Family Medicine 03/24/23 10/27/23 Trey Berkowitz DO [address] [place] [address] PCP - General Family Medicine 10/28/23 documented as of this encounter
--- OUTSIDE RECORDS SUMMARY | 2024-10-31 09:22 | XMS_ITS | Encounter Summary ---
Author Organization [facility] Address [address] [place] [address] Phone Care Team Providers Care Club Former Name Role Phone Trey Berkowitz DO Primary Care Provider [phone] Trey Berkowitz DO Primary Care Provider [phone] Trey Berkowitz DO Primary Care Provider [phone] Encounter Details Date Type Department Care Team (Late st Contact Info) Description 03/12/2022 Orders Only [facility] [address] [place] [address] Conversion, Onbase Social History Tobacco Use Types [...] Description 03/07/2025 10:30 AM EST Office Visit [facility] [address] [facility] [address] [place] [phone] Solo Khan DO 7[address] [facility] [address], [address] [place], [place] [phone] Scheduled Orders Name Type Priority Associated Diagnoses Orde r Schedule OUTSIDE LAB SCAN Lab Ordered: 03/12/2022 documented as of this encounter Visit Diagnoses Not on filedocumented in this encounter Care Teams Club Former Relationship Specialty Start Date End Date Trey Berkowitz DO PCP - General 12/22/18 03/23/23 Trey Berkowitz DO PCP - General Family Medicine 03/24/23 10/27/23 Trey Berkowitz DO [address] [place] [address] PCP - General Family Medicine 10/28/23 documented as of this encounter
--- OUTSIDE RECORDS SUMMARY | 2024-10-31 09:22 | XMS_ITS | Encounter Summary ---
Author Organization [facility] Address [address] [place] [address] Care Team Providers Care Sales Professional Bilingual Name Role Phone Trey Berkowitz Primary Care Provider [phone] Source Comments In the event this information is protected by the Federal Confidentiality of Alcohol and Drug AbusePatient Records regulations: The Federal rules restrict any use of the information to criminally investigate or prosecute any alcohol or drug abuse patient.[facility] Encounter Details Date Type Department Care Team (Late st Contact Info) Description 05/27/2022 Get Medical Advice Gastroenterology [address] [facility] [place] [address] Jair Miller Jr., DO [address] [place] [address] Scan actual film in [facility] Library Social History Tobacco Use Types Packs/Day Years [...] N ot on file 03/07/2022 Data from: https://www.neighborhoodatlas.medicine.[facility]/. Last address used for calculation [address] [place] [address] 03/07/2022 Sex and Gender Information Value Date [...] Office Visit [facility] [address] [place] [address] [place] [address] 8 week follow up with lab and B 12 inj 11/03/2024 2:30 PM EDT Visit (SP) Office Hematology/Oncology [address] [place] [address] Dolores Jacobson APRN.CLEANER ASSISTANT [address] [place] [address] 8 week follow up with lab and B 12 inj 11/03/2024 3:00 PM EDT Nurse Visit Hematology/Oncology [address] [place] [address] Beryl Parsons Nurse Hector [address] [place] [address] 8 week follow up with lab B12 01/12/2025 1:20 PM EST Office Visit Gastroenterology [address] [place], [place] [address] Jair Miller Jr., DO [address] [place] [address] office moved from 12/29/24 months follow-up/ Pancreatic pseudocyst/cyst,Gene ralized abdominal pain,Gastroparesis,D yspepsia 05/08/2025 1:00 PM EDT Office Visit [facility] [address] [place] [address] lab 05/15/2025 1:00 PM EDT Office Visit Radiation Oncology [address] [place] [address] Rafael Tyler MD [address] [place] [address] 1 year follow up documented as of this encounter Visit Diagnoses Not on filedocumented in this encounter Care Teams Sales Professional Bilingual Relationship Specialty Start Date End Date Trey Berkowitz [address] [place] [phone] PCP - General 05/14/04 documented as of this encounter
--- OUTSIDE RECORDS SUMMARY | 2024-10-31 09:22 | XMS_ITS | Encounter Summary ---
Author Organization [facility] Address [address] [place] [address] Care Team Providers Care Global Compensation Manager Name Role Phone Sho Trey Rosenberg Primary Care Provider [phone] Source Comments In the event this information is protected by the Federal Confidentiality of Alcohol and Drug AbusePatient Records regulations: The Federal rules restrict any use of the information to criminally investigate or prosecute any alcohol or drug abuse patient.[facility] Encounter Details Date Type Department Care Team (Late st Contact Info) Description 07/07/2023 Patient Msg Internal Medicine [id number] [place] [address] Provider, Ccf appointment cancelled Social History Tobacco Use Types Packs/Day Years [...] place to sleep or slept in a assisted (including now)? No 09/04/2022 Area Deprivation Index Answer Date Chon rded National Score (1-100), lower number is lower ri sk 55 08/08/2022 State Score (1-10), lower number is lower risk 3 08/08/2022 Data from: https://www.neighborhoodatlas.medicine.[facility].edu/. Last address used for calculation [address] [place] [address] 08/08/2022 Sex and Gender Information Value Date [...] [facility] [address] [place] [address] 8 week follow up with lab and B 12 inj 11/03/2024 2:30 PM EDT Visit (SP) Office Hematology/Oncology [address] [place] [address] Dolores Jacobson APRN.LAUNDRY MACHINE MECHANIC [address] [facility] [place] [address] 8 week follow up with lab and B 12 inj 11/03/2024 3:00 PM EDT Nurse Visit Hematology/Oncology [address] [place] [address] Beryl Parsons Nurse Hector [address] [place] [address] 8 week follow up with lab B12 01/12/2025 1:20 PM EST Office Visit Gastroenterology [address] [place], [place] [phone] Jair Miller Jr., DO [address] [facility] [address] [place] [address] office moved from 12/29/24 months follow-up/ Pancreatic pseudocyst/cyst,Gene ralized abdominal pain,Gastroparesis,D yspepsia 05/08/2025 1:00 PM EDT Office Visit [facility] [address] [place] [address] [place] [address] lab 05/15/2025 1:00 PM EDT Office Visit Radiation Oncology [address] [place] [address] [place] [address] Rafael Tyler MD [address] [place] [address] [place] [address] 1 year follow up documented as of this encounter Visit Diagnoses Not on filedocumented in this encounter Care Teams Global Compensation Manager Relationship Specialty Start Date End Date Trey Berkowitz [address] [place] [phone] PCP - General 05/14/04 documented as of this encounter
--- OUTSIDE RECORDS SUMMARY | 2024-10-31 09:22 | XMS_ITS | Encounter Summary ---
Author Organization [facility] Address [address] [place] [address] Care Team Providers Care Business Operations Analyst Name Role Phone Trey Berkowitz Primary Care Provider Source Comments In the event this information is protected by the Federal Confidentiality of Alcohol and Drug AbusePatient Records regulations: The Federal rules restrict any use of the information to criminally investigate or prosecute any alcohol or drug abuse patient.[facility] Encounter Details Date Type Department Care Team (Late st Contact Info) Description 06/01/2022 Patient Msg Gastroenterology [address] [facility] [place] [address] Jair Miller Jr., DO [address] [place] [phone] 06/01/2022 labs Social History Tobacco Use Types Packs/Day [...] N ot on file 03/07/2022 Data from: https://www.neighborhoodatlas.medicine.[facility]/. Last address used for calculation [address] [place] [address] 03/07/2022 Sex and Gender Information Value Date [...] Office Visit [facility] [address] [place] [address] [place] [address] 8 week follow up with lab and B 12 inj 11/03/2024 2:30 PM EDT Visit (SP) Office Hematology/Oncology [address] [place] [address] Dolores Jacobson APRN.HAIR OR BEAUTY SALON MANAGER [address] [place] [address] 8 week follow up with lab and B 12 inj 11/03/2024 3:00 PM EDT Nurse Visit Hematology/Oncology [address] [place] [address] Beryl Parsons Nurse Hector [address] [place] [address] 8 week follow up with lab B12 01/12/2025 1:20 PM EST Office Visit Gastroenterology [address] [place], [place] [phone] Jair Miller Jr., [address] [place] [address] office moved from 12/29/24 months follow-up/ Pancreatic pseudocyst/cyst,Gene ralized abdominal pain,Gastroparesis,D yspepsia 05/08/2025 1:00 PM EDT Office Visit [facility] [address] [place] [address] lab 05/15/2025 1:00 PM EDT Office Visit Radiation Oncology [address] [place] [address] Rafael Tyler MD [address] [place] [address] 1 year follow up documented as of this encounter Visit Diagnoses Not on filedocumented in this encounter Care Teams Business Operations Analyst Relationship Specialty Start Date End Date Trey Berkowitz [address] [place] [phone] PCP - General 05/14/04 documented as of this encounter
--- OUTSIDE RECORDS SUMMARY | 2024-10-31 09:22 | XMS_ITS | Encounter Summary ---
Author Organization [facility] Address [address] [place] [address] Care Team Providers Care Sheet Metal Assembler And Riveter Name Role Phone Trey Berkowitz Primary Care Provider [phone] Source Comments In the event this information is protected by the Federal Confidentiality of Alcohol and Drug AbusePatient Records regulations: The Federal rules restrict any use of the information to criminally investigate or prosecute any alcohol or drug abuse patient.[facility] Encounter Details Date Type Department Care Team (Late st Contact Info) Description 02/24/2024 Get Medical Advice Gastroenterology [address] [place] [address] Jair Miller Jr., DO [address] [place] [phone] Zenpep prescription Social History Tobacco Use Types [...] is lower risk 3 08/08/2022 Data from: https://www.neighborhoodatlas.medicine.[facility].edu/. Last address used for calculation [address] [facility] 08/08/2022 Sex and Gender Information Value Date [...] Description 11/03/2024 2:15 PM EDT Office Visit [facility] Laboratory [address] [address] 8 week follow up with lab and B 12 inj 11/03/2024 2:30 PM EDT Visit (SP) Office Hematology/Oncology [address] [facility] [place] [address] Dolores Jacobson APRN.UMBRELLA CUTTER [address] [place] [address] 8 week follow up with lab and B 12 inj 11/03/2024 3:00 PM EDT Nurse Visit Hematology/Oncology [address] [place] [address] Beryl Parsons Nurse Hector [address] [facility] [place] [address] 8 week follow up with lab B12 01/12/2025 1:20 PM EST Office Visit Gastroenterology [address] [place] [address] Jair Miller Jr., [address] [facility] [address] [place] [address] office moved from 12/29/24 months follow-up/ Pancreatic pseudocyst/cyst,Gene ralized abdominal pain,Gastroparesis,D yspepsia 05/08/2025 1:00 PM EDT Office Visit [facility] Laboratory [address] [facility] [address] [address] lab 05/15/2025 1:00 PM EDT Office Visit Radiation Oncology [address] [facility] [address] Rafael Tyler MD [address] [facility] [address] 1 year follow up documented as of this encounter Visit Diagnoses Not on filedocumented in this encounter Care Teams Sheet Metal Assembler And Riveter Relationship Specialty Start Date End Date Trey Berkowitz [address] [place] [phone] PCP - General 05/14/04 documented as of this encounter
--- OUTSIDE RECORDS SUMMARY | 2024-10-31 09:22 | XMS_ITS | Encounter Summary ---
Author Organization [facility] Address [address] [place] [address] Care Team Providers Care Senior User Experience Architect Name Role Phone Trey Berkowitz Primary Care Provider [phone] Source Comments In the event this information is protected by the Federal Confidentiality of Alcohol and Drug AbusePatient Records regulations: The Federal rules restrict any use of the information to criminally investigate or prosecute any alcohol or drug abuse patient.[facility] Encounter Details Date Type Department Care Team (Late st Contact Info) Description 11/17/2022 Lab Requisition [facility] Laboratory [address] [place] [address] [place] [address] [address] [facility] [address] [place] [phone] Other chronic pancreatitis (HCC) Social History Tobacco [...] is lower risk 3 08/08/2022 Data from: https://www.neighborhoodatlas.medicine.[facility].edu/. Last address used for calculation [address] [facility] 08/08/2022 Sex and Gender Information [...] Description 11/03/2024 2:15 PM EDT Office Visit [facility] Laboratory [address] [place] [address] 8 week follow up with lab and B 12 inj 11/03/2024 2:30 PM EDT Visit (SP) Office Hematology/Oncology [address] [place], [place] [address] [place] [address] Dolores Jacobson APRN.RAILROAD CAR INSPECTOR [address] [facility] [place] [address] 8 week follow up with lab and B 12 inj 11/03/2024 3:00 PM EDT Nurse Visit Hematology/Oncology [address] [place] [address] Beryl Parsons Nurse Hector [address] [place] [address] 8 week follow up with lab B12 01/12/2025 1:20 PM EST Office Visit Gastroenterology [address] [place] [address] Jair Miller Jr., DO [address] [place] [phone] office moved from 12/29/24 months follow-up/ Pancreatic pseudocyst/cyst,Gene ralized abdominal pain,Gastroparesis,D yspepsia 05/08/2025 1:00 PM EDT Office Visit [facility] Laboratory [address] [place] [address] lab 05/15/2025 1:00 PM EDT Office Visit Radiation Oncology [address] [place] [address] Rafael Tyler MD [address] [place] [address] 1 year follow up documented as of this encounter Procedures Procedure Name Priority Date/Time Associated Diagnosis Comments MAGNESIUM BLD Routine 11/16/2022 3:30 PM EDT Other chronic pancreatitis (HCC) GOLD TOP EXTRA TUBE Routine 11/16/2022 3 :30 PM EDT Other chronic pancreatitis (HCC) PHOSPHORUS INORGANIC Routine 11/16/2022 3:30 PM EDT Other chronic pancreatitis (HCC) COMPREHENSIVE METABOLIC PANEL Routine 11/16/2022 3:30 PM EDT Other chronic pancreatitis (HCC) CBC + DIFF Routine 11/16/2022 3:30 PM EDT Other chronic pancreatitis (HCC) documented in this encounter Results * GOLD TOP EXTRA TUBE (11/16/2022 3:30 PM EDT) Blood BLOOD SPECIMEN / Unknown 11/16/2022 3:30 PM EDT 11/17/2022 3:09 AM EDT us Natali Leonard MD LABORATORY Final Result [facility] [address] [facility] [address] [address], [place] * PHOSPHORUS INORGANIC (11/16/2022 3:30 PM EDT) Phosphorus 3.6 2.7 - 4.8 mg/dL 11/17/2022 11:33 AM EDT [facility] Blood BLOOD SPECIMEN / Unknown 11/16/2022 3:30 PM EDT 11/17/2022 3:09 AM EDT us Natali Leonard MD LABORATORY Final Result [facility] [address] [place] [phone], [place] * MAGNESIUM BLD (11/16/2022 3:30 PM EDT) Pathologist [facility] Magnesium 2.0 1.7 - 2.3 mg/dL 11/17/2022 11:33 AM EDT [facility] Blood BLOOD SPECIMEN / Unknown 11/16/2022 3:30 PM EDT 11/17/2022 3:09 AM EDT Natali Leonard MD LABORATORY Final Result [facility] [address] [place] [id number], [place] * (ABNORMAL) CBC + DIFF (11/16/2022 3:30 PM EDT) WBC 12.52(H) 3.70 - 11.00 k/uL 11/17/2022 5:39 AM EDT [facility] RBC 4.36 4.20 - 6.00 m/uL 11/17/2022 5:39 AM EDT [facility] Hemoglobin 11.4(L) 13.0 - 17.0 g/dL 11/17/2022 5:39 AM EDT [facility] Hematocrit 38.1(L) 39.0 - 51.0 % 11/17/2022 5:39 AM EDT [facility] MCV 87.4 80.0 - 100.0 fL 11/17/2022 5:39 AM EDT [facility] MCH 26.1 26.0 - 34.0 pg 11/17/2022 5:39 AM EDT [facility] MCHC 29.9(L) 30.5 - 36.0 g/dL 11/17/2022 5:39 AM EDT [facility] RDW-CV 18.7(H) 11.5 - 15.0 % 11/17/2022 5:39 AM EDT [facility] Platelet Count 412(H) 150 - 400 k/uL 11/17/2022 5:39 AM EDT [facility] MPV 12.0 9.0 - 12.7 fL 11/17/2022 5:39 AM EDT [facility] Neutrophils % 78.8 % 11/17/2022 5:39 AM EDT [facility] Abs Neut 9.86(H) 1.45 - 7.50 k/uL 11/17/2022 5:39 AM EDT [facility] Lymphocytes % 12.7 % 11/17/2022 5:39 AM EDT [facility] Abs Lymph 1.59 1.00 - 4.00 k/uL 11/17/2022 5:39 AM EDT [facility] Monocytes % 6.3 % 11/17/2022 5:39 AM EDT [facility] Abs [place]te 0.79 <0.87 k/uL 11/17/2022 5:39 AM EDT [facility] Eosinophils % 1.0 % 11/17/2022 5:39 AM EDT [facility] Abs Eosin 0.13 <0.46 k/uL 11/17/2022 5:39 AM EDT [facility] Basophils % 0.6 % 11/17/2022 5:39 AM EDT [facility] Abs Baso 0.07 <0.11 k/uL 11/17/2022 5:39 AM EDT [facility] Immature Granulocytes % 0.6 % 11/17/2022 5:39 AM EDT [facility] Abs Immature Gran 0.08 <0.10 k/uL 11/17/2022 5:39 AM EDT [facility] NRBC 0.0 /100 WBC 11/17/2022 5:39 AM EDT [facility] Absolute nRBC <0.01 <0.01 k/uL 11/17/2022 5:39 AM EDT [facility] Diff Type Auto 11/17/2022 5:39 AM EDT [facility] Blood BLOOD SPECIMEN / Unknown 11/16/2022 3:30 PM EDT 11/17/2022 3:09 AM EDT us Natali Leonard MD LABORATORY Final Result [facility] [address] [place] [address], [place] * (ABNORMAL) COMP METABOLIC PANEL (11/16/2022 3:30 PM EDT) Protein, Total 6.8 6.3 - 8.0 g/dL 11/17/2022 11:33 AM EDT [facility] Albumin 3.9 3.9 - 4.9 g/dL 11/17/2022 11:33 AM EDT [facility] Calcium, Total 9.3 8.5 - 10.2 mg/dL 11/17/2022 11:33 AM EDT [facility] Bilirubin, Total 0.2 0.2 - 1.3 mg/dL 11/17/2022 11:33 AM EDT [facility] Alkaline Phosphatase 59 38 - 113 U/L 11/17/2022 11:33 AM EDT [facility] AST 27 14 - 40 U/L 11/17/2022 11:33 AM EDT [facility] ALT 20 10 - 54 U/L 11/17/2022 11:33 AM EDT [facility] Glucose 92 74 - 99 mg/dL 11/17/2022 11:33 AM EDT [facility] Comment: The [place] Diabetes Association (ADA) provides guidance for cutoff [...] Standards of Medical Care in Diabetes 2016, [place] [employer]. Diabetes Care. 2016.39(Suppl 1). BUN 27(H) 9 - 24 mg/dL 11/17/2022 11:33 AM T [facility] Creatinine 0.92 0.73 - 1.22 mg/dL 11/17/2022 11:33 AM [facility] Sodium 141 136 - 144 mmol/L 11/17/2022 11:33 AM T [facility] Potassium 4.3 3.7 - 5.1 mmol/L 11/17/2022 11:33 AM [facility] Chloride 103 97 - 105 mmol/L 11/17/2022 11:33 AM [facility] CO2 25 22 - 30 mmol/L 11/17/2022 11:33 AM [facility] Anion Gap 13 9 - 18 mmol/L 11/17/2022 11:33 AM [facility] Estimated Glomerular Filtration Rate 85 >=60 mL/min/1.7 3m 11/17/2022 11:33 AM [facility] Comment:Estimated Glomerular Filtration Rate (eGFR) is [...] actual GFR. Blood BLOOD SPECIMEN / Unknown 11/16/2022 3:30 PM EDT 11/17/2022 3:09 AM EDT us Natali Leonard MD LABORATORY Final Result [facility] [address] [facility] [address] [place] [address], documented in this encounter Visit Diagnoses Diagnosis Other chronic pancreatitis (HCC) documented in this encounter Care Teams Senior User Experience Architect Relationship Specialty Start Date End Date Trey Berkowitz [address] [place] [phone] PCP - General 05/14/04 documented as of this encounter
--- OUTSIDE RECORDS SUMMARY | 2024-10-31 09:22 | XMS_ITS | Encounter Summary ---
Author Organization [facility] Address [address] [place] [address] Care Team Providers Care Stamp Mounter Name Role Phone Trey Berkowitz Primary Care Provider [phone] Source Comments In the event this information is protected by the Federal Confidentiality of Alcohol and Drug AbusePatient Records regulations: The Federal rules restrict any use of the information to criminally investigate or prosecute any alcohol or drug abuse patient.[facility] Encounter Details Date Type Department Care Team (Late st Contact Info) Description 08/05/2022 Get Medical Advice Gastroenterology [address] [address] Jair Miller Jr., DO [address] [place] [phone] Jude is taking Eliquis 5 mg twice a day. Any changes prior to Endoscopy? Social History Tobacco Use Types Packs/Day Years [...] care, and heating? Not hard at all 07/31/2022 PHQ-2 Answer Date Recorded PHQ-2 score 0 04/21/2022 Hunger Vital Sign Answer Date Recorded Within the past 12 months, y ou worried that your food would run out before you got the money to buy more. Never true 08/01/19 23 Within the past 12 months, t he food you bought just didn't last and you didn't have money to get more. Never true 07/31/2022 PRAPARE - Transportation Answer Date Re corded In the past 12 months, has l ack of transportation kept you from medical appointments or from getting medications? No 10/2022 In the past 12 months, has l ack of transportation kept you from meetings, work, or from getting things needed for daily living? No 07/31/2022 Housing Stability Vital Sign Answer Francis e Recorded In the last 12 months, was t here a time when you were not able to pay the mortgage or rent on time? No 07/31/2022 In the last 12 months, how many places have you lived? 1 07/31/2022 In the last 12 months, was t here a time when you did not have a steady place to sleep or slept in a snf (including now)? No 07/31/2022 Area Deprivation Index Answer Date Chon rded National Score (1-100), lower number is lower ri sk 55 08/08/2022 State Score (1-10), lower number is lower risk 3 08/08/2022 Data from: https://www.neighborhoodatlas.medicine.[employer].edu/. Last address used for calculation [address] 08/08/2022 Sex and Gender Information Value Date Recorded Sex Assigned at Male 08/18/2022 3:32 PM EDT Legal Sex Male 7:19 AM EST Gender Identity Male 08/18/2022 3:32 PM EDT Sexual Orientation Straight 08/18/2022 3: 32 PM EDT documented as of this encounter Functional Status * Are you deaf or do you have serious difficulty hearing? Answer Date of Assessment Author No 08/03/2022 2:06 PM EDT Jerri Kwong RN * Are you blind or do you have serious difficulty seeing, even when wearing glasses? Answer Date of Assessment Author No 08/03/2022 2:06 PM EDT Jerri Kwong RN * Do you have serious difficulty walking or climbing stairs? Answer Date of Assessment Author No 08/03/2022 2:06 PM EDT Jerri Kwong RN * Do you have difficulty dressing or bathing? Answer Date of Assessment Author No 08/03/2022 2:06 PM EDT Jerri Kwong RN * Because of a physical, mental, or emotional condition, do you have difficulty doing errands alone such as visiting a doctor's office or shopping? Answer Date of Assessment Author No 08/03/2022 2:06 PM EDT Jerri Kwong RN documented as of this encounter Mental Status * Because of a physical, mental, or emotional condition, do you have serious difficulty concentrating, remembering, or making decisions? Answer Entry Date Author No 08/03/2022 2:06 PM EDT Jerri Kwong RN documented in this encounter Miscellaneous Notes * Telephone Encounter - Katie Celaya RN - 08/07/2022 8:47 AM EDT Per our discussion, pt is requesting labs be drawn. Component Latest Ref Rng & Units 05/29/2022 06/05/2022 06/09/2022 Lipase 16 - 61 U/L 15 (L) 41 54 I cannot locate a lipase level of 438 in [facility] or care Everywhere. Please review and adjust lab orders if needed. Thank you Katie Celaya RN * Telephone Encounter - Katie Celaya RN - 08/05/2022 12:28 PM EDT Please see attached [employer] message regarding EGD scheduled for 08/19/22. 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 Please review and advise. Thank you documented in this encounter Plan of Treatment Upcoming Encounters Date Type Department Care Team (Latest Contact Info) Description 11/03/2024 2:15 PM EDT Office Visit [facility] [address] [place] [address] 8 week follow up with lab and B 12 inj 11/03/2024 2:30 PM EDT Visit (SP) Office Hematology/Oncology [address] [place] [address] [place] [address] Dolores Jacobson APRN.WICKER [employer] CANDLES [address] [place] [place] [address] 8 week follow up with lab and B 12 inj 11/03/2024 3:00 PM EDT Nurse Visit Hematology/Oncology [address] [place] [address] Beryl Parsons Nurse Hector [address] [place] [address] 8 week follow up with lab B12 01/12/2025 1:20 PM EST Office Visit Gastroenterology [address] [place] [address] Jair Miller Jr., DO [address] [place] [address], [place] [phone] office moved from 12/29/24 months follow-up/ Pancreatic pseudocyst/cyst,Gene ralized abdominal pain,Gastroparesis,D yspepsia 05/08/2025 1:00 PM EDT Office Visit [facility] Laboratory [address] [place] [address] lab 05/15/2025 1:00 PM EDT Office Visit Radiation Oncology [address] [place] [address] [place] [address] Rafael Tyler MD [address] [place] [address] 1 year follow up documented as of this encounter Results * (ABNORMAL) CBC + DIFF (08/07/2022 12:47 PM EDT) WBC 11.86(H) 3.70 - 11.00 k/uL 08/08/2022 10:[address] [facility] RBC 4.83 4.20 - 6.00 m/uL 08/08/2022 10:[address] [facility] Hemoglobin 13.5 13.0 - 17.0 g/dL 08/08/2022 10:[address] [facility] Hematocrit 42.3 39.0 - 51.0 % 08/08/2022 10:[address] [facility] MCV 87.6 80.0 - 100.0 fL 08/08/2022 10:[address] [facility] MCH 28.0 26.0 - 34.0 pg 08/08/2022 10:[address] [facility] MCHC 31.9 30.5 - 36.0 g/dL 08/08/2022 10:[address] [facility] RDW-CV 16.0(H) 11.5 - 15.0 % 08/08/2022 10:[address] [facility] Platelet Count 532(H) 150 - 400 k/uL 08/08/2022 10:[address] [facility] MPV 10.9 9.0 - 12.7 fL 08/08/2022 10:[address] [facility] NRBC 0.0 /100 WBC 08/08/2022 10:53 AM EDT [facility] Absolute nRBC <0.01 <0.01 k/uL 08/08/2022 10:53 AM EDT [facility] Neutrophils % 82.0 % 08/08/2022 10:53 AM EDT [facility] Abs Neut (Segs + Bands) 9.73(H) 1.45 - 7.50 k/uL 08/08/2022 10:53 AM EDT [facility] Lymphocytes % 12.0 % 08/08/2022 10:53 AM EDT [facility] Abs Lymph (Normal + Reactive) 1.42 1.00 - 4.00 k/uL 08/08/2022 10:53 AM EDT [facility] Monocytes % 2.0 % 08/08/2022 10:53 AM EDT [facility] Abs Stanley 0.24 <0.87 k/uL 08/08/2022 10:53 AM EDT [facility] Eosin% 2.0 % 08/08/2022 10:53 AM EDT [facility] Abs Eosin 0.24 <0.46 k/uL 08/08/2022 10:53 AM EDT [facility] Basophils % 0.0 % 08/08/2022 10:53 AM EDT [facility] Abs Baso 0.00 <0.11 k/uL 08/08/2022 10:53 AM EDT [facility] Myelo % 2.0 % 08/08/2022 10:53 AM EDT [facility] Platelet Estimate Increased 08/08/2022 10:53 AM EDT [facility] Red Cell Morph Reviewed: see results of individual morphologies 08/08/2022 10:53 AM EDT [facility] Anisocytosis Present 08/08/2022 10:53 AM EDT [facility] Ovalocytes Few 08/08/2022 10:53 AM EDT [facility] RBC Fragments Few(A) None Seen 08/08/2022 10:53 AM EDT [facility] Diff Type Manual 08/08/2022 10:53 AM EDT [facility] Blood BLOOD SPECIMEN / Unknown Venipuncture / Unknown 08/07/2022 12:47 PM EDT 08/07/2022 12:47 PM EDT Narrative [facility] - 08/08/2022 10:53 AM EDT This is an appended report. These results have been appended to a previously verified report. us Jair Miller Jr., DO LABORATORY Final Resu lt [facility] [address] [facility] [address] [place] [address], [facility] [address] [place] [address] * (ABNORMAL) COMP METABOLIC PANEL (08/07/2022 12:47 PM EDT) Pathologist [facility] Protein, Total 7.3 6.3 - 8.0 g/dL 08/07/2022 1:[address] [facility] Albumin 3.8(L) 3.9 - 4.9 g/dL 08/07/2022 1:[address] [facility] Calcium, Total 9.6 8.5 - 10.2 mg/dL 08/07/2022 1:[address] [facility] Bilirubin, Total 0.3 0.2 - 1.3 mg/dL 08/07/2022 1:[address] [facility] Alkaline Phosphatase 115(H) 38 - 113 U/L 08/07/2022 1:[address] [facility] AST 22 14 - 40 U/L 08/07/2022 1:[address] [facility] ALT 30 10 - 54 U/L 08/07/2022 1:[address] [facility] Glucose 246(H) 74 - 99 mg/dL 08/07/2022 1:[address] [facility] Comment: The [place] Diabetes Association (ADA) provides guidance for cutoff [...] Standards of Medical Care in Diabetes 2016, [place] Diabetes [employer]. Diabetes Care. 2016.39(Suppl 1). BUN 20 9 - 24 mg/dL 08/07/2022 1:[address] [facility] Creatinine 1.34(H) 0.73 - 1.22 mg/dL 08/07/2022 1:[address] [facility] Sodium 132(L) 136 - 144 mmol/L 08/07/2022 1:[address] [facility] Potassium 3.9 3.7 - 5.1 mmol/L 08/07/2022 1:[address] [facility] Chloride 96(L) 97 - 105 mmol/L 08/07/2022 1:[address] [facility] CO2 23 22 - 30 mmol/L 08/07/2022 1:[address] [facility] Anion Gap 13 9 - 18 mmol/L 08/07/2022 1:[address] [facility] Estimated Glomerular Filtration Rate 54(L) >=60 mL/min/1. 73m 08/07/2022 1:[address] [facility] Comment:Estimated Glomerular Filtration Rate [...] BLOOD SPECIMEN / Unknown Venipuncture / Unknown 08/07/2022 12:47 PM EDT 08/07/2022 12:47 PM EDT us Jair Miller Jr., DO LABORATORY Final Resu lt [facility] [address] [place] [address] * (ABNORMAL) LIPASE BLD (08/07/2022 12:47 PM EDT) Lipase 128(H) 16 - 61 U/L 08/08/2022 2:54 AM EDT [facility] Blood BLOOD SPECIMEN / Unknown Venipuncture / Unknown 08/07/2022 12:47 PM EDT 08/07/2022 12:47 PM EDT us Jair Miller Jr., DO LABORATORY Final Resu lt [facility] [address] [facility] [address] [place] [address], documented in this encounter Visit Diagnoses Diagnosis Generalized abdominal pain- Primary Abdominal pain, generalized documented in this encounter Care Teams Stamp Mounter Relationship Specialty Start Date End Date Trey Berkowitz [address] [place] [phone] PCP - General 05/14/04 documented as of this encounter
--- OUTSIDE RECORDS SUMMARY | 2024-10-31 09:22 | XMS_ITS | Encounter Summary ---
Author Organization [facility] Address [address] [place] [address] Care Team Providers Care Check Weigher Name Role Phone Trey Berkowitz Primary Care Provider [phone] Source Comments In the event this information is protected by the Federal Confidentiality of Alcohol and Drug AbusePatient Records regulations: The Federal rules restrict any use of the information to criminally investigate or prosecute any alcohol or drug abuse patient.[facility] Encounter Details Date Type Department Care Team (Late st Contact Info) Description 05/30/2022 Get Medical Advice Gastroenterology [address] [facility] [place] [address] Jair Miller Jr., DO [address] [place] [address] Bloodwork test results Social History Tobacco Use Types Packs/Day [...] N ot on file 03/07/2022 Data from: https://www.neighborhoodatlas.medicine.[facility]/. Last address used for calculation [address] [place] [address] 03/07/2022 Sex and Gender Information Value Date [...] Description 11/03/2024 2:15 PM EDT Office Visit [facility] [address] [place] [address] [place] [address] 8 week follow up with lab and B 12 inj 11/03/2024 2:30 PM EDT Visit (SP) Office Hematology/Oncology [address] [facility] [place] [address] Dolores Jacobson APRN.PATIENT ACCOUNTS COORDINATOR [address] [facility] [place] [address] 8 week follow up with lab and B 12 inj 11/03/2024 3:00 PM EDT Nurse Visit Hematology/Oncology [address] [facility] [place] [address] Beryl Parsons Nurse Hector [address] [facility] [place] [address] 8 week follow up with lab B12 01/12/2025 1:20 PM EST Office Visit Gastroenterology [address] [place], [place] [phone] Jair Miller Jr., [address] [facility] [address] [address] office moved from 12/29/24 months follow-up/ Pancreatic pseudocyst/cyst,Gene ralized abdominal pain,Gastroparesis,D yspepsia 05/08/2025 1:00 PM EDT Office Visit [facility] [address] [place] [address] [place] [address] lab 05/15/2025 1:00 PM EDT Office Visit Radiation Oncology [address] [facility] [place] [address] Rafael Tyler MD [address] [facility] [place] [address] 1 year follow up documented as of this encounter Visit Diagnoses Not on filedocumented in this encounter Care Teams Check Weigher Relationship Specialty Start Date End Date Trey Berkowitz [address] [place] [phone] PCP - General 05/14/04 documented as of this encounter
--- OUTSIDE RECORDS SUMMARY | 2024-10-31 09:22 | XMS_ITS | Clinical Summary ---
Author Organization [facility] Address [address] [place] [address] Care Team Providers Care Truck Rental Service Attendant Name Role Phone Trey Berkowitz DO Primary Care Provider [phone] Allergies Active Allergy Reactions Criticality Noted Date Comments Amylase 07/14/2023 Other Reaction(s): Vomiting Apixaban 07/30/2023 Other Reaction(s): Myalgia Cephalexin Unknown 03/19/2022 Other reaction(s): Unknown Glimepiride Unknown 03/19/2022 Other reaction(s): Unknown Insulin Isophane Other 12/19/2022 Abdominal pain Iodinated Contrast Media Other High 09/15/2013 Other reaction(s): Other: See Comments, Unknown Caused kidney failure during pancreatitis episode. Kidney failure Minocycline Hives,Unknown Medium 06/23/2012 Other reaction(s): Other (See Comments), Unknown Naproxen Unknown 03/19/2022 Other reaction(s): Unknown Spironolactone 09/23/2023 Other Reaction(s): not to take due to Entresto Sulfa Antibiotics Hives High 03/19/2022 Other reaction(s): Unknown Medications HumuLIN N KWIKPEN 100 UNIT/ML injection INJECT 10 UNITS AT SAME TIME STEROID SUBCUTANEOUS ONCE DAILY TITRATE UP TO 20 UNITS PER DAY Active levothyroxine (Synthroid, Levoxyl) 175 MCG tablet TAKE 1 TABLET BY MOUTH ON AN EMPTY STOMACH ONCE A DAY Active Zenpep 78251-066922 units capsule delayed-release particles capsule Take 1 capsule by mouth in the morning and 1 capsule at noon and 1 capsule in the evening. Take with meals. Active pantoprazole (ProtoNix) 40 MG EC tablet Take 40 mg by mouth in the morning and 40 mg before bedtime. Active Entresto 24-26 MG tablet Take 1 tablet by mouth in the morning and 1 tablet in the evening. 2 Active allopurinol (Zyloprim) 100 MG tablet TAKE 1 TABLET BY MOUTH EVERY DAY FOR 90 DAYS 3 Active OneTouch Verio test strip 1 each by Other route in the morning and 1 each in the evening and 1 each before bedtime. 4 Active Tresiba FlexTouch 200 UNIT/ML injection Inject under the skin at bedtime 4 Active carvedilol (Coreg) 6.25 MG tablet Take 6.25 mg by mouth 4 Active omega-3 acid ethyl esters (Lovaza) 1 g capsule Take 1 g by mouth in the morning and 1 g in the evening. 4 Active Insulin Aspart (NovoLOG) 100 UNIT/ML solution 6 Active potassium chloride CR (Klor-Con) 10 MEQ ER tablet TAKE 1 TABLET BY MOUTH ONCE DAILY. DO NOT CRUSH, CHEW, OR SPLIT. 4 Active predniSONE (Deltasone) 5 MG tablet TAKE 4 TABLETS BY MOUTH EVERY DAY OR DIRECTED 4 Active Evolocumab (REPATHA SC) Inject under the skin Active tamsulosin (Flomax) 0.4 MG 24 hr capsule Active torsemide (Demadex) 20 MG tablet Daily 4 Active warfarin (Coumadin) 2.5 MG tablet Daily 4 Active Probiotic Product (PROBIOTIC BLEND PO) Take by mouth Active Active Problems No known active problems Encounters Date Type Department Care Team Description 10/30/2024 11:50 AM EDT Office Visit [facility] [address] [place] [address] Rich Severino, DPM Diabetes mellitus due to underlying condition with diabetic polyneuropathy, with long-term current use of insulin (HCC) (Primary Dx); Pain due to onychomycosis of toenails of both feet; Hallux rigidus of left foot; Hallux rigidus of right foot 10/30/2024 Bamboo flowsheet [facility] [address] [place] [address] Rich Severino DPM 08/21/2024 11:50 AM EDT Office Visit [facility] [address] [place] [address] Rich Severino DPM Diabetes mellitus due to underlying condition with diabetic polyneuropathy, with long-term current use of insulin (HCC) (Primary Dx); Pain due to onychomycosis of toenails of both feet; Hallux rigidus of left foot; Hallux rigidus of right foot 08/21/2024 [facility]amboo [facility] [address] [place] [address] Rich Severino DPM from Last 3 Months Family History Medical History Relation Name Comments Heart disease Father Diabetes Maternal Grandmother Heart disease Mother Cancer Other 1 siblings Diabetes Other 1 siblings Heart disease Other 1 siblings Cancer Other 2 maternal aunt Asthma Other 3 paternal uncle Cancer Other 4 paternal aunt Asthma Paternal Grandfather Relation Name Status Comments Father Maternal Grandfather Maternal Grandmother Mother Other 1 siblings Other 2 maternal aunt Other 3 paternal uncle Other 4 paternal aunt Paternal Grandfather Paternal Grandmother Social History Tobacco Use Types Packs/Day Years [...] Sign Reading Time Taken Comments Blood Pressure 128/80 11/15/2023 11:45 AM EDT Pulse 75 11/15/2023 11:45 AM EDT Temperature 36.4 C (97.5 F) 10/05/2023 2:23 PM EDT Respiratory Rate 18 10/30/2024 11:50 AM EDT Oxygen Saturation - - Inhaled Oxygen Concentration - - Weight 96.2 kg (212 lb) 10/30/2024 11:50 AM EDT Height 182.9 cm (6') 10/30/2024 11:50 AM EDT Body Mass Index 28.75 10/30/2024 11:50 AM EDT Plan of Treatment Upcoming Encounters Date Type Department Care Team (Late st Contact Info) Description 12/06/2024 11:00 AM EDT Office Visit [facility] [address] [facility] [address] [place] [phone] Mauro Cox MD [address] [facility] [address] [place] [address] 01/22/2025 11:50 AM EST Office Visit [facility] [address] [place] [address] Rich Severino DPM [address] [facility] [address] [place] [address] Health Maintenance Due Date Last Done Comments Pneumococcal Vaccine: 65+ Ye ars (2 of 2 - PCV) 02/22/2005 02/23/2004 Influenza Vaccine (#1) 2024 3, 01/05/2022, 12/07/2020, Additional history exists Insurance MEDICARE [employer] Care Teams Truck Rental Service Attendant Relationship Specialty Start Date End Date Trey Berkowitz DO [address] [place] [address] PCP - General Family Medicine 06/12/24
--- OUTSIDE RECORDS SUMMARY | 2024-10-31 09:22 | XMS_ITS | Encounter Summary ---
Author Organization [facility] Address [address] [place] [address] Care Team Providers Care Rotary Envelope Machine Operator Name Role Phone Trey Berkowitz Primary Care Provider [phone] Source Comments In the event this information is protected by the Federal Confidentiality of Alcohol and Drug AbusePatient Records regulations: The Federal rules restrict any use of the information to criminally investigate or prosecute any alcohol or drug abuse patient.[facility] Encounter Details Date Type Department Care Team (Late st Contact Info) Description 05/30/2022 Get Medical Advice Gastroenterology [address] [facility] [address] Jair Miller Jr., DO [address] [place] [address] Extremely Low Platelet Count Social History Tobacco Use Types Packs/Day Years [...] N ot on file 03/07/2022 Data from: https://www.neighborhoodatlas.medicine.[facility]/. Last address used for calculation [address] [place] [address] 03/07/2022 Sex and Gender Information Value Date [...] Description 11/03/2024 2:15 PM EDT Office Visit [facility] [address] [place] [address] [place] [address] 8 week follow up with lab and B 12 inj 11/03/2024 2:30 PM EDT Visit (SP) Office Hematology/Oncology [address] [facility] [place] [address] Dolores Jacobson APRN.DRILLING CONTRACTOR [address] [facility] [place] [address] 8 week follow up with lab and B 12 inj 11/03/2024 3:00 PM EDT Nurse Visit Hematology/Oncology [address] [facility] [place] [address] Beryl Parsons Nurse Hector [address] [facility] [place] [address] 8 week follow up with lab B12 01/12/2025 1:20 PM EST Office Visit Gastroenterology [address] [place], [place] [phone] Jair Miller Jr., [address] [facility] [address] [address] office moved from 12/29/24 months follow-up/ Pancreatic pseudocyst/cyst,Gene ralized abdominal pain,Gastroparesis,D yspepsia 05/08/2025 1:00 PM EDT Office Visit [facility] [address] [place] [address] [place] [address] lab 05/15/2025 1:00 PM EDT Office Visit Radiation Oncology [address] [facility] [place] [address] Rafael Tyler MD [address] [facility] [place] [address] 1 year follow up documented as of this encounter Visit Diagnoses Not on filedocumented in this encounter Care Teams Rotary Envelope Machine Operator Relationship Specialty Start Date End Date Trey Berkowitz [address] [place] [phone] PCP - General 05/14/04 documented as of this encounter
--- OUTSIDE RECORDS SUMMARY | 2024-10-31 09:22 | XMS_ITS | Encounter Summary ---
Author Organization [facility] Address [address] [place] [address] Phone Care Team Providers Care Floor Coverer Name Role Phone Trey Berkowitz DO Primary Care Provider [phone] Encounter Details Date Type Department Care Team (Late st Contact Info) Description 12/15/2023 Scanned Document [facility] [address] [place] [phone] Scanning, Generic Provider Social History Tobacco Use [...] Description 03/07/2025 10:30 AM EST Office Visit [facility] [address] [facility] [address] [place] [phone] Solo Khan DO [address] [facility], [address] [place], [place] [phone] documented as of this encounter Procedures Procedure Name Priority Date/Time Associated Diagnosis Comments OUTSIDE IMAGING SCAN 12/15/2023 documented in this encounter Results * OUTSIDE IMAGING SCAN (12/15/2023) Anatomical Region Laterality Modality Other Narrative 12/15/2023 Ordered by an unspecified provider. us Generic Provider Scanning OUTSIDE SCAN Final Result documented in this encounter Visit Diagnoses Not on filedocumented in this encounter Additional Health Concerns Assessment Noted Time A fall risk assessment has been complete d for the patient 12/21/2022 8:36 AM EDT documented as of this encounter Care Teams Floor Coverer Relationship Specialty Start Date End Date Trey Berkowitz DO [address] [place] [phone] PCP - General Family Medicine 10/28/23 documented as of this encounter
--- OUTSIDE RECORDS SUMMARY | 2024-10-31 09:22 | XMS_ITS | Encounter Summary ---
Author Organization [facility] Address [address] [place] [address] Care Team Providers Care Financial Administrator Name Role Phone Trey Berkowitz Primary Care Provider [phone] Source Comments In the event this information is protected by the Federal Confidentiality of Alcohol and Drug AbusePatient Records regulations: The Federal rules restrict any use of the information to criminally investigate or prosecute any alcohol or drug abuse patient.[facility] Encounter Details Date Type Department Care Team (Late st Contact Info) Description 05/27/2022 Get Medical Advice Gastroenterology [address] [place] [address] Jair Miller Jr., DO [address] [place] [phone] ER visit on 05-26-22 to [facility] Social History Tobacco Use Types Packs/Day Years [...] N ot on file 03/07/2022 Data from: https://www.neighborhoodatlas.uk healthcare.[facility]/. Last address used for calculation [address] [place] [address] 03/07/2022 Sex and Gender Information Value Date [...] Romana Hodgson RN documented in this encounter Miscellaneous Notes * Telephone Encounter - Katie Celaya RN - 05/27/2022 1:16 PM EDT Ok to add on WednesdayMay 29 at 3:00 pm. If symptoms worsen would return to ER. Jair Miller Jr., DO Dr. Miller is agreeable to add pt Wednesday at 3pm. Please call pt and add, if pt can make it. Thank you Katie Celaya RN * Telephone Encounter - Katie Celaya RN - 05/27/2022 11:[address] Miller, please see attached notes. You have 2 double bookings Wednesday and one double booking the following Wednesday. Not sure if you are familiar with pt? Please review and advise. Thank you Katie Celaya RN documented in this encounter Plan of Treatment Upcoming Encounters Date Type Department Care Team (Latest Contact Info) Description 11/03/2024 2:15 PM EDT Office Visit [facility] [address] [facility] [place] [address] 8 week follow up with lab and B 12 inj 11/03/2024 2:30 PM EDT Visit (SP) Office Hematology/Oncology [address] [facility] [place] [place] [address] Dolores Jacobson APRN.VALVE AND REGULATOR REPAIRER [address] [facility] [address] 8 week follow up with lab and B 12 inj 11/03/2024 3:00 PM EDT Nurse Visit Hematology/Oncology [address] [facility] [place] [address] Beryl Parsons Nurse Hector [address] [facility] [place] [address] 8 week follow up with lab B12 01/12/2025 1:20 PM EST Office Visit [facility]enterology [address] [facility] [address] [place], [place] [phone] Jair Miller Jr., DO [address] [facility] [address] [place] [phone] office moved from 12/29/24 months follow-up/ Pancreatic pseudocyst/cyst,Gene ralized abdominal pain,Gastroparesis,D yspepsia 05/08/2025 1:00 PM EDT Office Visit [facility] [address] [facility] [place] [address] lab 05/15/2025 1:00 PM EDT Office Visit Radiation Oncology [address] [place] [address] [place] [address] Rafael Tyler MD [address] [place] [address] [place] [address] 1 year follow up documented as of this encounter Visit Diagnoses Not on filedocumented in this encounter Care Teams Financial Administrator Relationship Specialty Start Date End Date Trey Berkowitz [address] [place] [phone] PCP - General 05/14/04 documented as of this encounter
--- OUTSIDE RECORDS SUMMARY | 2024-10-31 09:22 | XMS_ITS | Encounter Summary ---
Author Organization [facility] Address [address] [facility] [address] Care Team Providers Care Rhia Name Role Phone Trey Berkowitz DO Primary Care Provider [phone] Encounter Details Date Type Department Care Team (Late st Contact Info) Description 10/30/2024 Bamboo flowsheet [facility] [address] [place] [address] Rich Severino DPM [address] [facility] 5 [place] [address] Social History Tobacco Use Types [...] Allergy [address] [facility] [address] [place] [address] Mauro Cox MD [address] [facility] [address] [place] [address] 01/22/2025 11:50 AM EST Office Visit [facility] [address] [place] [address] Rich Severino DPM [address] [address] documented as of this encounter Visit Diagnoses Not on filedocumented in this encounter Care Teams Rhia Relationship Specialty Start Date End Date Trey Berkowitz DO [address] [place] [phone] PCP - General Family Medicine 06/12/24 documented as of this encounter
--- OUTSIDE RECORDS SUMMARY | 2024-10-31 09:22 | XMS_ITS | Encounter Summary ---
Author Organization [facility] Address [address] [place] [address] Care Team Providers Care Visual Merchandising Specialist Name Role Phone Trey Berkowitz Primary Care Provider [phone] Source Comments In the event this information is protected by the Federal Confidentiality of Alcohol and Drug AbusePatient Records regulations: The Federal rules restrict any use of the information to criminally investigate or prosecute any alcohol or drug abuse patient.[facility] Reason for Visit * Reason Comments Refill Request Encounter Details Date Type Department Care Team (Late st Contact Info) Description 12/03/2023 Refill Gastroenterology [address] [facility] [place] [address] Jair Miller Jr., DO [address] [place] [phone] Refill Request Social History Tobacco Use Types [...] is lower risk 3 08/08/2022 Data from: https://www.neighborhoodatlas.medicine.[facility].edu/. Last address used for calculation [address] 08/08/2022 Sex and Gender Information [...] Description 11/03/2024 2:15 PM EDT Office Visit [facility] [address] [place] [address] 8 week follow up with lab and B 12 inj 11/03/2024 2:30 PM EDT Visit (SP) Office Hematology/Oncology [address] [place] [address] Dolores Jacobson APRN.CRM COORDINATOR [address] [place] [address] 8 week follow up with lab and B 12 inj 11/03/2024 3:00 PM EDT Nurse Visit Hematology/Oncology [address] [place] [address] Beryl Parsons Nurse Hector [address] [facility] [place] [address] 8 week follow up with lab B12 01/12/2025 1:20 PM EST Office Visit Gastroenterology [address] [place], [place] [phone] Jair Miller Jr., [address] [facility] [address] [place] [phone] office moved from 12/29/24 months follow-up/ Pancreatic pseudocyst/cyst,Gene ralized abdominal pain,Gastroparesis,D yspepsia 05/08/2025 1:00 PM EDT Office Visit [facility] [address] [place] [address] lab 05/15/2025 1:00 PM EDT Office Visit Radiation Oncology [address] [place] [address] Rafael Tyler MD [address] [place] [address] 1 year follow up documented as of this encounter Visit Diagnoses Not on filedocumented in this encounter Care Teams Visual Merchandising Specialist Relationship Specialty Start Date End Date Trey Berkowitz [address] [place] [phone] PCP - General 05/14/04 documented as of this encounter
--- OUTSIDE RECORDS SUMMARY | 2024-10-31 09:22 | XMS_ITS | Encounter Summary ---
Author Organization [facility] Address [address] [place] [address] Phone Care Team Providers Care Business Insurance Agent Name Role Phone Trey Berkowitz DO Primary Care Provider [phone] Trey Berkowitz DO Primary Care Provider [phone] Trey Berkowitz DO Primary Care Provider [phone] Encounter Details Date Type Department Care Team (Late st Contact Info) Description 05/26/2022 Orders Only [facility] [address] [place] [address] Conversion, Onbase Social History Tobacco Use Types [...] Description 03/07/2025 10:30 AM EST Office Visit [facility] [address] [facility] [address] [place] [phone] Solo Khan DO 703 [facility] [address], [address] [place], [place] [phone] Scheduled Orders Name Type Priority Associated Diagnoses Orde r Schedule OUTSIDE LAB SCAN Lab Ordered: 05/26/2022 documented as of this encounter Visit Diagnoses Not on filedocumented in this encounter Care Teams Business Insurance Agent Relationship Specialty Start Date End Date Trey Berkowitz DO PCP - General 12/22/18 03/23/23 Trey Berkowitz DO PCP - General Family Medicine 03/24/23 10/27/23 Trey Berkowitz DO [address] [place] [address] PCP - General Family Medicine 10/28/23 documented as of this encounter
--- OUTSIDE RECORDS SUMMARY | 2024-10-31 09:22 | XMS_ITS | Encounter Summary ---
Author Organization [facility] Address [address] [place] [address] Care Team Providers Care Dryland Farmer Name Role Phone Trey Berkowitz Primary Care Provider [phone] Source Comments In the event this information is protected by the Federal Confidentiality of Alcohol and Drug AbusePatient Records regulations: The Federal rules restrict any use of the information to criminally investigate or prosecute any alcohol or drug abuse patient.[facility] Encounter Details Date Type Department Care Team (Late st Contact Info) Description 05/31/2024 Get Medical Advice Radiation Oncology [address] [place] [address] [place] [address] Rafael Tyler MD [address] [facility] [address] [place] [address] CAT SCAN DATED 05/03/24 Social History Tobacco Use Types Packs/Day Years [...] 3 08/08/2022 Data from: https://www.neighborhoodatlas.medicine.[facility].edu/. Last address used for calculation [address] 08/08/2022 Sex and Gender Information [...] encounter Miscellaneous Notes * Telephone Encounter - Agustina Hodgson RN - 05/31/2024 1:57 PM EDT Alis- are you able to assist us with getting this CT re read with the added info of: Status Post thyroidectomy? Thank you Agustina Hodgson RN documented in this encounter Plan of Treatment Upcoming Encounters Date Type Department Care Team (Latest Contact Info) Description 11/03/2024 2:15 PM EDT Office Visit [facility] [address] [place] [address] 8 week follow up with lab and B 12 inj 11/03/2024 2:30 PM EDT Visit (SP) Office Hematology/Oncology [address] [place] [address] Dolores Jacobson APRN.BETTING AGENCY MANAGER [address] [place] [address] 8 week follow up with lab and B 12 inj 11/03/2024 3:00 PM EDT Nurse Visit Hematology/Oncology [address] [place] [address] Beryl Parsons Nurse Hector [address] [place] [address] 8 week follow up with lab B12 01/12/2025 1:20 PM EST Office Visit Gastroenterology [address] [place] [address] Jair Miller Jr., DO [address] [place] [address] office moved from 12/29/24 months follow-up/ Pancreatic pseudocyst/cyst,Gene ralized abdominal pain,Gastroparesis,D yspepsia 05/08/2025 1:00 PM EDT Office Visit [facility] [address] [place] [address] lab 05/15/2025 1:00 PM EDT Office Visit Radiation Oncology [address] [place] [place] [address] Rafael Tyler MD [address] [place] [place] [address] 1 year follow up documented as of this encounter Visit Diagnoses Not on filedocumented in this encounter Care Teams Dryland Farmer Relationship Specialty Start Date End Date Trey Berkowitz [address] [place] [phone] PCP - General 05/14/04 documented as of this encounter
--- OUTSIDE RECORDS SUMMARY | 2024-10-31 09:22 | XMS_ITS | Encounter Summary ---
Author Organization [facility] Address [address] [place] [address] Phone Care Team Providers Care Painter Airbrush Name Role Phone Trey Berkowitz DO Primary Care Provider [phone] Trey Berkowitz DO Primary Care Provider [phone] Trey Berkowitz DO Primary Care Provider [phone] Encounter Details Date Type Department Care Team (Late st Contact Info) Description 02/06/2022 Orders Only [facility] [address] [place] [address] Conversion, Onbase Social History Tobacco Use Types [...] EST Office Visit [facility] [address] [facility] [address] [place] [phone] Solo Khan DO [address]03 [facility] 2, [address] [place], [place] [phone] Scheduled Orders Name Type Priority Associated Diagnoses Orde r Schedule OUTSIDE LAB SCAN Lab Ordered: 02/06/2022 documented as of this encounter Visit Diagnoses Not on filedocumented in this encounter Care Teams Painter Airbrush Relationship Specialty Start Date End Date Trey Berkowitz DO PCP - General 12/22/18 03/23/23 Trey Berkowitz DO PCP - General Family Medicine 03/24/23 10/27/23 Trey Berkowitz DO [address] [place] [address] PCP - General Family Medicine 10/28/23 documented as of this encounter
--- OUTSIDE RECORDS SUMMARY | 2024-10-31 09:22 | XMS_ITS | Encounter Summary ---
Author Organization [facility] Address [address] [place] [address] Phone Care Team Providers Care Plater Apprentice Name Role Phone Trey Berkowitz DO Primary Care Provider [phone] Encounter Details Date Type Department Care Team (Late st Contact Info) Description 11/20/2023 Scanned Document [facility] [address] [place] [place] [phone] Scanning, Generic Provider Social History Tobacco Use [...] suspected to have Coronavirus/COVID-19? No / Unsure 11/10/2023 7:31 AM EDT documented as of this encounter Plan of Treatment Upcoming Encounters Date Type Department Care Team (Late st Contact Info) Description 03/07/2025 10:30 AM EST Office Visit [facility] [address] [facility] [address] [place] [phone] oSlo Khan DO [address] [facility] 2, [address] [place] [address] documented as of this encounter Procedures Procedure Name Priority Date/Time Associated Diagnosis Comments OUTSIDE LAB SCAN 11/20/2023 documented in this encounter Results * OUTSIDE LAB SCAN (11/20/2023) Narrative 11/20/2023 Ordered by an unspecified provider. Generic Provider Scanning OUTSIDE SCAN Final Result documented in this encounter Visit Diagnoses Not on filedocumented in this encounter Additional Health Concerns Assessment Noted Time A fall risk assessment has been complete d for the patient 12/21/2022 8:36 AM EDT documented as of this encounter Care Teams Plater Apprentice Relationship Specialty Start Date End Date Trey Berkowitz DO [address] [place] [address] PCP - General Family Medicine 10/28/23 documented as of this encounter
--- OUTSIDE RECORDS SUMMARY | 2024-10-31 09:22 | XMS_ITS | Encounter Summary ---
Author Organization [facility] Address [address] [place] [address] Care Team Providers Care Clinical Phlebotomist Name Role Phone Trey Berkowitz Primary Care Provider [phone] Source Comments In the event this information is protected by the Federal Confidentiality of Alcohol and Drug AbusePatient Records regulations: The Federal rules restrict any use of the information to criminally investigate or prosecute any alcohol or drug abuse patient.[facility] Reason for Visit * Reason Comments Med Change Request Encounter Details Date Type Department Care Team (Late st Contact Info) Description 12/21/2023 Refill Gastroenterology [address] [place] [address] Jair Miller Jr., DO [address] [place] [address] [place] [phone] Med Change Request Social History Tobacco Use Types Packs/Day [...] [email or web address] Last address used for calculation [address] 08/08/2022 Sex and [...] encounter Miscellaneous Notes * Telephone Encounter - Candis Palma MA - 12/21/2023 3:34 PM EDT Pharmacy comment: REQUEST FOR 90 DAYS PRESCRIPTION. Next ov: 02/04/24 Pharmacy electronically requests the following refill(s) Requested Prescriptions Pending Prescriptions Disp Refills sucralfate (CARAFATE) 1 gram tablet [Pharmacy Med Name: SUCRALFATE 1 GM TABLET] 270 tablet 1 Sig: TAKE 1 TABLET BY MOUTH THREE TIMES A DAY Candis Palma MA documented in this encounter Plan of Treatment Upcoming Encounters Date Type Department Care Team (Latest Contact Info) Description 11/03/2024 2:15 PM EDT Office Visit [facility] Laboratory [address] [place] [address] [place] [address] 8 week follow up with lab and B 12 inj 11/03/2024 2:30 PM EDT Visit (SP) Office Hematology/Oncology [address] [facility] [address] Dolores Jacobson APRN.LANDING SCALER [address] [place] [address] 8 week follow up with lab and B 12 inj 11/03/2024 3:00 PM EDT Nurse Visit Hematology/Oncology [address] [place] [address] Beryl Parsons Nurse Hector [address] [place] [address] 8 week follow up with lab B12 01/12/2025 1:20 PM EST Office Visit Gastroenterology [address] [facility], [place] [phone] Jair Miller Jr., DO [address] [place] [phone] office moved from 12/29/24 months follow-up/ Pancreatic pseudocyst/cyst,Gene ralized abdominal pain,Gastroparesis,D yspepsia 05/08/2025 1:00 PM EDT Office Visit [facility] Laboratory [address] [place] [address] lab 05/15/2025 1:00 PM EDT Office Visit Radiation Oncology [address] [place] [address] Rafael Tyler MD [address] [place] [address] [place] [address] 1 year follow up documented as of this encounter Visit Diagnoses Not on filedocumented in this encounter Care Teams Clinical Phlebotomist Relationship Specialty Start Date End Date Trey Berkowitz [address] [place] [phone] PCP - General 05/14/04 documented as of this encounter
--- OUTSIDE RECORDS SUMMARY | 2024-10-31 09:22 | XMS_ITS | Encounter Summary ---
Author Organization [facility] Address [address] [place] [address] Care Team Providers Care Yarn Bleaching Machine Operator Name Role Phone Trey Berkowitz Primary Care Provider [phone] Source Comments In the event this information is protected by the Federal Confidentiality of Alcohol and Drug AbusePatient Records regulations: The Federal rules restrict any use of the information to criminally investigate or prosecute any alcohol or drug abuse patient.[facility] Encounter Details Date Type Department Care Team (Late st Contact Info) Description 06/08/2022 Get Medical Advice Gastroenterology [address] [place] [address] Jair Miller Jr., DO [address] [place] [address] Chau Rae Social History Tobacco Use Types Packs/Day [...] food, housing, medical care, and heating? Not very hard 06/10/2022 PHQ-2 Answer Date Recorded PHQ-2 score 0 04/21/2022 Hunger Vital Sign Answer Date Recorded Within the past 12 months, y ou worried that your food would run out before you got the money to buy more. Never true 06/11/19 23 Within the past 12 months, t he food you bought just didn't last and you didn't have money to get more. Never true 06/10/2022 PRAPARE - Transportation Answer Date Re corded In the past 12 months, has l ack of transportation kept you from medical appointments or from getting medications? No 05/23 In the past 12 months, has l ack of transportation kept you from meetings, work, or from getting things needed for daily living? No 06/10/2022 Housing Stability Vital Sign Answer Francis e Recorded In the last 12 months, was t here a time when you were not able to pay the mortgage or rent on time? No 06/10/2022 In the last 12 months, how many places have you lived? 1 06/10/2022 In the last 12 months, was t here a time when you did not have a steady place to sleep or slept in a skilled nursing (including now)? No 06/10/2022 Area Deprivation Index Answer Date Chon rded National Score (1-100), lower number is lower ri sk 56 03/07/2022 State Score (1-10), lower number is lower risk N ot on file 03/07/2022 Data from: https://www.neighborhoodatlas.medicine.[facility].edu/. Last address used for calculation [address] 03/07/2022 Sex and Gender Information Value Date [...] 11/03/2024 2:15 PM EDT Office Visit [facility] Laboratory [address] [place] [address] 8 week follow up with lab and B 12 inj 11/03/2024 2:30 PM EDT Visit (SP) Office Hematology/Oncology [address] [place] [address] Dolores Jacobson APRN.LEAD MANUFACTURING TECHNICIAN [address] [place] [address] 8 week follow up with lab and B 12 inj 11/03/2024 3:00 PM EDT Nurse Visit Hematology/Oncology [address] [place] [address] Beryl Parsons Nurse Hector [address] [facility] [address] 8 week follow up with lab B12 01/12/2025 1:20 PM EST Office Visit Gastroenterology [address] [place], [place] [phone] Jair Miller Jr., DO [address] [facility] [address] [place] [phone] office moved from 12/29/24 months follow-up/ Pancreatic pseudocyst/cyst,Gene ralized abdominal pain,Gastroparesis,D yspepsia 05/08/2025 1:00 PM EDT Office Visit [facility] Laboratory [address] [address] lab 05/15/2025 1:00 PM EDT Office Visit Radiation Oncology [address] [place] [address] Rafael Tyler MD [address] [place] [address] 1 year follow up documented as of this encounter Visit Diagnoses Not on filedocumented in this encounter Care Teams Yarn Bleaching Machine Operator Relationship Specialty Start Date End Date Trey Berkowitz [address] [place] [phone] PCP - General 05/14/04 documented as of this encounter
--- OUTSIDE RECORDS SUMMARY | 2024-10-31 09:22 | XMS_ITS | Encounter Summary ---
Author Organization [facility] Address [address] [place] [address] Phone Care Team Providers Care Fastener Technologist Name Role Phone Trey Berkowitz DO Primary Care Provider [phone] Trey Berkowitz DO Primary Care Provider [phone] Trey Berkowitz DO Primary Care Provider [phone] Encounter Details Date Type Department Care Team (Late st Contact Info) Description 02/19/2023 Scanned Document [facility] [address] [place] [phone] Scanning, Generic Provider Social History Tobacco Use [...] Description 03/07/2025 10:30 AM EST Office Visit [facility] 7[address] [facility] [address] [place] [phone] Solo Khan DO 703 [facility] 2, [address] [place] [address] documented as of this encounter Visit Diagnoses Not on filedocumented in this encounter Additional Health Concerns Assessment Noted Time A fall risk assessment has been complete d for the patient 12/21/2022 8:36 AM EDT documented as of this encounter Care Teams Fastener Technologist Relationship Specialty Start Date End Date Trey Berkowitz DO PCP - General 12/22/18 03/23/23 Trey Berkowitz DO PCP - General Family Medicine 03/24/23 10/27/23 Trey Berkowitz DO [address] [place] [address] PCP - General Family Medicine 10/28/23 documented as of this encounter
--- OUTSIDE RECORDS SUMMARY | 2024-10-31 09:22 | XMS_ITS | Encounter Summary ---
Author Organization [facility] Address [address] [place] [address] Care Team Providers Care Heat Treater Apprentice Name Role Phone Trey Berkowitz Primary Care Provider [phone] Source Comments In the event this information is protected by the Federal Confidentiality of Alcohol and Drug AbusePatient Records regulations: The Federal rules restrict any use of the information to criminally investigate or prosecute any alcohol or drug abuse patient.[facility] Reason for Visit * Reason Comments Refill Request Encounter Details Date Type Department Care Team (Late st Contact Info) Description 12/10/2023 Refill Hematology/Oncology [address] [place] [address] Kai Bustamante MD [address] [place] [address] Refill Request Social History Tobacco Use Types [...] place to sleep or slept in a mcc (including now)? No 09/04/2022 Area Deprivation Index Answer Date Chon rded National Score (1-100), lower number is lower ri sk 55 08/08/2022 State Score (1-10), lower number is lower risk 3 08/08/2022 Data from: https://www.neighborhoodatlas.medicine.[facility].edu/. Last address used for calculation [address] 08/08/2022 Sex and Gender Information [...] Description 11/03/2024 2:15 PM EDT Office Visit [facility] Laboratory [address] [address] 8 week follow up with lab and B 12 inj 11/03/2024 2:30 PM EDT Visit (SP) Office Hematology/Oncology [address] [facility] [place] [address] Dolores Jacobson APRN.WASTE TREATMENT OPERATOR [address] [place] [address] 8 week follow up with lab and B 12 inj 11/03/2024 3:00 PM EDT Nurse Visit Hematology/Oncology [address] [place] [address] Beryl Parsons Nurse Hector [address] [facility] [address] 8 week follow up with lab B12 01/12/2025 1:20 PM EST Office Visit Gastroenterology [address] [place] [address] Jair Miller Jr., [address] [facility] [address] [phone] office moved from 12/29/24 months follow-up/ Pancreatic pseudocyst/cyst,Gene ralized abdominal pain,Gastroparesis,D yspepsia 05/08/2025 1:00 PM EDT Office Visit [facility] Laboratory [address] [facility] [address] lab 05/15/2025 1:00 PM EDT Office Visit Radiation Oncology [address] [facility] [address] Rafael Tyler MD [address] [facility] [address] 1 year follow up documented as of this encounter Visit Diagnoses Not on filedocumented in this encounter Care Teams Heat Treater Apprentice Relationship Specialty Start Date End Date Trey Berkowitz [address] [place] [phone] PCP - General 05/14/04 documented as of this encounter
--- OUTSIDE RECORDS SUMMARY | 2024-10-31 09:22 | XMS_ITS | Encounter Summary ---
Author Organization [facility] Address [address] [place] [address] Phone Care Team Providers Care Damper Fitter Name Role Phone Trey Berkowitz DO Primary Care Provider [phone] Encounter Details Date Type Department Care Team (Late st Contact Info) Description 02/21/2024 Scanned Document [facility] [address] [place] [phone] Scanning, Generic Provider Social History Tobacco Use [...] Description 03/07/2025 10:30 AM EST Office Visit [facility] [address] [facility] [address] [place] [phone] Solo Khan DO [address] [facility] 2, [address] [place], [place] [phone] documented as of this encounter Procedures Procedure Name Priority Date/Time Associated Diagnosis Comments OUTSIDE LAB SCAN 02/21/2024 documented in this encounter Results * OUTSIDE LAB SCAN (02/21/2024) Narrative 02/21/2024 Ordered by an unspecified provider. us Generic Provider Scanning OUTSIDE SCAN Final Result documented in this encounter Visit Diagnoses Not on filedocumented in this encounter Additional Health Concerns Assessment Noted Time A fall risk assessment has been complete d for the patient 12/29/2023 11:03 AM EST documented as of this encounter Care Teams Damper Fitter Relationship Specialty Start Date End Date Trey Berkowitz DO [address] [place] [address] PCP - General Family Medicine 10/28/23 documented as of this encounter
--- OUTSIDE RECORDS SUMMARY | 2024-10-31 09:22 | XMS_ITS | Encounter Summary ---
Author Organization [facility] Address [address] [place] [address] Phone Care Team Providers Care Sandblast Or Shotblast Equipment Tender Name Role Phone Trey Berkowitz DO Primary Care Provider [phone] Encounter Details Date Type Department Care Team (Late st Contact Info) Description 12/20/2023 Scanned Document [facility] [address] [place] [phone] Scanning, Generic Provider Social History Tobacco Use [...] Description 03/07/2025 10:30 AM EST Office Visit [facility] [address] [facility] [address] [place] [phone] Solo Khan DO [address] [facility] 2, [address] [place], [place] [phone] documented as of this encounter Visit Diagnoses Not on filedocumented in this encounter Additional Health Concerns Assessment Noted Time A fall risk assessment has been complete d for the patient 12/21/2022 8:36 AM EDT documented as of this encounter Care Teams Sandblast Or Shotblast Equipment Tender Relationship Specialty Start Date End Date Trey Berkowitz DO [address] [place] [address] PCP - General Family Medicine 10/28/23 documented as of this encounter
--- OUTSIDE RECORDS SUMMARY | 2024-10-31 09:22 | XMS_ITS | Encounter Summary ---
Author Organization [facility] Address [address] [place] [address] Care Team Providers Care Senior Cobol Developer Name Role Phone Trey Berkowitz Primary Care Provider [phone] Source Comments In the event this information is protected by the Federal Confidentiality of Alcohol and Drug AbusePatient Records regulations: The Federal rules restrict any use of the information to criminally investigate or prosecute any alcohol or drug abuse patient.[facility] Encounter Details Date Type Department Care Team (Late st Contact Info) Description 06/18/2022 Get Medical Advice Gastroenterology [address] [place] [address] Jair Miller Jr., DO [address] [place] [address] Chau Rae - endoscopy, bloodwork, antibiotic questions after ER/Hospital stay Social History Tobacco Use Types Packs/Day Years [...] place to sleep or slept in a fci (including now)? No 06/10/2022 Area Deprivation Index Answer Date Chon rded National Score (1-100), lower number is lower ri sk 56 03/07/2022 State Score (1-10), lower number is lower risk N ot on file 03/07/2022 Data from: https://www.neighborhoodatlas.medicine.[facility].edu/. Last address used for calculation [address] 03/07/2022 Sex and Gender Information Value Date Recorded Sex Assigned at Male 08/18/2022 3:32 PM EDT Legal Sex Male 7:19 AM EST Gender Identity Male 08/18/2022 3:32 PM EDT Sexual Orientation Straight 08/18/2022 3: 32 PM EDT documented as of this encounter Functional Status * Are you deaf or do you have serious difficulty hearing? Answer Date of Assessment Author No 06/12/2022 1:26 PM EDT Bee Sood RN * Are you blind or do you have serious difficulty seeing, even when wearing glasses? Answer Date of Assessment Author No 06/12/2022 1:26 PM EDT Bee Sood RN * Do you have serious difficulty walking or climbing stairs? Answer Date of Assessment Author No 06/12/2022 1:26 PM EDT Bee Sood RN * Do you have difficulty dressing or bathing? Answer Date of Assessment Author No 06/12/2022 1:26 PM EDT Bee Sood RN * Because of a physical, mental, or emotional condition, do you have difficulty doing errands alone such as visiting a doctor's office or shopping? Answer Date of Assessment Author No 06/12/2022 1:26 PM EDT Bee Sood RN documented as of this encounter Mental Status * Because of a physical, mental, or emotional condition, do you have serious difficulty concentrating, remembering, or making decisions? Answer Entry Date Author No 06/12/2022 1:26 PM EDT Bee Sood RN documented in this encounter Plan of Treatment Upcoming Encounters Date Type Department Care Team (Latest Contact Info) Description 11/03/2024 2:15 PM EDT Office Visit [facility] [address] [facility] [place] [address] 8 week follow up with lab and B 12 inj 11/03/2024 2:30 PM EDT Visit (SP) Office Hematology/Oncology [address] [facility] [place] [address] Dolores Jacobson APRN.MENTAL HEALTH ADVANCED PRACTICE NURSE [address] [place] [address] 8 week follow up with lab and B 12 inj 11/03/2024 3:00 PM EDT Nurse Visit Hematology/Oncology [address] [place] [address] Beryl Parsons Nurse Hector [address] [facility] [place] [address] 8 week follow up with lab B12 01/12/2025 1:20 PM EST Office Visit Gastroenterology [address] [place] [address] Jair Miller Jr., [address] [facility] [address] [phone] office moved from 12/29/24 months follow-up/ Pancreatic pseudocyst/cyst,Gene ralized abdominal pain,Gastroparesis,D yspepsia 05/08/2025 1:00 PM EDT Office Visit [facility] Laboratory [address] [facility] [place] [address] lab 05/15/2025 1:00 PM EDT Office Visit Radiation Oncology [address] [facility] [place] [address] Rafael [place] MD [address] [facility] [place] [address] 1 year follow up documented as of this encounter Visit Diagnoses Not on filedocumented in this encounter Care Teams Senior Cobol Developer Relationship Specialty Start Date End Date Trey Berkowitz [address] [place] [phone] PCP - General 05/14/04 documented as of this encounter
--- OUTSIDE RECORDS SUMMARY | 2024-10-31 09:22 | XMS_ITS | Encounter Summary ---
Author Organization [facility] Address [address] [place] [address] Phone Care Team Providers Care Diesel Service Apprentice Name Role Phone Trey Berkowitz DO Primary Care Provider [phone] Encounter Details Date Type Department Care Team (Late st Contact Info) Description 07/13/2024 Scanned Document [facility] [address] [place] [phone] Scanning, Generic Provider Social History Tobacco Use [...] suspected to have Coronavirus/COVID-19? No / Unsure 07/03/2024 11:03 AM EDT documented as of this encounter Plan of Treatment Upcoming Encounters Date Type Department Care Team (Late st Contact Info) Description 03/07/2025 10:30 AM EST Office Visit [facility] [address] [facility] [address] [place] [phone] Solo Khan DO [address] [facility] [address], [address] [place] [address] documented as of this encounter Visit Diagnoses Not on filedocumented in this encounter Additional Health Concerns Assessment Noted Time A fall risk assessment has been complete d for the patient 12/29/2023 11:03 AM EST documented as of this encounter Care Teams Diesel Service Apprentice Relationship Specialty Start Date End Date Trey Berkowitz DO [address] [place] [address] PCP - General Family Medicine 10/28/23 documented as of this encounter
--- OUTSIDE RECORDS SUMMARY | 2024-10-31 09:22 | XMS_ITS | Encounter Summary ---
Author Organization [facility] Address [address] [place] [address] Care Team Providers Care Managed Care Nurse Name Role Phone Trey Berkowitz Primary Care Provider [phone] Source Comments In the event this information is protected by the Federal Confidentiality of Alcohol and Drug AbusePatient Records regulations: The Federal rules restrict any use of the information to criminally investigate or prosecute any alcohol or drug abuse patient.[facility] Encounter Details Date Type Department Care Team (Late st Contact Info) Description 06/05/2022 Get Medical Advice Gastroenterology [address] [place] [address] Jair Miller Jr., DO [address] [place] [address] Bloodwork; salty taste Social History Tobacco Use Types Packs/Day Years [...] N ot on file 03/07/2022 Data from: https://www.neighborhoodatlas.[facility]/. Last address used for calculation [address] [place] [address] 03/07/2022 Sex and Gender Information Value Date [...] Description 11/03/2024 2:15 PM EDT Office Visit [facility] Laboratory [address] [place] [address] [place] [address] 8 week follow up with lab and B 12 inj 11/03/2024 2:30 PM EDT Visit (SP) Office Hematology/Oncology [address] [facility] [place] [address] Dolores Jacobson APRN.ROAD PATCHER [address] [facility] [place] [address] 8 week follow up with lab and B 12 inj 11/03/2024 3:00 PM EDT Nurse Visit Hematology/Oncology [address] [place] [address] [place] [address] Beryl Parsons Nurse Hector [address] [facility] [place] [address] 8 week follow up with lab B12 01/12/2025 1:20 PM EST Office Visit Gastroenterology [address] [place], [place] [phone] Jair Miller Jr., [address] [facility] [address] [place] [address] office moved from 12/29/24 months follow-up/ Pancreatic pseudocyst/cyst,Gene ralized abdominal pain,Gastroparesis,D yspepsia 05/08/2025 1:00 PM EDT Office Visit [facility] Laboratory [address] [place] [address] [place] [address] lab 05/15/2025 1:00 PM EDT Office Visit Radiation Oncology [address] [facility] [place] [address] Rafael [place] MD [address] [facility] [place] [address] 1 year follow up documented as of this encounter Visit Diagnoses Not on filedocumented in this encounter Care Teams Managed Care Nurse Relationship Specialty Start Date End Date Trey Berkowitz [address] [place] [phone] PCP - General 05/14/04 documented as of this encounter
--- OUTSIDE RECORDS SUMMARY | 2024-10-31 09:22 | XMS_ITS | Clinical Summary ---
Author Organization [facility] Address [address] [place] [address], [address] [place] [address] Care Team Providers Care Guest Services Attendant Name Role Phone Unavailable Primary Care Provider Unavailabl e Social History Tobacco Use Types Packs/Day Years Used Date Smoking Tobacco: Never Assessed Sex and Gender Information Value Date Recorded Sex Assigned at Not on file Legal Sex Male 7:48 PM EST Gender Identity Not on file Sexual Orientation Not on file Plan of Treatment Not on file
--- OUTSIDE RECORDS SUMMARY | 2024-10-31 09:23 | XMS_ITS | Encounter Summary ---
Author Organization [facility] Address [id number] [place] [address] Care Team Providers Care Affirmative Action Officer Name Role Phone Trey Berkowitz DO Primary Care Provider [phone] Encounter Details Date Type Department Care Team (Late st Contact Info) Description 10/19/2024 Orders Only [facility] [address] [place] [phone] Consuelo Jeffery RMA Low back pain, unspecified back pain laterality, unspecified chronicity, unspecified whether sciatica present Social History Tobacco Use Types Packs/Day Years Used Date Smoking Tobacco: Former Smokeless Tobacco: Never Comments:Quit 1998 Alcohol Use Standard Drinks/Week Comments [...] as of this encounter Plan of Treatment Not on file documented as of this encounter Procedures Procedure Name Priority Date/Time Associated Diagnosis Comments XR LUMBAR SPINE AP, LATERAL, FLEXION AND EXTENSION ONLY Routine 10/19/2024 Low back pain, unspecified back pain laterality, unspecified chronicity, unspecified whether sciatica present documented in this encounter Results * X-ray spine lumbar ap, lateral, flexion and extension only (10/19/2024) Anatomical Region Laterality Modality MSK, Neuro, Spine, L-spine N/A Compu ginna Radiography Juanita Perez SENIOR OCCUPATIONAL THERAPIST-BROOM BUNDLER IMG DIAGNOSTIC IMAGING ORDERABLES Final Result documented in this encounter Visit Diagnoses Diagnosis Low back pain, unspecified back pain laterality, unspecified chronicity, unspecified whether sciatica present documented in this encounter Care Teams Affirmative Action Officer Relationship Specialty Start Date End Date Trey Berkowitz DO [address] [place] [address] PCP - General 07/28/17 documented as of this encounter
--- OUTSIDE RECORDS SUMMARY | 2024-10-31 09:23 | XMS_ITS | Encounter Summary ---
Author Organization [facility] Address [address] [place] [address] Care Team Providers Care Senior Software Engineer Analytics Name Role Phone Trey Berkowitz Chet Primary Care Provider [phone] Source Comments In the event this information is protected by the Federal Confidentiality of Alcohol and Drug AbusePatient Records regulations: The Federal rules restrict any use of the information to criminally investigate or prosecute any alcohol or drug abuse patient.[facility] Encounter Details Date Type Department Care Team (Late st Contact Info) Description 10/03/2022 [place] [address] Provider, [facility] Actionable Imaging Result Notification Patient Outreach Social History Tobacco Use Types Packs/Day Years [...] money to buy more. Never true 09/05/19 Within the past 12 months, t he [...] place to sleep or slept in a fpc (including now)? No 09/04/2022 Area Deprivation Index Answer Date Chon rded National Score (1-100), lower number is lower ri sk 55 08/08/2022 State Score (1-10), lower number is lower risk 3 08/08/2022 Data from: https://www.neighborhoodatlas.medicine.[facility].edu/. Last address used for calculation [address] [place] [address] 08/08/2022 Sex and Gender Information Value Date Recorded Sex Assigned at Male 08/18/2022 3:32 PM EDT Legal Sex Male 7:19 AM EST Gender Identity Male 08/18/2022 3:32 PM EDT Sexual Orientation Straight 08/18/2022 3: 32 PM EDT documented as of this encounter Functional Status * Are you deaf or do you have serious difficulty hearing? Answer Date of Assessment Author No 09/13/2022 11:38 AM EDT Deisy Perez RN * Are you blind or do you have serious difficulty seeing, even when wearing glasses? Answer Date of Assessment Author No 09/13/2022 11:38 AM Deisy Luevano RN * Do you have serious difficulty walking or climbing stairs? Answer Date of Assessment Author No 09/13/2022 11:38 AM Deisy Luevano RN * Do you have difficulty dressing or bathing? Answer Date of Assessment Author No 09/13/2022 11:38 AM Deisy Luevano RN * Because of a physical, mental, or emotional condition, do you have difficulty doing errands alone such as visiting a doctor's office or shopping? Answer Date of Assessment Author Yes 09/13/2022 11:38 AM Deisy Luevano RN documented as of this encounter Mental Status * Because of a physical, mental, or emotional condition, do you have serious difficulty concentrating, remembering, or making decisions? Answer Entry Date Author Yes 09/13/2022 11:38 AM Deisy Luevano RN documented in this encounter Plan of Treatment Upcoming Encounters Date Type Department Care Team (Latest Contact Info) Description 11/03/2024 2:15 PM EDT Office Visit [facility] Laboratory [address] [facility] [place] [address] 8 week follow up with lab and B 12 inj 11/03/2024 2:30 PM EDT Visit (SP) Office Hematology/Oncology [address] [facility] [place] [address] Dolores Jacobson APRN.HEAD OF LOSS PREVENTION [address] [facility] [place] [address] 8 week follow up with lab and B 12 inj 11/03/2024 3:00 PM EDT Nurse Visit Hematology/Oncology [address] [facility] [place] [address] Beryl Parsons Nurse Hector [address] [facility] [place] [address] 8 week follow up with lab B12 01/12/2025 1:20 PM EST Office Visit Gastroenterology [address] [facility] [place] [address] Jair Miller Jr., DO [address] [place] [phone] office moved from 12/29/24 months follow-up/ Pancreatic pseudocyst/cyst,Gene ralized abdominal pain,Gastroparesis,D yspepsia 05/08/2025 1:00 PM EDT Office Visit [facility] Laboratory [address] [facility] [place] [address] lab 05/15/2025 1:00 PM EDT Office Visit Radiation Oncology [address] [facility] [place] [address] Rafael [place] MD [address] [facility] [place] [address] 1 year follow up documented as of this encounter Visit Diagnoses Not on filedocumented in this encounter Care Teams Senior Software Engineer Analytics Relationship Specialty Start Date End Date Trey Berkowitz [address] [place] [phone] PCP - General 05/14/04 documented as of this encounter
--- OUTSIDE RECORDS SUMMARY | 2024-10-31 09:23 | XMS_ITS | Encounter Summary ---
Author Organization [facility] Address [address] [place] [address] Care Team Providers Care Process Development Associate Name Role Phone Trey Berkowitz Primary Care Provider [phone] Source Comments In the event this information is protected by the Federal Confidentiality of Alcohol and Drug AbusePatient Records regulations: The Federal rules restrict any use of the information to criminally investigate or prosecute any alcohol or drug abuse patient.[facility] Encounter Details Date Type Department Care Team (Latest Contact Info) Description 10/28/2022 Patient Msg Pharmacy Home Infusion [address] [facility] [place] [phone] Noris Mares PSS Questionnaire Submission Social History [...] [employer]edu/. Last address used for calculation [address] [place] [address] 08/08/2022 Sex and Gender Information Value Date [...] Description 11/03/2024 2:15 PM EDT Office Visit [facility] Laboratory [address] [facility] [place] [address] 8 week follow up with lab and B 12 inj 11/03/2024 2:30 PM EDT Visit (SP) Office Hematology/Oncology [address] [facility] [place] [address] Dolores Jacobson APRN.INDUSTRIAL GAS SERVICER SUPERVISOR [address] [facility] [place] [address] 8 week follow up with lab and B 12 inj 11/03/2024 3:00 PM EDT Nurse Visit Hematology/Oncology [address] [place] [address] Breyl Odom Nurse Hector [address] [facility] [place] [address] 8 week follow up with lab B12 01/12/2025 1:20 PM EST Office Visit Gastroenterology [address] [place] [address] Jair Miller Jr., DO [address] [facility] [address] [place] [address] office moved from 12/29/24 months follow-up/ Pancreatic pseudocyst/cyst,Gene ralized abdominal pain,Gastroparesis,D yspepsia 05/08/2025 1:00 PM EDT Office Visit [facility] Laboratory [address] [facility] [place] [address] lab 05/15/2025 1:00 PM EDT Office Visit Radiation Oncology [address] [facility] [address] Rafael [place] MD [address] [facility] [place] [address] 1 year follow up documented as of this encounter Visit Diagnoses Not on filedocumented in this encounter Care Teams Process Development Associate Relationship Specialty Start Date End Date Trey Berkowitz [address] [place] [phone] PCP - General 05/14/04 documented as of this encounter
--- OUTSIDE RECORDS SUMMARY | 2024-10-31 09:23 | XMS_ITS | Encounter Summary ---
Author Organization [facility] Address [address] [place] [address] Care Team Providers Care Centrifuge Operator Name Role Phone Trey Berkowitz Chet Primary Care Provider [phone] Source Comments In the event this information is protected by the Federal Confidentiality of Alcohol and Drug AbusePatient Records regulations: The Federal rules restrict any use of the information to criminally investigate or prosecute any alcohol or drug abuse patient.[facility] Encounter Details Date Type Department Care Team (Late st Contact Info) Description 09/15/2022 Patient Msg Endocrinology [address] [place] [address] Provider, [facility] Blood Glucose Social History Tobacco Use Types Packs/Day Years [...] is lower risk 3 08/08/2022 Data from: https://www.neighborhoodatlas.medicine.[facility].edu/. Last address used for calculation [address] [place] [address] 08/08/2022 Sex and Gender Information Value Date [...] EDT Office Visit [facility] [address] [facility] [place] [address] 8 week follow up with lab and B 12 inj 11/03/2024 2:30 PM EDT Visit (SP) Office Hematology/Oncology [address] [facility] [place] [address] Dolorse Jacobson APRN.DESIGN SPECIALIST [address] [facility] [place] [address] 8 week follow up with lab and B 12 inj 11/03/2024 3:00 PM EDT Nurse Visit Hematology/Oncology [address] [place] [address] Beryl Parsons Nurse Hector [address] [facility] [place] [address] 8 week follow up with lab B12 01/12/2025 1:20 PM EST Office Visit Gastroenterology [address] [place] [address] Jair Miller Jr., DO [address] [facility] [place] [address] office moved from 12/29/24 months follow-up/ Pancreatic pseudocyst/cyst,Gene ralized abdominal pain,Gastroparesis,D yspepsia 05/08/2025 1:00 PM EDT Office Visit [facility] [address] [place] [address] [place] [address] lab 05/15/2025 1:00 PM EDT Office Visit Radiation Oncology [address] [facility] [place] [address] Rafael [place] MD [address] [facility] [place] [address] 1 year follow up documented as of this encounter Visit Diagnoses Not on filedocumented in this encounter Care Teams Centrifuge Operator Relationship Specialty Start Date End Date Trey Berkowitz [address] [place] [phone] PCP - General 05/14/04 documented as of this encounter
--- OUTSIDE RECORDS SUMMARY | 2024-10-31 09:23 | XMS_ITS | Encounter Summary ---
Author Organization [facility] Address [address] [place] [address] Care Team Providers Care Termite Helper Name Role Phone Trey Berkowitz Primary Care Provider [phone] Source Comments In the event this information is protected by the Federal Confidentiality of Alcohol and Drug AbusePatient Records regulations: The Federal rules restrict any use of the information to criminally investigate or prosecute any alcohol or drug abuse patient.[facility] Encounter Details Date Type Department Care Team (Latest Contact Info) Description 11/25/2022 Patient Msg Pharmacy Home Infusion [address] [facility]. [address] [place] [phone] Noris Mares PSS Questionnaire Submission Social History [...] is lower risk 3 08/08/2022 Data from: https://www.neighborhoodatlas.medicine[facility].edu/. Last address used for calculation [address] [place] [address] 08/08/2022 Sex and Gender Information Value Date [...] Description 11/03/2024 2:15 PM EDT Office Visit [facility] [address] [facility] [place] [address] 8 week follow up with lab and B 12 inj 11/03/2024 2:30 PM EDT Visit (SP) Office Hematology/Oncology [address] [facility] [place] [address] Dolores Jacobson APRN.COLD STORAGE SUPERVISOR [address] [facility] [place] [address] 8 week follow up with lab and B 12 inj 11/03/2024 3:00 PM EDT Nurse Visit Hematology/Oncology [address] [place] [address] Beryl Odom Nurse Hector [address] [facility] [place] [address] 8 week follow up with lab B12 01/12/2025 1:20 PM EST Office Visit Gastroenterology [address] [place] [address] Jair Miller Jr., DO [address] [facility] [address] [place] [address] office moved from 12/29/24 months follow-up/ Pancreatic pseudocyst/cyst,Gene ralized abdominal pain,Gastroparesis,D yspepsia 05/08/2025 1:00 PM EDT Office Visit [facility] Laboratory [address] [place] [address] lab 05/15/2025 1:00 PM EDT Office Visit Radiation Oncology [address] [place] [address] Rafael [place] MD [address] [place] [address] 1 year follow up documented as of this encounter Visit Diagnoses Not on filedocumented in this encounter Care Teams Termite Helper Relationship Specialty Start Date End Date Trey Berkowitz [address] [place] [phone] PCP - General 05/14/04 documented as of this encounter
--- OUTSIDE RECORDS SUMMARY | 2024-10-31 09:23 | XMS_ITS | Encounter Summary ---
Author Organization [facility] Address [address] [place] [address] Care Team Providers Care Information Systems Security Manager Name Role Phone Trey Berkowitz Primary Care Provider [phone] Source Comments In the event this information is protected by the Federal Confidentiality of Alcohol and Drug AbusePatient Records regulations: The Federal rules restrict any use of the information to criminally investigate or prosecute any alcohol or drug abuse patient.[facility] Encounter Details Date Type Department Care Team (Late st Contact Info) Description 09/25/2022 Get Medical Advice Gastroenterology [address] [place] [address] Jair Miller Jr., DO [address] [place] [address] Chau Rae -Need an apt to see you Social History Tobacco Use Types Packs/Day Years [...] is lower risk 3 08/08/2022 Data from: https://www.neighborhoodatlas.medicine.[facility].edu/. Last address used for calculation [address] 08/08/2022 Sex and Gender Information Value [...] 09/13/2022 11:38 AM Deisy Luevano RN * Are you blind or do [...] Deisy Luevano RN documented in this encounter Miscellaneous Notes * Telephone Encounter - Katie Celaya RN - 09/25/2022 12:[address] scan in August showed ongoing inflammation / pancreatitis which he is following with Dr. Leonard.Lower abd pain may be related to inflammation extending to involving the colon but not sure that isthe case. He does have known diverticular disease. At this time will start dicyclomine 20 mg 4 times daily, Cipro 500 mg twice daily for 10 days, and Flagyl 500 mg twice daily for 10 days. Ok to add on for office visit on October 02 at 12:40 pm. Jair Miller Jr., DO Pt is aware of the plans as stated above. He will begin the medication regimen as recommended per Dr. Miller. Schedulers, please add pt to next week's schedule. Pt is aware of the appt date/time and does not need a phone call Thank you Katie Celaya RN * Telephone Encounter - Katie Celaya RN - 09/25/2022 10:[address] Miller, please see attached [employer]t message per patient. Please also review the CT results attached to that message and review the preliminary tumor board discussion dated 09/22/22. If I'm reading it correctly, the recommendation may be to simply monitor imaging and no surgery at this time. Please review and advise. Thank you. Katie Celaya RN documented in this encounter Plan of Treatment Upcoming Encounters Date Type Department Care Team (Latest Contact Info) Description 11/03/2024 2:15 PM EDT Office Visit [facility] [address] [address] 8 week follow up with lab and B 12 inj 11/03/2024 2:30 PM EDT Visit (SP) Office Hematology/Oncology [address] [address] Dolores Jacobson APRN.DEPARTMENT HEAD [address] [place] [address] 8 week follow up with lab and B 12 inj 11/03/2024 3:00 PM EDT Nurse Visit Hematology/Oncology [address] [address] Beryl Parsons Nurse Hector [address] [address] 8 week follow up with lab B12 01/12/2025 1:20 PM EST Office Visit Gastroenterology [address] [place] [address] Jair Miller Jr., DO [address] [place] [address] office moved from 12/29/24 months follow-up/ Pancreatic pseudocyst/cyst,Gene ralized abdominal pain,Gastroparesis,D yspepsia 05/08/2025 1:00 PM EDT Office Visit [facility] [address] [address] lab 05/15/2025 1:00 PM EDT Office Visit Radiation Oncology [address] [address] Rafael Tyler MD [address] [place] [address] [place] [address] 1 year follow up documented as of this encounter Visit Diagnoses Diagnosis Lower abdominal pain- Primary Abdominal pain, other specified site Other irritable bowel syndrome documented in this encounter Care Teams Information Systems Security Manager Relationship Specialty Start Date End Date Trey Berkowitz [address] [place] [phone] PCP - General 05/14/04 documented as of this encounter
--- OUTSIDE RECORDS SUMMARY | 2024-10-31 09:23 | XMS_ITS | Encounter Summary ---
Author Organization [facility] Address [address] [place] [address] Care Team Providers Care Coat Presser Name Role Phone Trey Berkowitz Primary Care Provider [phone] Source Comments In the event this information is protected by the Federal Confidentiality of Alcohol and Drug AbusePatient Records regulations: The Federal rules restrict any use of the information to criminally investigate or prosecute any alcohol or drug abuse patient.[facility] Encounter Details Date Type Department Care Team (Late st Contact Info) Description 10/02/2022 Get Medical Advice Gastroenterology [address] [place] [address] Jair Miller Jr., DO [address] [place] [address] Information/question s for today's apt for Chau Rae Social History Tobacco Use Types [...] place to sleep or slept in a long-term (including now)? No 09/04/2022 Area Deprivation Index Answer Date Chon rded National Score (1-100), lower number is lower ri sk 55 08/08/2022 State Score (1-10), lower number is lower risk 3 08/08/2022 Data from: https://www.neighborhoodatlas.medicine.[facility].edu/. Last address used for calculation [address] 08/08/2022 Sex and Gender Information [...] Telephone Encounter - Katie Celaya RN - 10/05/2022 4:13 PM EDT 10/05/22 Upper EUS was done for Abnormal abdominal/pelvic CT scan, Chronic pancreatitis, For therapyof duodenal stenosis, Place PEG for decompression. Duodenal deformity, but no signficant obstruction. 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 An externally removable PEG placement was successfully completed. -Use PEG for decompression. Sending as an update, please see attached [employer] message. If it cannot be opened, may need to openseparately in the [employer] message. Not sure at this point what to offer as far as advise. Thank you Katie Celaya RN documented in this encounter Plan of Treatment Upcoming Encounters Date Type Department Care Team (Latest Contact Info) Description 11/03/2024 2:15 PM EDT Office Visit [facility] [address] [place] [address] 8 week follow up with lab and B 12 inj 11/03/2024 2:30 PM EDT Visit (SP) Office Hematology/Oncology [address] [place] [address] Dolores Jacobson APRN.CATERING ATTENDANT [address] [place] [address] 8 week follow up with lab and B 12 inj 11/03/2024 3:00 PM EDT Nurse Visit Hematology/Oncology [address] [place] [address] [place] [address] Beryl Parsons Nurse Hector [address] [place] [address] 8 week follow up with lab B12 01/12/2025 1:20 PM EST Office Visit Gastroenterology [address] [place], [place] [phone] Jair Miller Jr., DO [address] [place] [phone] office moved from 12/29/24 months follow-up/ Pancreatic pseudocyst/cyst,Gene ralized abdominal pain,Gastroparesis,D yspepsia 05/08/2025 1:00 PM EDT Office Visit [facility] [address] [place] [address] lab 05/15/2025 1:00 PM EDT Office Visit Radiation Oncology [address] [place] [address] Rafael Tyler MD [address] [place] [address] 1 year follow up documented as of this encounter Visit Diagnoses Not on filedocumented in this encounter Care Teams Coat Presser Relationship Specialty Start Date End Date Trey Brekowitz [address] [place] [phone] PCP - General 05/14/04 documented as of this encounter
--- OUTSIDE RECORDS SUMMARY | 2024-10-31 09:23 | XMS_ITS | Encounter Summary ---
Author Organization [facility] Address [address] [place] [address] Care Team Providers Care Cutting Supervisor Name Role Phone Trey Berkowitz Primary Care Provider [phone] Source Comments In the event this information is protected by the Federal Confidentiality of Alcohol and Drug AbusePatient Records regulations: The Federal rules restrict any use of the information to criminally investigate or prosecute any alcohol or drug abuse patient.[facility] Encounter Details Date Type Department Care Team (Late st Contact Info) Description 08/18/2022 GI Preprocedure Call [facility] Surgery [address] [place] [address] Trey Berkowitz [address] [place] [address] Social History Tobacco Use Types Packs/Day Years [...] care, and heating? Not hard at all 08/17/2022 PHQ-2 Answer Date Recorded PHQ-2 score 0 04/21/2022 Hunger Vital Sign Answer Date Recorded Within the past 12 months, y ou worried that your food would run out before you got the money to buy more. Never true 08/18/19 23 Within the past 12 months, t he food you bought just didn't last and you didn't have money to get more. Never true 08/17/2022 PRAPARE - Transportation Answer Date Re corded In the past 12 months, has l ack of transportation kept you from medical appointments or from getting medications? No 07/24 In the past 12 months, has l ack of transportation kept you from meetings, work, or from getting things needed for daily living? No 08/17/2022 Housing Stability Vital Sign Answer Francis e Recorded In the last 12 months, was t here a time when you were not able to pay the mortgage or rent on time? No 08/17/2022 In the last 12 months, how many places have you lived? 1 08/17/2022 In the last 12 months, was t here a time when you did not have a steady place to sleep or slept in a mcc (including now)? No 08/17/2022 Area Deprivation Index Answer Date Chon rded National Score (1-100), lower number is lower ri sk 55 08/08/2022 State Score (1-10), lower number is lower risk 3 08/08/2022 Data from: https://www.neighborhoodatlas.medicine.[facility].edu/. Last address used for calculation [address] 08/08/2022 Sex and Gender Information Value Date Recorded Sex Assigned at Male 08/18/2022 3:32 PM EDT Legal Sex Male 7:19 AM EST Gender Identity Male 08/18/2022 3:32 PM EDT Sexual Orientation Straight 08/18/2022 3: 32 PM EDT documented as of this encounter Functional Status * Are you deaf or do you have serious difficulty hearing? Answer Date of Assessment Author No 08/11/2022 2:42 PM EDT Everardo Deleon RN * Are you blind or do you have serious difficulty seeing, even when wearing glasses? Answer Date of Assessment Author No 08/11/2022 2:42 PM EDT Everardo Deleon RN * Do you have serious difficulty walking or climbing stairs? Answer Date of Assessment Author No 08/11/2022 2:42 PM EDT Everardo Deleon RN * Do you have difficulty dressing or bathing? Answer Date of Assessment Author No 08/11/2022 2:42 PM EDT Everardo Deleon RN * Because of a physical, mental, or emotional condition, do you have difficulty doing errands alone such as visiting a doctor's office or shopping? Answer Date of Assessment Author No 08/11/2022 2:42 PM EDT Everardo Deleon RN documented as of this encounter Mental Status * Because of a physical, mental, or emotional condition, do you have serious difficulty concentrating, remembering, or making decisions? Answer Entry Date Author No 08/11/2022 2:42 PM EDT Everardo Deleon RN documented in this encounter Plan of Treatment Upcoming Encounters Date Type Department Care Team (Latest Contact Info) Description 11/03/2024 2:15 PM EDT Office Visit [facility] [address] [place] [address] 8 week follow up with lab and B 12 inj 11/03/2024 2:30 PM EDT Visit (SP) Office Hematology/Oncology [address] [place] [address] Dolores Jacobson APRN.HEEL PAINTER [address] [place] [address] 8 week follow up with lab and B 12 inj 11/03/2024 3:00 PM EDT Nurse Visit Hematology/Oncology [address] [place] [address] Beryl Parsons Nurse Hector [address] [facility] [address] 8 week follow up with lab B12 01/12/2025 1:20 PM EST Office Visit Gastroenterology [address] [place], [place] [phone] Jair Miller Jr., DO [address] [place] [address] office moved from 12/29/24 months follow-up/ Pancreatic pseudocyst/cyst,Gene ralized abdominal pain,Gastroparesis,D yspepsia 05/08/2025 1:00 PM EDT Office Visit [facility] Laboratory [address] [place] [address] lab 05/15/2025 1:00 PM EDT Office Visit Radiation Oncology [address] [place] [address] Rafael Tyler MD [address] [place] [address] 1 year follow up documented as of this encounter Visit Diagnoses Not on filedocumented in this encounter Care Teams Cutting Supervisor Relationship Specialty Start Date End Date Trey Berkowitz [address] [place] [phone] PCP - General 05/14/04 documented as of this encounter
--- OUTSIDE RECORDS SUMMARY | 2024-10-31 09:23 | XMS_ITS | Encounter Summary ---
Author Organization [facility] Address [facility] [place] [address] Care Team Providers Care Sample Display Preparer Name Role Phone Trey Berkowitz Primary Care Provider [phone] Source Comments In the event this information is protected by the Federal Confidentiality of Alcohol and Drug AbusePatient Records regulations: The Federal rules restrict any use of the information to criminally investigate or prosecute any alcohol or drug abuse patient.[facility] Encounter Details Date Type Department Care Team (Late st Contact Info) Description 09/28/2022 Lab Requisition [facility] [address] [place] [address] [place] [address] [address] [facility] [address] [phone] Other chronic pancreatitis (HCC) Social History Tobacco [...] is lower risk 3 08/08/2022 Data from: https://www.neighborhoodatlas.medicine.[facility].edu/. Last address used for calculation [address] 08/08/2022 Sex and Gender Information Value [...] EDT Office Visit [facility] [address] [facility] [place] [place] [address] 8 week follow up with lab and B 12 inj 11/03/2024 2:30 PM EDT Visit (SP) Office Hematology/Oncology [address] [place] [address] Dolores Jacobson APRN.S[employer] HIGH SCHO[employer] TEACHER [address] [place] [address] 8 week follow up with lab and B 12 inj 11/03/2024 3:00 PM EDT Nurse Visit Hematology/Oncology [address] [place] [address] Beryl Parsons Nurse Hector [address] [facility] [place] [address] 8 week follow up with lab B12 01/12/2025 1:20 PM EST Office Visit Gastroenterology [address] [place], [place] [phone] Jair Miller Jr., DO [address] [place] [phone] office moved from 12/29/24 months follow-up/ Pancreatic pseudocyst/cyst,Gene ralized abdominal pain,Gastroparesis,D yspepsia 05/08/2025 1:00 PM EDT Office Visit [facility] Laboratory [address] [place] [address] lab 05/15/2025 1:00 PM EDT Office Visit Radiation Oncology [address] [place] [address] Rafael Tyler MD [address] [place] [address] 1 year follow up documented as of this encounter Procedures Procedure Name Priority Date/Time Associated Diagnosis Comments MAGNESIUM BLD Routine 09/28/2022 10:15 AM EDT Other chronic pancreatitis (HCC) POTASSIUM Routine 09/28/2022 10:15 AM EDT Other chronic pancreatitis (HCC) GOLD TOP EXTRA TUBE Routine 09/28/2022 1 0:15 AM EDT Other chronic pancreatitis (HCC) PHOSPHORUS INORGANIC Routine 09/28/2022 10:15 AM EDT Other chronic pancreatitis (HCC) COMPREHENSIVE METABOLIC PANEL Routine 09/28/2022 10:15 AM EDT Other chronic pancreatitis (HCC) CBC + DIFF Routine 09/28/2022 10:15 AM EDT Other chronic pancreatitis (HCC) documented in this encounter Results * MAGNESIUM BLD (09/28/2022 10:15 AM EDT) Magnesium 2.0 1.7 - 2.3 mg/dL 10/01/2022 2:56 AM EDT [facility] Blood BLOOD SPECIMEN / Unknown 09/28/2022 10:15 AM EDT 09/28/2022 6:57 PM EDT us Natali Leonard MD LABORATORY Final Result Performing Organization Address [facility] de Phone Number [facility] [address] [id number], [place] * GOLD TOP EXTRA TUBE (09/28/2022 10:15 AM EDT) Blood BLOOD SPECIMEN / Unknown 09/28/2022 10:15 AM EDT 09/28/2022 6:57 PM EDT us Natali Leonard MD LABORATORY Final Result Performing Organization Address [facility] de Phone Number [facility] [address] [id number], [place] * POTASSIUM BLD (09/28/2022 10:15 AM EDT) Potassium 4.5 3.7 - 5.1 mmol/L 09/29/2022 1:41 PM EDT [facility] Blood BLOOD SPECIMEN / Unknown 09/28/2022 10:15 AM EDT 09/28/2022 6:54 PM EDT us Natali Leonard MD LABORATORY Final Result Performing Organization Address [facility] de Phone Number [facility] [address] [id number], [place] * PHOSPHORUS INORGANIC (09/28/2022 10:15 AM EDT) Phosphorus 3.9 2.7 - 4.8 mg/dL 09/29/2022 1:41 PM EDT [facility] Blood BLOOD SPECIMEN / Unknown 09/28/2022 10:15 AM EDT 09/28/2022 6:54 PM EDT us Natali Leonard MD LABORATORY Final Result [facility] [address] [facility] [address] [place] [address], [place] * (ABNORMAL) CBC + DIFF (09/28/2022 10:15 AM EDT) WBC 8.41 3.70 - 11.00 k/uL 09/28/2022 11:02 PM EDT [facility] RBC 4.09(L) 4.20 - 6.00 m/uL 09/28/2022 11:02 PM EDT [facility] Hemoglobin 10.7(L) 13.0 - 17.0 g/dL 09/28/2022 11:02 PM EDT [facility] Hematocrit 36.1(L) 39.0 - 51.0 % 09/28/2022 11:02 PM EDT [facility] MCV 88.3 80.0 - 100.0 fL 09/28/2022 11:02 PM EDT [facility] MCH 26.2 26.0 - 34.0 pg 09/28/2022 11:02 PM EDT [facility] MCHC 29.6(L) 30.5 - 36.0 g/dL 09/28/2022 11:02 PM EDT [facility] RDW-CV 18.3(H) 11.5 - 15.0 % 09/28/2022 11:02 PM EDT [facility] Platelet Count 379 150 - 400 k/uL 09/28/2022 11:02 PM EDT [facility] MPV 11.7 9.0 - 12.7 fL 09/28/2022 11:02 PM EDT [facility] Neutrophils % 52.1 % 09/28/2022 11:02 PM EDT [facility] Abs Neut 4.38 1.45 - 7.50 k/uL 09/28/2022 11:02 PM EDT [facility] Lymphocytes % 31.6 % 09/28/2022 11:02 PM EDT [facility] Abs Lymph 2.66 1.00 - 4.00 k/uL 09/28/2022 11:02 PM EDT [facility] Monocytes % 10.7 % 09/28/2022 11:02 PM EDT [facility] Abs Scott 0.90(H) <0.87 k/uL 09/28/2022 11:02 PM EDT [facility] Eosinophils % 3.9 % 09/28/2022 11:02 PM EDT [facility] Abs Eosin 0.33 <0.46 k/uL 09/28/2022 11:02 PM EDT [facility] Basophils % 1.0 % 09/28/2022 11:02 PM EDT [facility] Abs Baso 0.08 <0.11 k/uL 09/28/2022 11:02 PM EDT [facility] Immature Granulocytes % 0.7 % 09/28/2022 11:02 PM EDT [facility] Abs Immature Gran 0.06 <0.10 k/uL 023 11:02 PM EDT [facility] NRBC 0.0 /100 WBC 09/28/2022 11:02 PM EDT [facility] Absolute nRBC <0.01 <0.01 k/uL 09/28/2022 11:02 PM EDT [facility] Diff Type Auto 09/28/2022 11:02 PM EDT [facility] Blood BLOOD SPECIMEN / Unknown 09/28/2022 10:15 AM EDT 09/28/2022 6:54 PM EDT us Natali Leonard MD LABORATORY Final Result [facility] [address] [address], * (ABNORMAL) COMP METABOLIC PANEL (09/28/2022 10:15 AM EDT) Protein, Total 6.8 6.3 - 8.0 g/dL 09/29/2022 1:41 PM EDT [facility] Albumin 3.4(L) 3.9 - 4.9 g/dL 09/29/2022 1:41 PM EDT [facility] Calcium, Total 8.9 8.5 - 10.2 mg/dL 09/29/2022 1:41 PM EDT [facility] Bilirubin, Total 0.2 0.2 - 1.3 mg/dL 09/29/2022 1:41 PM T [facility] Alkaline Phosphatase 59 38 - 113 U/L 09/29/2022 1:41 PM T [facility] AST 29 14 - 40 U/L 09/29/2022 1:41 PM T [facility] ALT 17 10 - 54 U/L 09/29/2022 1:41 PM [facility] Glucose 107(H) 74 - 99 mg/dL 09/29/2022 1:41 PM [facility] Comment: The [place] Diabetes Association (ADA) provides guidance for cutoff [...] Standards of Medical Care in Diabetes 2016, [place] Diabetes Association. Diabetes Care. 2016.39(Suppl 1). BUN 26(H) 9 - 24 mg/dL 09/29/2022 1:41 PM T [facility] Creatinine 0.87 0.73 - 1.22 mg/dL 09/29/2022 1:41 PM [facility] Sodium 139 136 - 144 mmol/L 09/29/2022 1:41 PM [facility] Potassium 4.5 3.7 - 5.1 mmol/L 09/29/2022 1:41 PM T [facility] Chloride 101 97 - 105 mmol/L 09/29/2022 1:41 PM EDT [facility] CO2 27 22 - 30 mmol/L 09/29/2022 1:41 PM EDT [facility] Anion Gap 11 9 - 18 mmol/L 09/29/2022 1:41 PM EDT [facility] Estimated Glomerular Filtration Rate 88 >=60 mL/min/1.7 3m 09/29/2022 1:41 PM EDT [facility] Comment:Estimated Glomerular Filtration Rate [...] actual GFR. Blood BLOOD SPECIMEN / Unknown 09/28/2022 10:15 AM EDT 09/28/2022 6:54 PM EDT us Natali Leonard MD LABORATORY Final Result [facility] [address] [address], documented in this encounter Visit Diagnoses Diagnosis Other chronic pancreatitis (HCC) documented in this encounter Care Teams Sample Display Preparer Relationship Specialty Start Date End Date Trey Berkowitz [address] [place] [phone] PCP - General 05/14/04 documented as of this encounter
--- OUTSIDE RECORDS SUMMARY | 2024-10-31 09:23 | XMS_ITS | Encounter Summary ---
Author Organization [facility] Address [address] [place] [address] Phone Care Team Providers Care Human Resources Analyst Name Role Phone Trey Berkowitz DO Primary Care Provider [phone] Trey Berkowitz DO Primary Care Provider [phone] Trey Berkowitz DO Primary Care Provider [phone] Encounter Details Date Type Department Care Team (Late st Contact Info) Description 06/06/2019 Orders Only [facility] [address] [place] [address] Conversion, Onbase Social History Tobacco Use Types [...] Description 03/07/2025 10:30 AM EST Office Visit [facility] [address] [facility] [address] [place] [phone] Solo Khan DO [address] [facility] [address], [address] [place], [place] [id number] Scheduled Orders Name Type Priority Associated Diagnoses Orde r Schedule OUTSIDE LAB SCAN Lab Ordered: 06/06/2019 documented as of this encounter Visit Diagnoses Not on filedocumented in this encounter Care Teams Human Resources Analyst Relationship Specialty Start Date End Date Trey Berkowitz DO PCP - General 12/22/18 03/23/23 Trey Berkowitz DO PCP - General Family Medicine 03/24/23 10/27/23 Trey Berkowitz DO [address] [place] [address] PCP - General Family Medicine 10/28/23 documented as of this encounter
--- OUTSIDE RECORDS SUMMARY | 2024-10-31 09:23 | XMS_ITS | Clinical Summary ---
Author Organization [facility] Address [id number] [address] [place] [address] Care Team Providers Care Tree Farmer Name Role Phone Trey Berkowitz DO Primary Care Provider [phone] Allergies Active Allergy Reactions Criticality Noted Date Comments Minocycline Hcl Hives,Other (See Comments) 03/2012 Medications levothyroxine (SYNTHROID, LEVOTHROID) 175 MCG tablet Take 1 tablet (175 mcg total) by mouth in the morning. Active nitroglycerin (NITROSTAT) 0.[address] 1 tablet (0.4 mg total) under the tongue every 5 (five) minutes as needed for chest pain. Active tamsulosin HCl (TAMSULOSIN ORAL) Take by mouth. Activ e traMADol (ULTRAM) 50 mg tablet Take 1 tablet (50 mg total) by mouth every 6 (six) hours as needed for pain. Active lipase/protease /amylase (ZENPEP ORAL) Take 40,000 Units by mouth. 1-4 per day, take with each meal and snack Active insulin degludec (TRESIBA FLEXTOUCH U-100) 100 unit/mL (3 mL) insulin pen Inject 42 Units under the skin nightly. Active allopurinoL (ZYLOPRIM) 100 mg tablet Take 1 tablet (100 mg total) by mouth. 09/23/19 25 Active ELIQUIS 5 mg tablet Take 1 tablet (5 mg total) by mouth. Active carvediloL (COREG) 6.25 mg tablet Take 1 tablet (6.25 mg total) by mouth in the morning and 1 tablet (6.25 mg total) before bedtime. 10/14/19 25 026 Active pantoprazole (PROTONIX) 40 mg EC tablet Take 1 tablet (40 mg total) by mouth in the morning and 1 tablet (40 mg total) before bedtime. 07/20/19 25 Active potassium chloride (K-TAB,KLOR-CON ) 10 MEQ CR tablet Take 1 tablet (10 mEq total) by mouth in the morning. 07/29/19 25 026 Active predniSONE (DELTASONE) 5 mg tablet TAKE 2 TABS BY MOUTH EVERY DAY OR DIRECTED Active ENTRESTO 24-26 mg tablet Take 1 tablet by mouth in the morning and 1 tablet before bedtime. 09/12/19 25 Active torsemide (DEMADEX) 10 mg tablet 1 tablet (10 mg total). 12/29/19 24 025 Active torsemide (DEMADEX) 20 mg tablet Take 1 tablet (20 mg total) by mouth. Active traZODone (DESYREL) 50 mg tablet TAKE 1/2 TABLET BY MOUTH ONCE DAILY AT BEDTIME NEEDED FOR SLEEP Active metoclopramide (REGLAN) 10 mg tablet Take 1 tablet (10 mg total) by mouth as needed. Active ondansetron (ZOFRAN) 4 mg tablet Take 1 tablet (4 mg total) by mouth every 6 (six) hours as needed. 11/24/19 Active sucralfate (CARAFATE) 1 gram tablet Take 1 tablet (1 g total) by mouth as needed. 11/24/19 24 Active NovoLOG Flexpen U-100 Insulin 100 unit/mL (3 mL) insulin pen in the morning and at noon and in the evening. Take with meals. 07/28/19 25 Active TRESIBA FLEXTOUCH U-200 200 unit/mL (3 mL) insulin pen Inject 42 Units under the skin nightly. 09/13/19 Active Lactobacillus rhamnosus GG (CULTURELLE) 10 billion cell capsule Take 1 capsule by mouth in the morning. Active FLUTICASONE PROPIONATE NASL Administer 2 Inhalations into each nostril nightly. Active UNABLE TO FIND Take by mouth nightly. Med Name: Relaxium-2 per night for sleep Active diazePAM (VALIUM) 5 mg tabletIndicatio ns:Anxiety about health Take 1 tablet (5 mg total) by mouth See Admin Instructions. Take 1 tablet by mouth one hour prior to procedure, then remaining 1 tablet by mouth 15 minutes prior to procedure if needed. 2 tablet 10/20/19 25 Active lisinopril (PRINIVIL,ZESTR IL) 10 mg tablet Take 10 mg by mouth daily. Discontinued metoprolol succinate XL (TOPROL-XL) 25 mg 24 hr tablet Take 25 mg by mouth daily. Discontinued ezetimibe-simva statin (VYTORIN) 10-20 mg per tablet Take 1 tablet by mouth nightly. Discontinued metformin HCl (METFORMIN ORAL) Take by mouth. Discontinued insulin aspart SUBCUTANEOUS PUMP (NovoLOG) 100 UNIT/ML patient supplied pump Inject under the skin continuously. Discontinued omeprazole (PriLOSEC) 20 mg capsule Take 1 capsule (20 mg total) by mouth in the morning. Discontinued cholecalciferol , vitamin D3, 2,000 units tablet Take by mouth in the morning. Discontinued magnesium oxide (MAG-OX) 400 mg tablet Take 1 tablet (400 mg total) by mouth in the morning. Discontinued cinnamon bark (CINNAMON) 500 mg capsule Take 500 mg by mouth daily. 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 [place] [address] Left without seen 10/19/2024 Orders Only [facility] [address] [place] [address] Consuelo Jeffery, RMA Low back pain, unspecified back pain laterality, unspecified chronicity, unspecified whether sciatica present 10/17/2024 Travel 10/06/2024 12:10 AM EDT Ancillary Procedure [facility] [place] [address] Acute cough 10/06/2024 12:05 AM EDT Ancillary Procedure [facility] [place] [address] Pain, joint, shoulder, left 10/06/2024 Ancillary Procedure [facility] [place] [address] Back pain, unspecified back location, unspecified back pain laterality, unspecified chronicity 09/28/2024 Orders Only [facility] [address] [place] [phone] Katie Gloria Low back pain, unspecified back pain laterality, unspecified chronicity, unspecified whether sciatica present (Primary Dx) 08/04/2024 1:35 PM EDT Ancillary Procedure [facility] [place] [address] Pain 08/04/2024 12:05 AM EDT Ancillary Procedure [facility] [place] [address] Lumbar radiculopathy; Hip pain, bilateral 08/04/2024 Ancillary Procedure [facility] [place] [address] Lumbar radiculopathy; Hip pain, bilateral from Last 3 Months Family History Medical History Relation Name Comments Diabetes type II Brother Heart disease Brother Heart disease Father Heart disease Mother Pancreatic cancer Sister Relation Name Status Comments Brother Father Mother Sister Social History Tobacco Use Types [...] Pulse 92 10/19/2024 2:29 PM EDT Temperature 36.2 C (97.1 F) 10/19/2024 2:00 PM EDT Respiratory Rate 15 10/19/2024 2:00 PM EDT Oxygen Saturation 98% 10/19/2024 2:00 PM EDT Inhaled Oxygen Concentration - - Weight 96.2 kg (212 lb) 10/19/2024 2:29 PM EDT Height 188 cm (6' 2 ) 10/19/2024 2:29 PM EDT Body Mass Index 27.22 10/19/2024 2:29 PM EDT Plan of Treatment Health Maintenance Due Date Last Done Comments Depression Screening 1957 Zoster (Shingles) Vaccine (1 of 2) 02/24/1994 Abdominal Aortic Aneurysm (A AA) Screen 02/24/2009 Fall Risk Screening 02/24/2009 COVID-19 Vaccine (4 - 5-2 6 season) 2024 12/17/2020, 05/15/2020, 04/17/2020 Influenza Vaccine 10/23/2024 02/06/2023, , 12/07/2020, Additional history exists DTaP,Tdap and Td Vaccines (2 - Td or Tdap) 10/14/2025 10/15/2015 Tobacco Screening 10/19/2025 10/19/2024 Medical Devices Not on file Procedures Procedure Name Priority Date/Time Associated Diagnosis Comments XR LUMBAR SPINE AP, LATERAL, FLEXION AND EXTENSION ONLY Routine 10/19/2024 Low back pain, unspecified back pain laterality, unspecified chronicity, unspecified whether sciatica present XR CHEST 2 VWS Routine 10/06/2024 12:10 AM EDT Acute cough XR SHOULDER LT MIN 2 VWS Routine 10/06/2024 12:05 AM EDT Pain, joint, shoulder, left XR SPINE LUMBAR MIN 4 VWS Routine 10/06/2024 12:00 AM EDT Back pain, unspecified back location, unspecified back pain laterality, unspecified chronicity VASC ARTERIAL DOPPLER LOWER BILATERAL MULTI LEVEL/PVR Routine 08/04/2024 1:35 PM EDT Pain XR SPINE LUMBAR MIN 4 VWS Routine 08/04/2024 12:05 AM EDT Lumbar radiculopathy Hip pain, bilateral XR SACRUM COCCYX MIN 2 VWS Routine 08/04/2024 12:00 AM EDT Lumbar radiculopathy Hip pain, bilateral from Last 3 Months Results * X-ray spine lumbar ap, lateral, flexion and extension only (10/19/2024) Anatomical Region Laterality Modality MSK, Neuro, Spine, L-spine N/A Compu ginna Radiography us Juanita Perez PAPER BUNDLER-WIRE WEAVING LOOM SETTER IMG DIAGNOSTIC IMAGING ORDERABLES Final Result * X-ray chest 2 views (10/06/2024 12:10 AM EDT) us Scanning Provider External IMG DIAGNOSTIC IMAGIN G ORDERABLES Final Result * X-ray shoulder left minimum 2 views (10/06/2024 12:05 AM EDT) us Scanning Provider External IMG DIAGNOSTIC IMAGIN G ORDERABLES Final Result * X-ray spine lumbar minimum 4 views (10/06/2024 12:00 AM EDT) Only the most recent of2 resultswithin the time period is included. us Scanning Provider External IMG DIAGNOSTIC IMAGIN G ORDERABLES Final Result * Vas art doppler lwr bilat mult lev/PVR (08/04/2024 1:35 PM EDT) us Scanning Provider External CV VASCULAR ORDERABLE S Final Result MEDSTREAMING * X-ray sacrum coccyx minimum 2 views (08/04/2024 12:00 AM EDT) us Scanning Provider External IMG DIAGNOSTIC IMAGIN G ORDERABLES Final Result from Last 3 Months Insurance MEDICARE T Care Teams Tree Farmer Relationship Specialty Start Date End Date Trey Berkowitz DO [address] [place] [address] PCP - General 07/28/17
--- OUTSIDE RECORDS SUMMARY | 2024-10-31 09:23 | XMS_ITS | Encounter Summary ---
Author Organization [facility] Address [address] [place] [address] Phone Care Team Providers Care Sas Sql Developer Name Role Phone Trey Berkowitz DO Primary Care Provider [phone] Trey Berkowitz DO Primary Care Provider [phone] Trey Berkowitz DO Primary Care Provider [phone] Encounter Details Date Type Department Care Team (Late st Contact Info) Description 08/14/2021 Orders Only [facility] [address] [place] [address] Conversion, Onbase Social History Tobacco Use Types [...] Description 03/07/2025 10:30 AM EST Office Visit [facility] [address] [facility] [address] [place] [phone] Solo Khan DO [address] [facility] [address], [address] [place], [place] [phone] Scheduled Orders Name Type Priority Associated Diagnoses Orde r Schedule OUTSIDE LAB SCAN Lab Ordered: 08/14/2021 documented as of this encounter Visit Diagnoses Not on filedocumented in this encounter Care Teams Sas Sql Developer Relationship Specialty Start Date End Date Trey Berkowitz DO PCP - General 12/22/18 03/23/23 Trey Berkowitz DO PCP - General Family Medicine 03/24/23 10/27/23 Trey Berkowitz DO [address] [place] [address] PCP - General Family Medicine 10/28/23 documented as of this encounter
--- OUTSIDE RECORDS SUMMARY | 2024-10-31 09:23 | XMS_ITS | Encounter Summary ---
Author Organization [facility] Address [facility] [place] [address] Care Team Providers Care Buckle Gluer Name Role Phone Trey Berkowitz Primary Care Provider [phone] Source Comments In the event this information is protected by the Federal Confidentiality of Alcohol and Drug AbusePatient Records regulations: The Federal rules restrict any use of the information to criminally investigate or prosecute any alcohol or drug abuse patient.[facility] Encounter Details Date Type Department Care Team (Late st Contact Info) Description 01/24/2014 Get Medical Advice Urology [address] [facility] [address] [place] [address] Solo Alvarado III [address] [facility] [address] [place] [address] RE: Test Result Question Social History Tobacco Use Types Packs/Day Years [...] hearing? Answer Date of Assessment Author No 01/23/2014 10:48 AM Alpa Scruggs RN * Are you blind or do you have serious difficulty seeing, even when wearing glasses? Answer Date of Assessment Author No 01/23/2014 10:48 AM Alpa Scruggs RN * Do you have serious difficulty walking or climbing stairs? Answer Date of Assessment Author No 01/23/2014 10:48 AM Alpa Scruggs RN * Do you have difficulty dressing or bathing? Answer Date of Assessment Author No 01/23/2014 10:48 AM Alpa Scruggs RN * Because of a physical, mental, or emotional condition, do you have difficulty doing errands alone such as visiting a doctor's office or shopping? Answer Date of Assessment Author No 01/23/2014 10:48 AM Alpa Scruggs RN documented as of this encounter Mental Status * Because of a physical, mental, or emotional condition, do you have serious difficulty concentrating, remembering, or making decisions? Answer Entry Date Author No 01/23/2014 10:48 AM Alpa Scruggs RN documented in this encounter Plan of Treatment Upcoming Encounters Date Type Department Care Team (Latest Contact Info) Description 11/03/2024 2:15 PM EDT Office Visit [facility] [address] [place] [address] 8 week follow up with lab and B 12 inj 11/03/2024 2:30 PM EDT Visit (SP) Office Hematology/Oncology [address] [place] [address] Dolores Jacobson APRN.QUALITY CONTROL ENGINEERING TECHNICIAN [address] [place] [address] 8 week follow up with lab and B 12 inj 11/03/2024 3:00 PM EDT Nurse Visit Hematology/Oncology [address] [address] Beryl Parsons Nurse Hector [address] [address] 8 week follow up with lab B12 01/12/2025 1:20 PM EST Office Visit Gastroenterology [address] [place] [address] Jair Miller Jr., [address] [facility] [address] [place] [address] office moved from 12/29/24 months follow-up/ Pancreatic pseudocyst/cyst,Gene ralized abdominal pain,Gastroparesis,D yspepsia 05/08/2025 1:00 PM EDT Office Visit [facility] [address] [facility] [place] [address] lab 05/15/2025 1:00 PM EDT Office Visit Radiation Oncology [address] [address] Rafael Tyler MD [address] [facility] [address] 1 year follow up documented as of this encounter Visit Diagnoses Not on filedocumented in this encounter Care Teams Buckle Gluer Relationship Specialty Start Date End Date Trey Berkowitz [address] [place] [phone] PCP - General 05/14/04 documented as of this encounter
--- OUTSIDE RECORDS SUMMARY | 2024-10-31 09:23 | XMS_ITS | Encounter Summary ---
Author Organization [facility] Address [address] [place] [address] Care Team Providers Care Gear Nicker Name Role Phone Trey Berkowitz Primary Care Provider [phone] Source Comments In the event this information is protected by the Federal Confidentiality of Alcohol and Drug AbusePatient Records regulations: The Federal rules restrict any use of the information to criminally investigate or prosecute any alcohol or drug abuse patient.[facility] Encounter Details Date Type Department Care Team (Late st Contact Info) Description 08/11/2022 Get Medical Advice Gastroenterology [address] [place] [address] Jair Miller Jr., DO [address] [place] [address] Appointment today Social History Tobacco Use Types Packs/Day Years [...] slept in a custodial (including now)? No 07/31/2022 Area Deprivation Index Answer Date Chon rded National Score (1-100), lower number is lower ri sk 55 08/08/2022 State Score (1-10), lower number is lower risk 3 08/08/2022 Data from: https://www.neighborhoodatlas.medicine.[facility].edu/. Last address used for calculation [address] 08/08/2022 Sex and Gender Information [...] Description 11/03/2024 2:15 PM EDT Office Visit [facility] [address] [place] [address] 8 week follow up with lab and B 12 inj 11/03/2024 2:30 PM EDT Visit (SP) Office Hematology/Oncology [address] [place] [address] Dolores Jacobson APRN.OFFICE WORKER [address] [place] [address] 8 week follow up with lab and B 12 inj 11/03/2024 3:00 PM EDT Nurse Visit Hematology/Oncology [address] [place] [address] Beryl Parsons Nurse Hector [address] [place] [address] 8 week follow up with lab B12 01/12/2025 1:20 PM EST Office Visit Gastroenterology [address] [place] [address] Jair Miller Jr., [address] [facility] [address] [place] [phone] office moved from 12/29/24 months follow-up/ Pancreatic pseudocyst/cyst,Gene ralized abdominal pain,Gastroparesis,D yspepsia 05/08/2025 1:00 PM EDT Office Visit [facility] [address] [facility] [place] [address] lab 05/15/2025 1:00 PM EDT Office Visit Radiation Oncology [address] [facility] [place] [address] Rafael Tyler MD [address] [facility] [place] [address] 1 year follow up documented as of this encounter Visit Diagnoses Not on filedocumented in this encounter Care Teams Gear Nicker Relationship Specialty Start Date End Date Trey Berkowitz [address] [place] [phone] PCP - General 05/14/04 documented as of this encounter
--- OUTSIDE RECORDS SUMMARY | 2024-10-31 09:23 | XMS_ITS | Encounter Summary ---
Author Organization [facility] Address [facility] [place] [address] Care Team Providers Care Vp Business Development Name Role Phone Trey Berkowitz Primary Care Provider [phone] Source Comments In the event this information is protected by the Federal Confidentiality of Alcohol and Drug AbusePatient Records regulations: The Federal rules restrict any use of the information to criminally investigate or prosecute any alcohol or drug abuse patient.[facility] Encounter Details Date Type Department Care Team (Late st Contact Info) Description 11/24/2022 Lab Requisition [facility] [address] [place] [address] [place] [address] [address] [facility] [address] [phone] Other chronic pancreatitis (HCC) Social History Tobacco [...] for rehabilitation.edu/. Last address used for calculation [address] [facility] 08/08/2022 Sex and Gender Information [...] Description 11/03/2024 2:15 PM EDT Office Visit [facility] Laboratory [address] [place] [address] 8 week follow up with lab and B 12 inj 11/03/2024 2:30 PM EDT Visit (SP) Office Hematology/Oncology [address] [place], [place] [address] [address] Dolores Jacobson APRN.SAND CARRIER [address] [facility] [place] [address] 8 week follow up with lab and B 12 inj 11/03/2024 3:00 PM EDT Nurse Visit Hematology/Oncology [address] [place] [address] Beryl Parsons Nurse Hector [address] [address] 8 week follow up with lab B12 01/12/2025 1:20 PM EST Office Visit Gastroenterology [address] [place] [address] Jair Miller Jr., DO [address] [facility] [place] [phone] office moved from 12/29/24 months follow-up/ Pancreatic pseudocyst/cyst,Gene ralized abdominal pain,Gastroparesis,D yspepsia 05/08/2025 1:00 PM EDT Office Visit [facility] Laboratory [address] [address] lab 05/15/2025 1:00 PM EDT Office Visit Radiation Oncology [address] [place] [address] Rafael Tyler MD [address] [address] 1 year follow up documented as of this encounter Procedures Procedure Name Priority Date/Time Associated Diagnosis Comments MAGNESIUM BLD Routine 11/23/2022 3:00 PM EDT Other chronic pancreatitis (HCC) LAVENDER TOP EXTRA TUBE Routine 11/23/2022 3:00 PM EDT Other chronic pancreatitis (HCC) PHOSPHORUS INORGANIC Routine 11/23/2022 3:00 PM EDT Other chronic pancreatitis (HCC) COMPREHENSIVE METABOLIC PANEL Routine 11/23/2022 3:00 PM EDT Other chronic pancreatitis (HCC) CBC + DIFF Routine 11/23/2022 3:00 PM EDT Other chronic pancreatitis (HCC) documented in this encounter Results * LAVENDER TOP EXTRA TUBE (11/23/2022 3:00 PM EDT) Blood BLOOD SPECIMEN / Unknown 11/23/2022 3:00 PM EDT 11/24/2022 5:39 AM EDT us Natali Leonard MD LABORATORY Final Result [facility] [address] [facility] [address] [address], [place] * PHOSPHORUS INORGANIC (11/23/2022 3:00 PM EDT) Phosphorus 4.4 2.7 - 4.8 mg/dL 11/24/2022 12:06 PM EDT [facility] Blood BLOOD SPECIMEN / Unknown 11/23/2022 3:00 PM EDT 11/24/2022 5:38 AM EDT Natali Leonard MD LABORATORY Final Result [facility] [address] [place] [phone], [place] * MAGNESIUM BLD (11/23/2022 3:00 PM EDT) Magnesium 2.0 1.7 - 2.3 mg/dL 11/24/2022 12:06 PM EDT [facility] Blood BLOOD SPECIMEN / Unknown 11/23/2022 3:00 PM EDT 11/24/2022 5:38 AM EDT Natali Leonard MD LABORATORY Final Result [facility] [address] [address], [place] * (ABNORMAL) CBC + DIFF (11/23/2022 3:00 PM EDT) WBC 11.43(H) 3.70 - 11.00 k/uL 11/24/2022 8:10 AM EDT [facility] RBC 4.23 4.20 - 6.00 m/uL 11/24/2022 8:10 AM EDT [facility] Hemoglobin 11.2(L) 13.0 - 17.0 g/dL 11/24/2022 8:10 AM EDT [facility] Hematocrit 37.1(L) 39.0 - 51.0 % 11/24/2022 8:10 AM EDT [facility] MCV 87.7 80.0 - 100.0 fL 11/24/2022 8:10 AM EDT [facility] MCH 26.5 26.0 - 34.0 pg 11/24/2022 8:10 AM EDT [facility] MCHC 30.2(L) 30.5 - 36.0 g/dL 11/24/2022 8:10 AM EDT [facility] RDW-CV 18.6(H) 11.5 - 15.0 % 11/24/2022 8:10 AM EDT [facility] Platelet Count 390 150 - 400 k/uL 11/24/2022 8:10 AM EDT [facility] MPV 12.4 9.0 - 12.7 fL 11/24/2022 8:10 AM EDT [facility] Neutrophils % 81.7 % 11/24/2022 8:10 AM EDT [facility] Abs Neut 9.34(H) 1.45 - 7.50 k/uL 11/24/2022 8:10 AM EDT [facility] Lymphocytes % 12.0 % 11/24/2022 8:10 AM EDT [facility] Abs Lymph 1.37 1.00 - 4.00 k/uL 11/24/2022 8:10 AM EDT [facility] Monocytes % 5.0 % 11/24/2022 8:10 AM EDT [facility] Abs Spalding 0.57 <0.87 k/uL 11/24/2022 8:10 AM EDT [facility] Eosinophils % 0.2 % 11/24/2022 8:10 AM EDT [facility] Abs Eosin <0.03 <0.46 k/uL 11/24/2022 8:10 AM EDT [facility] Basophils % 0.5 % 11/24/2022 8:10 AM EDT [facility] Abs Baso 0.06 <0.11 k/uL 11/24/2022 8:10 AM EDT [facility] Immature Granulocytes % 0.6 % 11/24/2022 8:10 AM EDT [facility] Abs Immature Gran 0.07 <0.10 k/uL 11/24/2022 8:10 AM EDT [facility] NRBC 0.0 /100 WBC 11/24/2022 8:10 AM EDT [facility] Absolute nRBC <0.01 <0.01 k/uL 11/24/2022 8:10 AM EDT [facility] Diff Type Auto 11/24/2022 8:10 AM EDT [facility] Blood BLOOD SPECIMEN / Unknown 11/23/2022 3:00 PM EDT 11/24/2022 5:38 AM EDT us Natali Leonard MD LABORATORY Final Result [facility] [address] [place] [address], [place] * (ABNORMAL) COMP METABOLIC PANEL (11/23/2022 3:00 PM EDT) Protein, Total 6.6 6.3 - 8.0 g/dL 11/24/2022 12:06 PM EDT [facility] Albumin 4.0 3.9 - 4.9 g/dL 11/24/2022 12:06 PM EDT [facility] Calcium, Total 9.3 8.5 - 10.2 mg/dL 11/24/2022 12:06 PM EDT [facility] Bilirubin, Total <0.2(L) 0.2 - 1.3 mg/dL 11/24/2022 12:06 PM EDT [facility] Alkaline Phosphatase 69 38 - 113 U/L 11/24/2022 12:06 PM EDT [facility] AST 22 14 - 40 U/L 11/24/2022 12:06 PM EDT [facility] ALT 20 10 - 54 U/L 11/24/2022 12:06 PM EDT [facility] Glucose 271(H) 74 - 99 mg/dL 11/24/2022 12:06 PM EDT [facility] Comment: The [place] Diabetes Association (ADA) provides guidance for cutoff [...] Standards of Medical Care in Diabetes 2016, [place] Diabetes Association. Diabetes Care. 2016.39(Suppl 1). BUN 31(H) 9 - 24 mg/dL 11/24/2022 12:06 PM [facility] Creatinine 1.01 0.73 - 1.22 mg/dL 11/24/2022 12:06 PM [facility] Sodium 138 136 - 144 mmol/L 11/24/2022 12:06 PM [facility] Potassium 5.1 3.7 - 5.1 mmol/L 11/24/2022 12:06 PM [facility] Chloride 100 97 - 105 mmol/L 11/24/2022 12:06 PM [facility] CO2 21(L) 22 - 30 mmol/L 11/24/2022 12:06 PM [facility] Anion Gap 17 9 - 18 mmol/L 11/24/2022 12:06 PM [facility] Estimated Glomerular Filtration Rate 76 >=60 mL/min/1. 73m 11/24/2022 12:06 PM [facility] Comment:Estimated Glomerular Filtration Rate (eGFR) is [...] actual GFR. Blood BLOOD SPECIMEN / Unknown 11/23/2022 3:00 PM EDT 11/24/2022 5:38 AM EDT us Natali Leonard MD LABORATORY Final Result [facility] [address] [facility] [address] [place] [address], documented in this encounter Visit Diagnoses Diagnosis Other chronic pancreatitis (HCC) documented in this encounter Care Teams Vp Business Development Relationship Specialty Start Date End Date Trey Berkowitz [address] [place] [phone] PCP - General 05/14/04 documented as of this encounter
--- OUTSIDE RECORDS SUMMARY | 2024-10-31 09:23 | XMS_ITS | Encounter Summary ---
Author Organization [facility] Address [facility] [place] [address] Care Team Providers Care Branch Examiner Name Role Phone Trey Berkowitz Primary Care Provider [phone] Source Comments In the event this information is protected by the Federal Confidentiality of Alcohol and Drug AbusePatient Records regulations: The Federal rules restrict any use of the information to criminally investigate or prosecute any alcohol or drug abuse patient.[facility] Encounter Details Date Type Department Care Team (Late st Contact Info) Description 09/22/2022 Lab Requisition [facility] Laboratory [address] [place] [address] [place] [address] [address] [facility] [address] [phone] Other chronic pancreatitis (HCC) Social History Tobacco [...] is lower risk 3 08/08/2022 Data from: https://www.neighborhoodatlas.medicine.[facility].edu/. Last address used for calculation [address] 08/08/2022 Sex and Gender Information [...] 11/03/2024 2:15 PM EDT Office Visit [facility] [address] [facility] [place] [address] 8 week follow up with lab and B 12 inj 11/03/2024 2:30 PM EDT Visit (SP) Office Hematology/Oncology [address] [place] [address] Dolores Jacobson APRN.TRANSITIONS RN CARE COORDINATOR [address] [place] [address] 8 week follow up with lab and B 12 inj 11/03/2024 3:00 PM EDT Nurse Visit Hematology/Oncology [address] [place] [address] Beryl Parsons Nurse Hector [address] [facility] [place] [address] 8 week follow up with lab B12 01/12/2025 1:20 PM EST Office Visit Gastroenterology [address] [place] [address] Jair Miller Jr., DO [address] [facility] [place] [phone] office moved from 12/29/24 months follow-up/ Pancreatic pseudocyst/cyst,Gene ralized abdominal pain,Gastroparesis,D yspepsia 05/08/2025 1:00 PM EDT Office Visit [facility] [address] [facility] [place] [address] lab 05/15/2025 1:00 PM EDT Office Visit Radiation Oncology [address] [facility] [place] [address] Rafael Tyler MD [address] [facility] [place] [address] 1 year follow up documented as of this encounter Procedures Procedure Name Priority Date/Time Associated Diagnosis Comments POTASSIUM Routine 09/21/2022 2:15 PM EDT Other chronic pancreatitis (HCC) GOLD TOP EXTRA TUBE Routine 09/21/2022 2 :15 PM EDT Other chronic pancreatitis (HCC) LIGHT GREEN TOP EXTRA TUBE Routine 09/21/2022 2:15 PM EDT Other chronic pancreatitis (HCC) PHOSPHORUS INORGANIC Routine 09/21/2022 2:15 PM EDT Other chronic pancreatitis (HCC) COMPREHENSIVE METABOLIC PANEL Routine 09/21/2022 2:15 PM EDT Other chronic pancreatitis (HCC) CBC + DIFF Routine 09/21/2022 2:15 PM EDT Other chronic pancreatitis (HCC) documented in this encounter Results * GOLD TOP EXTRA TUBE (09/21/2022 2:15 PM EDT) Blood BLOOD SPECIMEN / Unknown 09/21/2022 2:15 PM EDT 09/22/2022 3:25 AM EDT us Natali Leonard MD LABORATORY Final Result [facility] [address] [facility] [place] [phone], [place] * LIGHT GREEN TOP EXTRA TUBE (09/21/2022 2:15 PM EDT) Blood BLOOD SPECIMEN / Unknown 09/21/2022 2:15 PM EDT 09/22/2022 3:25 AM EDT Natali Leonard MD LABORATORY Final Result Performing Organization Address City/[facility]/ZIP Co de Phone Number [facility] [address] [facility] [place] [phone], [place] * POTASSIUM BLD (09/21/2022 2:15 PM EDT) Potassium 5.1 3.7 - 5.1 mmol/L 09/22/2022 6:03 PM EDT [facility] Blood BLOOD SPECIMEN / Unknown 09/21/2022 2:15 PM EDT 09/22/2022 3:25 AM EDT Natali Leonard MD LABORATORY Final Result Performing Organization Address [facility]/ZIP Co de Phone Number [facility] [address] [facility] [address] [address], [place] * PHOSPHORUS INORGANIC (09/21/2022 2:15 PM EDT) Phosphorus 3.9 2.7 - 4.8 mg/dL 09/22/2022 6:03 PM EDT [facility] Blood BLOOD SPECIMEN / Unknown 09/21/2022 2:15 PM EDT 09/22/2022 3:25 AM EDT us Natali Leonard MD LABORATORY Final Result Performing Organization Address City/[facility]/ZIP Co de Phone Number [facility] [address] [facility] [address] [address], [place] * (ABNORMAL) CBC + DIFF (09/21/2022 2:15 PM EDT) WBC 10.35 3.70 - 11.00 k/uL 09/22/2022 4:30 AM EDT [facility] RBC 4.01(L) 4.20 - 6.00 m/uL 09/22/2022 4:30 AM EDT [facility] Hemoglobin 10.6(L) 13.0 - 17.0 g/dL 09/22/2022 4:30 AM EDT [facility] Hematocrit 35.2(L) 39.0 - 51.0 % 09/22/2022 4:30 AM EDT [facility] MCV 87.8 80.0 - 100.0 fL 09/22/2022 4:30 AM EDT [facility] MCH 26.4 26.0 - 34.0 pg 09/22/2022 4:30 AM EDT [facility] MCHC 30.1(L) 30.5 - 36.0 g/dL 09/22/2022 4:30 AM EDT [facility] RDW-CV 17.2(H) 11.5 - 15.0 % 09/22/2022 4:30 AM EDT [facility] Platelet Count 458(H) 150 - 400 k/uL 09/22/2022 4:30 AM EDT [facility] MPV 11.8 9.0 - 12.7 fL 09/22/2022 4:30 AM EDT [facility] Neutrophils % 74.6 % 09/22/2022 4:30 AM EDT [facility] Abs Neut 7.73(H) 1.45 - 7.50 k/uL 09/22/2022 4:30 AM EDT [facility] Lymphocytes % 20.7 % 09/22/2022 4:30 AM EDT [facility] Abs Lymph 2.14 1.00 - 4.00 k/uL 09/22/2022 4:30 AM EDT [facility] Monocytes % 3.0 % 09/22/2022 4:30 AM EDT [facility] Abs Beadle 0.31 <0.87 k/uL 09/22/2022 4:30 AM EDT [facility] Eosinophils % 0.1 % 09/22/2022 4:30 AM EDT [facility] Abs Eosin <0.03 <0.46 k/uL 09/22/2022 4:30 AM EDT [facility] Basophils % 0.6 % 09/22/2022 4:30 AM EDT [facility] Abs Baso 0.06 <0.11 k/uL 09/22/2022 4:30 AM EDT [facility] Immature Granulocytes % 1.0 % 09/22/2022 4:30 AM EDT [facility] Abs Immature Gran 0.10(H) <0.10 k/uL 023 4:30 AM EDT [facility] NRBC 0.0 /100 WBC 09/22/2022 4:30 AM EDT [facility] Absolute nRBC <0.01 <0.01 k/uL 09/22/2022 4:30 AM EDT [facility] Diff Type Auto 09/22/2022 4:30 AM EDT [facility] Blood BLOOD SPECIMEN / Unknown 09/21/2022 2:15 PM EDT 09/22/2022 3:25 AM EDT us Natali Leonard MD LABORATORY Final Result [facility] [address] [phone], * (ABNORMAL) COMP METABOLIC PANEL (09/21/2022 2:15 PM EDT) Protein, Total 6.9 6.3 - 8.0 g/dL 09/22/2022 6:03 PM EDT [facility] Albumin 3.4(L) 3.9 - 4.9 g/dL 09/22/2022 6:03 PM EDT [facility] Calcium, Total 9.2 8.5 - 10.2 mg/dL 09/22/2022 6:03 PM [facility] Bilirubin, Total 0.2 0.2 - 1.3 mg/dL 09/22/2022 6:03 PM [facility] Alkaline Phosphatase 67 38 - 113 U/L 09/22/2022 6:03 PM [facility] AST 33 14 - 40 U/L 09/22/2022 6:03 PM [facility] ALT 24 10 - 54 U/L 09/22/2022 6:03 PM [facility] Glucose 186(H) 74 - 99 mg/dL 09/22/2022 6:03 PM [facility] Comment: The [place] Diabetes Association (ADA) provides guidance for cutoff [...] Standards of Medical Care in Diabetes 2016, [place] Diabetes Association. Diabetes Care. 2016.39(Suppl 1). BUN 26(H) 9 - 24 mg/dL 09/22/2022 6:03 PM [facility] Creatinine 0.90 0.73 - 1.22 mg/dL 09/22/2022 6:03 PM [facility] Sodium 140 136 - 144 mmol/L 09/22/2022 6:03 PM [facility] Potassium 5.1 3.7 - 5.1 mmol/L 09/22/2022 6:03 PM [facility] Chloride 102 97 - 105 mmol/L 09/22/2022 6:03 PM [facility] CO2 22 22 - 30 mmol/L 09/22/2022 6:03 PM [facility] Anion Gap 16 9 - 18 mmol/L 09/22/2022 6:03 PM [facility] Estimated Glomerular Filtration Rate 87 >=60 mL/min/1.7 3m 09/22/2022 6:03 PM EDT [facility] Comment:Estimated Glomerular Filtration Rate [...] actual GFR. Blood BLOOD SPECIMEN / Unknown 09/21/2022 2:15 PM EDT 09/22/2022 3:25 AM EDT us Natali Leonard MD LABORATORY Final Result [facility] [address] [address], documented in this encounter Visit Diagnoses Diagnosis Other chronic pancreatitis (HCC) documented in this encounter Care Teams Branch Examiner Relationship Specialty Start Date End Date Trey Berkowitz [address] [place] [phone] PCP - General 05/14/04 documented as of this encounter
--- OUTSIDE RECORDS SUMMARY | 2024-10-31 09:23 | XMS_ITS | Encounter Summary ---
Author Organization [facility] Address [address] [place] [address] Phone Care Team Providers Care Gravity Prospecting Operator Helper Name Role Phone Trey Berkowitz DO Primary Care Provider [phone] Trey Berkowitz DO Primary Care Provider [phone] Trey Berkowitz DO Primary Care Provider [phone] Encounter Details Date Type Department Care Team (Late st Contact Info) Description 08/11/2019 Orders Only [facility] [address] [place] [address] Conversion, Onbase Social History Tobacco Use Types [...] Description 03/07/2025 10:30 AM EST Office Visit [facility] [address] [facility] [address] [place] [phone] Solo Khan DO [address] [facility] [address], [address] [place], [place] [phone] Scheduled Orders Name Type Priority Associated Diagnoses Orde r Schedule OUTSIDE LAB SCAN Lab Ordered: 08/11/2019 documented as of this encounter Visit Diagnoses Not on filedocumented in this encounter Care Teams Gravity Prospecting Operator Helper Relationship Specialty Start Date End Date Trey Berkowitz DO PCP - General 12/22/18 03/23/23 Trey Berkowitz DO PCP - General Family Medicine 03/24/23 10/27/23 Trey Berkowitz DO [address] [place] [address] PCP - General Family Medicine 10/28/23 documented as of this encounter
--- OUTSIDE RECORDS SUMMARY | 2024-10-31 09:23 | XMS_ITS | Encounter Summary ---
Author Organization [facility] Address [address] [place] [address] Care Team Providers Care Payment Manager Name Role Phone Trey Berkowitz Primary Care Provider [phone] Source Comments In the event this information is protected by the Federal Confidentiality of Alcohol and Drug AbusePatient Records regulations: The Federal rules restrict any use of the information to criminally investigate or prosecute any alcohol or drug abuse patient.[facility] Encounter Details Date Type Department Care Team (Late st Contact Info) Description 10/14/2022 Patient Msg Pharmacy Home Infusion [address] [facility] [place] [phone] Noris Mares PSS Weekly [facility] Infusion Pharmacy refill request Social History [...] lower risk 3 08/08/2022 Data from: https://www.neighborhoodatlas.medicine.[facility].edu/. Last address used for calculation [address] [facility] 08/08/2022 Sex and Gender Information Value [...] Visit [facility] [address] [facility] [place] [address] 8 week follow up with lab and B 12 inj 11/03/2024 2:30 PM EDT Visit (SP) Office Hematology/Oncology [address] [facility] [place] [address] Dolores Jacobson APRN.[employer]ANCE [address] [place] [address] 8 week follow up with lab and B 12 inj 11/03/2024 3:00 PM EDT Nurse Visit Hematology/Oncology [address] [place] [address] Beryl Odom Nurse Hector [address] [facility] [place] [address] 8 week follow up with lab B12 01/12/2025 1:20 PM EST Office Visit Gastroenterology [address] [place] [place] [address] Jair Miller Jr., [address] [facility] [address] [place] [phone] office moved from 12/29/24 months follow-up/ Pancreatic pseudocyst/cyst,Gene ralized abdominal pain,Gastroparesis,D yspepsia 05/08/2025 1:00 PM EDT Office Visit [facility] [address] [facility] [place] [address] lab 05/15/2025 1:00 PM EDT Office Visit Radiation Oncology [address] [facility] [place] [address] Rafael Tyler MD [address] [facility] [place] [address] 1 year follow up documented as of this encounter Visit Diagnoses Not on filedocumented in this encounter Care Teams Payment Manager Relationship Specialty Start Date End Date Trey Berkowitz [address] [place] [phone] PCP - General 05/14/04 documented as of this encounter
--- OUTSIDE RECORDS SUMMARY | 2024-10-31 09:23 | XMS_ITS | Encounter Summary ---
Author Organization [facility] Address [facility] [place] [address] Care Team Providers Care Lab Tester Name Role Phone Trey Berkowitz Primary Care Provider [phone] Source Comments In the event this information is protected by the Federal Confidentiality of Alcohol and Drug AbusePatient Records regulations: The Federal rules restrict any use of the information to criminally investigate or prosecute any alcohol or drug abuse patient.[facility] Encounter Details Date Type Department Care Team (Late st Contact Info) Description 11/24/2022 Lab Requisition [facility] [address] [place] [address] [place] [address] [address] [facility] [address] [place] [id number] Other chronic pancreatitis (HCC) Social History Tobacco [...] risk 3 08/08/2022 Data from: https://www.neighborhoodatlas.medicine.[facility].edu/. Last address used for calculation [address] 08/08/2022 Sex and Gender Information Value Date [...] Visit [facility] Laboratory [address] [place] [address] 8 week follow up with lab and B 12 inj 11/03/2024 2:30 PM EDT Visit (SP) Office Hematology/Oncology [address] [place], [place] [address] [address] Dolores Jacobson APRN.FABRICATION MANAGER [address] [facility] [place] [address] 8 week follow up with lab and B 12 inj 11/03/2024 3:00 PM EDT Nurse Visit Hematology/Oncology [address] [place] [address] Beryl Parsons Nurse Hector [address] [facility] [place] [address] 8 week follow up with lab B12 01/12/2025 1:20 PM EST Office Visit Gastroenterology [address] [place] [address] Jair Miller Jr., [address] [facility] [address] [place] [address] [place] [phone] office moved from 12/29/24 months follow-up/ Pancreatic pseudocyst/cyst,Gene ralized abdominal pain,Gastroparesis,D yspepsia 05/08/2025 1:00 PM EDT Office Visit [facility] Laboratory [address] [facility] [address] lab 05/15/2025 1:00 PM EDT Office Visit Radiation Oncology [address] [facility] [place] [address] Rafael Tyler MD [address] [facility] [place] [address] 1 year follow up documented as of this encounter Visit Diagnoses Diagnosis Other chronic pancreatitis (HCC) documented in this encounter Care Teams Lab Tester Relationship Specialty Start Date End Date Trey Berkowitz [address] [place] [phone] PCP - General 05/14/04 documented as of this encounter
--- OUTSIDE RECORDS SUMMARY | 2024-10-31 09:23 | XMS_ITS | Encounter Summary ---
Author Organization [facility] Address [address] [place] [address] Care Team Providers Care Loss Control Engineer Name Role Phone Trey Berkowitz Primary Care Provider [phone] Source Comments In the event this information is protected by the Federal Confidentiality of Alcohol and Drug AbusePatient Records regulations: The Federal rules restrict any use of the information to criminally investigate or prosecute any alcohol or drug abuse patient.[facility] Encounter Details Date Type Department Care Team (Late st Contact Info) Description 10/12/2022 Get Medical Advice Gastroenterology [address] [place] [address] Jair Miller Jr., DO [address] [place] [address] Chau Rae is at home as of 10/10/22 Social History Tobacco Use Types Packs/Day Years [...] lower risk 3 08/08/2022 Data from: https://www.neighborhoodatlas.medicine.[facility].edu/. Last address used for calculation [address] 08/08/2022 Sex and Gender Information [...] Telephone Encounter - Katie Celaya RN - 10/13/2022 8:45 AM EDT Please add pt to Wednesday's clinic per Dr. Miller's request. Thank you Katie Celaya RN * Telephone Encounter - Katie Celaya RN - 10/12/2022 1:[address] Miller, please review 10/09/[address] Bo. I see pt was scheduled for an office visit with Dr. Brooks and then see it was canceled. Patient is still on for an office visit with Dr. Leonard. Can you please review chart and advise as to next steps. We had discussed getting pt in with Dr. Brooks and were to be updated after discharge. Pt is home now but it looks there was a lot of conflicting notes and just trying to get patient pointed in the right direction. Patient is also wondering if he should contiue Zenpep? Thank you Katie Celaya RN documented in this encounter Plan of Treatment Upcoming Encounters Date Type Department Care Team (Latest Contact Info) Description 11/03/2024 2:15 PM EDT Office Visit [facility] Laboratory [address] [facility] [place] [address] 8 week follow up with lab and B 12 inj 11/03/2024 2:30 PM EDT Visit (SP) Office Hematology/Oncology [address] [place] [address] [place] [address] Dolores Jacobson APRN.PHOTONIC LABORATORY TECHNICIAN [address] [facility] [place] [address] 8 week follow up with lab and B 12 inj 11/03/2024 3:00 PM EDT Nurse Visit Hematology/Oncology [address] [place] [address] [place] [address] Beryl Parsons Nurse Hector [address] [facility] [place] [place] [address] 8 week follow up with lab B12 01/12/2025 1:20 PM EST Office Visit Gastroenterology [address] [place] [address] Jair Miller Jr., DO [address] [facility] [address] [place] [address] [place] [phone] office moved from 12/29/24 months follow-up/ Pancreatic pseudocyst/cyst,Gene ralized abdominal pain,Gastroparesis,D yspepsia 05/08/2025 1:00 PM EDT Office Visit [facility] Laboratory [address] [facility] [place] [address] lab 05/15/2025 1:00 PM EDT Office Visit Radiation Oncology [address] [place] [address] [place] [address] Rafael Tyler MD [address] [place] [address] [place] [address] 1 year follow up documented as of this encounter Visit Diagnoses Not on filedocumented in this encounter Care Teams Loss Control Engineer Relationship Specialty Start Date End Date Trey Berkowitz [address] [place] [phone] PCP - General 05/14/04 documented as of this encounter
--- OUTSIDE RECORDS SUMMARY | 2024-10-31 09:23 | XMS_ITS | Encounter Summary ---
Author Organization [facility] Address [address] [place] [address] Phone Care Team Providers Care Marriage Counselor Minister Name Role Phone Trey Berkowitz DO Primary Care Provider [phone] Trey Berkowitz DO Primary Care Provider [phone] Trey Berkowitz DO Primary Care Provider [phone] Encounter Details Date Type Department Care Team (Late st Contact Info) Description 06/05/2021 Orders Only [facility] [address] [place] [address] Conversion, Onbase Social History Tobacco Use Types [...] Description 03/07/2025 10:30 AM EST Office Visit [facility] [address] [facility] [address] [place] [phone] Solo Khan DO [address] [facility] [address], [address] [place], [place] [phone] Scheduled Orders Name Type Priority Associated Diagnoses Orde r Schedule OUTSIDE LAB SCAN Lab Ordered: 06/05/2021 documented as of this encounter Visit Diagnoses Not on filedocumented in this encounter Care Teams Marriage Counselor Minister Relationship Specialty Start Date End Date Trey Berkowitz DO PCP - General 12/22/18 03/23/23 Trey Berkowitz DO PCP - General Family Medicine 03/24/23 10/27/23 Trey Berkowitz DO [address] [place] [address] PCP - General Family Medicine 10/28/23 documented as of this encounter
--- OUTSIDE RECORDS SUMMARY | 2024-10-31 09:23 | XMS_ITS | Encounter Summary ---
Author Organization [facility] Address [address] [place] [address] Care Team Providers Care Environmental Epidemiologist Name Role Phone Trey Berkowitz Primary Care Provider [phone] Source Comments In the event this information is protected by the Federal Confidentiality of Alcohol and Drug AbusePatient Records regulations: The Federal rules restrict any use of the information to criminally investigate or prosecute any alcohol or drug abuse patient.[facility] Encounter Details Date Type Department Care Team (Late st Contact Info) Description 08/07/2022 Patient [facility] Gastroenterology [address] [place] [address] Provider, Cc labs Social History Tobacco Use Types Packs/Day [...] Data from: https://www.neighborhoodatlas.medicine.[facility].edu/. Last address used for calculation [address] [place] [address] 08/08/2022 Sex and Gender Information Value Date [...] Jerri Kwong RN documented in this encounter Plan of Treatment Upcoming Encounters Date Type Department Care Team (Latest Contact Info) Description 11/03/2024 2:15 PM EDT Office Visit [facility] Laboratory [address] [facility] [place] [address] 8 week follow up with lab and B 12 inj 11/03/2024 2:30 PM EDT Visit (SP) Office Hematology/Oncology [address] [facility] [place] [address] Dolores Jacobson APRN.PELLET MILL OPERATOR [address] [facility] [place] [address] 8 week follow up with lab and B 12 inj 11/03/2024 3:00 PM EDT Nurse Visit Hematology/Oncology [address] [facility] [place] [address] Beryl Odom Nurse Hector [address] [facility] [place] [address] 8 week follow up with lab B12 01/12/2025 1:20 PM EST Office Visit Gastroenterology [address] [place] [address] Jair Miller Jr., DO [address] [facility] [address] [place] [address] [place] [phone] office moved from 12/29/24 months follow-up/ Pancreatic pseudocyst/cyst,Gene ralized abdominal pain,Gastroparesis,D yspepsia 05/08/2025 1:00 PM EDT Office Visit [facility] Laboratory [address] [facility] [place] [address] lab 05/15/2025 1:00 PM EDT Office Visit Radiation Oncology [address] [facility] [place] [address] Rafeal Tyler MD [address] [place] [address] [place] [address] 1 year follow up documented as of this encounter Visit Diagnoses Not on filedocumented in this encounter Care Teams Environmental Epidemiologist Relationship Specialty Start Date End Date Trey Berkowitz [address] [place] [phone] PCP - General 05/14/04 documented as of this encounter
--- OUTSIDE RECORDS SUMMARY | 2024-10-31 09:23 | XMS_ITS | Encounter Summary ---
Author Organization [facility] Address [address] [place] [address] Care Team Providers Care Boat Hop Name Role Phone Trey Berkowitz Primary Care Provider [phone] Source Comments In the event this information is protected by the Federal Confidentiality of Alcohol and Drug AbusePatient Records regulations: The Federal rules restrict any use of the information to criminally investigate or prosecute any alcohol or drug abuse patient.[facility] Encounter Details Date Type Department Care Team (Latest Contact Info) Description 11/11/2022 Patient Msg Pharmacy Home Infusion [address] [facility]. [address] [place] [phone] Noris Mares PSS Questionnaire Submission Social History [...] lower risk 3 08/08/2022 Data from: https://www.neighborhoodatlas.medicine.[facility].edu/. Last address used for calculation [address] [place] [address] 08/08/2022 Sex and Gender Information Value Date [...] PM EDT Office Visit [facility] Laboratory [address] [facility] [address] 8 week follow up with lab and B 12 inj 11/03/2024 2:30 PM EDT Visit (SP) Office Hematology/Oncology [address] [facility] [place] [address] Dolores Jacobson APRN.GLASS SETTER [address] [facility] [place] [address] 8 week follow up with lab and B 12 inj 11/03/2024 3:00 PM EDT Nurse Visit Hematology/Oncology [address] [place] [address] Beryl Odom Nurse Hector [address] [facility] [place] [address] 8 week follow up with lab B12 01/12/2025 1:20 PM EST Office Visit Gastroenterology [address] [place] [address] Jair Miller Jr., DO [address] [facility] [address] [place] [address] office moved from 12/29/24 months follow-up/ Pancreatic pseudocyst/cyst,Gene ralized abdominal pain,Gastroparesis,D yspepsia 05/08/2025 1:00 PM EDT Office Visit [facility] Laboratory [address] [facility] [place] [address] lab 05/15/2025 1:00 PM EDT Office Visit Radiation Oncology [address] [facility] [place] [address] Rafael Tyler MD [address] [facility] [place] [address] 1 year follow up documented as of this encounter Visit Diagnoses Not on filedocumented in this encounter Care Teams Boat Hop Relationship Specialty Start Date End Date Trey Berkowitz [address] [place] [phone] PCP - General 05/14/04 documented as of this encounter
--- OUTSIDE RECORDS SUMMARY | 2024-10-31 09:23 | XMS_ITS | Encounter Summary ---
Author Organization [facility] Address [id number] [address] [place] [address] Care Team Providers Care Facility Worker Name Role Phone Trey Berkowitz DO Primary Care Provider [phone] Encounter Details Date Type Department Care Team (Latest Contact Info) Description 10/17/2024 Travel Social History Tobacco Use Types Packs/Day Years Used Date Smoking Tobacco: Former Smokeless Tobacco: Never Alcohol Use Standard Drinks/Week Comments No 0 (1 standard drink = 0.6 oz pur e alcohol) Childcare Answer Date Recorded Childcare Unknown 08/04/2018 Employment Answer Date Recorded Employment Unknown 08/04/2018 Purpose - Life Answer Date Recorded Purpose [...] on filedocumented in this encounter Care Teams Facility Worker Relationship Specialty Start Date End Date Trey Berkowitz DO [address] [place] [address] PCP - General 07/28/17 documented as of this encounter
--- OUTSIDE RECORDS SUMMARY | 2024-10-31 09:23 | XMS_ITS | Encounter Summary ---
Author Organization [facility] Address [address] [place] [address] Care Team Providers Care Field Crop Ii Farmworker Name Role Phone Trey Berkowitz Primary Care Provider [phone] Source Comments In the event this information is protected by the Federal Confidentiality of Alcohol and Drug AbusePatient Records regulations: The Federal rules restrict any use of the information to criminally investigate or prosecute any alcohol or drug abuse patient.[facility] Encounter Details Date Type Department Care Team (Latest Contact Info) Description 09/23/2022 Patient Msg Pharmacy Home Infusion [address] [facility]. [address] [place] [phone] Noris Mares PSS Questionnaire Submission Social History [...] is lower risk 3 08/08/2022 Data from: https://www.neighborhoodatlas.medicine.[facility].edu/. Last address used for calculation [address] [place] [address] 08/08/2022 Sex and Gender Information Value Date [...] EDT Office Visit [facility] Laboratory [address] [facility] [place] [address] 8 week follow up with lab and B 12 inj 11/03/2024 2:30 PM EDT Visit (SP) Office Hematology/Oncology [address] [facility] [place] [address] Dolores Jacobson APRN.SHOP FITTER [address] [facility] [place] [address] 8 week follow up with lab and B 12 inj 11/03/2024 3:00 PM EDT Nurse Visit Hematology/Oncology [address] [facility] [place] [address] Beryl Odom Nurse Hector [address] [facility] [place] [address] 8 week follow up with lab B12 01/12/2025 1:20 PM EST Office Visit Gastroenterology [address] [place], [place] [phone] Jair Miller Jr., [address] [facility] [address] [place] [address] office moved from 12/29/24 months follow-up/ Pancreatic pseudocyst/cyst,Gene ralized abdominal pain,Gastroparesis,D yspepsia 05/08/2025 1:00 PM EDT Office Visit [facility] [address] [place] [address] [place] [address] lab 05/15/2025 1:00 PM EDT Office Visit Radiation Oncology [address] [place] [address] [place] [address] Rafael Tyler MD [address] [place] [address] [place] [address] 1 year follow up documented as of this encounter Visit Diagnoses Not on filedocumented in this encounter Care Teams Field Crop Ii Farmworker Relationship Specialty Start Date End Date Trey Berkowitz [address] [place] [phone] PCP - General 05/14/04 documented as of this encounter
--- OUTSIDE RECORDS SUMMARY | 2024-10-31 09:23 | XMS_ITS | Encounter Summary ---
Author Organization [facility] Address [facility] [place] [address] Care Team Providers Care Environmental Studies Department Chair Name Role Phone Trey Berkowitz Primary Care Provider Source Comments In the event this information is protected by the Federal Confidentiality of Alcohol and Drug AbusePatient Records regulations: The Federal rules restrict any use of the information to criminally investigate or prosecute any alcohol or drug abuse patient.[facility] Encounter Details Date Type Department Care Team (Late st Contact Info) Description 11/24/2022 Lab Requisition [facility] [address] [place] [address] Solo Khan, DO [address] [address] Essential (primary) hypertension; Shortness of breath Social History Tobacco Use Types Packs/Day Years [...] slept in a correction (including now)? No 09/04/2022 Area Deprivation Index Answer Date Chon rded National Score (1-100), lower number is lower ri sk 55 08/08/2022 State Score (1-10), lower number is lower risk 3 08/08/2022 Data from: https://www.neighborhoodatlas.medicine.[facility].edu/. Last address used for calculation [address] [facility] [facility] 08/08/2022 Sex and Gender Information [...] Description 11/03/2024 2:15 PM EDT Office Visit [facility] Laboratory [address] [place] [address] 8 week follow up with lab and B 12 inj 11/03/2024 2:30 PM EDT Visit (SP) Office Hematology/Oncology [address] [place] [address] Dolores Jacobson APRN.CHEMICAL LABORATORY ASSISTANT [address] [place] [address] 8 week follow up with lab and B 12 inj 11/03/2024 3:00 PM EDT Nurse Visit Hematology/Oncology [address] [place] [address] Beryl Odom Nurse Hector [address] [facility] [place] [address] 8 week follow up with lab B12 01/12/2025 1:20 PM EST Office Visit Gastroenterology [address] [place] [address] Jair Miller Jr., DO [address] [place] [phone] office moved from 12/29/24 months follow-up/ Pancreatic pseudocyst/cyst,Gene ralized abdominal pain,Gastroparesis,D yspepsia 05/08/2025 1:00 PM EDT Office Visit [facility] Laboratory [address] [facility] [place] [address] lab 05/15/2025 1:00 PM EDT Office Visit Radiation Oncology [address] [facility] [place] [address] Rafael Tyler MD [address] [facility] [place] [address] 1 year follow up documented as of this encounter Procedures Procedure Name Priority Date/Time Associated Diagnosis Comments NATRIURETIC PEPTIDE ASSAY Routine 11/23/2022 3:00 PM EDT Essential (primary) hypertension Shortness of breath BASIC METABOLIC PANEL Routine 11/23/2022 3:00 PM EDT Essential (primary) hypertension Shortness of breath documented in this encounter Results * NT PRO BNP (11/23/2022 3:00 PM EDT) NT Pro BNP 48 <450 pg/mL 11/24/2022 12:14 PM EDT [facility] Blood BLOOD SPECIMEN / Unknown 11/23/2022 3:00 PM EDT 11/24/2022 5:33 AM EDT us Solo Khan DO LABORATORY Final R esult [facility] [address] [facility] [address] [place] [address], [place] * (ABNORMAL) BASIC METABOLIC PNL (11/23/2022 3:00 PM EDT) [facility] Signature Glucose 260(H) 74 - 99 mg/dL 11/24/2022 12:14 PM T [facility] Comment: The [place] Diabetes Association (ADA) provides guidance for cutoff [...] Standards of Medical Care in Diabetes 2016, [place] Diabetes Association. Diabetes Care. 2016.39(Suppl 1). BUN 32(H) 9 - 24 mg/dL 11/24/2022 12:14 PM [facility] Creatinine 1.00 0.73 - 1.22 mg/dL 11/24/2022 12:14 PM [facility] Sodium 137 136 - 144 mmol/L 11/24/2022 12:14 PM T [facility] Potassium 5.1 3.7 - 5.1 mmol/L 11/24/2022 12:14 PM T [facility] Chloride 100 97 - 105 mmol/L 11/24/2022 12:14 PM [facility] CO2 20(L) 22 - 30 mmol/L 11/24/2022 12:14 PM [facility] Anion Gap 17 9 - 18 mmol/L 11/24/2022 12:14 PM [facility] Calcium, Total 9.2 8.5 - 10.2 mg/dL 11/24/2022 12:14 PM [facility] Estimated Glomerular Filtration Rate 77 >=60 mL/min/1.7 3m 11/24/2022 12:14 PM [facility] Comment:Estimated Glomerular Filtration Rate [...] / Unknown 11/23/2022 3:00 PM EDT 11/24/2022 5:33 AM EDT us Solo Khan DO LABORATORY Final R esult [facility] [address] [facility] [address] [address], documented in this encounter Visit Diagnoses Diagnosis Essential (primary) hypertension Unspecified essential hypertension Shortness of breath documented in this encounter Care Teams Environmental Studies Department Chair Relationship Specialty Start Date End Date Trey Berkowitz [address] [place] [address] PCP - General 05/14/04 documented as of this encounter
--- OUTSIDE RECORDS SUMMARY | 2024-10-31 09:23 | XMS_ITS | Encounter Summary ---
Author Organization [facility] Address [address] [place] [address] Care Team Providers Care Transfer And Pumphouse Operator Chief Name Role Phone Trey Berkowitz Primary Care Provider Source Comments In the event this information is protected by the Federal Confidentiality of Alcohol and Drug AbusePatient Records regulations: The Federal rules restrict any use of the information to criminally investigate or prosecute any alcohol or drug abuse patient.[facility] Encounter Details Date Type Department Care Team (Late st Contact Info) Description 10/06/2022 Patient Msg Hematology/Oncology [address] [place] [address] Kai Bustamante MD [address] [place] [address] Appointment Cancellation Request Social History [...] risk 3 08/08/2022 Data from: https://www.neighborhoodatlas.medicine.[facility].edu/. Last address used for calculation [address] 08/08/2022 Sex and Gender Information [...] Office Visit [facility] [address] [place] [address] 8 week follow up with lab and B 12 inj 11/03/2024 2:30 PM EDT Visit (SP) Office Hematology/Oncology [address] [place] [address] Dolores Jacobson APRN.PET ADOPTION COUNSELOR [address] [place] [address] 8 week follow up with lab and B 12 inj 11/03/2024 3:00 PM EDT Nurse Visit Hematology/Oncology [address] [place] [address] Beryl Parsons Nurse Hector [address] [place] [address] 8 week follow up with lab B12 01/12/2025 1:20 PM EST Office Visit Gastroenterology [address] [place] [address] Jair Miller Jr., [address] [facility] [address] [phone] office moved from 12/29/24 months follow-up/ Pancreatic pseudocyst/cyst,Gene ralized abdominal pain,Gastroparesis,D yspepsia 05/08/2025 1:00 PM EDT Office Visit [facility] [address] [place] [address] lab 05/15/2025 1:00 PM EDT Office Visit Radiation Oncology [address] [place] [address] Rafael Tyler MD [address] [place] [address] 1 year follow up documented as of this encounter Visit Diagnoses Not on filedocumented in this encounter Care Teams Transfer And Pumphouse Operator Chief Relationship Specialty Start Date End Date Trey Berkowitz [address] [place] [phone] PCP - General 05/14/04 documented as of this encounter
--- OUTSIDE RECORDS SUMMARY | 2024-10-31 09:23 | XMS_ITS | Encounter Summary ---
Author Organization [facility] Address [address] [place] [address] Care Team Providers Care Asset Analyst Name Role Phone Sho Trey Rosenberg Primary Care Provider [phone] Source Comments In the event this information is protected by the Federal Confidentiality of Alcohol and Drug AbusePatient Records regulations: The Federal rules restrict any use of the information to criminally investigate or prosecute any alcohol or drug abuse patient.[facility] Encounter Details Date Type Department Care Team (Latest Contact Info) Description 10/15/2022 Patient Msg [facility] [address] [place] [address] [id number] Provider, Cc Questionnaire Submission Social History Tobacco Use Types [...] risk 3 08/08/2022 Data from: https://www.neighborhoodatlas.medicine.[facility].edu/. Last address used for calculation [address] [place] [address] 08/08/2022 Sex and Gender Information Value Date [...] Author No 10/10/2022 3:50 PM EDT Lindsey Leyva RN * Do you have serious difficulty [...] Description 11/03/2024 2:15 PM EDT Office Visit [facility] [address] [facility] [place] [address] 8 week follow up with lab and B 12 inj 11/03/2024 2:30 PM EDT Visit (SP) Office Hematology/Oncology [address] [facility] [place] [address] Dolores Jacobson APRN.DATA PROCESSING CLERK [address] [facility] [place] [address] 8 week follow up with lab and B 12 inj 11/03/2024 3:00 PM EDT Nurse Visit Hematology/Oncology [address] [facility] [place] [address] Beryl Parsons Nurse Hector [address] [facility] [place] [address] 8 week follow up with lab B12 01/12/2025 1:20 PM EST Office Visit Gastroenterology [address] [place], [place] [phone] Jair Miller Jr., DO [address] [place] [address] office moved from 12/29/24 months follow-up/ Pancreatic pseudocyst/cyst,Gene ralized abdominal pain,Gastroparesis,D yspepsia 05/08/2025 1:00 PM EDT Office Visit [facility] [address] [facility] [place] [address] lab 05/15/2025 1:00 PM EDT Office Visit Radiation Oncology [address] [facility] [place] [address] Rafael Tyler MD [address] [facility] [place] [address] 1 year follow up documented as of this encounter Visit Diagnoses Not on filedocumented in this encounter Care Teams Asset Analyst Relationship Specialty Start Date End Date Trey Berkowitz [address] [place] [phone] PCP - General 05/14/04 documented as of this encounter
--- OUTSIDE RECORDS SUMMARY | 2024-10-31 09:23 | XMS_ITS | Encounter Summary ---
Author Organization [facility] Address [address] [place] [address] Phone Care Team Providers Care Facilities Assistant Name Role Phone Trey Berkowitz DO Primary Care Provider [phone] Trey Berkowitz DO Primary Care Provider [phone] Trey Berkowitz DO Primary Care Provider [phone] Encounter Details Date Type Department Care Team (Late st Contact Info) Description 09/25/2021 Orders Only [facility] [address] [place] [address] Conversion, Onbase Social History Tobacco Use Types [...] Description 03/07/2025 10:30 AM EST Office Visit [facility] [address] [facility] [address] [place] [phone] Solo Khan DO [address] [facility] 2, [facility] [address] [place], [place] [phone] Scheduled Orders Name Type Priority Associated Diagnoses Orde r Schedule OUTSIDE LAB SCAN Lab Ordered: 09/25/2021 OUTSIDE LAB SCAN Lab Ordered: 09/25/2021 documented as of this encounter Visit Diagnoses Not on filedocumented in this encounter Care Teams Facilities Assistant Relationship Specialty Start Date End Date Trey Berkowitz DO PCP - General 12/22/18 03/23/23 Trey Berkowitz DO PCP - General Family Medicine 03/24/23 10/27/23 Trey Berkowitz DO [address] [place] [address] PCP - General Family Medicine 10/28/23 documented as of this encounter
--- OUTSIDE RECORDS SUMMARY | 2024-10-31 09:23 | XMS_ITS | Encounter Summary ---
Author Organization [facility] Address [address] [place] [address] Care Team Providers Care Engineer Byproduct Name Role Phone Trey Berkowitz Primary Care Provider [phone] Source Comments In the event this information is protected by the Federal Confidentiality of Alcohol and Drug AbusePatient Records regulations: The Federal rules restrict any use of the information to criminally investigate or prosecute any alcohol or drug abuse patient.[facility] Encounter Details Date Type Department Care Team (Late st Contact Info) Description 09/30/2022 Patient Msg Pharmacy Home Infusion [address] [facility] [place] [phone] Noris Mares PSS Weekly [facility] refill request Social History [...] is lower risk 3 08/08/2022 Data from: https://www.neighborhoodatlas.medicine.[facility].edu/. Last address used for calculation [address] [facility] [facility] 08/08/2022 Sex and Gender Information Value [...] Visit [facility] [address] [place] [address] 8 week follow up with lab and B 12 inj 11/03/2024 2:30 PM EDT Visit (SP) Office Hematology/Oncology [address] [place] [address] Dolores Jacobson APRN.ORAL COMMUNICATION INSTRUCTOR [address] [place] [address] 8 week follow up with lab and B 12 inj 11/03/2024 3:00 PM EDT Nurse Visit Hematology/Oncology [address] [place] [address] Beryl Odom Nurse Hector [address] [place] [address] 8 week follow up with lab B12 01/12/2025 1:20 PM EST Office Visit Gastroenterology [address] [place] [address] Jair Miller Jr., DO [address] [facility] [address] [address] office moved from 12/29/24 months follow-up/ Pancreatic pseudocyst/cyst,Gene ralized abdominal pain,Gastroparesis,D yspepsia 05/08/2025 1:00 PM EDT Office Visit [facility] [address] [facility] [place] [address] lab 05/15/2025 1:00 PM EDT Office Visit Radiation Oncology [address] [facility] [place] [address] Rafael Tyler MD [address] [place] [address] [place] [address] 1 year follow up documented as of this encounter Visit Diagnoses Not on filedocumented in this encounter Care Teams Engineer Byproduct Relationship Specialty Start Date End Date Trey Berkowitz [address] [place] [phone] PCP - General 05/14/04 documented as of this encounter
--- OUTSIDE RECORDS SUMMARY | 2024-10-31 09:23 | XMS_ITS | Encounter Summary ---
Author Organization [facility] Address [address] [place] [address] Care Team Providers Care Haulpak Driver Name Role Phone Trey Berkowitz Primary Care Provider [phone] Source Comments In the event this information is protected by the Federal Confidentiality of Alcohol and Drug AbusePatient Records regulations: The Federal rules restrict any use of the information to criminally investigate or prosecute any alcohol or drug abuse patient.[facility] Encounter Details Date Type Department Care Team (Late st Contact Info) Description 10/16/2022 Patient [facility] Gastroenterology [address] [place] [address] Provider, Ccf appt with Dr. Brooks Social History Tobacco Use Types Packs/Day Years [...] [email or web address]/. Last address used for calculation [address] [place] [address] 08/08/2022 Sex and Gender Information Value Date [...] Visit [facility] [address] [facility] [place] [address] 8 week follow up with lab and B 12 inj 11/03/2024 2:30 PM EDT Visit (SP) Office Hematology/Oncology [address] [facility] [place] [address] Dolores Jacobson APRN.OVERHEAD FOREMAN [address] [place] [address] 8 week follow up with lab and B 12 inj 11/03/2024 3:00 PM EDT Nurse Visit Hematology/Oncology [address] [place] [address] Beryl Odom Nurse Hector [address] [facility] [place] [address] 8 week follow up with lab B12 01/12/2025 1:20 PM EST Office Visit Gastroenterology [address] [place], [place] [phone] Jair Miller Jr., DO [address] [facility] [address] [place] [address] office moved from 12/29/24 months follow-up/ Pancreatic pseudocyst/cyst,Gene ralized abdominal pain,Gastroparesis,D yspepsia 05/08/2025 1:00 PM EDT Office Visit [facility] [address] [facility] [place] [address] lab 05/15/2025 1:00 PM EDT Office Visit Radiation Oncology [address] [facility] [address] Rafael Tyler MD [address] [facility] [place] [address] 1 year follow up documented as of this encounter Visit Diagnoses Not on filedocumented in this encounter Care Teams Haulpak Driver Relationship Specialty Start Date End Date Trey Berkowitz [address] [place] [phone] PCP - General 05/14/04 documented as of this encounter
--- OUTSIDE RECORDS SUMMARY | 2024-10-31 09:24 | XMS_ITS | Encounter Summary ---
Author Organization [facility] Address [address] [place] [address] Care Team Providers Care Retail Account Specialist Name Role Phone Kamsophie Trey Primary Care Provider [phone] Reason for Visit * Reason Onset Date Comments Advice Only 04/06/2022 Encounter Details Date Type Department Care Team (Late st Contact Info) Description 04/06/2022 Telephone Division of Thoracic Surgery at [facility] [address] [place] [address] Rick Mennedez MD [address] [place] [address] Advice Only Social History Tobacco Use Types Packs/Day Years Used Date Smoking Tobacco: Former Cigarettes 2 4 1 995 - 1998 Smokeless Tobacco: Never Alcohol Use [...] slept in a penitentiary (including now)? No 03/19/2022 Depression Answer Date Recorded PHQ-9 Total Score (Interpret ation of Total Score 1-4 = Minimal depression; 5-9 = Mild depression; 10-14 = Moderate depression; 15-19 = Moderately severe depression) 0 03/26/2022 Sex and Gender Information Value Date Recorded Sex Assigned at Not on file Legal Sex Male 8:49 AM EST Gender Identity Male 03/20/2024 10:13 AM EST Sexual Orientation Straight 03/20/2024 10 :13 AM EST COVID-19 Exposure Response Date Recorded In the last 10 days, have yo u been in contact with someone who was confirmed or suspected to have Coronavirus/COVID-19? Unable to assess 04/01/2022 5:21 AM EST documented as of this encounter Miscellaneous Notes * Telephone Encounter - Jenifer Hunt RN - 04/06/2022 2:22 PM EST Pt reports he is able to walk 600 feet to mailbox, does endorse some HECK, but says that he is doingok. He says that the swelling in his legs are typical for him, denies any redness or warmth, no swollenareas, rather it is generalized. He will follow up with PCP if the lasix is not effective at reducing he swelling. He did take a tramadol and will consider OTC lidocaine patches. We discussed ways to keep his bowels moving and he will consider a suppository if needed. * Telephone Encounter - Jenifer Hunt RN - 04/06/2022 1:41 PM EST Pt reports that his pain is 5/10, has been taking tylenol every 6 hrs, he stopped taking tramadol when he was at the hospital because it made him constipated. (LBM today). He is feeling bloated and belching. I encouraged him to take docusate, senna and miralax, adjust his diet to include more fruits and veggies, drink plenty of water. He will call back if the tramadol does not make an improvementin his pain. Pt also concerned about swelling in his legs. He did take a dose of lasix today. He has been sitting with legs dependent at times while he sleeps as he is not able to get into bed to rest, as he's unable to get back out. I encouraged him to elevate legs while in chair. Ms Rae is worried about patient's incisions. She said that there is no drainage or streaking.Shereports that his incisions are a bit reddened, she will send a photo via [employer]. * Telephone Encounter - Magdi Escalante - 04/06/2022 1:09 PM EST Who is calling: Patient's EC - Alis Rae Why are they calling: They were calling in to speak with the medical staff to determine how much pain the patient should be expecting. The patient has also had some fluid retention in his legs. CB#: [phone] Thanks! documented in this encounter Plan of Treatment Not on file documented as of this encounter Visit Diagnoses Not on filedocumented in this encounter Additional Health Concerns Assessment Noted Time PHQ-9 Depression Total Score: 0 03/26/19 12:39 PM EST documented as of this encounter Care Teams Retail Account Specialist Relationship Specialty Start Date End Date Trey Berkowitz DO PCP - General Family Medicine 03/19/22 documented as of this encounter
--- OUTSIDE RECORDS SUMMARY | 2024-10-31 09:24 | XMS_ITS | Encounter Summary ---
Author Organization [facility] Address [address] [place] [address] Care Team Providers Care Tree Specialist Name Role Phone Trey Berkowitz Primary Care Provider [phone] Source Comments In the event this information is protected by the Federal Confidentiality of Alcohol and Drug AbusePatient Records regulations: The Federal rules restrict any use of the information to criminally investigate or prosecute any alcohol or drug abuse patient.[facility] Encounter Details Date Type Department Care Team (Late st Contact Info) Description 10/21/2022 Get Medical Advice Gastroenterology [address] [place] [address] Jair Miller Jr., DO [address] [place] [address] Chau Rae Social History Tobacco [...] [email or web address]/. Last address used for calculation [address] [facility] 08/08/2022 Sex and Gender Information Value [...] Description 11/03/2024 2:15 PM EDT Office Visit [facility] [address] [facility] [address] 8 week follow up with lab and B 12 inj 11/03/2024 2:30 PM EDT Visit (SP) Office Hematology/Oncology [address] [facility] [place] [address] Dolores Jacobson APRN.LINEN CLERK [address] [place] [address] 8 week follow up with lab and B 12 inj 11/03/2024 3:00 PM EDT Nurse Visit Hematology/Oncology [address] [place] [address] Beryl Parsons Nurse Hector [address] [facility] [place] [address] 8 week follow up with lab B12 01/12/2025 1:20 PM EST Office Visit Gastroenterology [address] [place] [address] Jair Miller Jr., [address] [facility] [address] [place] [address] office moved from 12/29/24 months follow-up/ Pancreatic pseudocyst/cyst,Gene ralized abdominal pain,Gastroparesis,D yspepsia 05/08/2025 1:00 PM EDT Office Visit [facility] [address] [facility] [address] lab 05/15/2025 1:00 PM EDT Office Visit Radiation Oncology [address] [place] [address] Rafael Tyler MD [address] [place] [address] 1 year follow up documented as of this encounter Visit Diagnoses Not on filedocumented in this encounter Care Teams Tree Specialist Relationship Specialty Start Date End Date Trey Berkowitz [address] [place] [phone] PCP - General 05/14/04 documented as of this encounter
--- OUTSIDE RECORDS SUMMARY | 2024-10-31 09:24 | XMS_ITS | Encounter Summary ---
Author Organization [facility] Address [address] [place] [address] Care Team Providers Care Outside Laborer Name Role Phone Trey Berkowitz Primary Care Provider [phone] Source Comments In the event this information is protected by the Federal Confidentiality of Alcohol and Drug AbusePatient Records regulations: The Federal rules restrict any use of the information to criminally investigate or prosecute any alcohol or drug abuse patient.[facility] Encounter Details Date Type Department Care Team (Late st Contact Info) Description 10/20/2022 Get Medical Advice Gastroenterology [address] [place] [address] Jair Miller Jr., DO [address] [place] [address] Chau Rae Social History Tobacco [...] is lower risk 3 08/08/2022 Data from: https://www.neighborhoodatlas.medicine.[facility] [place].edu/. Last address used for calculation [address] [facility] 08/08/2022 Sex and Gender Information [...] Telephone Encounter - Katie Celaya RN - 11/09/2022 1:[address] Miller, please see attached updates per patient's on mychart. Pharmacy electronically requests the following refill(s) Requested Prescriptions Pending Prescriptions Disp Refills bnjuhk-reksobvh-lphpdyy (ZENPEP) 40,000-126,000- 168,000 unit delayed release capsule 270 capsule 3 Sig: Take 1 capsule by mouth three times daily with meals. metoclopramide HCl (REGLAN) 10 mg tablet 270 tablet 3 Sig: Take 1 tablet by mouth three times daily. Katie Celaya RN * Telephone Encounter - Katie Celaya RN - 11/05/2022 1:37 PM EDT 10/30/22 office visit notes per Dr. 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 did perfectly well since then until April 2022 with acute pain. no ETOH and GB gone. new medication in Feb discontinued. minimal residual pancreatic head, exocrine and endocrine insufficiency. has PEG that now rarely uses. imaging consistent with acute pancreatitis in head with inflammation and only acute changes. no groove pancreatitis, and gastric emptying studying unhelpful in this situation. PLAN: advance diet as tolerated. repeat imaging in one month. no interventions now. Sending as an update. Thank you Katie Celaya RN * Telephone Encounter - Katie Celaya RN - 10/28/2022 11:10 AM EDT Component Latest Ref Rng & Units 10/19/2022 10/27/2022 WBC 3.70 - 11.00 k/uL 9.42 9.20 RBC 4.20 - 6.00 m/uL 4.17 (L) 3.96 (L) Hemoglobin 13.0 - 17.0 g/dL 10.8 (L) 10.6 (L) Hematocrit 39.0 - 51.0 % 35.9 (L) 34.8 (L) MCV 80.0 - 100.0 fL 86.1 87.9 MCH 26.0 - 34.0 pg 25.9 (L) 26.8 MCHC 30.5 - 36.0 g/dL 30.1 (L) 30.5 RDW-CV 11.5 - 15.0 % 18.4 (H) 18.3 (H) Platelet Count 150 - 400 k/uL 508 (H) 386 Component Latest Ref Rng & Units 10/19/2022 10/27/2022 AST 14 - 40 U/L 33 15 ALT 10 - 54 U/L 19 13 Glucose 74 - 99 mg/dL 228 (H) 221 (H) BUN 9 - 24 mg/dL 34 (H) 29 (H) Creatinine 0.73 - 1.22 mg/dL 0.98 0.87 Sodium 136 - 144 mmol/L 136 138 Potassium 3.7 - 5.1 mmol/L 5.5 (H) 4.5 Dr. Miller, Sending these your way since they did not run the BMP order you ordered and these were ordered per Dr. Leonard. Please advise if any need for medication adjustments. Looks like K+ level has normalized Thank you Katie Celaya RN * Telephone Encounter - Katie Celaya RN - 10/23/2022 2:54 PM EDT Images from the original note were not included. Update: the pain in lower intestines is back - about 1/2 hour after draining. Chau Olivas Butch Agustin [facility] (supporting Jair Miller Jr., DO) 5 hours ago (9:04 AM) Hi. A couple questions for you. 1. Should Chau be taking Reglan even if all he is doing is drinking water? Besides the TPN at night of course. 2. He has been in pain since midnight Wednesday night. Since then he has taken 5 vicodins (1/2 pills) and two Bentyls. Does taking this medicine slow down your stomach/intestines muscles? He has had 2 very small BMs onThursday. 3. Drained via peg tube on at 2 am and got 200 ccs as I told you before. This morning at 8:45 am drained again and got 500 ccs (a dark green color at first that turned to a major case detective green - he took a thyroid pill at 8 am). After draining he feels better - a lot less nausea, pain in lower intestines is less. The pain is subsided to where he would not normally take any pain meds for it. Dr. Miller, please see above [employer] messages per patient. Please review and advise. Thank you Katie Celaya RN * Telephone Encounter - Katie Celaya RN - 10/21/2022 4:12 PM EDT Please review and sign orders for BMP. Thank you Katie Celaya RN documented in this encounter Plan of Treatment Upcoming Encounters Date Type Department Care Team (Latest Contact Info) Description 11/03/2024 2:15 PM EDT Office Visit [facility] [address] [address] 8 week follow up with lab and B 12 inj 11/03/2024 2:30 PM EDT Visit (SP) Office Hematology/Oncology [address] [address] Dolores Jacobson APRN.MEDICATION MANAGER [address] [address] 8 week follow up with lab and B 12 inj 11/03/2024 3:00 PM EDT Nurse Visit Hematology/Oncology [address] [place] [address] [place] [address] Beryl Parsons Nurse Hector [address] [address] 8 week follow up with lab B12 01/12/2025 1:20 PM EST Office Visit Gastroenterology [address] [place] [address] Jair Miller Jr., DO [address] [place] [phone] office moved from 12/29/24 months follow-up/ Pancreatic pseudocyst/cyst,Gene ralized abdominal pain,Gastroparesis,D yspepsia 05/08/2025 1:00 PM EDT Office Visit [facility] Laboratory [address] [place] [address] [place] [address] lab 05/15/2025 1:00 PM EDT Office Visit Radiation Oncology [address] [address] Rafael Tyler MD [address] [address] 1 year follow up documented as of this encounter Visit Diagnoses Diagnosis Serum potassium elevated- Primary Hyperpotassemia Delayed gastric emptying Dyspepsia and other specified disorders of function of stomach Other chronic pancreatitis (HCC) documented in this encounter Care Teams Outside Laborer Relationship Specialty Start Date End Date Kuns, Trey Chet [address] [place] [address] PCP - General 05/14/04 documented as of this encounter
--- OUTSIDE RECORDS SUMMARY | 2024-10-31 09:24 | XMS_ITS | Encounter Summary ---
Author Organization [facility] Address [facility] [place] [address] Care Team Providers Care Maintenance Shop Welder Name Role Phone Trey Berkowitz Primary Care Provider [phone] Source Comments In the event this information is protected by the Federal Confidentiality of Alcohol and Drug AbusePatient Records regulations: The Federal rules restrict any use of the information to criminally investigate or prosecute any alcohol or drug abuse patient.[facility] Encounter Details Date Type Department Care Team (Late st Contact Info) Description 03/30/2014 Get Medical Advice Urology [address] [facility] [address] [place] [address] Solo Alvarado III [address] [facility] [address] [place] [address] RE: Test Result Question Social History Tobacco [...] hearing? Answer Date of Assessment Author No 02/07/2014 10:07 AM Alpa Scruggs RN * Are you blind or do you have serious difficulty seeing, even when wearing glasses? Answer Date of Assessment Author Yes 02/07/2014 10:07 AM Alpa Scruggs RN * Do you have serious difficulty walking or climbing stairs? Answer Date of Assessment Author No 02/07/2014 10:07 AM Alpa Scruggs RN * Do you have difficulty dressing or bathing? Answer Date of Assessment Author No 02/07/2014 10:07 AM Alpa Scruggs RN * Because of a physical, mental, or emotional condition, do you have difficulty doing errands alone such as visiting a doctor's office or shopping? Answer Date of Assessment Author No 02/07/2014 10:07 AM Alpa Scruggs RN documented as of this encounter Mental Status * Because of a physical, mental, or emotional condition, do you have serious difficulty concentrating, remembering, or making decisions? Answer Entry Date Author No 02/07/2014 10:07 AM Alpa Scruggs RN documented in this encounter Plan of Treatment Upcoming Encounters Date Type Department Care Team (Latest Contact Info) Description 11/03/2024 2:15 PM EDT Office Visit [facility] [address] [place] [address] 8 week follow up with lab and B 12 inj 11/03/2024 2:30 PM EDT Visit (SP) Office Hematology/Oncology [address] [place] [address] Dolores Jacobson APRN.AMERICAN HISTORY TEACHER [address] [place] [address] 8 week follow up with lab and B 12 inj 11/03/2024 3:00 PM EDT Nurse Visit Hematology/Oncology [address] [place] [address] Beryl Parsons Nurse Hector [address] [place] [address] 8 week follow up with lab B12 01/12/2025 1:20 PM EST Office Visit Gastroenterology [address] [place] [address] Jair Miller Jr., [address] [facility] [address] [place] [address] office moved from 12/29/24 months follow-up/ Pancreatic pseudocyst/cyst,Gene ralized abdominal pain,Gastroparesis,D yspepsia 05/08/2025 1:00 PM EDT Office Visit [facility] Laboratory [address] [facility] [place] [address] lab 05/15/2025 1:00 PM EDT Office Visit Radiation Oncology [address] [place] [address] Rafael Tyler MD [address] [place] [address] 1 year follow up documented as of this encounter Visit Diagnoses Not on filedocumented in this encounter Care Teams Maintenance Shop Welder Relationship Specialty Start Date End Date Trey Berkowitz [address] [place] [phone] PCP - General 05/14/04 documented as of this encounter
--- OUTSIDE RECORDS SUMMARY | 2024-10-31 09:24 | XMS_ITS | Encounter Summary ---
Author Organization [facility] Address [address] [place] [address] Care Team Providers Care Drama Professor Name Role Phone Trey Berkowitz Primary Care Provider [phone] Source Comments In the event this information is protected by the Federal Confidentiality of Alcohol and Drug AbusePatient Records regulations: The Federal rules restrict any use of the information to criminally investigate or prosecute any alcohol or drug abuse patient.[facility] Encounter Details Date Type Department Care Team (Latest Contact Info) Description 11/03/2022 Patient Msg Pharmacy Home Infusion [address] [facility]. [address] [place] [phone] Noris Mares PSS Questionnaire Submission Social History [...] medical [email or web address] Last address used for calculation [address] [place] [address] 08/08/2022 Sex and Gender Information Value Date [...] Author No 10/10/2022 3:50 PM EDT Lindsey Trveino RN * Are you blind or do [...] [facility] [address] [facility] [place] [address] 8 week follow up with lab and B 12 inj 11/03/2024 2:30 PM EDT Visit (SP) Office Hematology/Oncology [address] [facility] [place] [address] Dolores Jacobson APRN.PRINCIPAL CONSULTANT [address] [facility] [address] 8 week follow up with lab and B 12 inj 11/03/2024 3:00 PM EDT Nurse Visit Hematology/Oncology [address] [place] [address] Beryl Odom Nurse Hector [address] [facility] [place] [address] 8 week follow up with lab B12 01/12/2025 1:20 PM EST Office Visit Gastroenterology [address] [place] [address] Jair Miller Jr., DO [address] [facility] [address] [place] [address] office moved from 12/29/24 months follow-up/ Pancreatic pseudocyst/cyst,Gene ralized abdominal pain,Gastroparesis,D yspepsia 05/08/2025 1:00 PM EDT Office Visit [facility] Laboratory [address] [facility] [place] [address] lab 05/15/2025 1:00 PM EDT Office Visit Radiation Oncology [address] [place] [address] Rafael Tyler MD [address] [facility] [place] [address] 1 year follow up documented as of this encounter Visit Diagnoses Not on filedocumented in this encounter Care Teams Drama Professor Relationship Specialty Start Date End Date Trey Berkowitz [address] [place] [phone] PCP - General 05/14/04 documented as of this encounter
--- OUTSIDE RECORDS SUMMARY | 2024-10-31 09:24 | XMS_ITS | Encounter Summary ---
Author Organization [facility] Address [facility] [place] [address] Care Team Providers Care Car Whacker Name Role Phone Trey Berkowitz Primary Care Provider [phone] Source Comments In the event this information is protected by the Federal Confidentiality of Alcohol and Drug AbusePatient Records regulations: The Federal rules restrict any use of the information to criminally investigate or prosecute any alcohol or drug abuse patient.[facility] Encounter Details Date Type Department Care Team (Late st Contact Info) Description 11/02/2022 Lab Requisition [facility] [address] [place] [address] [place] [address] [address] [facility] [address] [place] [phone] Other chronic pancreatitis (HCC) Social History Tobacco [...] is lower risk 3 08/08/2022 Data from: https://www.neighborhoodatlas.medicine.[facility].edu/. Last address used for calculation [address] [facility] 08/08/2022 Sex and Gender Information Value [...] Office Visit [facility] [address] [place] [address] 8 week follow up with lab and B 12 inj 11/03/2024 2:30 PM EDT Visit (SP) Office Hematology/Oncology [address] [place], [place] [address] [place] [address] Dolores Jacobson APRN.TUNNEL HEADING SUPERVISOR [address] [facility] [address] 8 week follow up with lab and B 12 inj 11/03/2024 3:00 PM EDT Nurse Visit Hematology/Oncology [address] [place] [address] Beryl Parsons Nurse Hector [address] [facility] [place] [address] 8 week follow up with lab B12 01/12/2025 1:20 PM EST Office Visit Gastroenterology [address] [place] [address] Jair Miller Jr., DO [address] [place] [phone] office moved from 12/29/24 months follow-up/ Pancreatic pseudocyst/cyst,Gene ralized abdominal pain,Gastroparesis,D yspepsia 05/08/2025 1:00 PM EDT Office Visit [facility] [address] [facility] [place] [address] lab 05/15/2025 1:00 PM EDT Office Visit Radiation Oncology [address] [facility] [place] [address] Rafael Tyler MD [address] [facility] [place] [address] 1 year follow up documented as of this encounter Procedures Procedure Name Priority Date/Time Associated Diagnosis Comments MAGNESIUM BLD Routine 11/02/2022 8:50 AM EDT Other chronic pancreatitis (HCC) GOLD TOP EXTRA TUBE Routine 11/02/2022 8 :50 AM EDT Other chronic pancreatitis (HCC) PHOSPHORUS INORGANIC Routine 11/02/2022 8:50 AM EDT Other chronic pancreatitis (HCC) COMPREHENSIVE METABOLIC PANEL Routine 11/02/2022 8:50 AM EDT Other chronic pancreatitis (HCC) CBC + DIFF Routine 11/02/2022 8:50 AM EDT Other chronic pancreatitis (HCC) documented in this encounter Results * GOLD TOP EXTRA TUBE (11/02/2022 8:50 AM EDT) Blood BLOOD SPECIMEN / Unknown 11/02/2022 8:50 AM EDT 11/02/2022 4:49 PM EDT us Natali Leonard MD LABORATORY Final Result [facility] [address] [facility] [address] [address], [place] * PHOSPHORUS INORGANIC (11/02/2022 8:50 AM EDT) Phosphorus 3.8 2.7 - 4.8 mg/dL 11/03/2022 4:53 AM EDT [facility] Blood BLOOD SPECIMEN / Unknown 11/02/2022 8:50 AM EDT 11/02/2022 4:48 PM EDT us Natali Leonard MD LABORATORY Final Result [facility] [address] [place] [id number], [place] * MAGNESIUM BLD (11/02/2022 8:50 AM EDT) Magnesium 2.0 1.7 - 2.3 mg/dL 11/03/2022 4:53 AM EDT [facility] Blood BLOOD SPECIMEN / Unknown 11/02/2022 8:50 AM EDT 11/02/2022 4:48 PM EDT Natali Leonard MD LABORATORY Final Result [facility] [address] [place] [id number], [place] * (ABNORMAL) CBC + DIFF (11/02/2022 8:50 AM EDT) WBC 7.53 3.70 - 11.00 k/uL 11/02/2022 7:23 PM EDT [facility] RBC 3.96(L) 4.20 - 6.00 m/uL 11/02/2022 7:23 PM EDT [facility] Hemoglobin 10.2(L) 13.0 - 17.0 g/dL 11/02/2022 7:23 PM EDT [facility] Hematocrit 33.9(L) 39.0 - 51.0 % 11/02/2022 7:23 PM EDT [facility] MCV 85.6 80.0 - 100.0 fL 11/02/2022 7:23 PM EDT [facility] MCH 25.8(L) 26.0 - 34.0 pg 11/02/2022 7:23 PM EDT [facility] MCHC 30.1(L) 30.5 - 36.0 g/dL 11/02/2022 7:23 PM EDT [facility] RDW-CV 18.4(H) 11.5 - 15.0 % 11/02/2022 7:23 PM EDT [facility] Platelet Count 266 150 - 400 k/uL 11/02/2022 7:23 PM EDT [facility] MPV 11.8 9.0 - 12.7 fL 11/02/2022 7:23 PM EDT [facility] Neutrophils % 54.4 % 11/02/2022 7:23 PM EDT [facility] Abs Neut 4.10 1.45 - 7.50 k/uL 11/02/2022 7:23 PM EDT [facility] Lymphocytes % 27.5 % 11/02/2022 7:23 PM EDT [facility] Abs Lymph 2.07 1.00 - 4.00 k/uL 11/02/2022 7:23 PM EDT [facility] Monocytes % 12.6 % 11/02/2022 7:23 PM EDT [facility] Abs Mckenzie 0.95(H) <0.87 k/uL 11/02/2022 7:23 PM EDT [facility] Eosinophils % 3.9 % 11/02/2022 7:23 PM EDT [facility] Abs Eosin 0.29 <0.46 k/uL 11/02/2022 7:23 PM EDT [facility] Basophils % 0.9 % 11/02/2022 7:23 PM EDT [facility] Abs Baso 0.07 <0.11 k/uL 11/02/2022 7:23 PM EDT [facility] Immature Granulocytes % 0.7 % 11/02/2022 7:23 PM EDT [facility] Abs Immature Gran 0.05 <0.10 k/uL 023 7:23 PM EDT [facility] NRBC 0.0 /100 WBC 11/02/2022 7:23 PM EDT [facility] Absolute nRBC <0.01 <0.01 k/uL 11/02/2022 7:23 PM EDT [facility] Diff Type Auto 11/02/2022 7:23 PM EDT [facility] Blood BLOOD SPECIMEN / Unknown 11/02/2022 8:50 AM EDT 11/02/2022 4:48 PM EDT us Natali Leonard MD LABORATORY Final Result [facility] [address] [place] [address], [place] * (ABNORMAL) COMP METABOLIC PANEL (11/02/2022 8:50 AM EDT) Protein, Total 6.8 6.3 - 8.0 g/dL 11/03/2022 4:53 AM EDT [facility] Albumin 3.6(L) 3.9 - 4.9 g/dL 11/03/2022 4:53 AM EDT [facility] Calcium, Total 8.9 8.5 - 10.2 mg/dL 11/03/2022 4:53 AM EDT [facility] Bilirubin, Total 0.2 0.2 - 1.3 mg/dL 11/03/2022 4:53 AM EDT [facility] Alkaline Phosphatase 62 38 - 113 U/L 11/03/2022 4:53 AM EDT [facility] AST 29 14 - 40 U/L 11/03/2022 4:53 AM EDT [facility] ALT 18 10 - 54 U/L 11/03/2022 4:53 AM EDT [facility] Glucose 146(H) 74 - 99 mg/dL 11/03/2022 4:53 AM EDT [facility] Comment: The Indian Diabetes Association (ADA) provides guidance for cutoff [...] Standards of Medical Care in Diabetes 2016, Indian Diabetes Association. Diabetes Care. 2016.39(Suppl 1). BUN 30(H) 9 - 24 mg/dL 11/03/2022 4:53 AM [facility] Creatinine 0.83 0.73 - 1.22 mg/dL 11/03/2022 4:53 AM [facility] Sodium 140 136 - 144 mmol/L 11/03/2022 4:53 AM [facility] Potassium 4.0 3.7 - 5.1 mmol/L 11/03/2022 4:53 AM [facility] Chloride 102 97 - 105 mmol/L 11/03/2022 4:53 AM [facility] CO2 26 22 - 30 mmol/L 11/03/2022 4:53 AM [facility] Anion Gap 12 9 - 18 mmol/L 11/03/2022 4:53 AM [facility] Estimated Glomerular Filtration Rate 90 >=60 mL/min/1.7 3m 11/03/2022 4:53 AM [facility] Comment:Estimated Glomerular Filtration Rate (eGFR) is [...] actual GFR. Blood BLOOD SPECIMEN / Unknown 11/02/2022 8:50 AM EDT 11/02/2022 4:48 PM EDT us Natali Leonard MD LABORATORY Final Result [facility] [address] [facility] [address] [place] [address], documented in this encounter Visit Diagnoses Diagnosis Other chronic pancreatitis (HCC) documented in this encounter Care Teams Car Whacker Relationship Specialty Start Date End Date Trey Berkowitz [address] [place] [phone] PCP - General 05/14/04 documented as of this encounter
--- OUTSIDE RECORDS SUMMARY | 2024-10-31 09:24 | XMS_ITS | Encounter Summary ---
Author Organization [facility] Address [address] [place] [address] Care Team Providers Care Block Trader Name Role Phone Trey Berkowitz Chet Primary Care Provider [phone] Source Comments In the event this information is protected by the Federal Confidentiality of Alcohol and Drug AbusePatient Records regulations: The Federal rules restrict any use of the information to criminally investigate or prosecute any alcohol or drug abuse patient.[facility] Encounter Details Date Type Department Care Team (Latest Contact Info) Description 05/14/2004 Prob Sum Review Provider, [facility] Social History Tobacco Use Types Packs/Day Years Used Date Smoking Tobacco: Never Assessed Sex and Gender Information Value Date Recorded Sex Assigned at Male 08/18/2022 3:32 PM EDT Legal Sex Male 7:19 AM EST Gender Identity Male 08/18/2022 3:32 PM EDT Sexual Orientation Straight 08/18/2022 3: 32 PM EDT documented as of this encounter Plan of Treatment Upcoming Encounters Date Type Department Care Team (Latest Contact Info) Description 11/03/2024 2:15 PM EDT Office Visit [facility] [address] [place] [address] [place] [address] 8 week follow up with lab and B 12 inj 11/03/2024 2:30 PM EDT Visit (SP) Office Hematology/Oncology [address] [place] [address] Dolores Jacobson APRN.ASSISTANT CENTER DIRECTOR [address] [place] [address] 8 week follow up with lab and B 12 inj 11/03/2024 3:00 PM EDT Nurse Visit Hematology/Oncology [address] [place] [address] Beryl Parsons Nurse Hector [address] [place] [address] 8 week follow up with lab B12 01/12/2025 1:20 PM EST Office Visit Gastroenterology [address] [place], [place] [phone] Jair Miller Jr., DO [address] [place] [address] office moved from 12/29/24 months follow-up/ Pancreatic pseudocyst/cyst,Gene ralized abdominal pain,Gastroparesis,D yspepsia 05/08/2025 1:00 PM EDT Office Visit [facility] [address] [place] [address] lab 05/15/2025 1:00 PM EDT Office Visit Radiation Oncology [address] [place] [address] Rafael Tyler MD [address] [place] [address] 1 year follow up documented as of this encounter Visit Diagnoses Not on filedocumented in this encounter Care Teams Block Trader Relationship Specialty Start Date End Date Trey Berkowitz [address] [place] [phone] PCP - General 05/14/04 documented as of this encounter
--- OUTSIDE RECORDS SUMMARY | 2024-10-31 09:24 | XMS_ITS | Encounter Summary ---
Author Organization [facility] Address [address] [place] [address] Phone Care Team Providers Care Dry Wall Finisher Name Role Phone Trey Berkowitz DO Primary Care Provider [phone] Trey Berkowitz DO Primary Care Provider [phone] Trey Berkowitz DO Primary Care Provider [phone] Encounter Details Date Type Department Care Team (Late st Contact Info) Description 12/13/2018 Orders Only [facility] [address] [place] [address] Conversion, Onbase Social History Tobacco Use Types [...] Description 03/07/2025 10:30 AM EST Office Visit [facility] [address] [facility] [address] [place] [phone] Solo Khan DO [address] [facility] [address] [place], [place] [phone] Scheduled Orders Name Type Priority Associated Diagnoses Orde r Schedule OUTSIDE LAB SCAN Lab Ordered: 12/13/2018 documented as of this encounter Visit Diagnoses Not on filedocumented in this encounter Care Teams Dry Wall Finisher Relationship Specialty Start Date End Date Trey Berkowitz DO PCP - General 12/22/18 03/23/23 Trey Berkowitz DO PCP - General Family Medicine 03/24/23 10/27/23 Trey Berkowitz DO [address] [place] [address] PCP - General Family Medicine 10/28/23 documented as of this encounter
--- OUTSIDE RECORDS SUMMARY | 2024-10-31 09:24 | XMS_ITS | Encounter Summary ---
Author Organization [facility] Address [facility] [place] [address] Care Team Providers Care Barrel Cutter Name Role Phone Trey Berkowitz Primary Care Provider [phone] Source Comments In the event this information is protected by the Federal Confidentiality of Alcohol and Drug AbusePatient Records regulations: The Federal rules restrict any use of the information to criminally investigate or prosecute any alcohol or drug abuse patient.[facility] Encounter Details Date Type Department Care Team (Late st Contact Info) Description 03/01/2014 Get Medical Advice Urology [address] [facility] [address] [place] [address] Solo Alvarado III [address] [facility] [address] [place] [address] RE: Test Result Question Social History Tobacco [...] Description 11/03/2024 2:15 PM EDT Office Visit [facility] [address] [place] [address] 8 week follow up with lab and B 12 inj 11/03/2024 2:30 PM EDT Visit (SP) Office Hematology/Oncology [address] [place] [address] Dolores Jacobson APRN.[employer] [facility] LAB TECHNICIAN [address] [place] [address] 8 week follow up with lab and B 12 inj 11/03/2024 3:00 PM EDT Nurse Visit Hematology/Oncology [address] [facility] [place] [address] Beryl Parsons Nurse Hector [address] [facility] [place] [address] 8 week follow up with lab B12 01/12/2025 1:20 PM EST Office Visit Gastroenterology [address] [place] [address] Jair Miller Jr., [address] [facility] [address] [place] [address] office moved from 12/29/24 months follow-up/ Pancreatic pseudocyst/cyst,Gene ralized abdominal pain,Gastroparesis,D yspepsia 05/08/2025 1:00 PM EDT Office Visit [facility] [address] [facility] [place] [address] lab 05/15/2025 1:00 PM EDT Office Visit Radiation Oncology [address] [facility] [place] [address] Rafael Tyler MD [address] [facility] [place] [address] 1 year follow up documented as of this encounter Visit Diagnoses Not on filedocumented in this encounter Care Teams Barrel Cutter Relationship Specialty Start Date End Date Trey Berkowitz [address] [place] [phone] PCP - General 05/14/04 documented as of this encounter
--- OUTSIDE RECORDS SUMMARY | 2024-10-31 09:24 | XMS_ITS | Clinical Summary ---
Author Organization [facility] Address [address] [place] [address] Phone Care Team Providers Care Agricultural Equipment Operator Name Role Phone Trey Berkowitz DO Primary Care Provider [phone] Allergies Active Allergy Reactions Criticality Noted Date Comments Minocycline Hives Medium 12/19/2022 Cbjqzni-Lfx-Wkb Reductase Inhibitors Other,Myalgia Medium 12/19/2022 Sugar levels Sulfa (Sulfonamide Antibiotics) Hives High 11/23 Medications allopurinol (Zyloprim) 100 mg tablet Take 1 tablet (100 mg) by mouth once daily. 09/07/19 21 Active Tresiba FlexTouch U-200 200 unit/mL (3 mL) injection As directed. 11/02/19 21 Active levothyroxine (Synthroid, Levoxyl) 175 mcg tablet Take 1 tablet (175 mcg) by mouth once daily. 09/24/19 21 Active lipase-protease- amylase (Zenpep) 40,000-126,000- 168,000 unit capsule 4 caps before meals and bedtime 03/05/19 22 Active nitroglycerin (Nitrostat) 0.[address] 1 TABLET UNDER THE TONGUE EVERY 5 MINUTES UP TO 3 DOSES NEEDED FOR CHEST PAIN. Active predniSONE (Deltasone) 5 mg tablet Take 2.5 tablets (12.5 mg) by mouth once daily. daily Active tamsulosin (Flomax) 0.4 mg 24 hr capsule Take 2 capsules (0.8 mg) by mouth once daily. 11/28/19 20 Active pantoprazole (ProtoNix) 40 mg EC tablet 20 mg. 01/10/20 Active traZODone (Desyrel) 50 mg tablet Take 0.5 tablets (25 mg) by mouth once daily at bedtime. Active torsemide (Demadex) 20 mg tabletIndication s:Essential hypertension,CHF (NYHA class I, ACC/AHA stage B) (Multi) Take 1 tablet (20 mg) by mouth every other day. 45 tablet 3 12/29/19 24 025 Active torsemide (Demadex) 10 mg tabletIndication s:Essential hypertension,CHF (NYHA class I, ACC/AHA stage B) (Multi) Take 1 tablet (10 mg) by mouth every other day. 45 tablet 3 12/29/19 24 025 Active potassium chloride CR 10 mEq ER tabletIndication s:Essential hypertension,CHF (NYHA class I, ACC/AHA stage B) (Multi) Take 1 tablet (10 mEq) by mouth once daily. DO NOT CRUSH CHEW OR SPLIT 90 tablet 3 07/29/19 25 026 Active Eliquis 5 mg tablet Take 1 tablet (5 mg) by mouth 2 times a day. Active FLUTICASONE PROPIONATE NASL Administer into affected nostril(s). Active traMADol (Ultram) 50 mg tablet 1 tablet (50 mg) 2 times a day as needed. 07/27/19 25 Active metoclopramide (Reglan) 10 mg tablet Take 1 tablet (10 mg) by mouth if needed. Active sacubitriL-valsa rtan (Entresto) 24-26 mg tabletIndication s:Presence of aortocoronary bypass graft Take 1 tablet by mouth 2 times a day. 180 tablet 3 09/12/19 25 Active carvedilol (Coreg) 6.25 mg tabletIndication s:Paroxysmal atrial fibrillation (Multi),Essentia l hypertension Take 1 tablet (6.25 mg) by mouth 2 times a day. 180 tablet 3 10/14/19 25 026 Active carvedilol (Coreg) 6.25 mg tabletIndication s:CHF (NYHA class I, ACC/AHA stage B) (Multi) Take 1 tablet (6.25 mg) by mouth 2 times daily (morning and late afternoon). 180 tablet 3 09/22/19 24 025 Discontinued Active Problems Problem Noted Date Diagnosed Date History of thyroid cancer 05/31/2024 Neck muscle spasm 05/31/2024 Chronic rhinitis 05/31/2024 Former smoker 12/29/2023 Statin intolerance 09/21/2023 High risk medication use 09/21/2023 TIA (transient ischemic attack) 09/21/2023 Paroxysmal atrial fibrillation (Multi) Splenic artery aneurysm 03/24/2023 BMI 27.0-27.9,adult 12/21/2022 Abdominal aortic aneurysm (AAA) 12/19/2022 Atherosclerosis of coronary artery bypass graft(s) without angina pectoris 12/19/2022 Assessment & Plan (12/22/2022 2:17 PM EDT): Remote CABG August 2021 cardiac cath CARRILLO - Diag patent Seq SVG OM PDS patent [place] LAD 30% Bradycardia 12/19/2022 CHF (NYHA class I, ACC/AHA stage B) (Multi) 11/23 Diabetes mellitus (Multi) 12/19/2022 Essential hypertension 12/19/2022 Assessment & Plan (12/22/2022 2:17 PM EDT): optimal in office Familial hyperlipidemia 12/19/2022 Assessment & Plan (12/22/2022 2:18 PM EDT): Statin intolerance Was on Repatha but stopped this Summer while on TPN History of cancer 12/19/2022 Hx of CABG 12/19/2022 Ischemic cardiomyopathy 12/19/2022 Assessment & Plan (12/22/2022 2:19 PM EDT): August 2018 EF 35% cath Mar 2021 EF 50-55% TTE May 2021 LVEF 41% MPI August 2021 LVEF 43% cMRI NSVT (nonsustained ventricular tachycardia) (Mul ti) 12/19/2022 Old myocardial infarction 12/19/2022 Palpitations 12/19/2022 Polymyalgia rheumatica (Multi) 12/19/2022 PVC (premature ventricular contraction) 12/20/19 23 Shortness of breath 12/19/2022 Assessment & Plan (12/22/2022 2:20 PM EDT): Progressive since Oct 2022 ? Element of deconditioning r/t lengthy hospitalizations Agrees to CR: in no improvement then repeat ischemic work up and echo Syncope 12/19/2022 Resolved Problems Problem Noted Date Diagnosed Date Resolved Date Pancreatitis ([facility]) 03/24/202303/24 Encounters Date Type Department Care Team Description 10/12/[address] [phone] Yaw Perdue DO Paroxysmal atrial fibrillation (Multi); Essential hypertension 09/10/[address] [phone] Yaw Perdue DO Presence of aortocoronary bypass graft 08/30/[address] [address] Natividad Avila, RN Results 08/09/2024 1:00 PM EDT Ancillary Procedure [address] [phone] Paroxysmal atrial fibrillation (Multi) 08/09/2024 Travel 08/04/2024 Scanned Document [facility] [address] [place] [id number] Scanning, Generic Provider 08/03/2024 9:20 AM EDT Office Visit [address] [address] Yaw Perdue DO Abdominal aortic aneurysm (AAA), unspecified part, unspecified whether ruptured; Atherosclerosis of coronary artery bypass graft of [place] heart without angina pectoris; Ischemic cardiomyopathy; Paroxysmal atrial fibrillation (Multi); High risk medication use; Statin intolerance; Bradycardia; CHF (NYHA class I, ACC/AHA stage B) (Multi); Essential hypertension; Hx of CABG; Type 2 diabetes mellitus without complication, with long-term current use of insulin; NSVT (nonsustained ventricular tachycardia) (Multi); TIA (transient ischemic attack); Shortness of breath; BMI 27.0-27.9,adult; Former smoker 08/03/2024 Travel from Last 3 Months Immunizations Immunization Administration Dates Next Due Flu vaccine, quadrivalent, h igh-dose, preservative free, age 65y+ (FLUZONE) 01/05/2022,12/12/2019 Flu vaccine, trivalent, pres ervative free, HIGH-DOSE, age 65y+ (Fluzone) 11/17/2018,12/05/2017,01/06/2017,01/09 Influenza Nasal, Unspecified 10/24/2019,01/13/20 18,01/09/2015 Influenza, Seasonal, Quadriv alent, Adjuvanted 02/06/2023,12/07/2020 Influenza, Unspecified 01/05/2022,2020,12/12/2019,11/17,12/05/2017,10/23/2017,01/06/2017 ,11/21/2014,03/09/2013,10/23/2012,02/2011 Influenza, seasonal, injectable 10/24/2019,01/12 Pneumococcal polysaccharide vaccine, 23-valent, age 2 years and older (PNEUMOVAX 23) 02/23/2004 Td vaccine, age 7 years and older (TENIVAC) 10/15/2015 Family History Medical History Relation Name Comments Diabetes Brother Heart attack Father Heart attack Mother Heart disease Other family heart disease Relation Name Status Comments Brother Father Mother Other family Social History Tobacco Use Types Packs/Day Years [...] Sign Reading Time Taken Comments Blood Pressure 128/64 08/03/2024 9:20 AM EDT Pulse 68 08/03/2024 9:20 AM EDT Temperature - - Respiratory Rate - - Oxygen Saturation - - Inhaled Oxygen Concentration - - Weight 97 kg (213 lb 12.8 oz) 08/03/2024 9:20 AM EDT Height 188 cm (6' 2 ) 08/03/2024 9:20 AM EDT Body Mass Index 27.45 08/03/2024 9:20 AM EDT Plan of Treatment Upcoming Encounters Date Type Department Care Team (Late st Contact Info) Description 03/07/2025 10:30 AM EST Office Visit [facility] [address] [facility] [address] [place] [address] Yaw Perdue DO [address] [facility] [address] [place] [address] Health Maintenance Due Date Last Done Comments Diabetes: Urine Protein Screening 1945 Lipid Panel 1945 Zoster Vaccines (1 of 2) 02/24/1994 Pneumococcal Vaccine (2 of 2 - PCV) 02/22/2005 02/23/2004 DTaP/Tdap/Td Vaccines (1 - Tdap) 10/16/2015 10/15/2015 RSV High Risk: (Elderly (60+) or Population) (1 - 1-dose 75+ series) 02/24/2019 Creatinine Level 02/14/2020 02/13/2019, 12/26/2018 Potassium Level 02/14/2020 02/13/2019, 12/26/2018 Medicare Annual Wellness Visit (AWV) 01/24/2022 01/23/2021, 12/26/2019, 01/12/2018, Additional history exists Diabetes: Hemoglobin A1C 09/10/2022 06/11/2022 COVID-19 Vaccine ( season) 2024 12/17/2020, 05/15/2020, 04/17/2020 Influenza Vaccine (#1) 2024 , 01/05/2022, 01/05/2022, Additional history exists Echocardiogram 11/09/2024 11/10/2023, 03/25, 03/21/2021, Additional history exists Diabetes: Retinopathy Screening 12/08/2024 12/09/2023, 03/23/2022, 11/03/2019 TSH Level 03/24/2025 03/24/2024, 10/24, 06/29/2023 Welcome to Medicare Visit Discontinued 2020, 12/26/2019, 01/12/2018, Additional history exists Irritable Bowel Syndrome Discontinued 08/04/2023 HIB Vaccines Aged Out No longer eligi ble based on patient's age to complete this topic HPV Vaccines Aged Out No longer eligi ble based on patient's age to complete this topic Hepatitis A Vaccines Aged Out No long er eligible based on patient's age to complete this topic Hepatitis B Vaccines Aged Out No long er eligible based on patient's age to complete this topic IPV Vaccines Aged Out No longer eligi ble based on patient's age to complete this topic Meningococcal Vaccine Aged Out No aditi emma eligible based on patient's age to complete this topic Rotavirus Vaccines Aged Out No longer eligible based on patient's age to complete this topic Procedures Procedure Name Priority Date/Time Associated Diagnosis Comments CARDIAC EVENT MONITOR CONTINUOUS UP TO 30 DAYS - HOOK-UP, PHYSICIAN READ Routine 08/09/2024 1:15 PM EDT Paroxysmal atrial fibrillation (Multi) TRANSTHORACIC ECHO (TTE) COMPLETE Routine 11/10/2023 8:30 AM EDT CHF (NYHA class I, ACC/AHA stage B) (Multi) CHF (congestive heart failure), NYHA class II, chronic, combined (Multi) ELECTROLYTE PANEL Routine 02/13/2019 1:4 5 PM EST CREATININE Routine 02/13/2019 1:45 PM EST from Last 3 Months or Most Recently Relevant to Health Maintenance Results * CARDIAC EVENT MONITOR CONTINUOUS UP TO 30 DAYS - HOOK-UP, PHYSICIAN READ (08/09/2024 1:15 PM EDT) Narrative CPACS - 08/22/2024 8:42 AM EDT 7-day event monitor began on 08/09/2024 and ended on 08/16/2024. Indication, paroxysmal atrial fibrillation 4 tracings were sent for review none were symptomatic. There was ventricular arrhythmias including isolated PVC, ventricular couplet and a 6 beat run of ventricular tachycardia at rate 147 bpm. Patient had no symptoms. No atrial fibrillation was noted. Yaw Perdue DO CV CARDIAC SERVICES PROCEDU RES Final Result CPACS * TRANSTHORACIC ECHO (TTE) COMPLETE (11/10/2023 8:30 AM EDT) AV mn grad 2.0 mmHg SYNGO AV pk jose 1.01 m/s SYNGO LV Biplane EF 55 % SYNGO LVOT diam 2.30 cm SYNGO MV E/A ratio 0.80 SYNGO MV avg E/e' ratio 9.80 SYNGO LV EF 50 % SYNGO LVIDd 4.03 cm SYNGO RVSP 18.4 mmHg SYNGO Aortic Valve Area by Continuity of Peak Velocity 3.06 cm2 SYNGO AV pk grad 4.1 mmHg SYNGO Aortic Valve Area by Continuity of VTI 3.45 cm2 SYNGO LV A4C EF 53.7 SYNGO 11/10/2023 7:54 AM EDT Narrative SYNGO - 11/12/2023 9:48 AM EDT [address], [address] [place] [address] TRANSTHORACIC ECHOCARDIOGRAM REPORT Patient Name: CHAU Deisy RAE Reading Physician: [id number] Yaakov Jha MD, [facility] Study Date: 11/10/2023 Ordering Provider: [id number] YAW PERDUE MRN/PID: [id number] Fellow: Nurse: Date of /Age: 1 1945 / 78 years System Support Developer: FORREST Gender: M Additional Staff: Height: 187.96 cm Admit Date: Weight: 95.71 kg Admission Status: BSA / BMI: 2.22 m2 / 27.09 kg/m2 Department Location: 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 Agitated saline used as a contrast agent for intraseptal flow evaluation. PHYSICIAN INTERPRETATION: Left Ventricle: Left ventricular ejection fraction is mildly decreased, by visual estimate at 50%. There are multiple wall motion abnormalities. The left ventricular cavity size is normal. Spectral Doppler shows an impaired relaxation pattern of left ventricular diastolic filling. Moderate concentric left ventricle hypertrophy, severe posterobasal and basal septal hypokinesis, mild distal septal hypokinesis. Left Atrium: The left atrium is normal in size. No evidence of PFO by color-flow Doppler or bubble study. Right Ventricle: The right ventricle is normal in size. There is normal right ventricular global systolic function. Right Atrium: The right atrium is normal in size. Aortic Valve: The aortic valve is trileaflet. The aortic valve dimensionless index is 0.83. There is no evidence of aortic valve regurgitation. The peak instantaneous gradient of the aortic valve is 4.1 mmHg. The mean gradient of the aortic valve is 2.0 mmHg. Mitral Valve: The mitral valve is mildly thickened. There is no evidence of mitral valve regurgitation. Tricuspid Valve: The tricuspid valve is structurally normal. There is trace tricuspid regurgitation. Pulmonic Valve: The pulmonic valve is structurally normal. There is no indication of pulmonic valve regurgitation. Pericardium: No pericardial effusion noted. Aorta: The aortic root is normal. Systemic Veins: The inferior vena cava appears normal in size. In comparison to the previous echocardiogram(s): When compared to his study from 2021, no significant interval changes were seen. CONCLUSIONS: 1. Left ventricular ejection fraction is mildly decreased, by visual estimate at 50%. 2. There are multiple wall motion abnormalities. 3. Spectral Doppler shows an impaired relaxation pattern of left ventricular diastolic filling. 4. Moderate concentric left ventricle hypertrophy, severe posterobasal and basal septal hypokinesis, mild distal septal hypokinesis. 5. There is normal right ventricular global systolic function. 6. No evidence of PFO by color-flow Doppler or bubble study. 7. When compared to his study from 2021, no significant interval changes were seen. QUANTITATIVE DATA SUMMARY: 2D MEASUREMENTS: Normal Ranges: Ao Root d: 2.90 cm (2.0-3.7cm) LAs: 3.80 cm (2.7-4.0cm) RVIDd: 3.41 cm (0.9-3.6cm) IVSd: 1.73 cm (0.6-1.1cm) LVPWd: 1.43 cm (0.6-1.1cm) LVIDd: 4.03 cm (3.9-5.9cm) LVIDs: 3.23 cm LV Mass Index: 114.9 g/m2 LV % FS 19.9 % LV SYSTOLIC FUNCTION BY 2D PLANIMETRY (MOD): Normal Ranges: EF-A4C View: 54 % (>=55%) EF-A2C View: 58 % EF-Biplane: 55 % EF-Visual: 50 % LV EF Reported: 50 % LV DIASTOLIC FUNCTION: Normal Ranges: MV Peak E: 0.67 m/s (0.7-1.2 m/s) MV Peak A: 0.83 m/s (0.42-0.7 m/s) E/A Ratio: 0.80 (1.0-2.2) MV e' 0.063 m/s (>8.0) MV lateral e' 0.07 m/s MV medial e' 0.06 m/s E/e' Ratio: 10.68 (<8.0) MITRAL VALVE: Normal Ranges: MV Vmax: 0.89 m/s (<=1.3m/s) MV peak P.2 mmHg (<5mmHg) MV mean P.0 mmHg (<48mmHg) MITRAL INSUFFICIENCY: Normal Ranges: MR Vmax: 299.00 cm/s AORTIC VALVE: Normal Ranges: AoV Vmax: 1.01 m/s (<=1.7m/s) AoV Peak P.1 mmHg (<20mmHg) AoV Mean P.0 mmHg (1.7-11.5mmHg) LVOT Max Jose: 0.74 m/s (<=1.1m/s) AoV VTI: 17.60 cm (18-25cm) LVOT VTI: 14.60 cm LVOT Diameter: 2.30 cm (1.8-2.4cm) AoV Area, VTI: 3.45 cm2 (2.5-5.5cm2) AoV Area,Vmax: 3.06 cm2 (2.5-4.5cm2) AoV Dimensionless Index: 0.83 TRICUSPID VALVE/RVSP: Normal Ranges: Peak TR Velocity: 1.96 m/s RV Syst Pressure: 18 mmHg (< 30mmHg) PULMONIC VALVE: Normal Ranges: PV Max Jose: 0.7 m/s (0.6-0.9m/s) PV Max P.9 mmHg [id number] Yaakov Jha MD, [facility] Electronically signed on 11/12/2023 at 9:48:08 AM Final Procedure Note Yaakov Jha MD - 11/12/[address], [address] [address] TRANSTHORACIC ECHOCARDIOGRAM REPORT Patient Name: CHAU Olivas QAMAR Reading Physician: [id number] Jha MD,[facility] Study Date: 11/10/2023 Ordering Provider: [id number] PERDUE MRN/PID: [id number] Fellow: Nurse: Date of /Age: 1 1945 / 78 years System Support Developer: FORREST Gender: M Additional Staff: Height: 187.96 cm Admit Date: Weight: 95.71 kg Admission Status: BSA / BMI: 2.22 m2 / 27.09 kg/m2 Department Location: [facility] Blood Pressure: 124 /66 mmHg Study Type: TRANSTHORACIC ECHO (TTE) COMPLETE Diagnosis/ICD: Heart failure, unspecified-I50.9; Chronic combinedsystolic (congestive) and diastolic (congestive) heart failure (CHF)-I50.42 Indication: Paroxysmal Atrial Fibrillation, CAD, CABG, Diabetes,Splenic Infarct, TIA, AAA, Splenic Artery Aneurysm, Fatigue CPT Codes: Echo Complete w Full Doppler-[id number] Study Detail: The following Echo studies were performed: 2D, M-Mode,Doppler and color flow. Agitated saline used as a contrast agent for intraseptal flow evaluation. PHYSICIAN INTERPRETATION: Left Ventricle: Left ventricular ejection fraction is mildly decreased, byvisual estimate at 50%. There are multiple wall motion abnormalities. Theleft ventricular cavity size is normal. Spectral Doppler shows an impairedrelaxation pattern of left ventricular diastolic filling. Moderateconcentric left ventricle hypertrophy, severe posterobasal and basalseptal hypokinesis, mild distal septal hypokinesis. Left Atrium: The left atrium is normal in size. No evidence of PFO bycolor-flow Doppler or bubble study. Right Ventricle: The right ventricle is normal in size. There is normalright ventricular global systolic function. Right Atrium: The right atrium is normal in size. Aortic Valve: The aortic valve is trileaflet. The aortic valvedimensionless index is 0.83. There is no evidence of aortic valveregurgitation. The peak instantaneous gradient of the aortic valve is 4.1mmHg. The mean gradient of the aortic valve is 2.0 mmHg. Mitral Valve: The mitral valve is mildly thickened. There is no evidenceof mitral valve regurgitation. Tricuspid Valve: The tricuspid valve is structurally normal. There istrace tricuspid regurgitation. Pulmonic Valve: The pulmonic valve is structurally normal. There is noindication of pulmonic valve regurgitation. Pericardium: No pericardial effusion noted. Aorta: The aortic root is normal. Systemic Veins: The inferior vena cava appears normal in size. In comparison to the previous echocardiogram(s): When compared to hisstudy from 2021, no significant interval changes were seen. CONCLUSIONS: 1. Left ventricular ejection fraction is mildly decreased, by visualestimate at 50%. 2. There are multiple wall motion abnormalities. 3. Spectral Doppler shows an impaired relaxation pattern of leftventricular diastolic filling. 4. Moderate concentric left ventricle hypertrophy, severe posterobasaland basal septal hypokinesis, mild distal septal hypokinesis. 5. There is normal right ventricular global systolic function. 6. No evidence of PFO by color-flow Doppler or bubble study. 7. When compared to his study from 2021, no significant interval changeswere seen. QUANTITATIVE DATA SUMMARY: 2D MEASUREMENTS: Normal Ranges: Ao Root d: 2.90 cm (2.0-3.7cm) LAs: 3.80 cm (2.7-4.0cm) RVIDd: 3.41 cm (0.9-3.6cm) IVSd: 1.73 cm (0.6-1.1cm) LVPWd: 1.43 cm (0.6-1.1cm) LVIDd: 4.03 cm (3.9-5.9cm) LVIDs: 3.23 cm LV Mass Index: 114.9 g/m2 LV % FS 19.9 % LV SYSTOLIC FUNCTION BY 2D PLANIMETRY (MOD): Normal Ranges: EF-A4C View: 54 % (>=55%) EF-A2C View: 58 % EF-Biplane: 55 % EF-Visual: 50 % LV EF Reported: 50 % LV DIASTOLIC FUNCTION: Normal Ranges: MV Peak E: 0.67 m/s (0.7-1.2 m/s) MV Peak A: 0.83 m/s (0.42-0.7 m/s) E/A Ratio: 0.80 (1.0-2.2) MV e' 0.063 m/s (>8.0) MV lateral e' 0.07 m/s MV medial e' 0.06 m/s E/e' Ratio: 10.68 (<8.0) MITRAL VALVE: Normal Ranges: MV Vmax: 0.89 m/s (<=1.3m/s) MV peak P.2 mmHg (<5mmHg) MV mean P.0 mmHg (<48mmHg) MITRAL INSUFFICIENCY: Normal Ranges: MR Vmax: 299.00 cm/s AORTIC VALVE: Normal Ranges: AoV Vmax: 1.01 m/s (<=1.7m/s) AoV Peak P.1 mmHg (<20mmHg) AoV Mean P.0 mmHg (1.7-11.5mmHg) LVOT Max Jose: 0.74 m/s (<=1.1m/s) AoV VTI: 17.60 cm (18-25cm) LVOT VTI: 14.60 cm LVOT Diameter: 2.30 cm (1.8-2.4cm) AoV Area, VTI: 3.45 cm2 (2.5-5.5cm2) AoV Area,Vmax: 3.06 cm2 (2.5-4.5cm2) AoV Dimensionless Index: 0.83 TRICUSPID VALVE/RVSP: Normal Ranges: Peak TR Velocity: 1.96 m/s RV Syst Pressure: 18 mmHg (< 30mmHg) PULMONIC VALVE: Normal Ranges: PV Max Jose: 0.7 m/s (0.6-0.9m/s) PV Max P.9 mmHg [id number] Yaakov Jha MD, [facility] Electronically signed on 11/12/2023 at 9:48:08 AM Final Yaw Perdue DO CV ECHO PROCEDURES Final Re sult Performing Organization Address City/[facility]/ZIP Co de Phone Number SYNGO * Creatinine (02/13/2019 1:45 PM EST) Creatinine 1.07 0.50 - 1.30 mg/dL [facility] GLOMERULAR FILTRATION RATE-NON >60 >60 mL/min/1.7 3m2 [facility] GLOMERULAR FILTRATION RATE- >60 >60 mL/min/1.7 2 [facility] Comment: CALCULATIONS OF ESTIMATED GFR ARE PERFORMED USING THE MDRD STUDY EQUATION FOR THE IDMS-TRACEABLE CREATININE METHODS. CLIN CHEM 2007;[id number] 02/13/2019 1:45 PM EST 02/13/2019 5:39 PM EST Niki Sidhu INSURANCE CLAIMS REPRESENTATIVE-DAIRY HUSBANDRY WORKER LAB BLOOD ORDERABLES Samantha l Result Performing Organization Address [facility] de Phone Number [facility] * Electrolyte Panel (02/13/2019 1:45 PM EST) Sodium 141 136 - 145 mmol/L [facility] Potassium 4.1 3.5 - 5.3 mmol/L [facility] Chloride 103 98 - 107 mmol/L [facility] Bicarbonate 27 21 - 32 mmol/L [facility] Anion Gap 15 10 - 20 mmol/L [facility] 02/13/2019 1:45 PM EST 02/13/2019 5:39 PM EST Niki Sidhu INSURANCE CLAIMS REPRESENTATIVE-DAIRY HUSBANDRY WORKER LAB BLOOD ORDERABLES Samantha l Result Performing Organization Address City/[facility]/ZIP Co de Phone Number [facility] from Last 3 Months or Most Recently Relevant to Health Maintenance Insurance MEDICARE PART A AND B [employer] Care Teams Agricultural Equipment Operator Relationship Specialty Start Date End Date Trey Berkowitz DO [address] [place] [address] PCP - General Family Medicine 10/28/23
--- OUTSIDE RECORDS SUMMARY | 2024-10-31 09:24 | XMS_ITS | Encounter Summary ---
Author Organization [facility] Address [facility] [place] [address] Care Team Providers Care Marketing Communications Manager Name Role Phone Trey Berkowitz Primary Care Provider [phone] Source Comments In the event this information is protected by the Federal Confidentiality of Alcohol and Drug AbusePatient Records regulations: The Federal rules restrict any use of the information to criminally investigate or prosecute any alcohol or drug abuse patient.[facility] Encounter Details Date Type Department Care Team (Late st Contact Info) Description 02/20/2014 Get Medical Advice Urology [address] [facility] [address] [place] [address] Solo Alvarado III [address] [facility] [address] [place] [address] RE: Test Result Question Social History [facility] [address] [place] [address] 8 week follow up with lab and B 12 inj 11/03/2024 2:30 PM EDT Visit (SP) Office Hematology/Oncology [address] [place] [address] Dolores Jacobson APRN.SOCIAL SCIENCES LECTURER [address] [place] [address] 8 week follow up with lab and B 12 inj 11/03/2024 3:00 PM EDT Nurse Visit Hematology/Oncology [address] [facility] [place] [address] Beryl Parsons Nurse Hector [address] [facility] [place] [address] 8 week follow up with lab B12 01/12/2025 1:20 PM EST Office Visit Gastroenterology [address] [place] [address] Jair Miller Jr., [address] [facility] [address] [place] [address] office moved from 12/29/24 months follow-up/ Pancreatic pseudocyst/cyst,Gene ralized abdominal pain,Gastroparesis,D yspepsia 05/08/2025 1:00 PM EDT Office Visit [facility] Laboratory [address] [facility] [place] [address] lab 05/15/2025 1:00 PM EDT Office Visit Radiation Oncology [address] [facility] [place] [address] Rafael Tyler MD [address] [facility] [place] [address] 1 year follow up documented as of this encounter Visit Diagnoses Not on filedocumented in this encounter Care Teams Marketing Communications Manager Relationship Specialty Start Date End Date Trey Berkowitz [address] [place] [phone] PCP - General 05/14/04 documented as of this encounter
--- OUTSIDE RECORDS SUMMARY | 2024-10-31 09:24 | XMS_ITS | Encounter Summary ---
Author Organization [facility] Address [facility] [place] [address] Care Team Providers Care Make Up Arranger Name Role Phone Trey Berkowitz Primary Care Provider [phone] Source Comments In the event this information is protected by the Federal Confidentiality of Alcohol and Drug AbusePatient Records regulations: The Federal rules restrict any use of the information to criminally investigate or prosecute any alcohol or drug abuse patient.[facility] Encounter Details Date Type Department Care Team (Late st Contact Info) Description 11/09/2022 Lab Requisition [facility] Laboratory [facility] [place] [address] [place] [address] [address] [facility] [address] [place] [id number] Other chronic pancreatitis (HCC) Social History Tobacco [...] place to sleep or slept in a alf (including now)? No 09/04/2022 Area Deprivation Index Answer Date Chon rded National Score (1-100), lower number is lower ri sk 55 08/08/2022 State Score (1-10), lower number is lower risk 3 08/08/2022 Data from: https://www.neighborhoodatlas.medicine.[facility].edu/. Last address used for calculation [address] [facility] 08/08/2022 Sex and [...] Office Visit [facility] Laboratory [address] [place] [address] 8 week follow up with lab and B 12 inj 11/03/2024 2:30 PM EDT Visit (SP) Office Hematology/Oncology [address] [place], [place] [address] [address] Dolores Jacobson APRN.SYSTEM OPERATOR [address] [facility] [place] [address] 8 week follow up with lab and B 12 inj 11/03/2024 3:00 PM EDT Nurse Visit Hematology/Oncology [address] [place] [address] Beryl Parsons Nurse Hector [address] [place] [address] 8 week follow up with lab B12 01/12/2025 1:20 PM EST Office Visit Gastroenterology [address] [place] [address] Jair Miller Jr., DO [address] [place] [phone] office moved from 12/29/25 months follow-up/ Pancreatic pseudocyst/cyst,Gene ralized abdominal pain,Gastroparesis,D yspepsia 05/08/2025 1:00 PM EDT Office Visit [facility] Laboratory [address] [place] [address] lab 05/15/2025 1:00 PM EDT Office Visit Radiation Oncology [address] [place] [address] Rafael Tyler MD [address] [place] [address] 1 year follow up documented as of this encounter Procedures Procedure Name Priority Date/Time Associated Diagnosis Comments MAGNESIUM BLD Routine 11/09/2022 9:00 AM EDT Other chronic pancreatitis (HCC) PHOSPHORUS INORGANIC Routine 11/09/2022 9:00 AM EDT Other chronic pancreatitis (HCC) COMPREHENSIVE METABOLIC PANEL Routine 11/09/2022 9:00 AM EDT Other chronic pancreatitis (HCC) CBC + DIFF Routine 11/09/2022 9:00 AM EDT Other chronic pancreatitis (HCC) documented in this encounter Results * PHOSPHORUS INORGANIC (11/09/2022 9:00 AM EDT) Phosphorus 4.5 2.7 - 4.8 mg/dL 11/09/2022 10:30 PM EDT [facility] Blood BLOOD SPECIMEN / Unknown 11/09/2022 9:00 AM EDT 11/09/2022 3:30 PM EDT us Natali Leonard MD LABORATORY Final Result [facility] [address] [facility] [place] [id number], [place] * MAGNESIUM BLD (11/09/2022 9:00 AM EDT) Pathologist [facility] Magnesium 1.9 1.7 - 2.3 mg/dL 11/09/2022 10:30 PM EDT [facility] Blood BLOOD SPECIMEN / Unknown 11/09/2022 9:00 AM EDT 11/09/2022 3:30 PM EDT us Natali Leonard MD LABORATORY Final Result Performing Organization Address [facility]/ZIP Co de Phone Number [facility] [address] [address], [place] * (ABNORMAL) CBC + DIFF (11/09/2022 9:00 AM EDT) Pathologist [facility] WBC 9.04 3.70 - 11.00 k/uL 11/09/2022 5:11 PM EDT [facility] RBC 3.92(L) 4.20 - 6.00 m/uL 11/09/2022 5:11 PM EDT [facility] Hemoglobin 10.5(L) 13.0 - 17.0 g/dL 11/09/2022 5:11 PM EDT [facility] Hematocrit 33.5(L) 39.0 - 51.0 % 11/09/2022 5:11 PM EDT [facility] MCV 85.5 80.0 - 100.0 fL 11/09/2022 5:11 PM EDT [facility] MCH 26.8 26.0 - 34.0 pg 11/09/2022 5:11 PM EDT [facility] MCHC 31.3 30.5 - 36.0 g/dL 11/09/2022 5:11 PM EDT [facility] RDW-CV 18.7(H) 11.5 - 15.0 % 11/09/2022 5:11 PM EDT [facility] Platelet Count 294 150 - 400 k/uL 11/09/2022 5:11 PM EDT [facility] MPV 11.5 9.0 - 12.7 fL 11/09/2022 5:11 PM EDT [facility] Neutrophils % 57.8 % 11/09/2022 5:11 PM EDT [facility] Abs Neut 5.23 1.45 - 7.50 k/uL 11/09/2022 5:11 PM EDT [facility] Lymphocytes % 25.9 % 11/09/2022 5:11 PM EDT [facility] Abs Lymph 2.34 1.00 - 4.00 k/uL 11/09/2022 5:11 PM EDT [facility] Monocytes % 11.5 % 11/09/2022 5:11 PM EDT [facility] Abs [place] 1.04(H) <0.87 k/uL 11/09/2022 5:11 PM EDT [facility] Eosinophils % 3.1 % 11/09/2022 5:11 PM EDT [facility] Abs Eosin 0.28 <0.46 k/uL 11/09/2022 5:11 PM EDT [facility] Basophils % 0.9 % 11/09/2022 5:11 PM EDT [facility] Abs Baso 0.08 <0.11 k/uL 11/09/2022 5:11 PM EDT [facility] Immature Granulocytes % 0.8 % 11/09/2022 5:11 PM EDT [facility] Abs Immature Gran 0.07 <0.10 k/uL 023 5:11 PM EDT [facility] NRBC 0.0 /100 WBC 11/09/2022 5:11 PM EDT [facility] Absolute nRBC <0.01 <0.01 k/uL 11/09/2022 5:11 PM EDT [facility] Diff Type Auto 11/09/2022 5:11 PM EDT [facility] Blood BLOOD SPECIMEN / Unknown 11/09/2022 9:00 AM EDT 11/09/2022 3:30 PM EDT us Natali Leonard MD LABORATORY Final Result [facility] [address] [facility] [address] [place] [address], [place] * (ABNORMAL) COMP METABOLIC PANEL (11/09/2022 9:00 AM EDT) Pathologist [facility] Protein, Total 5.9(L) 6.3 - 8.0 g/dL 11/09/2022 10:30 PM EDT [facility] Albumin 3.4(L) 3.9 - 4.9 g/dL 11/09/2022 10:30 PM EDT [facility] Calcium, Total 8.7 8.5 - 10.2 mg/dL 11/09/2022 10:30 PM EDT [facility] Bilirubin, Total <0.2(L) 0.2 - 1.3 mg/dL 11/09/2022 10:30 PM EDT [facility] Alkaline Phosphatase 66 38 - 113 U/L 11/09/2022 10:30 PM EDT [facility] AST 16 14 - 40 U/L 11/09/2022 10:30 PM EDT [facility] ALT 16 10 - 54 U/L 11/09/2022 10:30 PM EDT [facility] Glucose 152(H) 74 - 99 mg/dL 11/09/2022 10:30 PM EDT [facility] Comment: The [place] Diabetes Association (ADA) provides guidance for cutoff [...] Standards of Medical Care in Diabetes 2016, [place] Diabetes Association. Diabetes Care. 2016.39(Suppl 1). BUN 29(H) 9 - 24 mg/dL 11/09/2022 10:30 PM EDT [facility] Creatinine 0.85 0.73 - 1.22 mg/dL 11/09/2022 10:30 PM EDT [facility] Sodium 142 136 - 144 mmol/L 11/09/2022 10:30 PM EDT [facility] Potassium 4.1 3.7 - 5.1 mmol/L 11/09/2022 10:30 PM EDT [facility] Chloride 104 97 - 105 mmol/L 11/09/2022 10:30 PM EDT [facility] CO2 26 22 - 30 mmol/L 11/09/2022 10:30 PM EDT [facility] Anion Gap 12 9 - 18 mmol/L 11/09/2022 10:30 PM EDT [facility] Estimated Glomerular Filtration Rate 89 >=60 mL/min/1. 73m 11/09/2022 10:30 PM EDT [facility] Comment:Estimated Glomerular Filtration Rate (eGFR) is [...] actual GFR. Blood BLOOD SPECIMEN / Unknown 11/09/2022 9:00 AM EDT 11/09/2022 3:30 PM EDT us Natali Leonard MD LABORATORY Final Result [facility] [address] [address], documented in this encounter Visit Diagnoses Diagnosis Other chronic pancreatitis (HCC) documented in this encounter Care Teams Make Up Arranger Relationship Specialty Start Date End Date Trey Berkowitz [address] [place] [phone] PCP - General 05/14/04 documented as of this encounter
--- OUTSIDE RECORDS SUMMARY | 2024-10-31 09:24 | XMS_ITS | Encounter Summary ---
Author Organization [facility] Address [address] [place] [address] Care Team Providers Care Vehicle Operator Technician Name Role Phone Trey Berkowitz Primary Care Provider [phone] Source Comments In the event this information is protected by the Federal Confidentiality of Alcohol and Drug AbusePatient Records regulations: The Federal rules restrict any use of the information to criminally investigate or prosecute any alcohol or drug abuse patient.[facility] Encounter Details Date Type Department Care Team (Latest Contact Info) Description 10/28/2022 Patient Msg Pharmacy Home Infusion [address] [facility] [place] [id number] Noris Mares PSS Questionnaire Submission Social History [...] risk 3 08/08/2022 Data from: https://www.neighborhoodatlas.medicine.[facility].edu/. Last address used for calculation [address] [place] [address] 08/08/2022 Sex and Gender Information Value Date [...] Description 11/03/2024 2:15 PM EDT Office Visit [facility] Laboratory [address] [facility] [address] 8 week follow up with lab and B 12 inj 11/03/2024 2:30 PM EDT Visit (SP) Office Hematology/Oncology [address] [facility] [address] Dolores Jacobson APRN.JEWEL HOLE CORNERER [address] [facility] [place] [address] 8 week follow up with lab and B 12 inj 11/03/2024 3:00 PM EDT Nurse Visit Hematology/Oncology [address] [place] [address] Beryl Odom Nurse Hector [address] [facility] [address] 8 week follow up with lab B12 01/12/2025 1:20 PM EST Office Visit Gastroenterology [address] [place] [address] Jair Miller Jr., DO [address] [facility] [address] [place] [address] office moved from 12/29/24 months follow-up/ Pancreatic pseudocyst/cyst,Gene ralized abdominal pain,Gastroparesis,D yspepsia 05/08/2025 1:00 PM EDT Office Visit [facility] Laboratory [address] [facility] [place] [address] lab 05/15/2025 1:00 PM EDT Office Visit Radiation Oncology [address] [facility] [place] [address] Rafael Tyler MD [address] [facility] [address] 1 year follow up documented as of this encounter Visit Diagnoses Not on filedocumented in this encounter Care Teams Vehicle Operator Technician Relationship Specialty Start Date End Date Trey Berkowitz [address] [place] [phone] PCP - General 05/14/04 documented as of this encounter
--- OUTSIDE RECORDS SUMMARY | 2024-10-31 09:24 | XMS_ITS | Encounter Summary ---
Author Organization [facility] Address [facility] [place] [address] Care Team Providers Care Spring Machine Operator Name Role Phone Trey Berkowitz Primary Care Provider [phone] Source Comments In the event this information is protected by the Federal Confidentiality of Alcohol and Drug AbusePatient Records regulations: The Federal rules restrict any use of the information to criminally investigate or prosecute any alcohol or drug abuse patient.[facility] Encounter Details Date Type Department Care Team (Late st Contact Info) Description 03/05/2014 Get Medical Advice Urology [address] [facility] [address] [place] [address] Solo Alvarado III [address] [facility] [address] [place] [address] RE: Test Result Question Social History Tobacco [...] Description 11/03/2024 2:15 PM EDT Office Visit [facility] Laboratory [address] [place] [address] 8 week follow up with lab and B 12 inj 11/03/2024 2:30 PM EDT Visit (SP) Office Hematology/Oncology [address] [place] [address] Dolores Jacobson APRN.INFORMAL WAITER/WAITRESS [address] [place] [address] 8 week follow up with lab and B 12 inj 11/03/2024 3:00 PM EDT Nurse Visit Hematology/Oncology [address] [facility] [place] [address] Beryl Parsons Nurse Hector [address] [facility] [place] [address] 8 week follow up with lab B12 01/12/2025 1:20 PM EST Office Visit Gastroenterology [address] [place] [address] Jair Miller Jr., [address] [facility] [address] [place] [address] office moved from 12/29/24 months follow-up/ Pancreatic pseudocyst/cyst,Gene ralized abdominal pain,Gastroparesis,D yspepsia 05/08/2025 1:00 PM EDT Office Visit [facility] Laboratory [address] [facility] [place] [address] lab 05/15/2025 1:00 PM EDT Office Visit Radiation Oncology [address] [facility] [place] [address] Rafael Tyler MD [address] [facility] [place] [address] 1 year follow up documented as of this encounter Visit Diagnoses Not on filedocumented in this encounter Care Teams Spring Machine Operator Relationship Specialty Start Date End Date Trey Berkowitz [address] [place] [phone] PCP - General 05/14/04 documented as of this encounter
--- OUTSIDE RECORDS SUMMARY | 2024-10-31 09:24 | XMS_ITS | Encounter Summary ---
Author Organization [facility] Address [facility] [place] [address] Care Team Providers Care Teenage Program Director Name Role Phone Trey Berkowitz Primary Care Provider [phone] Source Comments In the event this information is protected by the Federal Confidentiality of Alcohol and Drug AbusePatient Records regulations: The Federal rules restrict any use of the information to criminally investigate or prosecute any alcohol or drug abuse patient.[facility] Encounter Details Date Type Department Care Team (Late st Contact Info) Description 04/03/2014 Get Medical Advice Urology [address] [facility] [address] [place] [address] Solo Alvarado III [address] [facility] [address] [place] [address] RE: Test Result Question Social History Tobacco [...] of Assessment Author No 02/07/2014 10:07 AM Apla Scruggs RN documented as of this encounter [...] Visit [facility] Laboratory [address] [place] [address] 8 week follow up with lab and B 12 inj 11/03/2024 2:30 PM EDT Visit (SP) Office Hematology/Oncology [address] [place] [address] Dolores Jacobson APRN.MASTER FIRE CONTROL TECHNICIAN [address] [place] [address] 8 week follow up with lab and B 12 inj 11/03/2024 3:00 PM EDT Nurse Visit Hematology/Oncology [address] [place] [address] Beryl Parsons Nurse Hector [address] [place] [address] 8 week follow up with lab B12 01/12/2025 1:20 PM EST Office Visit Gastroenterology [address] [place] [address] Jair Miller Jr., [address] [facility] [address] [place] [address] office moved from 12/29/24 months follow-up/ Pancreatic pseudocyst/cyst,Gene ralized abdominal pain,Gastroparesis,D yspepsia 05/08/2025 1:00 PM EDT Office Visit [facility] Laboratory [address] [facility] [place] [address] lab 05/15/2025 1:00 PM EDT Office Visit Radiation Oncology [address] [place] [address] Rafael Tyler MD [address] [place] [address] 1 year follow up documented as of this encounter Visit Diagnoses Not on filedocumented in this encounter Care Teams Teenage Program Director Relationship Specialty Start Date End Date Trey Berkowitz [address] [place] [phone] PCP - General 05/14/04 documented as of this encounter
--- OUTSIDE RECORDS SUMMARY | 2024-10-31 09:24 | XMS_ITS | Encounter Summary ---
Author Organization [facility] Address [facility] [place] [address] Care Team Providers Care Plater Production Name Role Phone Trey Berkowitz Primary Care Provider [phone] Source Comments In the event this information is protected by the Federal Confidentiality of Alcohol and Drug AbusePatient Records regulations: The Federal rules restrict any use of the information to criminally investigate or prosecute any alcohol or drug abuse patient.[facility] Encounter Details Date Type Department Care Team (Late st Contact Info) Description 10/20/2022 Lab Requisition [facility] [place] [address] [place] [address] [address] [facility] [address] [place] [id number] Other chronic pancreatitis (HCC) Social History Tobacco [...] risk 3 08/08/2022 Data from: https://www.neighborhoodatlas.medicine.[facility].edu/. Last address used for calculation [address] [facility] 08/08/2022 Sex and Gender Information Value [...] Description 11/03/2024 2:15 PM EDT Office Visit [facility] [address] [place] [address] 8 week follow up with lab and B 12 inj 11/03/2024 2:30 PM EDT Visit (SP) Office Hematology/Oncology [address] [place], [place] [address] [address] Dolores Jacobson APRN.EMR ANALYST [address] [facility] [place] [address] 8 week follow up with lab and B 12 inj 11/03/2024 3:00 PM EDT Nurse Visit Hematology/Oncology [address] [place] [address] Beryl Parsons Nurse Hector [address] [facility] [place] [address] 8 week follow up with lab B12 01/12/2025 1:20 PM EST Office Visit Gastroenterology [address] [place] [address] Jair Miller Jr., DO [address] [place] [phone] office moved from 12/29/24 months follow-up/ Pancreatic pseudocyst/cyst,Gene ralized abdominal pain,Gastroparesis,D yspepsia 05/08/2025 1:00 PM EDT Office Visit [facility] [address] [facility] [place] [address] lab 05/15/2025 1:00 PM EDT Office Visit Radiation Oncology [address] [facility] [place] [address] Rafael Tyler MD [address] [facility] [place] [address] 1 year follow up documented as of this encounter Procedures Procedure Name Priority Date/Time Associated Diagnosis Comments MAGNESIUM BLD Routine 10/19/2022 3:20 PM EDT Other chronic pancreatitis (HCC) PHOSPHORUS INORGANIC Routine 10/19/2022 3:20 PM EDT Other chronic pancreatitis (HCC) COMPREHENSIVE METABOLIC PANEL Routine 10/19/2022 3:20 PM EDT Other chronic pancreatitis (HCC) CBC + DIFF Routine 10/19/2022 3:20 PM EDT Other chronic pancreatitis (HCC) documented in this encounter Results * PHOSPHORUS INORGANIC (10/19/2022 3:20 PM EDT) Phosphorus 4.4 2.7 - 4.8 mg/dL 10/20/2022 2:20 PM EDT [facility] Blood BLOOD SPECIMEN / Unknown 10/19/2022 3:20 PM EDT 10/20/2022 4:25 AM EDT us Natali Leonard MD LABORATORY Final Result [facility] [address] [facility] [place] [id number], [place] * MAGNESIUM BLD (10/19/2022 3:20 PM EDT) Pathologist [facility] Magnesium 1.9 1.7 - 2.3 mg/dL 10/20/2022 2:19 PM EDT [facility] Blood BLOOD SPECIMEN / Unknown 10/19/2022 3:20 PM EDT 10/20/2022 4:25 AM EDT us Natali Leonard MD LABORATORY Final Result Performing Organization Address [facility]/ZIP Co de Phone Number [facility] [address] [place] [id number], [place] * (ABNORMAL) CBC + DIFF (10/19/2022 3:20 PM EDT) Pathologist [facility] WBC 9.42 3.70 - 11.00 k/uL 10/20/2022 5:43 AM EDT [facility] RBC 4.17(L) 4.20 - 6.00 m/uL 10/20/2022 5:43 AM EDT [facility] Hemoglobin 10.8(L) 13.0 - 17.0 g/dL 10/20/2022 5:43 AM EDT [facility] Hematocrit 35.9(L) 39.0 - 51.0 % 10/20/2022 5:43 AM EDT [facility] MCV 86.1 80.0 - 100.0 fL 10/20/2022 5:43 AM EDT [facility] MCH 25.9(L) 26.0 - 34.0 pg 10/20/2022 5:43 AM EDT [facility] MCHC 30.1(L) 30.5 - 36.0 g/dL 10/20/2022 5:43 AM EDT [facility] RDW-CV 18.4(H) 11.5 - 15.0 % 10/20/2022 5:43 AM EDT [facility] Platelet Count 508(H) 150 - 400 k/uL 10/20/2022 5:43 AM EDT [facility] MPV 11.5 9.0 - 12.7 fL 10/20/2022 5:43 AM EDT [facility] Neutrophils % 77.9 % 10/20/2022 5:43 AM EDT [facility] Abs Neut 7.33 1.45 - 7.50 k/uL 10/20/2022 5:43 AM EDT [facility] Lymphocytes % 15.8 % 10/20/2022 5:43 AM EDT [facility] Abs Lymph 1.49 1.00 - 4.00 k/uL 10/20/2022 5:43 AM EDT [facility] Monocytes % 4.9 % 10/20/2022 5:43 AM EDT [facility] Abs Maury 0.46 <0.87 k/uL 10/20/2022 5:43 AM EDT [facility] Eosinophils % 0.4 % 10/20/2022 5:43 AM EDT [facility] Abs Eosin 0.04 <0.46 k/uL 10/20/2022 5:43 AM EDT [facility] Basophils % 0.6 % 10/20/2022 5:43 AM EDT [facility] Abs Baso 0.06 <0.11 k/uL 10/20/2022 5:43 AM EDT [facility] Immature Granulocytes % 0.4 % 10/20/2022 5:43 AM EDT [facility] Abs Immature Gran 0.04 <0.10 k/uL 023 5:43 AM EDT [facility] NRBC 0.0 /100 WBC 10/20/2022 5:43 AM EDT [facility] Absolute nRBC <0.01 <0.01 k/uL 10/20/2022 5:43 AM EDT [facility] Diff Type Auto 10/20/2022 5:43 AM EDT [facility] Blood BLOOD SPECIMEN / Unknown 10/19/2022 3:20 PM EDT 10/20/2022 4:25 AM EDT Natali Leonard MD LABORATORY Final Result [facility] [address] [facility] [address] [place] [address], [place] * (ABNORMAL) COMP METABOLIC PANEL (10/19/2022 3:20 PM EDT) Pathologist [facility] Protein, Total 7.3 6.3 - 8.0 g/dL 10/20/2022 2:24 PM EDT [facility] Albumin 3.7(L) 3.9 - 4.9 g/dL 10/20/2022 2:24 PM EDT [facility] Calcium, Total 9.4 8.5 - 10.2 mg/dL 10/20/2022 2:24 PM EDT [facility] Bilirubin, Total 0.3 0.2 - 1.3 mg/dL 10/20/2022 2:24 PM EDT [facility] Alkaline Phosphatase 61 38 - 113 U/L 10/20/2022 2:24 PM EDT [facility] AST 33 14 - 40 U/L 10/20/2022 2:24 PM EDT [facility] ALT 19 10 - 54 U/L 10/20/2022 2:24 PM EDT [facility] Glucose 228(H) 74 - 99 mg/dL 10/20/2022 2:24 PM EDT [facility] Comment: The [place] Diabetes Association (ADA) provides guidance for cutoff [...] Standards of Medical Care in Diabetes 2016, [place] Diabetes Association. Diabetes Care. 2016.39(Suppl 1). BUN 34(H) 9 - 24 mg/dL 10/20/2022 2:24 PM EDT [facility] Creatinine 0.98 0.73 - 1.22 mg/dL 10/20/2022 2:24 PM EDT [facility] Sodium 136 136 - 144 mmol/L 10/20/2022 2:24 PM EDT [facility] Potassium 5.5(H) 3.7 - 5.1 mmol/L 10/20/2022 2:24 PM EDT [facility] Chloride 99 97 - 105 mmol/L 10/20/2022 2:24 PM EDT [facility] CO2 23 22 - 30 mmol/L 10/20/2022 2:24 PM EDT [facility] Anion Gap 14 9 - 18 mmol/L 10/20/2022 2:24 PM EDT [facility] Estimated Glomerular Filtration Rate 79 >=60 mL/min/1.7 3m 10/20/2022 2:24 PM EDT [facility] Comment:Estimated Glomerular Filtration Rate (eGFR) [...] actual GFR. Blood BLOOD SPECIMEN / Unknown 10/19/2022 3:20 PM EDT 10/20/2022 4:25 AM EDT us Natali Leonard MD LABORATORY Final Result [facility] [address] [facility] [address] [address], documented in this encounter Visit Diagnoses Diagnosis Other chronic pancreatitis (HCC) documented in this encounter Care Teams Plater Production Relationship Specialty Start Date End Date Trey Berkowitz [address] [place] [phone] PCP - General 05/14/04 documented as of this encounter
--- OUTSIDE RECORDS SUMMARY | 2024-10-31 09:24 | XMS_ITS | Encounter Summary ---
Author Organization [facility] Address [address] [place] [address] Phone Care Team Providers Care Print Line Inspector Name Role Phone Trey Berkowitz DO Primary Care Provider [phone] Trey Berkowitz DO Primary Care Provider [phone] Trey Berkowitz DO Primary Care Provider [phone] Encounter Details Date Type Department Care Team (Late st Contact Info) Description 07/09/2020 Orders Only [facility] [address] [place] [address] Conversion, Onbase Social History Tobacco Use Types [...] EST Office Visit [facility] [address] [facility] [address] [place] [phone] Solo Khan DO [address] [facility], [facility] [address] [place], [place] [phone] Scheduled Orders Name Type Priority Associated Diagnoses Orde r Schedule OUTSIDE LAB SCAN Lab Ordered: 07/09/2020 documented as of this encounter Visit Diagnoses Not on filedocumented in this encounter Care Teams Print Line Inspector Relationship Specialty Start Date End Date Trey Berkowitz DO PCP - General 12/22/18 03/23/23 Trey Berkowitz DO PCP - General Family Medicine 03/24/23 10/27/23 Trey Berkowitz DO [address] [place] [address] PCP - General Family Medicine 10/28/23 documented as of this encounter
--- OUTSIDE RECORDS SUMMARY | 2024-10-31 09:24 | XMS_ITS | Encounter Summary ---
Author Organization [facility] Address [facility] [place] [address] Care Team Providers Care Clinical Assistant Professor Name Role Phone Trey Berkowitz Primary Care Provider [phone] Source Comments In the event this information is protected by the Federal Confidentiality of Alcohol and Drug AbusePatient Records regulations: The Federal rules restrict any use of the information to criminally investigate or prosecute any alcohol or drug abuse patient.[facility] Encounter Details Date Type Department Care Team (Late st Contact Info) Description 01/25/2014 Get Medical Advice Urology [address] [facility] [address] [place] [address] Solo Alvarado III [address] [facility] [address] [place] [address] RE: Test Result Question Social History Tobacco [...] EDT Office Visit [facility] [address] [place] [address] 8 week follow up with lab and B 12 inj 11/03/2024 2:30 PM EDT Visit (SP) Office Hematology/Oncology [address] [place] [address] Dolores Jacobson APRN.ARMOURED CAR ESCORT [address] [place] [address] 8 week follow up with lab and B 12 inj 11/03/2024 3:00 PM EDT Nurse Visit Hematology/Oncology [address] [place] [address] Beryl Parsons Nurse Hector [address] [place] [address] 8 week follow up with lab B12 01/12/2025 1:20 PM EST Office Visit Gastroenterology [address] [place] [address] Jair Miller Jr., [address] [facility] [address] [place] [address] office moved from 12/29/24 months follow-up/ Pancreatic pseudocyst/cyst,Gene ralized abdominal pain,Gastroparesis,D yspepsia 05/08/2025 1:00 PM EDT Office Visit [facility] [address] [facility] [place] [address] lab 05/15/2025 1:00 PM EDT Office Visit Radiation Oncology [address] [place] [address] Rafael Tyler MD [address] [place] [address] 1 year follow up documented as of this encounter Visit Diagnoses Not on filedocumented in this encounter Care Teams Clinical Assistant Professor Relationship Specialty Start Date End Date Trey Berkowitz [address] [place] [phone] PCP - General 05/14/04 documented as of this encounter
--- OUTSIDE RECORDS SUMMARY | 2024-10-31 09:24 | XMS_ITS | Encounter Summary ---
Author Organization [facility] Address [facility] [place] [address] Care Team Providers Care Drum Drier Name Role Phone Trey Berkowitz Primary Care Provider [phone] Source Comments In the event this information is protected by the Federal Confidentiality of Alcohol and Drug AbusePatient Records regulations: The Federal rules restrict any use of the information to criminally investigate or prosecute any alcohol or drug abuse patient.[facility] Encounter Details Date Type Department Care Team (Late st Contact Info) Description 01/29/2014 Get Medical Advice Urology [address] [facility] [address] [place] [address] Solo Alvarado III [address] [facility] [address] [place] [address] Test Result Question Social History Tobacco Use [...] Visit [facility] [address] [place] [address] 8 week follow up with lab and B 12 inj 11/03/2024 2:30 PM EDT Visit (SP) Office Hematology/Oncology [address] [place] [address] Dolores Jacobson APRN.STAFF ELECTRICAL ENGINEER [address] [facility] [place] [address] 8 week follow up with lab and B 12 inj 11/03/2024 3:00 PM EDT Nurse Visit Hematology/Oncology [address] [place] [address] Beryl Parsons Nurse Hector [address] [place] [address] 8 week follow up with lab B12 01/12/2025 1:20 PM EST Office Visit Gastroenterology [address] [place] [address] Jair Miller Jr., [address] [facility] [address] [place] [address] office moved from 12/29/24 months follow-up/ Pancreatic pseudocyst/cyst,Gene ralized abdominal pain,Gastroparesis,D yspepsia 05/08/2025 1:00 PM EDT Office Visit [facility] [address] [place] [address] lab 05/15/2025 1:00 PM EDT Office Visit Radiation Oncology [address] [place] [address] Rafael Tyler MD [address] [place] [address] 1 year follow up documented as of this encounter Visit Diagnoses Not on filedocumented in this encounter Care Teams Drum Drier Relationship Specialty Start Date End Date Trey Berkowitz [address] [place] [phone] PCP - General 05/14/04 documented as of this encounter
--- NOTE | 2024-10-31 09:32 | XR_ITS ---
The [address] [address] Patient Name: CHARLIE FOOTE MRN: [id number] date: 1945 Sex: M Assigned Patient Location: LAB Current Patient Location: LAB Accession/Order Number: [id number] Exam Date: 10/31/2024 09:50 Report Date: 10/31/2024 11:54 At the request of: NON-STAFF PHYSICIAN MD Procedure: XR lumbar spine bending only LUMBAR SPINE FLEXION AND EXTENSION VIEWS - 3 views COMPARISON: CT 07/29/2022 CLINICAL DATA: Back pain. Lateral views in neutral, flexion and extension were obtained. There is osteopenia. There is approximately 4 mm of anterolisthesis of L2 on L3. There is also minimal retrolisthesis of L3 on L4. Alignment is unchanged significantly with flexion or extension. No acute compression fractures are seen. There is multilevel disc space narrowing with relative sparing at L3-4. Endplate spurring is noted. There is facet hypertrophy. Atherosclerotic plaque is seen at an ectatic aorta. There are also embolization coils anterior to the upper lumbar spine. XR/XR lumbar spine bending only IMPRESSION: OSTEOPENIA AND DEGENERATIVE CHANGES. Impression dictated by: Promise Kate M.D. 10/31/2024 11:54 AM Dictation Location: [facility] Electronically authenticated by: [id number] Y Date: 10/31/2024 11:54
--- NOTE | 2024-10-31 09:32 | MR_ITS ---
[address] [address] Patient Name: CHARLIE FOOTE MRN: [id number] date: 1945 Sex: M Assigned Patient Location: LAB Current Patient Location: LAB Accession/Order Number: [id number] Exam Date: 10/31/2024 09:45 Report Date: 10/31/2024 15:23 At the request of: NON-STAFF PHYSICIAN Procedure: MR lumbar spine wo/w con MRI OF THE LUMBAR SPINE PERFORMED WITHOUT AND WITH CONTRAST INDICATION: Chronic lumbosacral pain, sciatica pain, severe degeneration, Bilateral leg weakness COMPARISON: X-rays of the lumbar spine 10/31/2024 FINDINGS: Straightening of the normal lumbar lordosis. Mild dextrocurvature. Lumbar vertebral body heights maintained. Moderate severe intervertebral space narrowing L2-3 and L4-S1. Retrolisthesis L5 on S1 4 to 5 mm and grade 1 anterolisthesis L2 on L3 identified measuring 4 mm. Minimal T1/T2 hyperintense endplate marrow changes at L2-3 and appearing mild at T11-T12. Otherwise remaining marrow signal grossly unremarkable for patient's age.. Conus medullaris terminates normally at L1-L2. Paraspinal soft tissues demonstrates a fusiform aortic aneurysm 3.4 cm. Paraspinal soft tissues are otherwise grossly unremarkable. T12-L1: Only visualized on sagittal images. Disc desiccation. Moderate facet arthropathy causing dorsal indentation of the canal and thecal sac. Mild canal neural foraminal narrowing predominantly caused by the posterior element degeneration. L1-L2: Disc desiccation with [id number] facet arthropathy. Mild canal and mild foraminal narrowing predominantly caused by the posterior element degeneration. L2-L3: Intervertebral space narrowing, moderate severe with advanced facet arthropathy. Suspect right-sided laminotomy. Anterolisthesis of 4 mm with uncovering the posterior disc. Broad-based disc bulge. Hypertrophic changes of the ligamentum flavum, most pronounced on the left. Moderate severe facet arthropathy. Moderate to severe left greater than right neural foraminal narrowing with moderate encroachment on both exiting L2 nerve roots.. There is crowding left subarticular zone predominantly caused by the left ligamentum flavum hypertrophy and the underlying disc disease. L3-4: Evidence of right hemilaminectomy.. Broad-based disc disc bulge with moderate to severe facet arthropathy with moderate severe bilateral neural foraminal encroachment this appears to exert mass effect on both exiting L3 nerve roots, right greater than left. There is hypertrophic changes and ligamentum flavum prominent left. Otherwise mild canal narrowing. L4-5: Circumferential disc osteophyte complex formation with endplate spurs extending both foramina zones noted on moderate facet arthropathy. There is moderate to severe right greater than left neural foraminal narrowing with suspected mild mass effect on the exiting right L4 nerve root. There is mild subarticular zone crowding, bilaterally. Evidence of right hemilaminectomy. L5-S1: Circumferential disc bulge with endplate osteophytosis and bilateral facet arthropathy. There is a left central to subarticular zone extrusion extending caudally appearing 2 months and dorsally and laterally displaces the traversing left S1 nerve root. This causes moderate left subarticular recess narrowing. There is severe left and moderate severe right neural foraminal narrowing with impression ON the exiting left L5 nerve root. Following contrast administration, no abnormal postcontrast enhancement identified. MR/MR lumbar spine wo/w con IMPRESSION: Multilevel postsurgical and degenerative changes with encroachment notably involving the left L5 and S1 nerve roots, and both L3 nerve roots. Additional degenerative changes as detailed above. Impression dictated by: Geraldo Zacarias M.D. 10/31/2024 3:23 PM Dictation Location: [place] [address] Electronically authenticated by: [id number] Y Date: 10/31/2024 15:23
[2024-10-31 09:42] LABS: Estimated GFR (African America >60 (>=60 mL/min/1.73m^2); Estimated GFR (Non-African Ame 54 (>=60 mL/min/1.73m^2)
== END 2024-10-31 09:19 | disposition home or self-care (01) ==
LOC: LAB 09:18
PROVIDERS: Pathology Anatomic Pathology & Clinical Pathology; PCP Family Medicine
DX: M54.31 Sciatica, right side (principal); M54.32 Sciatica, left side; R29.818 Other symptoms and signs involving the nervous system; M47.816 Spondylosis without myelopathy or radiculopathy, lumbar region; Z98.890 Other specified postprocedural states; M51.369 Other intervertebral disc degeneration, lumbar region without mention of lumbar back pain or lower extremity pain
CPT/HCPCS: 36415; 72120; 72158; 82565; A9575